=== PATIENT | female | born 1985 | race Caucasian/White ===

== ENCOUNTER → 2016-10-14 | Outpatient (CLI) | payer OTHER ==
[~2016-10-14] MED LIST: ACET500T37 PO; ANEXSIA PO; BIOT1CAP2 PO; CALC250T8 PO; CLEO300C2 PO; IBUP200T PO; IBUP80TA PO; LIPI20TA PO; MOTR200T44 PO; NAPR500T2 PO; NUCY50TA9 PO; PREG25CA PO; VITA500C24 PO; WOMETAB9 PO; birth control PO; flexeril PO
--- NOTE | 2016-11-07 01:49 | ECWPNPC ---
PATIENT NAME: MIKKI HUDSON : 1985 GENDER: FEMALE VISIT DATE: 10/14/2016 DISCHARGE DATE: 10/14/16 0951 VISIT LOCKED DATE TIME: PHYSICIAN: RACHID WEBER RESOURCE: RACHID WEBER REASON FOR APPOINTMENT 1. RIGHT SHOULDER HISTORY OF PRESENT ILLNESS HISTORY OF PRESENT ILLNESS: PAIN THE PATIENT DESCRIBES THE PAIN... FALL RISK SCREENING: SCREENING :NO FALLS IN THE PAST YEAR TODAY'S VISIT: NOTES: FOLLOWUP VISIT FOR RIGHT SHOULDER PAIN. RATES PAIN TODAY 8/10. DESCRIBES PAIN TODAY CONSTANT, ACHING, BURNING, TENDER, THROBBING AND SORE. ON 10/08/16 FOUND THAT THERE ARE SOME ISSUES WITH RECORDS AND 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 THIS INCREASED STRESS INCREASED MUSCLE TIGHTNESS AND THIS HAS INCREASED RIGHT SHOULDER PAIN. CONTINUES TO HAVE LIMITED ROM IN RIGHT SHOULDER.. CURRENT MEDICATIONS TAKING LIPITOR 20 MG TABLET 1 TABLET ORALLY ONCE A DAY TAKING IBUPROFEN 800 MG TABLET 1 TABLET ORALLY THREE TIMES A DAY TAKING NUCYNTA 50 MG TABLET 1 TABLET ORALLY EVERY 6 HRS NEEDED TAKING WOMENS DAILY FORMULA TABLET 1 TAB(S) ORALLY DAILY TAKING CYCLOBENZAPRINE HCL 10 MG TABLET 1 TABLET ORALLY THREE TIMES A DAY NEEDED TAKING JOLESSA 0.15-0.03 MG TABLET 1 TABLET ORALLY ONCE A DAY TAKING PROAIR HFA 108 (90 BASE) MCG/ACT AEROSOL SOLUTION 2 PUFFS NEEDED INHALATION EVERY 4 HRS MEDICATION LIST REVIEWED AND RECONCILED WITH THE PATIENT PAST MEDICAL HISTORY BARBIE ANXIETY, DEPRESSION, BIPOLAR, CLAUSTROPHOBIA MIGRAINE POLYCYSTIC OVARIAN SYNDROME ALLERGIES CEPHALEXIN: HIVES: ALLERGY AZITHROMYCIN: HIVES: ALLERGY AMOXICILLIN: NAUSEA/VOMITING: ALLERGY DOXYCYCLINE (ROSACEA): NAUSEA/VOMITING: ALLERGY TRAMADOL: DIARRHEA/NIGHTMARES: ALLERGY PENICILLIN (FOR ALLERGIES USE ONLY): NAUSEA/VOMITING: ALLERGY SURGICAL HISTORY TONSILECTOMY 2015 TRIAL DCS 06/2015 SOCIAL HISTORY GENERAL: TOBACCO USE ARE YOU A:NONSMOKER LEARNING BARRIERS / SPECIAL NEEDS ORIENTED TO PLAN OF CARE: PATIENT, PAIN MANAGEMENT PATIENT, ORIENTED TO PLAN OF CARE: PATIENT, PAIN MANAGEMENT PATIENT. NEW PATIENT PAIN DIARY TODAY'S VISITNOTES FROM 0-10, WHAT LEVEL IS YOUR PAIN TODAY?0 PAIN CLINIC PFS, CLERGY, PUBLIC HEALTH REFERRALS PFS REFERRAL NEEDED?NO CLERGY REFERRAL NEEDED?NO PUBLIC HEALTH REFERRAL NEEDED?NO WAS THE PROVIDER NOTIFIED OF ANY PERTINENT INFO?NO PFS REFERRAL NEEDED?NO CLERGY REFERRAL NEEDED?NO PUBLIC HEALTH REFERRAL NEEDED?NO WAS THE PROVIDER NOTIFIED OF ANY PERTINENT INFO?NO HOSPITALIZATION/MAJOR DIAGNOSTIC PROCEDURE DCS TRIAL 06/2015 REVIEW OF SYSTEMS CONSTITUTIONAL: ANY CHANGE IN YOUR MEDICAL CONDITION? NO . CHILLS NO . FEVER NO . INFECTION: DO YOU HAVE NEW INFECTIONS? NO . DO YOU HAVE HISTORY OF MRSA? NO . MUSCULOSKELETAL: ANY NEW PATTERNS OF PAIN OR NUMBNESS? NO . GASTROENTEROLOGY: ANY NEW CHANGE IN BOWEL CONTROL? NO . GENITOURINARY: ANY NEW CHANGE IN BLADDER CONTROL? NO . IS THERE A CHANCE YOU COULD BE ? NO . HEMATOLOGY/LYMPH: DO YOU TAKE ANY BLOOD THINNERS? (FOR EXAMPLE- COUMADIN, PLAVIX, AGGRENOX, PLATEL, PRADAXA, OR XARELTO) NO . WHEN WAS YOUR LAST DOSE? DATE: TIME: . NEUROLOGY: HAVE YOU FALLEN IN THE PAST 6 MONTHS? NO . ANY NEW EXTREMITY NUMBNESS OR WEAKNESS? NO . CARDIOLOGY: DO YOU HAVE A PACEMAKER OR DEFIBRILLATOR? NO . RESPIRATORY: HAVE YOU BEEN SICK IN THE PAST WEEK? YES, STATES IS RECOVERING FROM A COLD . FEVER NO . FLU LIKE SYMPTOMS? NO . COUGH NO . INTEGUMENTARY: DO YOU HAVE ANY RASHES OR OPEN SORES? NO . ALLERGIC/IMMUNO: ARE YOU ALLERGIC TO SHELLFISH OR IV DYE? NO . ANY NEW ALLERGIES? NO . PSYCHIATRIC: DO YOU HAVE THOUGHTS OF HURTING YOURSELF OR SOMEONE ELSE? NO . ARE YOU ABUSED, NEGLECTED, OR IN AN UNSAFE ENVIRONMENT? NO . ENDOCRINOLOGY: ARE YOU DIABETIC? NO . OTHER: DO YOU NEED ANY PRESCRIPTIONS? NO . IF YES, PLEASE LIST: ____ . ANY NEW PROBLEMS WITH YOUR MEDICATIONS? NO . WHEN DID YOU LAST EAT? ____ . WHEN DID YOU LAST DRINK? ____ . WHAT DID YOU LAST DRINK? ____ . NAME OF PERSON DRIVING YOU HOME? ____ . DO YOU HAVE ANY OTHER QUESTIONS OR CONCERNS NO . REVIEWED BY: PROVIDER: RACHID DELGADILLO . VITAL SIGNS WT 275 LBS, HT 69 IN, BMI 40.61 INDEX, BP 132/83 MM HG, HR 83 /MIN, RR 16 /MIN, TEMP 98.7 F, OXYGEN SAT % 94, NA INITIALS TL 0845, REVIEWED BY: LS. EXAMINATION GENERAL EXAMINATION: PSYCHALERT , ORIENTED X 3 , APPROPRIATE MOOD AND AFFECT . LUNGS:CLEAR TO AUSCULTATION BILATERALLY. HEART:HEART RATE REGULAR. MUSCULOSKELETAL:EXQUISITE TENDERNESS/ALLODYNIA AT RIGHT SHOULDER. MARKED LOSS OF ROM WITH MOVEMENT AT RIGHT AC JOINT., TRIGGER POINTS:, ELICITED WITH PALPATION OVER ACROSS THE TRAPEZIUS MUSCLES RIGHT SIDE. RESTRICTION OF ROM IS NOTED. IS ABLE TO FLEX FINGERS ACROSS PALM TODAY, ABLE TO FLEX AND EXTEND AT THE RIGHT WRIST AND ABLE TO SLOWLY FLEX AND EXTEND RIGHT ELBOW. STILL WITH MINIMAL ABILITY TO FLEX AND EXTEND AT RIGHT SHOULDER. JOINTS:CAN ABDUCT RIGHT SHOULDER TO 25 DEGREES. IS ABLE TO EXTEND FINGERS ACROSS THE PALM RIGHT SIDE.. ASSESSMENTS RIGHT SHOULDER PAIN - M25.511 TREATMENT OTHERS NOTES: CONTINUE EXERCISES AND STRETCHES. 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 YES ARE THE PATIENT'S COMPLAINTS CONSISTENT WITH HIS/HER HISTORY OF THE INJURY/ILLNESS? YES IS THE PATIENT'S HISTORY OF THE INJURY/ILLNESS CONSISTENT WITH YOUR OBJECTIVE FINDING? YES WHAT IS THE PERCENTAGE OF TEMPORARY IMPAIRMENT? TOTAL = 100% IS THE PATIENT WORKING? NO DOCTOR ON SITE: BISHNU CHARLES MD PROCEDURE CODES FA211 ESTABILISHED PATIENT [facility] CHARGE FOLLOW UP WC NEEDS CHRISTINE APPOINTMENT WITH DR CARDENAS (REASON: WC RIGHT SHOULDER) ELECTRONICALLY SIGNED BY RAUDEL PEPE ON 11/05/2016 AT 08:38 AM EST DISCLAIMER : THIS IS A VISIT SUMMARY EXTRACTED FROM THE [employer] CHART. IT IS NOT A COPY OF THE [employer] PROGRESS NOTE. KAJAL
== END ==
LOC: M PAIN 08:40
PROVIDERS: ATTEND Nurse Practitioner Family
DX: Z09 Encounter for follow-up examination after completed treatment for conditions other than malignant neoplasm (principal); G89.29 Other chronic pain; M25.511 Pain in right shoulder; G43.909 Migraine, unspecified, not intractable, without status migrainosus; F41.9 Anxiety disorder, unspecified; F31.9 Bipolar disorder, unspecified; F40.240 Claustrophobia; G47.33 Obstructive sleep apnea (adult) (pediatric); Z88.1 Allergy status to other antibiotic agents; Z88.0 Allergy status to penicillin; Z88.5 Allergy status to narcotic agent; Z88.8 Allergy status to other drugs, medicaments and biological substances; Z79.1 Long term (current) use of non-steroidal anti-inflammatories (NSAID); Z79.899 Other long term (current) drug therapy

== ENCOUNTER → 2016-10-21 | Outpatient (CLI) | payer OTHER ==
--- NOTE | 2016-10-28 23:51 | ECWPNPC ---
PATIENT NAME: MIKKI HUDSON : 1985 GENDER: FEMALE VISIT DATE: 10/21/2016 DISCHARGE DATE: 10/21/16 1030 VISIT LOCKED DATE TIME: PHYSICIAN: BISHNU CARDENAS RESOURCE: BISHNU CARDENAS REASON FOR APPOINTMENT 1. W/C FOLLOW UP HISTORY OF PRESENT ILLNESS HISTORY OF PRESENT ILLNESS: PAIN THE PATIENT DESCRIBES THE PAIN... 30 YEAR OLD FEMALE PATIENT WITH HISTORY OF CHRONIC RIGHT SHOULDER PAIN. PATIENT DESCRIBES THE PAIN ACHING, TENDER, SORE, AND HAVING IT ALL THE TIME WITH A PAIN SCORE OF 8/10. PATIENT WAS INJURED IN A WORK RELATED ACCIDENT ON 11/24/2013 WORKING FOR [employer], WHEN SHE SLIPPED ON AN ICY AREA OF THE SIDEWALK AND SLAMMED INTO A BRICK WALL INJURING HER RIGHT SHOULDER. PATIENT INDICATES THAT ANY TYPE OF MOVEMENT ON HER RIGHT SHOULDER INCREASES HER PAIN LEVELS. PATIENT INDICATES THAT A HEATING PAD DOES HELP RELIEVE THE KNOTS IN THE MUSCLES IN HER RIGHT SHOULDER AND THAT A COLD COMPRESS DOES NOTHING FOR PAIN RELIEF. PATIENT INDICATES THAT NUCYNTA MAKES HER VERY DROWSY AND WOULD LIKE TO TRY ANOTHER TYPE OF MEDICATION THAT DOES NOT MAKE HER FALL ASLEEP EVERY TIME SHE TAKES IT. PATIENT DENIES UNEXPLAINABLE WEIGHT LOSS, FEVER, CHILLS, NEW CHANGES ON HER URINARY OR BOWEL CONTROL. FALL RISK SCREENING: SCREENING :NO FALLS IN THE PAST YEAR CURRENT MEDICATIONS TAKING LIPITOR 20 MG TABLET 1 TABLET ORALLY ONCE A DAY TAKING IBUPROFEN 800 MG TABLET 1 TABLET ORALLY THREE TIMES A DAY TAKING NUCYNTA 50 MG TABLET 1 TABLET ORALLY EVERY 6 HRS NEEDED TAKING WOMENS DAILY FORMULA TABLET 1 TAB(S) ORALLY DAILY TAKING CYCLOBENZAPRINE HCL 10 MG TABLET 1 TABLET ORALLY THREE TIMES A DAY NEEDED TAKING JOLESSA 0.15-0.03 MG TABLET 1 TABLET ORALLY ONCE A DAY TAKING PROAIR HFA 108 (90 BASE) MCG/ACT AEROSOL SOLUTION 2 PUFFS NEEDED INHALATION EVERY 4 HRS MEDICATION LIST REVIEWED AND RECONCILED WITH THE PATIENT PAST MEDICAL HISTORY BARBIE ANXIETY, DEPRESSION, BIPOLAR, CLAUSTROPHOBIA MIGRAINE POLYCYSTIC OVARIAN SYNDROME ALLERGIES CEPHALEXIN: HIVES: ALLERGY AZITHROMYCIN: HIVES: ALLERGY AMOXICILLIN: NAUSEA/VOMITING: ALLERGY DOXYCYCLINE (ROSACEA): NAUSEA/VOMITING: ALLERGY TRAMADOL: DIARRHEA/NIGHTMARES: ALLERGY PENICILLIN (FOR ALLERGIES USE ONLY): NAUSEA/VOMITING: ALLERGY SURGICAL HISTORY TONSILECTOMY 2015 TRIAL DCS 06/2015 FAMILY HISTORY NO FAMILY HISTORY DOCUMENTED. SOCIAL HISTORY GENERAL: TOBACCO USE ARE YOU A:NONSMOKER LEARNING BARRIERS / SPECIAL NEEDS ORIENTED TO PLAN OF CARE: PATIENT, PAIN MANAGEMENT PATIENT, ORIENTED TO PLAN OF CARE: PATIENT, PAIN MANAGEMENT PATIENT. NEW PATIENT PAIN DIARY TODAY'S VISITNOTES FROM 0-10, WHAT LEVEL IS YOUR PAIN TODAY?0 PAIN CLINIC PFS, CLERGY, PUBLIC HEALTH REFERRALS PFS REFERRAL NEEDED?NO CLERGY REFERRAL NEEDED?NO PUBLIC HEALTH REFERRAL NEEDED?NO WAS THE PROVIDER NOTIFIED OF ANY PERTINENT INFO?NO PFS REFERRAL NEEDED?NO CLERGY REFERRAL NEEDED?NO PUBLIC HEALTH REFERRAL NEEDED?NO WAS THE PROVIDER NOTIFIED OF ANY PERTINENT INFO?NO HOSPITALIZATION/MAJOR DIAGNOSTIC PROCEDURE DCS TRIAL 06/2015 REVIEW OF SYSTEMS CONSTITUTIONAL: ANY CHANGE IN YOUR MEDICAL CONDITION? NO . CHILLS NO . FEVER NO . INFECTION: DO YOU HAVE NEW INFECTIONS? NO . DO YOU HAVE HISTORY OF MRSA? NO . MUSCULOSKELETAL: ANY NEW PATTERNS OF PAIN OR NUMBNESS? NO . GASTROENTEROLOGY: ANY NEW CHANGE IN BOWEL CONTROL? NO . GENITOURINARY: ANY NEW CHANGE IN BLADDER CONTROL? NO . IS THERE A CHANCE YOU COULD BE ? NO . HEMATOLOGY/LYMPH: DO YOU TAKE ANY BLOOD THINNERS? (FOR EXAMPLE- COUMADIN, PLAVIX, AGGRENOX, PLATEL, PRADAXA, OR XARELTO) NO . WHEN WAS YOUR LAST DOSE? DATE: TIME: . NEUROLOGY: HAVE YOU FALLEN IN THE PAST 6 MONTHS? NO . ANY NEW EXTREMITY NUMBNESS OR WEAKNESS? NO . CARDIOLOGY: DO YOU HAVE A PACEMAKER OR DEFIBRILLATOR? NO . RESPIRATORY: HAVE YOU BEEN SICK IN THE PAST WEEK? YES, JUST GETTING OVER A COLD, COUGH AND CHEST COLD. . FEVER NO . FLU LIKE SYMPTOMS? NO . COUGH NO . INTEGUMENTARY: DO YOU HAVE ANY RASHES OR OPEN SORES? NO . ALLERGIC/IMMUNO: ARE YOU ALLERGIC TO SHELLFISH OR IV DYE? NO . ANY NEW ALLERGIES? NO . PSYCHIATRIC: DO YOU HAVE THOUGHTS OF HURTING YOURSELF OR SOMEONE ELSE? NO . ARE YOU ABUSED, NEGLECTED, OR IN AN UNSAFE ENVIRONMENT? NO . ENDOCRINOLOGY: ARE YOU DIABETIC? NO . OTHER: DO YOU NEED ANY PRESCRIPTIONS? NO . IF YES, PLEASE LIST: ____ . ANY NEW PROBLEMS WITH YOUR MEDICATIONS? NO . WHEN DID YOU LAST EAT? ____ . WHEN DID YOU LAST DRINK? ____ . WHAT DID YOU LAST DRINK? ____ . NAME OF PERSON DRIVING YOU HOME? ____ . DO YOU HAVE ANY OTHER QUESTIONS OR CONCERNS NO . REVIEWED BY: PROVIDER: BISHNU CARDENAS MD . VITAL SIGNS WT 275 LBS, HT 69 IN, BMI 40.61 INDEX, BP 132/88 MM HG, HR 96 /MIN, RR 16 /MIN, TEMP 99 F, OXYGEN SAT % 100%, SAFE IN ENV? (Y/N) Y, NA INITIALS [place] 09:18, REVIEWED BY: HONG. EXAMINATION : PATIENT IS ALERT O X 3 AND COOPERATIVE. PATIENT WORE A COAT TO HER VISIT TODAY, AND HAD DIFFICULTIES REMOVING HER COAT IN ORDER FOR ME EXAM HER RIGHT SHOULDER. PATIENT IS ABLE TO ABDUCT HER LEFT ARM BUT NOT HER RIGHT. PATIENT IS ABLE TO FLEX HER LEFT ELBOW BUT NOT HER RIGHT. PATIENT HAS HYPERPATHIA/ALLODYNIA ON THE RIGHT SHOULDER. 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 HUDSON'S PAIN MANAGEMENT CASE. URINE TOX DONE ON 10/16/2014 SHOWS CONSISTENT RESULTS. PATIENT BROUGHT HER MEDICATION BOTTLES TO TODAY'S VISIT IS A BAG WITH A ZIPPER. WHEN OPENING THE BAG THE PATIENT USED HER MOUTH WITH HER LEFT ARM TO OPEN THE BAG. PATIENT WILL HAVE ANOTHER URINE TEST DONE ON THE NEXT VISIT. WITH THE NUCYNTA CONSTANTLY MAKING THE PATIENT DROWSY AND WITH OUT ANY CLEAR RESULTS OF PAIN RELIEF, PATIENT WILL START TO WEAN DOWN ON THE MEDICATION. PATIENT TO START ON OXYCODONE TODAY. OPIOID RISK TOOL COMPLETED TODAY. PATIENT TO FOLLOW UP IN TWO TO THREE WEEKS WITH ME. INSTRUCTIONS WERE GIVEN, QUESTIONS WERE ANSWERED, PATIENT REPORTS UNDERSTANDING AND AGREES WITH THE PLAN. I, JOCELYN PICKETT, DOCUMENTED THE ABOVE INFORMATION ACTING A SCRIBE FOR DR. CARDENAS. I HAVE REVIEWED THE ABOVE DOCUMENT, WRITTEN BY JOCELYN WINKLER AND I VERIFY THAT IT IS ACCURATE. 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 YES ARE THE PATIENT'S COMPLAINTS CONSISTENT WITH HIS/HER HISTORY OF THE INJURY/ILLNESS? YES IS THE PATIENT'S HISTORY OF THE INJURY/ILLNESS CONSISTENT WITH YOUR OBJECTIVE FINDING? YES WHAT IS THE PERCENTAGE OF TEMPORARY IMPAIRMENT? TOTAL = 100% IS THE PATIENT WORKING? NO DOCTOR ON SITE: BISHNU CHARLES MD PROCEDURE CODES FA211 ESTABILISHED PATIENT [facility] FACILITY CHARGE G8730 PAIN ASSESS POS TOOL F/U PLAN DOC G8427 DOC MEDS VERIFIED W/PT OR RE FOLLOW UP 3 WEEKS ELECTRONICALLY SIGNED BY BISHNU CARDENAS MD ON 10/28/2016 AT 07:28 PM EST DISCLAIMER : THIS IS A VISIT SUMMARY EXTRACTED FROM THE [employer] CHART. IT IS NOT A COPY OF THE [employer] PROGRESS NOTE. KAJAL
== END ==
LOC: M PAIN 09:20
PROVIDERS: ATTEND Anesthesiology
DX: Z09 Encounter for follow-up examination after completed treatment for conditions other than malignant neoplasm (principal); G90.511 Complex regional pain syndrome I of right upper limb; M25.511 Pain in right shoulder; G47.30 Sleep apnea, unspecified; G43.909 Migraine, unspecified, not intractable, without status migrainosus; F41.9 Anxiety disorder, unspecified; F31.9 Bipolar disorder, unspecified; F40.240 Claustrophobia; Z88.1 Allergy status to other antibiotic agents; Z88.5 Allergy status to narcotic agent; Z88.0 Allergy status to penicillin; Z88.8 Allergy status to other drugs, medicaments and biological substances; Z79.1 Long term (current) use of non-steroidal anti-inflammatories (NSAID); Z79.899 Other long term (current) drug therapy

== ENCOUNTER → 2016-11-06 | Outpatient (CLI) | payer OTHER ==
--- NOTE | 2016-11-20 01:10 | ECWPNPC ---
PATIENT NAME: MIKKI HUDSON : 1985 GENDER: FEMALE VISIT DATE: 11/06/2016 DISCHARGE DATE: 11/06/16 1350 VISIT LOCKED DATE TIME: PHYSICIAN: BISHNU CARDENAS RESOURCE: BISHNU CARDENAS REASON FOR APPOINTMENT 1. W/C RIGHT SHOULDER HISTORY OF PRESENT ILLNESS HISTORY OF PRESENT ILLNESS: PAIN THE PATIENT DESCRIBES THE PAIN... 31 YEAR OLD FEMALE PATIENT WITH HISTORY OF CHRONIC RIGHT SHOULDER PAIN. PATIENT DESCRIBES THE PAIN ACHING, TENDER, THROBBING, SORE AND HAVING IT ALL THE TIME WITH A PAIN SCORE OF 8/10 ON TODAY'S VISIT. PATIENT WAS INJURED IN A WORK RELATED ACCIDENT ON 11/24/2013 WORKING FOR [employer], WHEN SHE SLIPPED ON AN ICY AREA OF THE SIDEWALK AND SLAMMED INTO A BRICK WALL INJURING HER RIGHT SHOULDER. PATIENT INDICATES THAT ANY TYPE OF MOVEMENT ON HER RIGHT SHOULDER INCREASES HER PAIN LEVELS. PATIENT REPORTS THAT HYDROCODONE-ACETAMINOPHEN PROVIDES HER WITH PAIN RELIEF FOR TWO HOURS, BUT DOES NOT MAKE HER FALL ASLEEP LIKE NUCYNTA. PATIENT REPORTS THAT SHE HAS HAD PT IN THE PAST AND IT DID WORK FOR HER. , PATIENT DENIES UNEXPLAINABLE WEIGHT LOSS, FEVER, CHILLS, NEW CHANGES ON HER URINARY OR BOWEL CONTROL. FALL RISK SCREENING: SCREENING :NO FALLS IN THE PAST YEAR CURRENT MEDICATIONS TAKING HYDROCODONE-ACETAMINOPHEN 7.5-325 MG TABLET 1 TABLET NEEDED ORALLY EVERY 6 HRS NEEDED FOR PAIN MDD3 TAKING LIPITOR 20 MG TABLET 1 TABLET ORALLY ONCE A DAY TAKING IBUPROFEN 800 MG TABLET 1 TABLET ORALLY THREE TIMES A DAY TAKING NUCYNTA 50 MG TABLET 1 TABLET ORALLY EVERY 6 HRS NEEDED TAKING WOMENS DAILY FORMULA TABLET 1 TAB(S) ORALLY DAILY TAKING CYCLOBENZAPRINE HCL 10 MG TABLET 1 TABLET ORALLY THREE TIMES A DAY NEEDED TAKING JOLESSA 0.15-0.03 MG TABLET 1 TABLET ORALLY ONCE A DAY TAKING PROAIR HFA 108 (90 BASE) MCG/ACT AEROSOL SOLUTION 2 PUFFS NEEDED INHALATION EVERY 4 HRS MEDICATION LIST REVIEWED AND RECONCILED WITH THE PATIENT PAST MEDICAL HISTORY BARBIE ANXIETY, DEPRESSION, BIPOLAR, CLAUSTROPHOBIA MIGRAINE POLYCYSTIC OVARIAN SYNDROME ALLERGIES CEPHALEXIN: HIVES: ALLERGY AZITHROMYCIN: HIVES: ALLERGY AMOXICILLIN: NAUSEA/VOMITING: ALLERGY DOXYCYCLINE (ROSACEA): NAUSEA/VOMITING: ALLERGY TRAMADOL: DIARRHEA/NIGHTMARES: ALLERGY PENICILLIN (FOR ALLERGIES USE ONLY): NAUSEA/VOMITING: ALLERGY SURGICAL HISTORY TONSILECTOMY 2015 TRIAL DCS 06/2015 FAMILY HISTORY NO FAMILY HISTORY DOCUMENTED. SOCIAL HISTORY GENERAL: TOBACCO USE ARE YOU A:NONSMOKER LEARNING BARRIERS / SPECIAL NEEDS ORIENTED TO PLAN OF CARE: PATIENT, PAIN MANAGEMENT PATIENT, ORIENTED TO PLAN OF CARE: PATIENT, PAIN MANAGEMENT PATIENT. NEW PATIENT PAIN DIARY TODAY'S VISITNOTES FROM 0-10, WHAT LEVEL IS YOUR PAIN TODAY?0 PAIN CLINIC PFS, CLERGY, PUBLIC HEALTH REFERRALS PFS REFERRAL NEEDED?NO CLERGY REFERRAL NEEDED?NO PUBLIC HEALTH REFERRAL NEEDED?NO WAS THE PROVIDER NOTIFIED OF ANY PERTINENT INFO?NO PFS REFERRAL NEEDED?NO CLERGY REFERRAL NEEDED?NO PUBLIC HEALTH REFERRAL NEEDED?NO WAS THE PROVIDER NOTIFIED OF ANY PERTINENT INFO?NO HOSPITALIZATION/MAJOR DIAGNOSTIC PROCEDURE DCS TRIAL 06/2015 REVIEW OF SYSTEMS CONSTITUTIONAL: ANY CHANGE IN YOUR MEDICAL CONDITION? NO . CHILLS NO . FEVER YES 2 DAYS AGO 100 DEGREES . INFECTION: DO YOU HAVE NEW INFECTIONS? NO . DO YOU HAVE HISTORY OF MRSA? NO . MUSCULOSKELETAL: ANY NEW PATTERNS OF PAIN OR NUMBNESS? NO . GASTROENTEROLOGY: ANY NEW CHANGE IN BOWEL CONTROL? NO . GENITOURINARY: ANY NEW CHANGE IN BLADDER CONTROL? NO . IS THERE A CHANCE YOU COULD BE ? NO . HEMATOLOGY/LYMPH: DO YOU TAKE ANY BLOOD THINNERS? (FOR EXAMPLE- COUMADIN, PLAVIX, AGGRENOX, PLATEL, PRADAXA, OR XARELTO) NO . WHEN WAS YOUR LAST DOSE? DATE: TIME: . NEUROLOGY: HAVE YOU FALLEN IN THE PAST 6 MONTHS? NO . ANY NEW EXTREMITY NUMBNESS OR WEAKNESS? NO . CARDIOLOGY: DO YOU HAVE A PACEMAKER OR DEFIBRILLATOR? NO . RESPIRATORY: HAVE YOU BEEN SICK IN THE PAST WEEK? YES URI . FEVER YES . FLU LIKE SYMPTOMS? NO . COUGH YES, CLEAR SPUTUM, PRODUCTIVE . INTEGUMENTARY: DO YOU HAVE ANY RASHES OR OPEN SORES? NO . ALLERGIC/IMMUNO: ARE YOU ALLERGIC TO SHELLFISH OR IV DYE? NO . ANY NEW ALLERGIES? NO . PSYCHIATRIC: DO YOU HAVE THOUGHTS OF HURTING YOURSELF OR SOMEONE ELSE? NO . ARE YOU ABUSED, NEGLECTED, OR IN AN UNSAFE ENVIRONMENT? NO . ENDOCRINOLOGY: ARE YOU DIABETIC? NO . OTHER: DO YOU NEED ANY PRESCRIPTIONS? NO . IF YES, PLEASE LIST: ____ . ANY NEW PROBLEMS WITH YOUR MEDICATIONS? NO . WHEN DID YOU LAST EAT? ____ . WHEN DID YOU LAST DRINK? ____ . WHAT DID YOU LAST DRINK? ____ . NAME OF PERSON DRIVING YOU HOME? ____ . DO YOU HAVE ANY OTHER QUESTIONS OR CONCERNS NO . REVIEWED BY: PROVIDER: BISHNU CARDENAS MD . VITAL SIGNS WT 293.4 LBS, HT 69 IN, BMI 43.32 INDEX, BP 150/83 MM HG, HR 74 /MIN, RR 16 /MIN, TEMP 98.7 F, OXYGEN SAT % 96, NA INITIALS TL 1117, REVIEWED BY: MLF. EXAMINATION : PATIENT IS ALERT O X 3 AND COOPERATIVE. PATIENT HAS DIFFICULTIES REMOVING HER COAT FOR THE EXAMINATION. THERE IS ALLODYNIA ON THE RIGHT SHOULDER. PATIENT IS ONLY ABLE TO ABDUCT HER LEFT ARM ONLY. RIGHT HAND GASKET NOTCHER AND STRENGTH AND BEEN GREATLY REDUCED. WHEN SITTING AT REST THE PATIENT'S LEFT SHOULDER SITS HIGHER THAN HER RIGHT SHOULDER. ASSESSMENTS PAIN IN RIGHT SHOULDER - M25.511 RIGHT SHOULDER NEUROPATHY. TREATMENT OTHERS REFILL HYDROCODONE-ACETAMINOPHEN TABLET, 7.5-325 MG, 1 TABLET NEEDED, ORALLY, EVERY 4 HRS NEEDED FOR PAIN MDD5, 30 DAY(S), 145, REFILLS 0 NOTES: WE DISCUSSED SEVERAL ISSUES WITH MS. HUDSON'S PAIN MANAGEMENT CASE. AT THIS TIME THE PATIENT WILL RECEIVE A REFILL OF THE HYDROCODONE-ACETAMINOPHEN. I DISCUSSED WITH THE PATIENT ABOUT THE POSSIBILITY OF A BURST STIMULATION FOR HER RIGHT SHOULDER, PATIENT INDICATED THAT SHE IS WILLING TO GET IT A TRY. PATIENT BROUGHT IN HER MEDICATION BOTTLES TODAY. SINCE THE PATIENT IS NOT USING NUCYNTA AND CYCLOBENZAPRINE I WILL HAVE THE REMAINING TABLETS BE DESTROYED. PATIENT WILL FOLLOW UP WITH ME IN 4 WEEKS. INSTRUCTIONS WERE GIVEN, QUESTIONS WERE ANSWERED, PATIENT REPORTS UNDERSTANDING AND AGREES WITH THE PLAN. I, JOCELYN PICKETT, DOCUMENTED THE ABOVE INFORMATION ACTING A SCRIBE FOR DR. CARDENAS. I HAVE REVIEWED THE ABOVE DOCUMENT, WRITTEN BY JOCELYN WINKLER AND I VERIFY THAT IT IS ACCURATE. 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 YES ARE THE PATIENT'S COMPLAINTS CONSISTENT WITH HIS/HER HISTORY OF THE INJURY/ILLNESS? YES IS THE PATIENT'S HISTORY OF THE INJURY/ILLNESS CONSISTENT WITH YOUR OBJECTIVE FINDING? YES WHAT IS THE PERCENTAGE OF TEMPORARY IMPAIRMENT? TOTAL = 100% IS THE PATIENT WORKING? NO DOCTOR ON SITE: BISHNU CHARLES MD PROCEDURE CODES FA211 ESTABILISHED PATIENT [facility] FACILITY CHARGE G8730 PAIN ASSESS POS TOOL F/U PLAN DOC G8427 DOC MEDS VERIFIED W/PT OR RE DISPOSITION & COMMUNICATION FOLLOW UP 3 WEEKS ELECTRONICALLY SIGNED BY BISHNU CARDENAS MD ON 11/19/2016 AT 08:25 AM EST DISCLAIMER : THIS IS A VISIT SUMMARY EXTRACTED FROM THE [employer] CHART. IT IS NOT A COPY OF THE [employer] PROGRESS NOTE. MTDD
== END ==
LOC: M PAIN 11:00
PROVIDERS: ATTEND Anesthesiology
DX: Z09 Encounter for follow-up examination after completed treatment for conditions other than malignant neoplasm (principal); G89.29 Other chronic pain; M25.511 Pain in right shoulder; M79.1 Myalgia; G90.511 Complex regional pain syndrome I of right upper limb; G47.33 Obstructive sleep apnea (adult) (pediatric); F41.9 Anxiety disorder, unspecified; F31.9 Bipolar disorder, unspecified; F40.240 Claustrophobia; G43.909 Migraine, unspecified, not intractable, without status migrainosus; Z88.8 Allergy status to other drugs, medicaments and biological substances; Z88.3 Allergy status to other anti-infective agents; Z88.5 Allergy status to narcotic agent; Z88.0 Allergy status to penicillin; Z79.891 Long term (current) use of opiate analgesic; Z79.1 Long term (current) use of non-steroidal anti-inflammatories (NSAID); Z79.899 Other long term (current) drug therapy

== ENCOUNTER → 2016-11-14 | Outpatient (CLI) | payer MEDICAID | END | disposition home or self-care (01) | LOC: M LAB 07:44 | PROVIDERS: ATTEND Nurse Practitioner Family | DX: E55.9 Vitamin D deficiency, unspecified (principal) ==

== ENCOUNTER → 2016-12-04 | Outpatient (REF) | payer MEDICAID ==
[2016-12-04 13:17] LABS: ALBUMIN 3.9 GM/DL (3.2-5.2); ALBUMIN/GLOBULIN RATIO 1.05 (1.00-1.93); ALKALINE PHOSPHATASE 74 U/L (45-117); ALT/SGPT 20 U/L (12-78); ANION GAP 13 MEQ/L (8-16); AST/SGOT 10 U/L (15-37); BILIRUBIN,TOTAL 0.4 MG/DL (0.2-1.0); BLOOD UREA NITROGEN 16 MG/DL (7-18); CALCIUM LEVEL 9.1 MG/DL (8.5-10.1); CARBON DIOXIDE LEVEL 22 MEQ/L (21-32); CHLORIDE LEVEL 104 MEQ/L (98-107); CHOLESTEROL LEVEL 188 MG/DL (<200); CREATININE FOR GFR 0.79 MG/DL (0.55-1.02); FREE T4 1.08 NG/DL (0.76-1.46); GLOMERULAR FILTRATION RATE > 60.0 (>60); GLUCOSE, FASTING 86 MG/DL (70-105); POTASSIUM SERUM 4.2 MEQ/L (3.5-5.1); SODIUM LEVEL 139 MEQ/L (136-145); TOTAL PROTEIN 7.6 GM/DL (6.4-8.2); TRIGLYCERIDES LEVEL 190 MG/DL (<150)
== END ==
LOC: M LAB REF 12:07
PROVIDERS: ATTEND Nurse Practitioner Family
DX: F31.9 Bipolar disorder, unspecified (principal); R63.1 Polydipsia; E55.9 Vitamin D deficiency, unspecified; E78.5 Hyperlipidemia, unspecified

== ENCOUNTER → 2016-12-16 | Outpatient (CLI) | payer OTHER, MEDICAID ==
--- NOTE | 2016-12-17 09:43 | REP ---
MRI LUMBAR SPINE WITHOUT CONTRAST: HISTORY: Back pain. COMPARISON: 02/20/2015. Decreased signal intensity on T2-weighted images is present in the L4-5 and L5-S1 intervertebral discs. This represents disc degeneration. There is no disc bulge or herniation at the L1-2 through L3-4 levels. The nerves exit the neural foramina without compression. A diffuse disc bulge is present at the L4-5 level. There is minimal compression of the thecal sac. The L4 nerves exit the neural foramina without compression. A diffuse disc bulge and small central disc protrusion are present at the L5-S1 level. There is minimal compression of the thecal sac. The L5 nerves exit the neural foramina without compression. The conus medullaris is normal in appearance terminating at the level of the L1-2 intervertebral disc. Normal signal intensity is present in the lumbar vertebral bodies. IMPRESSION: 1. Diffuse disc bulge at the L4-5 level with minimal thecal sac compression. 2. Diffuse disc bulge and small central disc protrusion at the L5-S1 level with minimal thecal sac compression. The disc protrusion is a new finding. Signed by Cale Arrieta MD 12/17/2016 09:49 A
== END ==
LOC: M RAD 17:43
PROVIDERS: ATTEND Nurse Practitioner Family
DX: M51.06 Intervertebral disc disorders with myelopathy, lumbar region (principal); M51.17 Intervertebral disc disorders with radiculopathy, lumbosacral region

== ENCOUNTER → 2016-12-19 | Outpatient (CLI) | payer OTHER ==
--- NOTE | 2016-12-25 00:33 | ECWPNPC ---
PATIENT NAME: MIKKI HUDSON : 1985 GENDER: FEMALE VISIT DATE: 12/19/2016 DISCHARGE DATE: 12/19/16 1515 VISIT LOCKED DATE TIME: PHYSICIAN: BISHNU CARDENAS RESOURCE: BISHNU CARDENAS REASON FOR APPOINTMENT 1. W/C RIGHT SHOULDER HISTORY OF PRESENT ILLNESS HISTORY OF PRESENT ILLNESS: PAIN THE PATIENT DESCRIBES THE PAIN... 31 YEAR OLD FEMALE PATIENT WITH HISTORY OF CHRONIC RIGHT SHOULDER PAIN. PATIENT DESCRIBES THE PAIN ACHING, BURNING, TENDER, THROBBING, AND HAVING IT ALL THE TIME WITH A PAIN SCORE OF 9/10 ON TODAY'S VISIT. PATIENT WAS INJURED IN A WORK RELATED INJURY ON 11/06/2016 WORKING FOR [employer]. PATIENT WAS WALKING ON THE SIDEWALK WHEN SHE SLIPPED ON AN ICY AREA AND SLAMMING HER RIGHT SHOULDER INTO A BRICK WALL. PATIENT DENIES ANY SURGERY ON HER RIGHT SHOULDER. PATIENT REPORTS THAT SHE HAS TRIED PHYSICAL THERAPY AND IT DID WORK FOR HER, IT INCREASED HER FUNCTIONALITY ON THE RIGHT SHOULDER. PATIENT REPORTS THAT SHE HAS RADIATING PAIN TO HER NECK FROM HER RIGHT SHOULDER, AND IT HURTS TO MOVE HER NECK. PATIENT STATES HYDROCODONE DOES NOT REALLY HELP WITH HER PAIN. PATIENT REPORTS THAT HER RIGHT SHOULDER SWEATS MORE THAN HER LEFT. PATIENT REPORTS THAT SHE HAS DIFFICULTIES SLEEPING AT NIGHT DUE TO THE PAIN WAKING HER UP MULTIPLE TIMES. , PATIENT DENIES UNEXPLAINABLE WEIGHT LOSS, FEVER, CHILLS, NEW CHANGES ON HER URINARY OR BOWEL CONTROL. FALL RISK SCREENING: SCREENING :NO FALLS IN THE PAST YEAR CURRENT MEDICATIONS TAKING HYDROCODONE-ACETAMINOPHEN 7.5-325 MG TABLET 1 TABLET NEEDED ORALLY EVERY 4 HRS NEEDED FOR PAIN MDD5 TAKING LIPITOR 20 MG TABLET 1 TABLET ORALLY ONCE A DAY TAKING IBUPROFEN 800 MG TABLET 1 TABLET ORALLY THREE TIMES A DAY TAKING WOMENS DAILY FORMULA TABLET 1 TAB(S) ORALLY DAILY TAKING JOLESSA 0.15-0.03 MG TABLET 1 TABLET ORALLY ONCE A DAY TAKING PROAIR HFA 108 (90 BASE) MCG/ACT AEROSOL SOLUTION 2 PUFFS NEEDED INHALATION EVERY 4 HRS TAKING TRAZODONE HCL 50 MG TABLET 1 TABLET AT BEDTIME ORALLY ONCE A DAY TAKING METFORMIN HCL 500 MG TABLET 1 TABLET WITH MEALS ORALLY ONCE A DAY TAKING VITAMIN D-3 1000 UNIT CAPSULE 1 CAPSULE ORALLY 2000UNITS DAILY TAKING DRISDOL 89569 UNIT CAPSULE 1 CAPSULE ORALLY WEEKLY DISCONTINUED NUCYNTA 50 MG TABLET 1 TABLET ORALLY EVERY 6 HRS NEEDED DISCONTINUED CYCLOBENZAPRINE HCL 10 MG TABLET 1 TABLET ORALLY THREE TIMES A DAY NEEDED MEDICATION LIST REVIEWED AND RECONCILED WITH THE PATIENT PAST MEDICAL HISTORY BARBIE ANXIETY, DEPRESSION, BIPOLAR, CLAUSTROPHOBIA MIGRAINE POLYCYSTIC OVARIAN SYNDROME VITAMIN D DEFICIENCY ALLERGIES CEPHALEXIN: HIVES: ALLERGY AZITHROMYCIN: HIVES: ALLERGY AMOXICILLIN: NAUSEA/VOMITING: ALLERGY DOXYCYCLINE (ROSACEA): NAUSEA/VOMITING: ALLERGY TRAMADOL: DIARRHEA/NIGHTMARES: ALLERGY PENICILLIN (FOR ALLERGIES USE ONLY): NAUSEA/VOMITING: ALLERGY SURGICAL HISTORY TONSILECTOMY 2014 TRIAL DCS 06/2015 FAMILY HISTORY NO FAMILY HISTORY DOCUMENTED. SOCIAL HISTORY GENERAL: TOBACCO USE ARE YOU A:NONSMOKER LEARNING BARRIERS / SPECIAL NEEDS ORIENTED TO PLAN OF CARE: PATIENT, PAIN MANAGEMENT PATIENT, ORIENTED TO PLAN OF CARE: PATIENT, PAIN MANAGEMENT PATIENT. NEW PATIENT PAIN DIARY TODAY'S VISITNOTES FROM 0-10, WHAT LEVEL IS YOUR PAIN TODAY?0 PAIN CLINIC PFS, CLERGY, PUBLIC HEALTH REFERRALS PFS REFERRAL NEEDED?NO CLERGY REFERRAL NEEDED?NO PUBLIC HEALTH REFERRAL NEEDED?NO WAS THE PROVIDER NOTIFIED OF ANY PERTINENT INFO?NO PFS REFERRAL NEEDED?NO CLERGY REFERRAL NEEDED?NO PUBLIC HEALTH REFERRAL NEEDED?NO WAS THE PROVIDER NOTIFIED OF ANY PERTINENT INFO?NO HOSPITALIZATION/MAJOR DIAGNOSTIC PROCEDURE DCS TRIAL 06/2015 REVIEW OF SYSTEMS CONSTITUTIONAL: ANY CHANGE IN YOUR MEDICAL CONDITION? NO . CHILLS NO . FEVER NO . INFECTION: DO YOU HAVE NEW INFECTIONS? NO . DO YOU HAVE HISTORY OF MRSA? NO . MUSCULOSKELETAL: ANY NEW PATTERNS OF PAIN OR NUMBNESS? NO . GASTROENTEROLOGY: ANY NEW CHANGE IN BOWEL CONTROL? NO . GENITOURINARY: ANY NEW CHANGE IN BLADDER CONTROL? NO . IS THERE A CHANCE YOU COULD BE ? NO . HEMATOLOGY/LYMPH: DO YOU TAKE ANY BLOOD THINNERS? (FOR EXAMPLE- COUMADIN, PLAVIX, AGGRENOX, PLATEL, PRADAXA, OR XARELTO) NO . WHEN WAS YOUR LAST DOSE? DATE: TIME: . NEUROLOGY: HAVE YOU FALLEN IN THE PAST 6 MONTHS? NO . ANY NEW EXTREMITY NUMBNESS OR WEAKNESS? NO . CARDIOLOGY: DO YOU HAVE A PACEMAKER OR DEFIBRILLATOR? NO . RESPIRATORY: HAVE YOU BEEN SICK IN THE PAST WEEK? NO . FEVER NO . FLU LIKE SYMPTOMS? NO . COUGH NO . INTEGUMENTARY: DO YOU HAVE ANY RASHES OR OPEN SORES? NO . ALLERGIC/IMMUNO: ARE YOU ALLERGIC TO SHELLFISH OR IV DYE? NO . ANY NEW ALLERGIES? NO . PSYCHIATRIC: DO YOU HAVE THOUGHTS OF HURTING YOURSELF OR SOMEONE ELSE? NO . ARE YOU ABUSED, NEGLECTED, OR IN AN UNSAFE ENVIRONMENT? NO . ENDOCRINOLOGY: ARE YOU DIABETIC? NO . OTHER: DO YOU NEED ANY PRESCRIPTIONS? NO . IF YES, PLEASE LIST: ____ . ANY NEW PROBLEMS WITH YOUR MEDICATIONS? NO . WHEN DID YOU LAST EAT? ____ . WHEN DID YOU LAST DRINK? ____ . WHAT DID YOU LAST DRINK? ____ . NAME OF PERSON DRIVING YOU HOME? ____ . DO YOU HAVE ANY OTHER QUESTIONS OR CONCERNS NO . REVIEWED BY: PROVIDER: BISHNU CARDENAS MD . VITAL SIGNS WT 285.0 LBS, HT 69 IN, BMI 42.08 INDEX, BP 137/80 MM HG, HR 86 /MIN, RR 18 /MIN, TEMP 98.2 F, OXYGEN SAT % 96, NA INITIALS TL 1332, REVIEWED BY: MLF. EXAMINATION : PATIENT IS ALERT O X 3 AND COOPERATIVE. PATIENT HAD DIFFICULTIES REMOVING HER COAT. PATIENT IS ONLY ABLE TO ABDUCT HER LEFT ARM, SHE HAS DIFFICULTIES MOVING HER RIGHT ARM IN ANY TYPE OF MOVEMENT. PATIENT'S RIGHT SHOULDER AT REST SIT LOWER THAN THE LEFT SHOULDER AT REST. PATIENT HAS ALLODYNIA IN THE RIGHT ELBOW TO THE RIGHT SHOULDER. 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 TREATMENT PAIN IN RIGHT SHOULDER NOTES: WE DISCUSSED SEVERAL ISSUES WITH MS. HUDSON'S PAIN MANAGEMENT CASE. I WAS WITH THE PATIENT MORE THAN 30 MINUTES IN THE ENCOUNTER TODAY, MORE THAN HALF THE TIME WAS DEDICATED TO DISCUSSING ALTERNATIVES, COUNSELING, AND MEDICATION MANAGEMENT. AT THIS TIME THE PATIENT WILL RECEIVE A REFILL OF HYDROCODONE AND IBUPROFEN. PATIENT WILL START ON GABAPENTIN TODAY. PATIENT BROUGHT HER MEDICATION BOTTLES TODAY, PATIENT HAD DIFFICULTIES OPENING HER MEDICATION BAG. I DISCUSSED IN DETAIL ABOUT THE POSSIBILITY OF A DCS WITH THE PATIENT AND THE PATIENT STATES THAT SHE WOULD LIKE TO PROCEED FORWARD. UTOX DONE ON 11/11/2016 SHOWS CONSISTENT RESULTS. I ADVISED PATIENT TO WEAR A TOP WHAT WOULD ALLOW US TO COMPLETE A TEMPERATURE TEST ON HER SHOULDER ON HER NEXT APPOINTMENT. PATIENT WILL FOLLOW UP WITH ME IN 7 WEEKS. INSTRUCTIONS WERE GIVEN, QUESTIONS WERE ANSWERED, PATIENT REPORTS UNDERSTANDING AND AGREES WITH THE PLAN. I, JOCELYN PICKETT, DOCUMENTED THE ABOVE INFORMATION ACTING A SCRIBE FOR DR. CARDENAS. I HAVE REVIEWED THE ABOVE DOCUMENT, WRITTEN BY JOCELYN WINKLER AND I VERIFY THAT IT IS ACCURATE. OTHERS REFILL HYDROCODONE-ACETAMINOPHEN TABLET, 7.5-325 MG, 1 TABLET NEEDED, ORALLY, EVERY 4 HRS NEEDED FOR PAIN MDD5, 30 DAY(S), 145, REFILLS 0 REFILL IBUPROFEN TABLET, 800 MG, 1 TABLET, ORALLY WITH FOOD, THREE TIMES A DAY NEEDED FOR PAIN, 30 DAY(S), 80, REFILLS 1 START GABAPENTIN CAPSULE, 300 MG, 1 CAPSULE, ORALLY, THREE TIMES A DAY FOR PAIN MDD3, 30 DAY(S), 90, REFILLS 1 PROCEDURES PN WORKMANS' COMP OPINION IN YOUR OPINION, WAS THE INCIDENT THAT THE PATIENT DESCRIBED THE COMPETENT MEDICAL CAUSE OF THIS INJURY/ILLNESS? YES ARE THE PATIENT'S COMPLAINTS CONSISTENT WITH HIS/HER HISTORY OF THE INJURY/ILLNESS? YES IS THE PATIENT'S HISTORY OF THE INJURY/ILLNESS CONSISTENT WITH YOUR OBJECTIVE FINDING? YES WHAT IS THE PERCENTAGE OF TEMPORARY IMPAIRMENT? TOTAL = 100% IS THE PATIENT WORKING? NO DOCTOR ON SITE: BISHNU CHARLES MD PROCEDURE CODES FA211 ESTABILISHED PATIENT [facility] FACILITY CHARGE G8730 PAIN ASSESS POS TOOL F/U PLAN DOC G8427 DOC MEDS VERIFIED W/PT OR RE DISPOSITION & COMMUNICATION FOLLOW UP 7 WEEKS ELECTRONICALLY SIGNED BY BISHNU CARDENAS MD ON 12/24/2016 AT 08:55 AM EDT DISCLAIMER : THIS IS A VISIT SUMMARY EXTRACTED FROM THE [employer] CHART. IT IS NOT A COPY OF THE [employer] PROGRESS NOTE. KAJAL
== END ==
LOC: M PAIN 13:20
PROVIDERS: ATTEND Anesthesiology
DX: F09 Unspecified mental disorder due to known physiological condition (principal); G89.29 Other chronic pain; M25.511 Pain in right shoulder; G47.33 Obstructive sleep apnea (adult) (pediatric); F41.9 Anxiety disorder, unspecified; F31.9 Bipolar disorder, unspecified; F40.240 Claustrophobia; G43.909 Migraine, unspecified, not intractable, without status migrainosus; E28.2 Polycystic ovarian syndrome; E55.9 Vitamin D deficiency, unspecified; Z79.891 Long term (current) use of opiate analgesic; Z79.1 Long term (current) use of non-steroidal anti-inflammatories (NSAID); Z79.84 Long term (current) use of oral hypoglycemic drugs; Z88.0 Allergy status to penicillin; Z88.1 Allergy status to other antibiotic agents; Z88.5 Allergy status to narcotic agent

== ENCOUNTER → 2017-01-28 | Outpatient (CLI) | payer MEDICAID, OTHER ==
[2017-01-28 08:20] LABS: ANION GAP 9 MEQ/L (8-16); BLOOD UREA NITROGEN 20 MG/DL (7-18); CALCIUM LEVEL 8.8 MG/DL (8.5-10.1); CARBON DIOXIDE LEVEL 21 MEQ/L (21-32); CHLORIDE LEVEL 108 MEQ/L (98-107); GLOMERULAR FILTRATION RATE > 60.0 (>60); GLUCOSE, FASTING 88 MG/DL (70-105); POTASSIUM SERUM 3.9 MEQ/L (3.5-5.1); SODIUM LEVEL 138 MEQ/L (136-145)
== END ==
LOC: M LAB 06:46
PROVIDERS: ATTEND Family Medicine Addiction Medicine
DX: E88.81 Metabolic syndrome and other insulin resistance (principal); E55.9 Vitamin D deficiency, unspecified

== ENCOUNTER → 2017-02-18 | Outpatient (CLI) | payer OTHER ==
--- NOTE | 2017-03-05 01:57 | ECWPNPC ---
PATIENT NAME: MIKKI HUDSON : 1985 GENDER: FEMALE VISIT DATE: 02/18/2017 DISCHARGE DATE: 02/18/17 1357 VISIT LOCKED DATE TIME: PHYSICIAN: BISHNU CARDENAS RESOURCE: BISHNU CARDENAS REASON FOR APPOINTMENT 1. RIGHT SHOULDER W/C, TEMP TEST HISTORY OF PRESENT ILLNESS HISTORY OF PRESENT ILLNESS: PAIN THE PATIENT DESCRIBES THE PAIN... 31 YEAR OLD FEMALE PATIENT WITH HISTORY OF CHRONIC RIGHT SHOULDER PAIN. PATIENT DESCRIBES THE PAIN ACHING, BURNING, TENDER, AND IT COMES AND GOES WITH A PAIN SCORE OF 8/10 ON TODAY'S VISIT. PATIENT WAS INJURED IN A WORK RELATED INJURY ON 11/06/2016 WORKING FOR [email or web address]. PATIENT WAS WALKING ON THE SIDEWALK WHEN SHE SLIPPED ON AN ICY AREA AND HITTING HER RIGHT SHOULDER INTO A BRICK WALL. PATIENT DENIES ANY SURGERY ON HER RIGHT SHOULDER. PATIENT REPORTS THAT SHE HAS TRIED PHYSICAL THERAPY IN THE PAST AND IT DID NOT WORK FOR HER. PATIENT REPORTS THAT SHE HAS STOPPED TAKING GABAPENTIN DUE TO THE MEDICATION MAKING HER SICK. PATIENT STATES THAT INJECTIONS DO NOT WORK FOR HER AND MEDICATION MANAGEMENT DOES NOT TAKING ALL THE PAIN AWAY AND AT THIS TIME WOULD LIKE TO PROCEED FORWARD WITH THE SPINAL COLUMN STIMULATOR. PATIENT DENIES UNEXPLAINABLE WEIGHT LOSS, FEVER, CHILLS, NEW CHANGES ON HER URINARY OR BOWEL CONTROL. FALL RISK SCREENING: SCREENING :NO FALLS IN THE PAST YEAR CURRENT MEDICATIONS TAKING HYDROCODONE-ACETAMINOPHEN 7.5-325 MG TABLET 1 TABLET NEEDED ORALLY EVERY 4 HRS NEEDED FOR PAIN MDD5 TAKING IBUPROFEN 800 MG TABLET 1 TABLET ORALLY WITH FOOD THREE TIMES A DAY NEEDED FOR PAIN TAKING LIPITOR 20 MG TABLET 1 TABLET ORALLY ONCE A DAY TAKING WOMENS DAILY FORMULA TABLET 1 TAB(S) ORALLY DAILY TAKING JOLESSA 0.15-0.03 MG TABLET 1 TABLET ORALLY ONCE A DAY TAKING PROAIR HFA 108 (90 BASE) MCG/ACT AEROSOL SOLUTION 2 PUFFS NEEDED INHALATION EVERY 4 HRS TAKING METFORMIN HCL 500 MG TABLET 1 TABLET WITH MEALS ORALLY ONCE A DAY TAKING VITAMIN D-3 1000 UNIT CAPSULE 1 CAPSULE ORALLY 2000UNITS DAILY TAKING DRISDOL 99248 UNIT CAPSULE 1 CAPSULE ORALLY WEEKLY TAKING LEXAPRO 10 MG TABLET 1 TABLET ORALLY ONCE A DAY NOT-TAKING GABAPENTIN 300 MG CAPSULE 1 CAPSULE ORALLY THREE TIMES A DAY FOR PAIN MDD3 NOT-TAKING TRAZODONE HCL 50 MG TABLET 1 TABLET AT BEDTIME ORALLY ONCE A DAY MEDICATION LIST REVIEWED AND RECONCILED WITH THE PATIENT PAST MEDICAL HISTORY BARBIE ANXIETY, DEPRESSION, BIPOLAR, CLAUSTROPHOBIA MIGRAINE POLYCYSTIC OVARIAN SYNDROME VITAMIN D DEFICIENCY ALLERGIES CEPHALEXIN: HIVES: ALLERGY AZITHROMYCIN: HIVES: ALLERGY AMOXICILLIN: NAUSEA/VOMITING: ALLERGY DOXYCYCLINE (ROSACEA): NAUSEA/VOMITING: ALLERGY TRAMADOL: DIARRHEA/NIGHTMARES: ALLERGY PENICILLIN (FOR ALLERGIES USE ONLY): NAUSEA/VOMITING: ALLERGY SURGICAL HISTORY TONSILECTOMY 2014 TRIAL DCS 06/2015 FAMILY HISTORY NO FAMILY HISTORY DOCUMENTED. SOCIAL HISTORY GENERAL: TOBACCO USE ARE YOU A:NONSMOKER LEARNING BARRIERS / SPECIAL NEEDS ORIENTED TO PLAN OF CARE: PATIENT, PAIN MANAGEMENT PATIENT, ORIENTED TO PLAN OF CARE: PATIENT, PAIN MANAGEMENT PATIENT. NEW PATIENT PAIN DIARY TODAY'S VISITNOTES FROM 0-10, WHAT LEVEL IS YOUR PAIN TODAY?0 PAIN CLINIC PFS, CLERGY, PUBLIC HEALTH REFERRALS PFS REFERRAL NEEDED?NO CLERGY REFERRAL NEEDED?NO PUBLIC HEALTH REFERRAL NEEDED?NO WAS THE PROVIDER NOTIFIED OF ANY PERTINENT INFO?NO PFS REFERRAL NEEDED?NO CLERGY REFERRAL NEEDED?NO PUBLIC HEALTH REFERRAL NEEDED?NO WAS THE PROVIDER NOTIFIED OF ANY PERTINENT INFO?NO HOSPITALIZATION/MAJOR DIAGNOSTIC PROCEDURE DCS TRIAL 06/2015 REVIEW OF SYSTEMS CONSTITUTIONAL: ANY CHANGE IN YOUR MEDICAL CONDITION? NO . CHILLS NO . FEVER NO . INFECTION: DO YOU HAVE NEW INFECTIONS? NO . DO YOU HAVE HISTORY OF MRSA? NO . MUSCULOSKELETAL: ANY NEW PATTERNS OF PAIN OR NUMBNESS? NO . GASTROENTEROLOGY: ANY NEW CHANGE IN BOWEL CONTROL? NO . GENITOURINARY: ANY NEW CHANGE IN BLADDER CONTROL? NO . IS THERE A CHANCE YOU COULD BE ? NO . HEMATOLOGY/LYMPH: DO YOU TAKE ANY BLOOD THINNERS? (FOR EXAMPLE- COUMADIN, PLAVIX, AGGRENOX, PLATEL, PRADAXA, OR XARELTO) NO . WHEN WAS YOUR LAST DOSE? DATE: TIME: . NEUROLOGY: HAVE YOU FALLEN IN THE PAST 6 MONTHS? NO . ANY NEW EXTREMITY NUMBNESS OR WEAKNESS? NO . CARDIOLOGY: DO YOU HAVE A PACEMAKER OR DEFIBRILLATOR? NO . RESPIRATORY: HAVE YOU BEEN SICK IN THE PAST WEEK? NO . FEVER NO . FLU LIKE SYMPTOMS? NO . COUGH NO . INTEGUMENTARY: DO YOU HAVE ANY RASHES OR OPEN SORES? NO . ALLERGIC/IMMUNO: ARE YOU ALLERGIC TO SHELLFISH OR IV DYE? NO . ANY NEW ALLERGIES? NO . PSYCHIATRIC: DO YOU HAVE THOUGHTS OF HURTING YOURSELF OR SOMEONE ELSE? NO . ARE YOU ABUSED, NEGLECTED, OR IN AN UNSAFE ENVIRONMENT? NO . ENDOCRINOLOGY: ARE YOU DIABETIC? NO . OTHER: DO YOU NEED ANY PRESCRIPTIONS? NO . IF YES, PLEASE LIST: ____ . ANY NEW PROBLEMS WITH YOUR MEDICATIONS? NO . WHEN DID YOU LAST EAT? ____ . WHEN DID YOU LAST DRINK? ____ . WHAT DID YOU LAST DRINK? ____ . NAME OF PERSON DRIVING YOU HOME? ____ . DO YOU HAVE ANY OTHER QUESTIONS OR CONCERNS NO . REVIEWED BY: PROVIDER: BISHNU CARDENAS MD . VITAL SIGNS WT 297.0 LBS, HT 69 IN, BMI 43.85 INDEX, BP 143/88 MM HG, HR 100 /MIN, RR 18 /MIN, TEMP 98.7 F, OXYGEN SAT % 98%, SAFE IN ENV? (Y/N) Y, NA INITIALS TL 1307, REVIEWED BY: EM. EXAMINATION : PATIENT IS ALERT O X 3 AND COOPERATIVE. PATIENT HAS DIFFICULTIES REMOVING HER COAT IN ORDER TO EXAMINE HER RIGHT SHOULDER. PATIENT IS ONLY ABLE TO ABDUCT HER LEFT ARM, SHE HAS DIFFICULTIES MOVING HER RIGHT ARM IN ANY TYPE OF MOVEMENT. PATIENT'S RIGHT SHOULDER AT REST SIT LOWER THAN THE LEFT SHOULDER AT REST. PATIENT HAS ALLODYNIA IN THE RIGHT ELBOW TO THE RIGHT SHOULDER. STRENGTH IN THE RIGHT ARM IS REDUCED COMPARED TO THE LEFT ARM. 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 TREATMENT PAIN IN RIGHT SHOULDER NOTES: WE DISCUSSED SEVERAL ISSUES WITH MS. HUDSON'S PAIN MANAGEMENT CASE. AT THIS TIME THE PATIENT WILL RECEIVED A REFILL OF IBUPROFEN, AND I INFORMED THE PATIENT TO ALWAYS TAKE THIS MEDICATION WITH FOOD. PATIENT IS TAKING IBUPROFEN AND HYDROCODONE FOR SOMATIC PAIN. PATIENT WILL BE REFERRED TO A PSYCHOLOGIST FOR A PSYCHOLOGICAL EVALUATION FOR THE SPINAL COLUMN STIMULATOR PENDING APPROVAL. UTOX DONE ON 11/11/2016 SHOWS CONSISTENT RESULTS. PATIENT WILL FOLLOW UP WITH ME IN 6 WEEKS. INSTRUCTIONS WERE GIVEN, QUESTIONS WERE ANSWERED, PATIENT REPORTS UNDERSTANDING AND AGREES WITH THE PLAN. I, JOCELYN PICKETT, DOCUMENTED THE ABOVE INFORMATION ACTING A SCRIBE FOR DR. CARDENAS. I HAVE REVIEWED THE ABOVE DOCUMENT, WRITTEN BY JOCELYN WINKLER AND I VERIFY THAT IT IS ACCURATE. OTHERS REFILL IBUPROFEN TABLET, 800 MG, 1 TABLET, ORALLY WITH FOOD, THREE TIMES A DAY NEEDED FOR PAIN, 30 DAY(S), 80, REFILLS 1 PROCEDURES PN WORKMANS' COMP OPINION IN YOUR OPINION, WAS THE INCIDENT THAT THE PATIENT DESCRIBED THE COMPETENT MEDICAL CAUSE OF THIS INJURY/ILLNESS? YES ARE THE PATIENT'S COMPLAINTS CONSISTENT WITH HIS/HER HISTORY OF THE INJURY/ILLNESS? YES IS THE PATIENT'S HISTORY OF THE INJURY/ILLNESS CONSISTENT WITH YOUR OBJECTIVE FINDING? YES WHAT IS THE PERCENTAGE OF TEMPORARY IMPAIRMENT? TOTAL = 100% IS THE PATIENT WORKING? NO DOCTOR ON SITE: BISHNU CHARLES MD PROCEDURE CODES FA211 ESTABILISHED PATIENT [facility] CHARGE G8730 PAIN ASSESS POS TOOL F/U PLAN DOC G8427 DOC MEDS VERIFIED W/PT OR RE DISPOSITION & COMMUNICATION FOLLOW UP 6 WEEKS ELECTRONICALLY SIGNED BY BISHNU CARDENAS MD ON 03/03/2017 AT 05:55 PM EDT DISCLAIMER : THIS IS A VISIT SUMMARY EXTRACTED FROM THE [employer] CHART. IT IS NOT A COPY OF THE [employer] PROGRESS NOTE. KAJAL
== END ==
LOC: M PAIN 13:00
PROVIDERS: ATTEND Anesthesiology
DX: G89.29 Other chronic pain (principal); M25.511 Pain in right shoulder; G47.33 Obstructive sleep apnea (adult) (pediatric); F41.8 Other specified anxiety disorders; F31.9 Bipolar disorder, unspecified; F40.240 Claustrophobia; G43.909 Migraine, unspecified, not intractable, without status migrainosus; E28.2 Polycystic ovarian syndrome; E55.9 Vitamin D deficiency, unspecified; Z88.0 Allergy status to penicillin; Z88.5 Allergy status to narcotic agent; Z88.8 Allergy status to other drugs, medicaments and biological substances; Z88.1 Allergy status to other antibiotic agents; Z79.891 Long term (current) use of opiate analgesic; Z79.1 Long term (current) use of non-steroidal anti-inflammatories (NSAID); Z79.84 Long term (current) use of oral hypoglycemic drugs; Z79.899 Other long term (current) drug therapy

== ENCOUNTER → 2017-04-06 | Outpatient (CLI) | payer OTHER, MEDICAID ==
[~2017-04-06] MED LIST changes: +ACET-683 PO; -ACET500T37 PO; +BACL1TAB9 PO; +CALC1TAB11 PO; -CALC250T8 PO; +ESCI10TA2; -NAPR500T2 PO; +NAPR500T3 PO; +NUCY50TA6 PO; -NUCY50TA9 PO; +PRED20TA PO; +VITA1CAP40
--- NOTE | 2017-04-21 01:07 | ECWPNPC ---
PATIENT NAME: MIKKI HUDSON : 1985 GENDER: FEMALE VISIT DATE: 04/06/2017 DISCHARGE DATE: 04/06/17 1400 VISIT LOCKED DATE TIME: PHYSICIAN: BISHNU CARDENAS RESOURCE: BISHNU CARDENAS REASON FOR APPOINTMENT 1. THORACIC PAIN HISTORY OF PRESENT ILLNESS NEW PATIENT CONSULT: WHEN DID YOUR PAIN FIRST START? . BRIEFLY DESCRIBE HOW YOUR PAIN STARTED? . HOW DOES YOUR PAIN CHANGE WITH TIME? . DOES YOUR PAIN AWAKEN YOU FROM SLEEP? . HOW MANY HOURS OF SLEEP DO YOU NORMALLY GET? . ANY DIAGNOSTIC TESTING? . FACILITY WHERE TESTS WERE DONE? ____. PAIN TREATMENT TREATMENT YES CANCER HAVE YOU EVER HAD ANY TYPE OF CANCER?NO NO. 31 YEAR OLD FEMALE PATIENT WITH HISTORY OF CHRONIC THORACIC PAIN. PATIENT DESCRIBES THE PAIN TENDER, THROBBING, SORE, AND HAVING IT ALL THE TIME WITH A PAIN SCORE OF 8-9/10. PATIENT STATES HER PAIN STARTED ROUGHLY 2 YEARS AGO AFTER THE DCS TRIAL. PATIENT REPORTS THAT ANY TYPE OF ACTIVITY INCLUDING WALKING, STANDING, AND SITTING INCREASES THE PAIN IN THE LOWER BACK. PATIENT DENIES UNEXPLAINABLE WEIGHT LOSS, FEVER, CHILLS, NEW CHANGES ON HER URINARY OR BOWEL CONTROL. PAIN SCREENING: PATIENT HAS A COMPLAINT OF ACUTE OR CHRONIC PAIN :YES FALL RISK SCREENING: SCREENING :NO FALLS IN THE PAST YEAR BARR INVENTORY: QUESTIONNAIRE ASSESSEDTBD SCORE VALUE CALCULATED TBD CURRENT MEDICATIONS TAKING IBUPROFEN 800 MG TABLET 1 TABLET ORALLY WITH FOOD THREE TIMES A DAY NEEDED FOR PAIN TAKING HYDROCODONE-ACETAMINOPHEN 7.5-325 MG TABLET 1 TABLET NEEDED ORALLY EVERY 4 HRS NEEDED FOR PAIN MDD5 TAKING LIPITOR 20 MG TABLET 1 TABLET ORALLY ONCE A DAY TAKING WOMENS DAILY FORMULA TABLET 1 TAB(S) ORALLY DAILY TAKING JOLESSA 0.15-0.03 MG TABLET 1 TABLET ORALLY ONCE A DAY TAKING PROAIR HFA 108 (90 BASE) MCG/ACT AEROSOL SOLUTION 2 PUFFS NEEDED INHALATION EVERY 4 HRS TAKING VITAMIN D-3 1000 UNIT CAPSULE 1 CAPSULE ORALLY 2000UNITS DAILY TAKING DRISDOL 04395 UNIT CAPSULE 1 CAPSULE ORALLY WEEKLY TAKING LEXAPRO 10 MG TABLET 1 TABLET ORALLY ONCE A DAY NOT-TAKING METFORMIN HCL 500 MG TABLET 1 TABLET WITH MEALS ORALLY ONCE A DAY NOT-TAKING GABAPENTIN 300 MG CAPSULE 1 CAPSULE ORALLY THREE TIMES A DAY FOR PAIN MDD3 NOT-TAKING TRAZODONE HCL 50 MG TABLET 1 TABLET AT BEDTIME ORALLY ONCE A DAY MEDICATION LIST REVIEWED AND RECONCILED WITH THE PATIENT PAST MEDICAL HISTORY BARBIE ANXIETY, DEPRESSION, BIPOLAR, CLAUSTROPHOBIA MIGRAINE POLYCYSTIC OVARIAN SYNDROME VITAMIN D DEFICIENCY ALLERGIES CEPHALEXIN: HIVES: ALLERGY AZITHROMYCIN: HIVES: ALLERGY AMOXICILLIN: NAUSEA/VOMITING: ALLERGY DOXYCYCLINE (ROSACEA): NAUSEA/VOMITING: ALLERGY TRAMADOL: DIARRHEA/NIGHTMARES: ALLERGY PENICILLIN (FOR ALLERGIES USE ONLY): NAUSEA/VOMITING: ALLERGY SURGICAL HISTORY TONSILECTOMY 2014 TRIAL DCS 06/2015 FAMILY HISTORY FATHER: UNKNOWN MOTHER: ALIVE SIBLINGS: ALIVE SOCIAL HISTORY GENERAL: TOBACCO USE ARE YOU A:NONSMOKER ALCOHOL SCREENING POINTS0 INTERPRETATIONNEGATIVE CAFFEINE CAFFEINE USE?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 EXERCISE: WALKS. MARITAL STATUS: SINGLE. PETS: CAT. ORTHODOX ORTHODOX NO PREFERENCE LANGUAGE LANGUAGES SPOKEN:BENGALI EDUCATION LEVEL OF EDUCATION:[facility] PA[facility] PFS, CLERGY, PUBLIC HEALTH REFERRALS PFS REFERRAL NEEDED?NO CLERGY REFERRAL NEEDED?NO PUBLIC HEALTH REFERRAL NEEDED?NO WAS THE PROVIDER NOTIFIED OF ANY PERTINENT INFO?NO HAS THE PATIENT BEEN EDUCATED REGARDING HIS/HER PLAN OF CARE?YES PLEASE DOCUMENT ANY ADDTIONAL DETAILS.PLEASE FREE TEXT IN THE NOTES SECTION. HAS THE PATIENT BEEN EDUCATED REGARDING PAIN, THE RISK FOR PAIN, THE IMPORTANCE OF EFFECTIVE PAIN MANAGEMENT, AND THE PAIN ASSESSMENT PROCESS?YES PATIENT: ____. HOSPITALIZATION/MAJOR DIAGNOSTIC PROCEDURE DCS TRIAL 06/2015 REVIEW OF SYSTEMS REVIEWED BY: PROVIDER: BISHNU CARDENAS MD . CONSTITUTIONAL: ANY CHANGE IN YOUR MEDICAL CONDITION? NO . CHILLS NO . FEVER NO . INFECTION: DO YOU HAVE NEW INFECTIONS? NO . DO YOU HAVE HISTORY OF MRSA? NO . MUSCULOSKELETAL: ANY NEW PATTERNS OF PAIN OR NUMBNESS? NO . SYTEMIC LUPUS NO . GASTROENTEROLOGY: ANY NEW CHANGE IN BOWEL CONTROL? NO . BARRETTS ESOPHAGUS NO . CIRRHOSIS NO . HEPATITIS NO . LIVER FAILURE NO . ACID REFLUX NO . UNEXPLAINED WEIGHT LOSS NO . GENITOURINARY: ANY NEW CHANGE IN BLADDER CONTROL? NO . IS THERE A CHANCE YOU COULD BE ? NO . HEMATOLOGY/LYMPH: DO YOU TAKE ANY BLOOD THINNERS? (FOR EXAMPLE- COUMADIN, PLAVIX, AGGRENOX, PLATEL, PRADAXA, OR XARELTO) NO . WHEN WAS YOUR LAST DOSE? DATE: TIME: . LOW PLATELET COUNT NO . SICKLE CELL DISEASE NO . VON WILLIEBRANDS NO . FACTOR V LEIDEN NO . THALLASEMIA NO . ANEMIA NO . EASY BRUISING NO . NEUROLOGY: HAVE YOU FALLEN IN THE PAST 6 MONTHS? NO . ANY NEW EXTREMITY NUMBNESS OR WEAKNESS? NO . HEAD INJURY NO . DEMENTIA NO . CEREBRAL PALSY NO . MULTIPLE SCLEROSIS NO . DIZZINESS NO . HEADACHE NO . STROKES NO . VERTIGO NO . CARDIOLOGY: DO YOU HAVE A PACEMAKER OR DEFIBRILLATOR? NO . ANGINA NO . HEART ATTACK NO . HEART SURGERY NO . CONGESTIVE HEART FAILURE/FLUID OVERLOAD NO . CHEST PAIN NO . HIGH BLOOD PRESSURE NO . IRREGULAR HEART BEAT NO . RESPIRATORY: HAVE YOU BEEN SICK IN THE PAST WEEK? NO . FEVER NO . FLU LIKE SYMPTOMS? NO . CPAP NO . BYPAP NO . ASTHMA NO . EMPHYSEMA NO . CHRONIC LUNG DISEASES NO . SHORTNESS OF BREATH ON EXERTION NO . DO YOU USE ANY TYPE OF TOBACCO (SMOKE, SMOKELESS, CHEW)? NO . COUGH NO . SNORING NO . INTEGUMENTARY: DO YOU HAVE ANY RASHES OR OPEN SORES? NO . ALLERGIC/IMMUNO: ARE YOU ALLERGIC TO SHELLFISH OR IV DYE? NO . ANY NEW ALLERGIES? NO . PSYCHIATRIC: DO YOU HAVE THOUGHTS OF HURTING YOURSELF OR SOMEONE ELSE? NO . ARE YOU ABUSED, NEGLECTED, OR IN AN UNSAFE ENVIRONMENT? NO . ENDOCRINOLOGY: ARE YOU DIABETIC? NO . THYROID DISORDER NO . OTHER: DO YOU NEED ANY PRESCRIPTIONS? NO . IF YES, PLEASE LIST: ____ . ANY NEW PROBLEMS WITH YOUR MEDICATIONS? NO . WHEN DID YOU LAST EAT? ____ . WHEN DID YOU LAST DRINK? ____ . WHAT DID YOU LAST DRINK? ____ . NAME OF PERSON DRIVING YOU HOME? ____ . DO YOU HAVE ANY OTHER QUESTIONS OR CONCERNS NO . VITAL SIGNS WT 297.0 LBS, HT 69 IN, BMI 43.85 INDEX, BP 144/78 MM HG, HR 86 /MIN, RR 18 /MIN, TEMP 98.7 F, OXYGEN SAT % 98%, SAFE IN ENV? (Y/N) YES, NA INITIALS TL 1245, REVIEWED BY: KG. EXAMINATION : PATIENT IS ALERT O X 3 AND COOPERATIVE. TENDERNESS IN THE THORACIC AREA AND PARASPINAL MUSCLE GROUP. BANDS OF TISSUE, RESTRICTION OF MOVEMENT, AND PRESENCE OF TRIGGER POINTS IN THE THORACIC AREA. MRI DONE ON 02/20/15 OF THE THORACIC SPINE SHOWS DISC PROTRUSIONS AT T5-T6 THROUGH T9-T10. 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 HUDSON'S PAIN MANAGEMENT CASE. AT THIS TIME THE PATIENT STATES SHE DOES NOT WANT MEDICATIONS FOR THIS ISSUE AND WOULD LIKE TO PROCEED WITH INTERVENTIONS. AFTER VIEWING THE PATIENT SHE IS A GOOD CANDIDATE FOR TRIGGER POINT INJECTIONS DUE TO THE SEVERE SPASTICITY. WE DISCUSSED THE RISKS, BENENFITS, AND ALTNERATIVES OF THE INJECTION AND THE PATIENT WOULD LIKE TO PROCEED. IF THE TRIGGER POINT INJECTIONS DO NOT GIVE LONG LASTING RELIEF I WOULD LIKE TO PROCEED WITH DIAGNOSTIC FACET BLOCKS TO CONSIDER RADIOFREQUENCY. PATIENT WILL FOLLOW UP 3 WEEKS POST PROCEDURE. INSTRUCTIONS WERE GIVEN, QUESTIONS WERE ANSWERED, PATIENT REPORTS UNDERSTANDING AND AGREES WITH THE PLAN. I, GERRY BOYD, DOCUMENTED THE ABOVE INFORMATION ACTING A SCRIBE FOR DR. CARDENAS. I HAVE REVIEWED THE ABOVE DOCUMENT, WRITTEN BY GERRY WINKLER AND I VERIFY THAT IT IS ACCURATE. PREVENTIVE MEDICINE DISCUSSED TPI AND PRE PROCEDURE CARE WITH UNDERSTANDING EXPRESSED BY PT. PROCEDURE CODES FA211 ESTABILISHED PATIENT [facility] FACILITY CHARGE [id number] DOC MEDS VERIFIED W/PT OR RE G8730 PAIN ASSESS POS TOOL F/U PLAN DOC DISPOSITION & COMMUNICATION FOLLOW UP 3 WEEKS ELECTRONICALLY SIGNED BY BISHNU CARDENAS MD ON 04/20/2017 AT 08:38 PM EDT DISCLAIMER : THIS IS A VISIT SUMMARY EXTRACTED FROM THE [facility] CHART. IT IS NOT A COPY OF THE [facility] PROGRESS NOTE. MTDD
== END ==
LOC: M PAIN 12:30
PROVIDERS: ATTEND Anesthesiology
DX: G89.29 Other chronic pain (principal); M79.1 Myalgia; M47.814 Spondylosis without myelopathy or radiculopathy, thoracic region; M47.815 Spondylosis without myelopathy or radiculopathy, thoracolumbar region; G47.33 Obstructive sleep apnea (adult) (pediatric); F41.9 Anxiety disorder, unspecified; F31.9 Bipolar disorder, unspecified; F40.240 Claustrophobia; G43.909 Migraine, unspecified, not intractable, without status migrainosus; E55.9 Vitamin D deficiency, unspecified; E28.2 Polycystic ovarian syndrome; Z79.891 Long term (current) use of opiate analgesic; Z79.899 Other long term (current) drug therapy; Z88.0 Allergy status to penicillin; Z88.1 Allergy status to other antibiotic agents; Z88.8 Allergy status to other drugs, medicaments and biological substances

== ENCOUNTER → 2017-04-27 | Outpatient (CLI) | payer OTHER, MEDICAID ==
[~2017-04-27] MED LIST changes: +BUPIVACAINE HCL 0.25% 10 ML VIAL As Ordered ONE; +BUPIVACAINE HCL 0.25% 30 ML VIAL As Ordered ONE; +TRIAMCINOLONE ACETONIDE SUSP 40 MG/ML VIAL (J3301) As Ordered ONE
--- NOTE | 2017-05-12 00:54 | ECWPNPC ---
PATIENT NAME: MIKKI HUDSON : 1985 GENDER: FEMALE VISIT DATE: 04/27/2017 DISCHARGE DATE: 04/27/17 1125 VISIT LOCKED DATE TIME: PHYSICIAN: BISHNU CARDENAS RESOURCE: BISHNU CARDENAS REASON FOR APPOINTMENT 1. TPI, LUMBAR HISTORY OF PRESENT ILLNESS HISTORY OF PRESENT ILLNESS: PAIN THE PATIENT DESCRIBES THE PAIN... FALL RISK SCREENING: SCREENING :NO FALLS IN THE PAST YEAR CURRENT MEDICATIONS TAKING HYDROCODONE-ACETAMINOPHEN 7.5-325 MG TABLET 1 TABLET NEEDED ORALLY EVERY 4 HRS NEEDED FOR PAIN MDD5, NOTES: 1000 TAKING LIPITOR 20 MG TABLET 1 TABLET ORALLY ONCE A DAY, NOTES: 04/26/17 1000 TAKING WOMENS DAILY FORMULA TABLET 1 TAB(S) ORALLY DAILY, NOTES: 04/26/17 1000 TAKING JOLESSA 0.15-0.03 MG TABLET 1 TABLET ORALLY ONCE A DAY, NOTES: 04/26/17 1000 TAKING PROAIR HFA 108 (90 BASE) MCG/ACT AEROSOL SOLUTION 2 PUFFS NEEDED INHALATION EVERY 4 HRS, NOTES: > 1 WEEK TAKING VITAMIN D-3 1000 UNIT CAPSULE 1 CAPSULE ORALLY 2000UNITS DAILY, NOTES: 04/26/17 1000 TAKING DRISDOL 70282 UNIT CAPSULE 1 CAPSULE ORALLY WEEKLY, NOTES: 04/19/17 TAKING LEXAPRO 10 MG TABLET 1 TABLET ORALLY ONCE A DAY, NOTES: 04/26/17 1000 TAKING IBUPROFEN 800 MG TABLET 1 TABLET ORALLY WITH FOOD THREE TIMES A DAY NEEDED FOR PAIN, NOTES: 04/26/17 1000 NOT-TAKING METFORMIN HCL 500 MG TABLET 1 TABLET WITH MEALS ORALLY ONCE A DAY NOT-TAKING GABAPENTIN 300 MG CAPSULE 1 CAPSULE ORALLY THREE TIMES A DAY FOR PAIN MDD3 NOT-TAKING TRAZODONE HCL 50 MG TABLET 1 TABLET AT BEDTIME ORALLY ONCE A DAY MEDICATION LIST REVIEWED AND RECONCILED WITH THE PATIENT PAST MEDICAL HISTORY BARBIE ANXIETY, DEPRESSION, BIPOLAR, CLAUSTROPHOBIA MIGRAINE POLYCYSTIC OVARIAN SYNDROME VITAMIN D DEFICIENCY ALLERGIES CEPHALEXIN: HIVES: ALLERGY AZITHROMYCIN: HIVES: ALLERGY AMOXICILLIN: NAUSEA/VOMITING: ALLERGY DOXYCYCLINE (ROSACEA): NAUSEA/VOMITING: ALLERGY TRAMADOL: DIARRHEA/NIGHTMARES: ALLERGY PENICILLIN (FOR ALLERGIES USE ONLY): NAUSEA/VOMITING: ALLERGY REVIEW OF SYSTEMS REVIEWED BY: PROVIDER: . CONSTITUTIONAL: ANY CHANGE IN YOUR MEDICAL CONDITION? NO . CHILLS NO . FEVER NO . INFECTION: DO YOU HAVE NEW INFECTIONS? NO . DO YOU HAVE HISTORY OF MRSA? NO . MUSCULOSKELETAL: ANY NEW PATTERNS OF PAIN OR NUMBNESS? NO . GASTROENTEROLOGY: ANY NEW CHANGE IN BOWEL CONTROL? NO . GENITOURINARY: ANY NEW CHANGE IN BLADDER CONTROL? NO . IS THERE A CHANCE YOU COULD BE ? NO . HEMATOLOGY/LYMPH: DO YOU TAKE ANY BLOOD THINNERS? (FOR EXAMPLE- COUMADIN, PLAVIX, AGGRENOX, PLATEL, PRADAXA, OR XARELTO) NO . WHEN WAS YOUR LAST DOSE? DATE: TIME: . NEUROLOGY: HAVE YOU FALLEN IN THE PAST 6 MONTHS? NO . ANY NEW EXTREMITY NUMBNESS OR WEAKNESS? NO . CARDIOLOGY: DO YOU HAVE A PACEMAKER OR DEFIBRILLATOR? NO . RESPIRATORY: HAVE YOU BEEN SICK IN THE PAST WEEK? NO . FEVER NO . FLU LIKE SYMPTOMS? NO . COUGH NO . INTEGUMENTARY: DO YOU HAVE ANY RASHES OR OPEN SORES? NO . ALLERGIC/IMMUNO: ARE YOU ALLERGIC TO SHELLFISH OR IV DYE? NO . ANY NEW ALLERGIES? NO . PSYCHIATRIC: DO YOU HAVE THOUGHTS OF HURTING YOURSELF OR SOMEONE ELSE? NO . ARE YOU ABUSED, NEGLECTED, OR IN AN UNSAFE ENVIRONMENT? NO . ENDOCRINOLOGY: ARE YOU DIABETIC? NO . OTHER: DO YOU NEED ANY PRESCRIPTIONS? NO . IF YES, PLEASE LIST: ____ . ANY NEW PROBLEMS WITH YOUR MEDICATIONS? NO . WHEN DID YOU LAST EAT? ____04/26/17 2100 . WHEN DID YOU LAST DRINK? ____04/27/17 0730 . WHAT DID YOU LAST DRINK? ____DIET ORANGE SODA . NAME OF PERSON DRIVING YOU HOME? ____MOM . DO YOU HAVE ANY OTHER QUESTIONS OR CONCERNS NO . VITAL SIGNS WT 297.0 LBS, HT 69 IN, BMI 43.85 INDEX, BP 150/89 MM HG, HR 84 /MIN, RR 18 /MIN, TEMP 98.0 F, OXYGEN SAT % 96%, SAFE IN ENV? (Y/N) YES, NA INITIALS TL 1008, REVIEWED BY: LAS. P[place]NAM MYALGIA - M79.1 (PRIMARY) PROCEDURES PN TRIGGER POINT INJECTION WITH STEROIDS PRE PROCEDURE DIAGNOSIS 1. MYALGIA 2. PAIN AT BILATERAL LOWER BACK AREA POST PROCEDURE DIAGNOSIS 1. MYALGIA 2. PAIN AT BILATERAL LOWER BACK AREA PROCEDURE TRIGGER POINT INJECTION AT BILATERAL LOWER BACK AREA SURGEON DR. BISHNU CARDENAS FURNITURE REPAIR TECHNICIAN NONE ANESTHESIA LOCAL PRE PROCEDURE NOTE THE PATIENT HAS A HISTORY OF CHRONIC PAIN AT THE RIGHT AND LEFT LOWER BACK AREA. I EVALUATE THE PATIENT AND REVIEWED THE CHART. THERE IS EVIDENCE OF BANDS OF TISSUE WITH RESTRICTION OF MOVEMENT AND PRESENCE OF TRIGGER POINT AT THE AFFECTED AREA. I WENT OVER THE RISKS, ALTERNATIVES, AND BENEFITS ASSOCIATED WITH THIS PROCEDURE. THE PATIENT WOULD LIKE TO PROCEED AND GIVE CONSENT TO PERFORMED THE PROCEDURE. THE PATIENT DENIES UNEXPLAINABLE WEIGHT LOSS, FEVER, CHILLS, OR NEW CHANGES IN URINARY OR BOWEL CONTROL DESCRIPTION OF PROCEDURE THE PATIENT WAS BROUGHT TO THE PROCEDURE ROOM AND PLACED IN THE SITTING POSITION. THE AREA WAS CLEANED WITH ALCOHOL. THE PROCEDURE WAS DONE USING ASEPTIC STERILE TECHNIQUE. I CHECKED LATERALITY AND THE LEVEL WHERE THE PROCEDURE WAS GOING TO BE PERFORMED WITH THE PATIENT AND THE SUPPORTING STAFF AT THE MOMENT OF THE TIME OUT IN THE PROCEDURE ROOM. USING A 25-GAUGE NEEDLE, TRIGGER POINTS WERE INJECTED AT THE RIGHT AND LEFT LOWER BACK AREA WITH A TOTAL OF 40 ML OF BUPIVACAINE 0.25% AND KENALOG 40 MG. THERE WAS NO EVIDENCE OF BLOOD, PARESTHESIA OR CEREBROSPINAL FLUID DURING THE PROCEDURE. THE PATIENT WAS SENT TO THE RECOVERY ROOM. THE PATIENT WAS MOVING THE EXTREMITIES AND DOING WELL. THERE WAS NO COMPLICATION DURING THE PROCEDURE POST PROCEDURE NOTE THE PATIENT WILL BE SEEN IN A FOLLOW UP IN THE NEXT FEW WEEKS. INSTRUCTIONS WERE GIVEN, QUESTIONS WERE ANSWERED, AND THE PATIENT EXPRESSED UNDERSTANDING AND AGREES WITH THE PLAN. I, GERRY BOYD, DOCUMENTED THE ABOVE INFORMATION ACTING A SCRIBE FOR DR. CARDENAS. I HAVE REVIEWED THE ABOVE DOCUMENT, WRITTEN BY GERRY WINKLER AND I VERIFY THAT IT IS ACCURATE PROCEDURE CODES 04639 INJ TRIGGER POINT 09/29 [facility] [place] & COMMUNICATION FOLLOW UP 3 WEEKS ELECTRONICALLY SIGNED BY BISHNU CARDENAS MD ON 05/11/2017 AT 08:21 PM EDT DISCLAIMER : THIS IS A VISIT SUMMARY EXTRACTED FROM THE [employer] CHART. IT IS NOT A COPY OF THE [employer] PROGRESS NOTE. KAJAL
== END ==
LOC: M PAIN 10:20
PROVIDERS: ATTEND Anesthesiology
DX: G89.29 Other chronic pain (principal); M54.5 Low back pain; M79.1 Myalgia; G47.30 Sleep apnea, unspecified; F41.9 Anxiety disorder, unspecified; F31.9 Bipolar disorder, unspecified; F40.240 Claustrophobia; G43.909 Migraine, unspecified, not intractable, without status migrainosus; E55.9 Vitamin D deficiency, unspecified; Z88.1 Allergy status to other antibiotic agents; Z88.0 Allergy status to penicillin; Z88.5 Allergy status to narcotic agent; Z88.8 Allergy status to other drugs, medicaments and biological substances; Z79.899 Other long term (current) drug therapy; Z79.891 Long term (current) use of opiate analgesic
CPT/HCPCS: 20552; J3301

== ENCOUNTER → 2017-05-14 | Outpatient (CLI) | payer OTHER, MEDICAID ==
[~2017-05-14] MED LIST changes: -BUPIVACAINE HCL 0.25% 10 ML VIAL As Ordered ONE; -BUPIVACAINE HCL 0.25% 30 ML VIAL As Ordered ONE; -TRIAMCINOLONE ACETONIDE SUSP 40 MG/ML VIAL (J3301) As Ordered ONE
--- NOTE | 2017-06-03 02:59 | ECWPNPC ---
PATIENT NAME: MIKKI HUDSON : 1985 GENDER: FEMALE VISIT DATE: 05/14/2017 DISCHARGE DATE: 05/14/17 1420 VISIT LOCKED DATE TIME: PHYSICIAN: BISHNU CARDENAS RESOURCE: BISHNU CARDENAS REASON FOR APPOINTMENT 1. LOW BACK/THORACIC PAIN HISTORY OF PRESENT ILLNESS HISTORY OF PRESENT ILLNESS: PAIN THE PATIENT DESCRIBES THE PAIN... 31 YEAR OLD FEMALE PATIENT WITH HISTORY OF CHRONIC BACK PAIN. PATIENT DESCRIBES THE PAIN TENDER, THROBBING, SORE, AND HAVING IT ALL THE TIME WITH A PAIN SCORE OF 8-9/10. PATIENT STATES HER PAIN STARTED ROUGHLY 2 YEARS AGO. PATIENT RECEIVED TRIGGER POINT INJECTION ON 04/27/17 AND REPORTS ONLY HAVING A DAY OF RELIEF FROM THE INJECTION. PATIENT REPORTS THAT ANY TYPE OF ACTIVITY INCLUDING WALKING, STANDING, AND SITTING INCREASES THE PAIN IN THE LOWER BACK. PATIENT DENIES UNEXPLAINABLE WEIGHT LOSS, FEVER, CHILLS, NEW CHANGES ON HER URINARY OR BOWEL CONTROL. FALL RISK SCREENING: SCREENING :NO FALLS IN THE PAST YEAR CURRENT MEDICATIONS TAKING HYDROCODONE-ACETAMINOPHEN 7.5-325 MG TABLET 1 TABLET NEEDED ORALLY EVERY 4 HRS NEEDED FOR PAIN MDD5 TAKING LIPITOR 20 MG TABLET 1 TABLET ORALLY ONCE A DAY TAKING WOMENS DAILY FORMULA TABLET 1 TAB(S) ORALLY DAILY TAKING JOLESSA 0.15-0.03 MG TABLET 1 TABLET ORALLY ONCE A DAY TAKING PROAIR HFA 108 (90 BASE) MCG/ACT AEROSOL SOLUTION 2 PUFFS NEEDED INHALATION EVERY 4 HRS TAKING VITAMIN D-3 1000 UNIT CAPSULE 1 CAPSULE ORALLY 2000UNITS DAILY TAKING DRISDOL 80666 UNIT CAPSULE 1 CAPSULE ORALLY WEEKLY TAKING LEXAPRO 10 MG TABLET 1 TABLET ORALLY ONCE A DAY TAKING IBUPROFEN 800 MG TABLET 1 TABLET ORALLY WITH FOOD THREE TIMES A DAY NEEDED FOR PAIN NOT-TAKING METFORMIN HCL 500 MG TABLET 1 TABLET WITH MEALS ORALLY ONCE A DAY NOT-TAKING GABAPENTIN 300 MG CAPSULE 1 CAPSULE ORALLY THREE TIMES A DAY FOR PAIN MDD3 NOT-TAKING TRAZODONE HCL 50 MG TABLET 1 TABLET AT BEDTIME ORALLY ONCE A DAY MEDICATION LIST REVIEWED AND RECONCILED WITH THE PATIENT PAST MEDICAL HISTORY BARBIE ANXIETY, DEPRESSION, BIPOLAR, CLAUSTROPHOBIA MIGRAINE POLYCYSTIC OVARIAN SYNDROME VITAMIN D DEFICIENCY ALLERGIES CEPHALEXIN: HIVES: ALLERGY AZITHROMYCIN: HIVES: ALLERGY AMOXICILLIN: NAUSEA/VOMITING: ALLERGY DOXYCYCLINE (ROSACEA): NAUSEA/VOMITING: ALLERGY TRAMADOL: DIARRHEA/NIGHTMARES: ALLERGY PENICILLIN (FOR ALLERGIES USE ONLY): NAUSEA/VOMITING: ALLERGY REVIEW OF SYSTEMS REVIEWED BY: PROVIDER: BISHNU CARDENAS MD . CONSTITUTIONAL: ANY CHANGE IN YOUR MEDICAL CONDITION? NO . CHILLS NO . FEVER NO . INFECTION: DO YOU HAVE NEW INFECTIONS? NO . DO YOU HAVE HISTORY OF MRSA? NO . MUSCULOSKELETAL: ANY NEW PATTERNS OF PAIN OR NUMBNESS? NO . GASTROENTEROLOGY: ANY NEW CHANGE IN BOWEL CONTROL? NO . GENITOURINARY: ANY NEW CHANGE IN BLADDER CONTROL? NO . IS THERE A CHANCE YOU COULD BE ? NO . HEMATOLOGY/LYMPH: DO YOU TAKE ANY BLOOD THINNERS? (FOR EXAMPLE- COUMADIN, PLAVIX, AGGRENOX, PLATEL, PRADAXA, OR XARELTO) NO . WHEN WAS YOUR LAST DOSE? DATE: TIME: . NEUROLOGY: HAVE YOU FALLEN IN THE PAST 6 MONTHS? NO . ANY NEW EXTREMITY NUMBNESS OR WEAKNESS? NO . CARDIOLOGY: DO YOU HAVE A PACEMAKER OR DEFIBRILLATOR? NO . RESPIRATORY: HAVE YOU BEEN SICK IN THE PAST WEEK? NO . FEVER NO . FLU LIKE SYMPTOMS? NO . COUGH NO . INTEGUMENTARY: DO YOU HAVE ANY RASHES OR OPEN SORES? NO . ALLERGIC/IMMUNO: ARE YOU ALLERGIC TO SHELLFISH OR IV DYE? NO . ANY NEW ALLERGIES? NO . PSYCHIATRIC: DO YOU HAVE THOUGHTS OF HURTING YOURSELF OR SOMEONE ELSE? NO . ARE YOU ABUSED, NEGLECTED, OR IN AN UNSAFE ENVIRONMENT? NO . ENDOCRINOLOGY: ARE YOU DIABETIC? NO . OTHER: DO YOU NEED ANY PRESCRIPTIONS? NO . IF YES, PLEASE LIST: ____ . ANY NEW PROBLEMS WITH YOUR MEDICATIONS? NO . WHEN DID YOU LAST EAT? ____ . WHEN DID YOU LAST DRINK? ____ . WHAT DID YOU LAST DRINK? ____ . NAME OF PERSON DRIVING YOU HOME? ____ . DO YOU HAVE ANY OTHER QUESTIONS OR CONCERNS NO . VITAL SIGNS WT 302.0 LBS, HT 69 IN, BMI 44.59 INDEX, BP 132/88 MM HG, HR 94 /MIN, RR 18 /MIN, TEMP 98.2 F, OXYGEN SAT % 99%, NA INITIALS AW 1329, REVIEWED BY: AD. EXAMINATION : PATIENT IS ALERT O X 3 AND COOPERATIVE. TENDERNESS IN THE BACK AREA AND PARASPINAL MUSCLE GROUP. MRI DONE ON 02/20/2015 SHOWS FACET ARTHROPATHY CHANGES. 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 HUDSON'S PAIN MANAGEMENT. AT THIS TIME I WOULD LIKE THE PATIENT TO START PHYSICAL THERAPY TO SEE IF IT WILL HELP WITH HER MOBILITY AND FUNCTIONALITY. I WOULD LIKE TO PROCEED WITH A DIAGNOSTIC FACET BLOCK TO CONSIDER A RADIOFREQUENCY. PATIENT IS AWARE SHE WILL NEED TO HAVE TWO DIAGNOSTIC TESTS WITH ADEQUATE RESULTS TO HAVE A RADIOFREQUENCY. WE DISCUSSED THE RISKS, BENENFITS, AND ALTNERATIVES OF THE DIAGNOSTIC TEST AND THE PATIENT WOULD LIKE TO PROCEED AT THIS TIME. I WOULD LIKE TO REVIEW THE EMG FROM DR. KNOX'S OFFICE PRIOR TO THE INJECTION. INSTRUCTIONS WERE GIVEN, QUESTIONS WERE ANSWERED, PATIENT REPORTS UNDERSTANDING AND AGREES WITH THE PLAN. I, GERRY BOYD, DOCUMENTED THE ABOVE INFORMATION ACTING A SCRIBE FOR DR. CARDENAS. I HAVE REVIEWED THE ABOVE DOCUMENT, WRITTEN BY GERRY WINKLER AND I VERIFY THAT IT IS ACCURATE. OTHERS NOTES: FACET JOINT INJECTION MATERIAL WAS PRINTED, REVIEWED AND GIVEN TO PT. PROCEDURE CODES FA211 ESTABILISHED PATIENT [facility] FACILITY CHARGE G8427 DOC MEDS VERIFIED W/PT OR RE G3763 PAIN ASSESS POS TOOL F/U PLAN DOC DISPOSITION & COMMUNICATION FOLLOW UP 4 WEEKS ELECTRONICALLY SIGNED BY BISHNU CARDENAS MD ON 06/02/2017 AT 12:42 PM EDT DISCLAIMER : THIS IS A VISIT SUMMARY EXTRACTED FROM THE [employer] CHART. IT IS NOT A COPY OF THE [employer] PROGRESS NOTE. MTDD
== END ==
LOC: M PAIN 13:40
PROVIDERS: ATTEND Anesthesiology
DX: G89.29 Other chronic pain (principal); M79.1 Myalgia; M47.814 Spondylosis without myelopathy or radiculopathy, thoracic region; M47.815 Spondylosis without myelopathy or radiculopathy, thoracolumbar region; G47.33 Obstructive sleep apnea (adult) (pediatric); F41.9 Anxiety disorder, unspecified; F32.9 Major depressive disorder, single episode, unspecified; G43.909 Migraine, unspecified, not intractable, without status migrainosus; E55.9 Vitamin D deficiency, unspecified; E28.2 Polycystic ovarian syndrome; Z88.0 Allergy status to penicillin; Z88.1 Allergy status to other antibiotic agents; Z88.5 Allergy status to narcotic agent; Z88.8 Allergy status to other drugs, medicaments and biological substances; Z79.891 Long term (current) use of opiate analgesic; Z79.1 Long term (current) use of non-steroidal anti-inflammatories (NSAID); Z79.899 Other long term (current) drug therapy

== ENCOUNTER → 2017-05-14 | Outpatient (CLI) | payer OTHER, MEDICAID ==
--- NOTE | 2017-05-30 00:22 | ECWPNPC ---
PATIENT NAME: MIKKI HUDSON : 1985 GENDER: FEMALE VISIT DATE: 05/14/2017 DISCHARGE DATE: 05/14/17 1529 VISIT LOCKED DATE TIME: PHYSICIAN: RACHID WEBER RESOURCE: RACHID WEBER REASON FOR APPOINTMENT 1. W/C SHOULDER HISTORY OF PRESENT ILLNESS HISTORY OF PRESENT ILLNESS: PAIN THE PATIENT DESCRIBES THE PAIN... FALL RISK SCREENING: SCREENING :NO FALLS IN THE PAST YEAR TODAY'S VISIT: NOTES: WC FOLLOWUP FOR RIGHT SHOULDER. RATES PAIN TODAY 8/10. NOTES PAIN IS CONSTANT, TENDER AND THROBBING AND SORE. HAS SEEN DR BERENICE CASTRO FOR [facility] TRIAL WITH BURST STIM. PAIN IS CENTERED OVER DELTOID AND UPPER HUMERUS. WITH RADIATION DOWN ARM TO LEVELOF WRIST AND INTO THE MUSCLES OF THE UPPER BACK/SHOULDER BLADE. IS HAVING SEVERE MUSCLE SPASMS IN ARM AND SHOULDER. CURRENT MEDICATIONS TAKING HYDROCODONE-ACETAMINOPHEN 7.5-325 MG TABLET 1 TABLET NEEDED ORALLY EVERY 4 HRS NEEDED FOR PAIN MDD5 TAKING LIPITOR 20 MG TABLET 1 TABLET ORALLY ONCE A DAY TAKING WOMENS DAILY FORMULA TABLET 1 TAB(S) ORALLY DAILY TAKING JOLESSA 0.15-0.03 MG TABLET 1 TABLET ORALLY ONCE A DAY TAKING PROAIR HFA 108 (90 BASE) MCG/ACT AEROSOL SOLUTION 2 PUFFS NEEDED INHALATION EVERY 4 HRS TAKING VITAMIN D-3 1000 UNIT CAPSULE 1 CAPSULE ORALLY 2000UNITS DAILY TAKING DRISDOL 91361 UNIT CAPSULE 1 CAPSULE ORALLY WEEKLY TAKING LEXAPRO 10 MG TABLET 1 TABLET ORALLY ONCE A DAY TAKING IBUPROFEN 800 MG TABLET 1 TABLET ORALLY WITH FOOD THREE TIMES A DAY NEEDED FOR PAIN NOT-TAKING METFORMIN HCL 500 MG TABLET 1 TABLET WITH MEALS ORALLY ONCE A DAY NOT-TAKING GABAPENTIN 300 MG CAPSULE 1 CAPSULE ORALLY THREE TIMES A DAY FOR PAIN MDD3 NOT-TAKING TRAZODONE HCL 50 MG TABLET 1 TABLET AT BEDTIME ORALLY ONCE A DAY MEDICATION LIST REVIEWED AND RECONCILED WITH THE PATIENT PAST MEDICAL HISTORY BARBIE ANXIETY, DEPRESSION, BIPOLAR, CLAUSTROPHOBIA MIGRAINE POLYCYSTIC OVARIAN SYNDROME VITAMIN D DEFICIENCY ALLERGIES CEPHALEXIN: HIVES: ALLERGY AZITHROMYCIN: HIVES: ALLERGY AMOXICILLIN: NAUSEA/VOMITING: ALLERGY DOXYCYCLINE (ROSACEA): NAUSEA/VOMITING: ALLERGY TRAMADOL: DIARRHEA/NIGHTMARES: ALLERGY PENICILLIN (FOR ALLERGIES USE ONLY): NAUSEA/VOMITING: ALLERGY SOCIAL HISTORY GENERAL: TOBACCO USE ARE YOU A:NONSMOKER ALCOHOL SCREENING DID YOU HAVE A DRINK CONTAINING ALCOHOL IN THE PAST YEAR?NO POINTS0 INTERPRETATIONNEGATIVE CAFFEINE CAFFEINE USE?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 EXERCISE: WALKS. MARITAL STATUS: SINGLE. PETS: CAT. PROTESTANT PROTESTANT NO PREFERENCE LANGUAGE LANGUAGES SPOKEN:JAPANESE EDUCATION LEVEL OF EDUCATION:COLLEGE LEARNING BARRIERS / SPECIAL NEEDS BARRIERS TO LEARNING?NO HEARING IMPAIRED?NO VISION IMPAIRED?YES :CORRECTIVE LENSES COGNITIVELY IMPAIRED?NO READINESS TO LEARN?YES LEARNING PREFERENCES?NO LEARNING CAPABILITIES PRESENT?YES EMOTIONAL BARRIERS?NO SPECIAL DEVICES?YES :[place] HOME LENDING OFFICER NEEDED?NO PAIN CLINIC PFS, CLERGY, PUBLIC HEALTH REFERRALS PFS REFERRAL NEEDED?NO CLERGY REFERRAL NEEDED?NO PUBLIC HEALTH REFERRAL NEEDED?NO WAS THE PROVIDER NOTIFIED OF ANY PERTINENT INFO?NO HAS THE PATIENT BEEN EDUCATED REGARDING HIS/HER PLAN OF CARE?YES PLEASE DOCUMENT ANY ADDTIONAL DETAILS.PLEASE FREE TEXT IN THE NOTES SECTION. HAS THE PATIENT BEEN EDUCATED REGARDING PAIN, THE RISK FOR PAIN, THE IMPORTANCE OF EFFECTIVE PAIN MANAGEMENT, AND THE PAIN ASSESSMENT PROCESS?YES PATIENT: ____. ADVANCE DIRECTIVES HEALTH CARE PROXY?NO WOULD YOU LIKE MORE INFORMATION?NO DO YOU HAVE A DNR?NO WOULD YOU LIKE MORE INFORMATION?NO LIVING WILL?NO WOULD YOU LIKE MORE INFORMATION?NO POWER OF TECHNICAL SERVICE SPECIALIST?NO WOULD YOU LIKE MORE INFORMATION?NO REVIEW OF SYSTEMS REVIEWED BY: PROVIDER: RACHID DELGADILLO . CONSTITUTIONAL: ANY CHANGE IN YOUR MEDICAL CONDITION? NO . CHILLS NO . FEVER NO . INFECTION: DO YOU HAVE NEW INFECTIONS? NO . DO YOU HAVE HISTORY OF MRSA? NO . MUSCULOSKELETAL: ANY NEW PATTERNS OF PAIN OR NUMBNESS? NO . GASTROENTEROLOGY: ANY NEW CHANGE IN BOWEL CONTROL? NO . GENITOURINARY: ANY NEW CHANGE IN BLADDER CONTROL? NO . IS THERE A CHANCE YOU COULD BE ? NO . HEMATOLOGY/LYMPH: DO YOU TAKE ANY BLOOD THINNERS? (FOR EXAMPLE- COUMADIN, PLAVIX, AGGRENOX, PLATEL, PRADAXA, OR XARELTO) NO . WHEN WAS YOUR LAST DOSE? DATE: TIME: . NEUROLOGY: HAVE YOU FALLEN IN THE PAST 6 MONTHS? NO . ANY NEW EXTREMITY NUMBNESS OR WEAKNESS? NO . CARDIOLOGY: DO YOU HAVE A PACEMAKER OR DEFIBRILLATOR? NO . RESPIRATORY: HAVE YOU BEEN SICK IN THE PAST WEEK? NO . FEVER NO . FLU LIKE SYMPTOMS? NO . COUGH NO . INTEGUMENTARY: DO YOU HAVE ANY RASHES OR OPEN SORES? NO . ALLERGIC/IMMUNO: ARE YOU ALLERGIC TO SHELLFISH OR IV DYE? NO . ANY NEW ALLERGIES? NO . PSYCHIATRIC: DO YOU HAVE THOUGHTS OF HURTING YOURSELF OR SOMEONE ELSE? NO . ARE YOU ABUSED, NEGLECTED, OR IN AN UNSAFE ENVIRONMENT? NO . ENDOCRINOLOGY: ARE YOU DIABETIC? NO . OTHER: DO YOU NEED ANY PRESCRIPTIONS? NO . IF YES, PLEASE LIST: ____ . ANY NEW PROBLEMS WITH YOUR MEDICATIONS? NO . WHEN DID YOU LAST EAT? ____ . WHEN DID YOU LAST DRINK? ____ . WHAT DID YOU LAST DRINK? ____ . NAME OF PERSON DRIVING YOU HOME? ____ . DO YOU HAVE ANY OTHER QUESTIONS OR CONCERNS NO . VITAL SIGNS WT 302 LBS, HT 69 IN, BMI 44.59 INDEX, BP 132/88 MM HG, HR 94 /MIN, RR 18 /MIN, TEMP 98.2 F, OXYGEN SAT % 99%, NA INITIALS SC 14:48, REVIEWED BY: ROBERT. EXAMINATION GENERAL EXAMINATION: PSYCHALERT , ORIENTED X 3 , APPROPRIATE MOOD AND AFFECT . LUNGS:CLEAR TO AUSCULTATION BILATERALLY. HEART:HEART RATE REGULAR. MUSCULOSKELETAL:EXQUISITE TENDERNESS/ALLODYNIA AT RIGHT SHOULDER. MARKED LOSS OF ROM WITH MOVEMENT AT RIGHT AC JOINT.,RESTRICTION OF ROM IS NOTED. IS ABLE TO FLEX FINGERS ACROSS PALM TODAY, ABLE TO FLEX AND EXTEND AT THE RIGHT WRIST AND ABLE TO SLOWLY FLEX AND EXTEND RIGHT ELBOW. ABLE TO ABDUCT RIGHT SHOULDER TO 30 DEGREES. JOINTS:CAN ABDUCT RIGHT SHOULDER TO 25 DEGREES. IS ABLE TO EXTEND FINGERS ACROSS THE PALM RIGHT SIDE.. 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 TREATMENT MYALGIA NOTES: CONTINUE CURRENT EXERCISES AND STRETCHES. CONTINUE CURRENT MEDS - USE HYDROCODONE 7.5/325 1 TAB EVERY 4 HOURS PRN PAIN - TAKE ONLY WHEN NECESSARY. WE WILL CONTINUE TO PURSUE DORSAL COLUMN STIM. CLINICAL NOTES: ISTOP REGISTRY REVIEWED AND DEMNOSTRATES COMPLLIANCE. BRINGS IN MEDICATIONS WHICH IS APPROPRIATE FOR WHAT WAS DISPENSED. RECENT URINE TOXICOLOGY REVIEWED. NO UNAUTHORIZED MEDICATIONS. NO ILLICIT SUBSTANCES AND PRESCRIBED MEDICATIONS WERE PRESENT. 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 YES ARE THE PATIENT'S COMPLAINTS CONSISTENT WITH HIS/HER HISTORY OF THE INJURY/ILLNESS? YES IS THE PATIENT'S HISTORY OF THE INJURY/ILLNESS CONSISTENT WITH YOUR OBJECTIVE FINDING? YES WHAT IS THE PERCENTAGE OF TEMPORARY IMPAIRMENT? TOTAL = 100% IS THE PATIENT WORKING? NO DOCTOR ON SITE: BISHNU CHARLES MD PROCEDURE CODES FA211 ESTABILISHED PATIENT [facility] CHARGE DISPOSITION & COMMUNICATION FOLLOW UP WC 6 WEEKS (REASON: RIGHT SHOULDER) ELECTRONICALLY SIGNED BY RAUDEL PEPE ON 05/29/2017 AT 07:09 PM EDT DISCLAIMER : THIS IS A VISIT SUMMARY EXTRACTED FROM THE [employer] CHART. IT IS NOT A COPY OF THE [employer] PROGRESS NOTE. KAJAL
== END ==
LOC: M PAIN 14:30
PROVIDERS: ATTEND Nurse Practitioner Family
DX: G89.29 Other chronic pain (principal); G47.33 Obstructive sleep apnea (adult) (pediatric); F41.9 Anxiety disorder, unspecified; F32.9 Major depressive disorder, single episode, unspecified; G43.909 Migraine, unspecified, not intractable, without status migrainosus; E55.9 Vitamin D deficiency, unspecified; Z79.891 Long term (current) use of opiate analgesic; Z79.1 Long term (current) use of non-steroidal anti-inflammatories (NSAID); Z79.899 Other long term (current) drug therapy; Z88.0 Allergy status to penicillin; Z88.1 Allergy status to other antibiotic agents; Z88.8 Allergy status to other drugs, medicaments and biological substances

== ENCOUNTER → 2017-06-04 | Outpatient (CLI) | payer MEDICAID ==
[~2017-06-04] MED LIST changes: +BUPIVACAINE HCL 0.25% 30 ML VIAL As Ordered ONE; +ISOVUE-M 300 61% 15ML VIAL (Q9967) As Ordered ONE; +LIDOCAINE 1% SDV INJ 30 ML VIAL As Ordered ONE
--- NOTE | 2017-06-04 13:13 | REP ---
Partial lumbar spine series: Single view. History: Bilateral lumbar facet block for pain. 24 seconds of fluoroscopy time is reported. Findings: A single last image hold fluoroscopic spot radiograph of the lumbar spine documents various needle positions and contrast injections associated with facet injection procedure. Signed by Hemal Murphy MD 06/04/2017 02:46 P
--- NOTE | 2017-06-05 00:29 | ECWPNPC ---
PATIENT NAME: MIKKI HUDSON : 1985 GENDER: FEMALE VISIT DATE: 06/04/2017 DISCHARGE DATE: 06/04/17 1159 VISIT LOCKED DATE TIME: PHYSICIAN: BISHNU CARDENAS RESOURCE: BISHNU CARDENAS REASON FOR APPOINTMENT 1. LFBD #1 HISTORY OF PRESENT ILLNESS HISTORY OF PRESENT ILLNESS: PAIN THE PATIENT DESCRIBES THE PAIN... FALL RISK SCREENING: SCREENING :NO FALLS IN THE PAST YEAR CURRENT MEDICATIONS TAKING HYDROCODONE-ACETAMINOPHEN 7.5-325 MG TABLET 1 TABLET NEEDED ORALLY EVERY 4 HRS NEEDED FOR PAIN MDD5, NOTES: COUPLE DAYS AGO TAKING LIPITOR 20 MG TABLET 1 TABLET ORALLY ONCE A DAY, NOTES: 06/03/17 0800 TAKING WOMENS DAILY FORMULA TABLET 1 TAB(S) ORALLY DAILY, NOTES: 06/03/17 08 TAKING JOLESSA 0.15-0.03 MG TABLET 1 TABLET ORALLY ONCE A DAY, NOTES: 06/03/17 08 TAKING PROAIR HFA 108 (90 BASE) MCG/ACT AEROSOL SOLUTION 2 PUFFS NEEDED INHALATION EVERY 4 HRS, NOTES: NONE LATELY TAKING VITAMIN D-3 1000 UNIT CAPSULE 1 CAPSULE ORALLY 2000UNITS DAILY, NOTES: 06/03/17 08 TAKING DRISDOL 75111 UNIT CAPSULE 1 CAPSULE ORALLY WEEKLY, NOTES: 06/01/17 TAKING LEXAPRO 10 MG TABLET 1 TABLET ORALLY ONCE A DAY, NOTES: 06/03/17 08 TAKING IBUPROFEN 800 MG TABLET 1 TABLET ORALLY WITH FOOD THREE TIMES A DAY NEEDED FOR PAIN, NOTES: 06/03/171999 NOT-TAKING METFORMIN HCL 500 MG TABLET 1 TABLET WITH MEALS ORALLY ONCE A DAY NOT-TAKING GABAPENTIN 300 MG CAPSULE 1 CAPSULE ORALLY THREE TIMES A DAY FOR PAIN MDD3 NOT-TAKING TRAZODONE HCL 50 MG TABLET 1 TABLET AT BEDTIME ORALLY ONCE A DAY MEDICATION LIST REVIEWED AND RECONCILED WITH THE PATIENT PAST MEDICAL HISTORY BARBIE ANXIETY, DEPRESSION, BIPOLAR, CLAUSTROPHOBIA MIGRAINE POLYCYSTIC OVARIAN SYNDROME VITAMIN D DEFICIENCY ALLERGIES CEPHALEXIN: HIVES: ALLERGY AZITHROMYCIN: HIVES: ALLERGY AMOXICILLIN: NAUSEA/VOMITING: ALLERGY DOXYCYCLINE (ROSACEA): NAUSEA/VOMITING: ALLERGY TRAMADOL: DIARRHEA/NIGHTMARES: ALLERGY PENICILLIN (FOR ALLERGIES USE ONLY): NAUSEA/VOMITING: ALLERGY SURGICAL HISTORY TONSILECTOMY 2015 TRIAL DCS 06/2015 SOCIAL HISTORY GENERAL: TOBACCO USE ARE YOU A:NONSMOKER ALCOHOL SCREENING DID YOU HAVE A DRINK CONTAINING ALCOHOL IN THE PAST YEAR?NO POINTS0 INTERPRETATIONNEGATIVE CAFFEINE CAFFEINE USE?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 EXERCISE: WALKS. MARITAL STATUS: SINGLE. PETS: CAT. 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 HAS THE PATIENT BEEN EDUCATED REGARDING PAIN, THE RISK FOR PAIN, THE IMPORTANCE OF EFFECTIVE PAIN MANAGEMENT, AND THE PAIN ASSESSMENT PROCESS?YES PATIENT: ____. ADVANCE DIRECTIVES HEALTH CARE PROXY?NO WOULD YOU LIKE MORE INFORMATION?NO DO YOU HAVE A DNR?NO WOULD YOU LIKE MORE INFORMATION?NO LIVING WILL?NO WOULD YOU LIKE MORE INFORMATION?NO POWER OF SCRAP DROP OPERATOR?NO WOULD YOU LIKE MORE INFORMATION?NO HOSPITALIZATION/MAJOR DIAGNOSTIC PROCEDURE DCS TRIAL 06/2015 REVIEW OF SYSTEMS REVIEWED BY: PROVIDER: . CONSTITUTIONAL: ANY CHANGE IN YOUR MEDICAL CONDITION? NO . CHILLS NO . FEVER NO . INFECTION: DO YOU HAVE NEW INFECTIONS? NO . DO YOU HAVE HISTORY OF MRSA? NO . MUSCULOSKELETAL: ANY NEW PATTERNS OF PAIN OR NUMBNESS? NO . GASTROENTEROLOGY: ANY NEW CHANGE IN BOWEL CONTROL? NO . GENITOURINARY: ANY NEW CHANGE IN BLADDER CONTROL? NO . IS THERE A CHANCE YOU COULD BE ? NO . HEMATOLOGY/LYMPH: DO YOU TAKE ANY BLOOD THINNERS? (FOR EXAMPLE- COUMADIN, PLAVIX, AGGRENOX, PLATEL, PRADAXA, OR XARELTO) NO . WHEN WAS YOUR LAST DOSE? DATE: TIME: . NEUROLOGY: HAVE YOU FALLEN IN THE PAST 6 MONTHS? NO . ANY NEW EXTREMITY NUMBNESS OR WEAKNESS? NO . CARDIOLOGY: DO YOU HAVE A PACEMAKER OR DEFIBRILLATOR? NO . RESPIRATORY: HAVE YOU BEEN SICK IN THE PAST WEEK? NO . FEVER NO . FLU LIKE SYMPTOMS? NO . COUGH NO . INTEGUMENTARY: DO YOU HAVE ANY RASHES OR OPEN SORES? NO . ALLERGIC/IMMUNO: ARE YOU ALLERGIC TO SHELLFISH OR IV DYE? NO . ANY NEW ALLERGIES? NO . PSYCHIATRIC: DO YOU HAVE THOUGHTS OF HURTING YOURSELF OR SOMEONE ELSE? NO . ARE YOU ABUSED, NEGLECTED, OR IN AN UNSAFE ENVIRONMENT? NO . ENDOCRINOLOGY: ARE YOU DIABETIC? NO . OTHER: DO YOU NEED ANY PRESCRIPTIONS? NO . IF YES, PLEASE LIST: ____ . ANY NEW PROBLEMS WITH YOUR MEDICATIONS? NO . WHEN DID YOU LAST EAT? 06/03/172199 . WHEN DID YOU LAST DRINK? 06/03/172299 . WHAT DID YOU LAST DRINK? SODA . NAME OF PERSON DRIVING YOU HOME? [employer] . DO YOU HAVE ANY OTHER QUESTIONS OR CONCERNS NO . VITAL SIGNS WT 300 LBS, HT 69 IN, BMI 44.30 INDEX, BP 130/102 MM HG, HR 98 /MIN, RR 18 /MIN, TEMP 98.1 F, OXYGEN SAT % 97%, NA INITIALS SC 10:34. ASSESSMENTS SPONDYLOSIS OF LUMBAR REGION WITHOUT MYELOPATHY OR RADICULOPATHY - M47.816 (PRIMARY) SPONDYLOSIS OF LUMBOSACRAL REGION WITHOUT MYELOPATHY OR RADICULOPATHY - M47.817 PROCEDURES PN LUMBAR FACET BLOCK DIAGNOSTIC PRE PROCEDURE DIAGNOSIS LUMBAR SPONDYLOSIS, LUMBOSACRAL SPONDYLOSIS POST PROCEDURE DIAGNOSIS LUMBAR SPONDYLOSIS, LUMBOSACRAL SPONDYLOSIS PROCEDURE LEFT L4-L5 AND LEFT L5-S1 FACET BLOCK DIAGNOSTIC NUMBER [address] BISHNU CARDENAS SYSTEMS SUPPORT SPECIALIST NONE ANESTHESIA LOCAL PRE PROCEDURE NOTE THE PATIENT WITH HISTORY OF CHRONIC LOW BACK PAIN. I EVALUATED THE PATIENT AND REVIEWED THE CHART. I WENT OVER THE RISKS, ALTERNATIVES, AND BENEFITS ASSOCIATED WITH THIS PROCEDURE. THE PATIENT WOULD LIKE TO PROCEED AND GAVE CONSENT TO PERFORM THE PROCEDURE. AGREED WITH THE PATIENT WE ARE DOING THIS PROCEDURE TO DETERMINE IF THE PATIENT IS A CANDIDATE FOR A RADIOFREQUENCY ABLATION OF THE FACETS JOINTS. THE PATIENT DENIES UNEXPLAINABLE WEIGHT LOSS, FEVER, CHILLS, OR NEW CHANGES IN URINARY OR BOWEL CONTROL DESCRIPTION OF PROCEDURE THE PATIENT WAS BROUGHT TO THE PROCEDURE ROOM AND PLACED IN THE PRONE POSITION. THE LUMBOSACRAL AREA WAS CLEANED WITH CHLORAPREP SOLUTION AND DRAPED ASEPTICALLY. THE PROCEDURE WAS DONE UNDER STERILE CONDITIONS. I CHECKED LATERALITY AND THE LEVEL WHERE THE PROCEDURE WAS GOING TO BE PERFORMED WITH THE PATIENT AND THE SUPPORTING STAFF AT THE MOMENT OF THE TIME OUT IN THE PROCEDURE ROOM. UNDER FLUOROSCOPIC GUIDANCE, TARGETS WERE SELECTED AT THE INTERSECTION OF THE LEFT TRANSVERSE PROCESS OF L4, L5 AND ALA OF S1 WITH ITS RESPECTIVE SUPERIOR ARTICULAR PROCESS. LIDOCAINE WAS USED TO NUMB THE SKIN AND THE SUBCUTANEOUS TISSUE BELOW IT. SPINAL NEEDLE, 22-GAUGE WAS ADVANCED UNDER FLUOROSCOPIC GUIDANCE AND FOLLOWING PATIENT FEEDBACK UNTIL THE TARGETS WERE REACHED. POSITION OF THE NEEDLES WAS VERIFIED WITH AP AND LATERAL VIEWS. AFTER PROPER POSITION OF THE NEEDLES WAS ACHIEVED, ISOVUE-M DYE 30% 0.1 ML WAS INJECTED AT EACH SITE SHOWING ADEQUATE SPREAD OF THE DYE. THEN A SOLUTION OF 0.4 ML OF BUPIVACAINE 0.25% WAS INJECTED AT EACH SITE. THERE WAS NO EVIDENCE OF BLOOD, PARESTHESIA OR CEREBROSPINAL FLUID DURING THE PROCEDURE. THE PATIENT WAS SENT TO THE RECOVERY ROOM. THE PATIENT WAS MOVING THE EXTREMITIES AND DOING WELL. THERE WAS NO COMPLICATION DURING THE PROCEDURE. FLUOROSCOPY TIME WAS 24 SECONDS POST PROCEDURE NOTE THE PATIENT WILL DOCUMENT HIS PAIN LEVEL AND RESPONSE TO THIS PROCEDURE EVERY 30 MINUTES. THE PATIENT WILL BE SEEN IN A FOLLOW UP IN THE NEXT FEW WEEKS. FURTHER DETERMINATION FOR HIS CASE WILL BE DONE AT THE NEXT VISIT. INSTRUCTIONS WERE GIVEN, QUESTIONS WERE ANSWERED, AND THE PATIENT EXPRESSED UNDERSTANDING AND AGREED WITH THE PLAN. I, GERRY BOYD, DOCUMENTED THE ABOVE INFORMATION ACTING A SCRIBE FOR DR. CARDENAS. I HAVE REVIEWED THE ABOVE DOCUMENT, WRITTEN BY GERRY WINKLER AND I VERIFY THAT IT IS ACCURATE DIAGNOSTIC IMAGING [facility] FACET BLOCK (PAIN)[id number] PROCEDURE CODES 97805 INJ PARAVERT F JNT L/S 1 LEV 20177 INJ PARAVERT F JNT L/S 2 LEV 6045F RADXPS IN END [id number] PXD DISPOSITION & COMMUNICATION FOLLOW UP 3 WEEKS ELECTRONICALLY SIGNED BY BISHNU CARDENAS MD ON 06/04/2017 AT 05:16 PM EDT DISCLAIMER : THIS IS A VISIT SUMMARY EXTRACTED FROM THE [employer] CHART. IT IS NOT A COPY OF THE [employer] PROGRESS NOTE. MTDD
== END ==
LOC: M PAIN 10:45
PROVIDERS: ATTEND Anesthesiology
DX: M47.816 Spondylosis without myelopathy or radiculopathy, lumbar region (principal); M47.817 Spondylosis without myelopathy or radiculopathy, lumbosacral region; G47.33 Obstructive sleep apnea (adult) (pediatric); F41.9 Anxiety disorder, unspecified; F31.9 Bipolar disorder, unspecified; G43.909 Migraine, unspecified, not intractable, without status migrainosus; E55.9 Vitamin D deficiency, unspecified; E28.2 Polycystic ovarian syndrome; Z79.891 Long term (current) use of opiate analgesic; Z79.899 Other long term (current) drug therapy; Z88.1 Allergy status to other antibiotic agents; Z88.0 Allergy status to penicillin; Z88.5 Allergy status to narcotic agent
CPT/HCPCS: 64493; 64494; Q9967

== ENCOUNTER → 2017-06-30 | Outpatient (CLI) | payer MEDICAID ==
[~2017-06-30] MED LIST changes: -BUPIVACAINE HCL 0.25% 30 ML VIAL As Ordered ONE; -ISOVUE-M 300 61% 15ML VIAL (Q9967) As Ordered ONE; -LIDOCAINE 1% SDV INJ 30 ML VIAL As Ordered ONE
--- NOTE | 2017-07-07 01:41 | ECWPNPC ---
PATIENT NAME: MIKKI HUDSON : 1985 GENDER: FEMALE VISIT DATE: 06/30/2017 DISCHARGE DATE: 06/30/17 1716 VISIT LOCKED DATE TIME: PHYSICIAN: BISHNU CARDENAS RESOURCE: BISHNU CARDENAS REASON FOR APPOINTMENT 1. LOW BACK PAIN HISTORY OF PRESENT ILLNESS GENERAL: 31 YEAR OLD FEMALE PATIENT WITH HISTORY OF CHRONIC BACK PAIN. PATIENT DESCRIBES THE PAIN TENDER, THROBBING, SORE, AND HAVING IT ALL THE TIME WITH A PAIN SCORE OF 8-9/10. PATIENT STATES HER PAIN STARTED ROUGHLY 2 YEARS AGO. PATIENT RECEIVED A DIAGNOSTIC FACET BLOCK ON 05/14/17 AND STATES THAT THE PAIN WENT DOWN ABOUT 40% FOR A FEW HOURS.. PATIENT REPORTS THAT ANY TYPE OF ACTIVITY INCLUDING WALKING, STANDING, AND SITTING INCREASES THE PAIN IN THE LOWER BACK. AT THIS TIME THE PATIENT STATES SHE IS HAVING SEVERE LEG PAIN. PATIENT DENIES UNEXPLAINABLE WEIGHT LOSS, FEVER, CHILLS, NEW CHANGES ON HER URINARY OR BOWEL CONTROL. CURRENT MEDICATIONS TAKING HYDROCODONE-ACETAMINOPHEN 7.5-325 MG TABLET 1 TABLET NEEDED ORALLY EVERY 4 HRS NEEDED FOR PAIN MDD5 TAKING LIPITOR 20 MG TABLET 1 TABLET ORALLY ONCE A DAY TAKING WOMENS DAILY FORMULA TABLET 1 TAB(S) ORALLY DAILY TAKING JOLESSA 0.15-0.03 MG TABLET 1 TABLET ORALLY ONCE A DAY TAKING PROAIR HFA 108 (90 BASE) MCG/ACT AEROSOL SOLUTION 2 PUFFS NEEDED INHALATION EVERY 4 HRS TAKING VITAMIN D-3 1000 UNIT CAPSULE 1 CAPSULE ORALLY 2000UNITS DAILY TAKING DRISDOL 39720 UNIT CAPSULE 1 CAPSULE ORALLY WEEKLY TAKING LEXAPRO 10 MG TABLET 1 TABLET ORALLY ONCE A DAY TAKING IBUPROFEN 800 MG TABLET 1 TABLET ORALLY WITH FOOD THREE TIMES A DAY NEEDED FOR PAIN TAKING METFORMIN HCL 500 MG TABLET 1 TABLET WITH MEALS ORALLY ONCE A DAY TAKING GABAPENTIN 300 MG CAPSULE 1 CAPSULE ORALLY THREE TIMES A DAY FOR PAIN MDD3 TAKING TRAZODONE HCL 50 MG TABLET 1 TABLET AT BEDTIME ORALLY ONCE A DAY MEDICATION LIST REVIEWED AND RECONCILED WITH THE PATIENT PAST MEDICAL HISTORY BARBIE ANXIETY, DEPRESSION, BIPOLAR, CLAUSTROPHOBIA MIGRAINE POLYCYSTIC OVARIAN SYNDROME VITAMIN D DEFICIENCY ALLERGIES CEPHALEXIN: HIVES: ALLERGY AZITHROMYCIN: HIVES: ALLERGY AMOXICILLIN: NAUSEA/VOMITING: ALLERGY DOXYCYCLINE (ROSACEA): NAUSEA/VOMITING: ALLERGY TRAMADOL: DIARRHEA/NIGHTMARES: ALLERGY PENICILLIN (FOR ALLERGIES USE ONLY): NAUSEA/VOMITING: ALLERGY SURGICAL HISTORY TONSILECTOMY 2015 TRIAL DCS 06/2015 HOSPITALIZATION/MAJOR DIAGNOSTIC PROCEDURE DCS TRIAL 06/2015 VITAL SIGNS WT 318 LBS, HT 69 IN, BMI 46.96 INDEX, BP 133/85 MM HG, HR 93 /MIN, RR 16 /MIN, TEMP 98.1 F, OXYGEN SAT % 97%, NA INITIALS SC 15:54, REVIEWED BY: NL. EXAMINATION GENERAL: PATIENT IS ALERT O X 3 AND COOPERATIVE. TENDERNESS IN THE BACK AREA AND PARASPINAL MUSCLE GROUP. MRI DONE ON 02/20/2015 SHOWS FACET ARTHROPATHY CHANGES AND DISC BULGES AT L1-L2 THROUGH L5-S1. 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 HUDSON'S PAIN MANAGEMENT CASE. AT THIS TIME THE PATIENT WILL CONTINUE WITH THE SAME MEDICATION REGIME BEFORE. DUE TO THE SEVERE LEG PAIN AND AFTER VIEWING THE PATIENT'S MRI I WOULD LIKE TO PROCEED WITH A LUMBAR EPIDURAL. WE DISCUSSED THE RISKS, BENENFITS, AND ALTNERATIVES OF THE INJECTION AND THE PATIENT WOULD LIKE TO PROCEED AT THIS TIME. INSTRUCTIONS WERE GIVEN, QUESTIONS WERE ANSWERED, PATIENT REPORTS UNDERSTANDING AND AGREES WITH THE PLAN. I, GERRY BOYD, DOCUMENTED THE ABOVE INFORMATION ACTING A SCRIBE FOR DR. CARDENAS. I HAVE REVIEWED THE ABOVE DOCUMENT, WRITTEN BY GERRY WINKLER AND I VERIFY THAT IT IS ACCURATE. OTHERS NOTES: LUMBAR EPIDURAL. PREVENTIVE MEDICINE REVIEWED PRE PROCEDURE CARE WITH PT EXPRESSING UNDERSTANDING OF ALLPT WILL CALL WHEN SHE IS READY TO HAVE PROCEDURE. PROCEDURE CODES FA211 ESTABILISHED PATIENT [facility] FACILITY CHARGE G8427 DOC MEDS VERIFIED W/PT OR RE G8730 PAIN ASSESS POS TOOL F/U PLAN DOC DISPOSITION & COMMUNICATION FOLLOW UP LESI AFTER APPROVAL ELECTRONICALLY SIGNED BY BISHNU CARDENAS MD ON 07/06/2017 AT 08:33 PM EDT DISCLAIMER : THIS IS A VISIT SUMMARY EXTRACTED FROM THE [employer] CHART. IT IS NOT A COPY OF THE [employer] PROGRESS NOTE. KAJAL
== END ==
LOC: M PAIN 15:45
PROVIDERS: ATTEND Anesthesiology
DX: G89.29 Other chronic pain (principal); M51.16 Intervertebral disc disorders with radiculopathy, lumbar region; M51.17 Intervertebral disc disorders with radiculopathy, lumbosacral region; M79.1 Myalgia; G47.33 Obstructive sleep apnea (adult) (pediatric); F41.9 Anxiety disorder, unspecified; F31.9 Bipolar disorder, unspecified; F40.240 Claustrophobia; G43.909 Migraine, unspecified, not intractable, without status migrainosus; E55.9 Vitamin D deficiency, unspecified; Z88.0 Allergy status to penicillin; Z88.1 Allergy status to other antibiotic agents; Z88.5 Allergy status to narcotic agent; Z88.8 Allergy status to other drugs, medicaments and biological substances

== ENCOUNTER → 2017-07-28 | Outpatient (CLI) | payer OTHER ==
--- NOTE | 2017-08-24 00:39 | ECWPNPC ---
PATIENT NAME: MIKKI HUDSON : 1985 GENDER: FEMALE VISIT DATE: 07/28/2017 DISCHARGE DATE: 07/28/17 1137 VISIT LOCKED DATE TIME: PHYSICIAN: RACHID WEBER RESOURCE: RACHID WEBER REASON FOR APPOINTMENT 1. W/C SHOULDER HISTORY OF PRESENT ILLNESS HISTORY OF PRESENT ILLNESS: PAIN THE PATIENT DESCRIBES THE PAIN... FALL RISK SCREENING: SCREENING :NO FALLS IN THE PAST YEAR TODAY'S VISIT: NOTES: WC FOLLOWUP FOR RIGHT SHOULDER PAIN RATES PAIN TODAY 8/10. DESCRIBES PAIN CONSTANT, ACHING AND BURNING. HAS GOOD AND BAD DAYSHAVING SOME MUSCLE SPASMS IN RIGHT SHOULDER. IS EXPECTING TONY NEXT WEEK FOR THIS PAIN AREA. CURRENT MEDICATIONS TAKING LIPITOR 20 MG TABLET 1 TABLET ORALLY ONCE A DAY TAKING WOMENS DAILY FORMULA TABLET 1 TAB(S) ORALLY DAILY TAKING JOLESSA 0.15-0.03 MG TABLET 1 TABLET ORALLY ONCE A DAY TAKING PROAIR HFA 108 (90 BASE) MCG/ACT AEROSOL SOLUTION 2 PUFFS NEEDED INHALATION EVERY 4 HRS TAKING VITAMIN D-3 1000 UNIT CAPSULE 1 CAPSULE ORALLY 2000UNITS DAILY TAKING DRISDOL 90697 UNIT CAPSULE 1 CAPSULE ORALLY WEEKLY TAKING LEXAPRO 10 MG TABLET 1 TABLET ORALLY ONCE A DAY TAKING IBUPROFEN 800 MG TABLET 1 TABLET ORALLY WITH FOOD THREE TIMES A DAY NEEDED FOR PAIN NOT-TAKING HYDROCODONE-ACETAMINOPHEN 7.5-325 MG TABLET 1 TABLET NEEDED ORALLY EVERY 4 HRS NEEDED FOR PAIN MDD5 NOT-TAKING METFORMIN HCL 500 MG TABLET 1 TABLET WITH MEALS ORALLY ONCE A DAY NOT-TAKING GABAPENTIN 300 MG CAPSULE 1 CAPSULE ORALLY THREE TIMES A DAY FOR PAIN MDD3 NOT-TAKING TRAZODONE HCL 50 MG TABLET 1 TABLET AT BEDTIME ORALLY ONCE A DAY MEDICATION LIST REVIEWED AND RECONCILED WITH THE PATIENT PAST MEDICAL HISTORY BARBIE ANXIETY, DEPRESSION, BIPOLAR, CLAUSTROPHOBIA MIGRAINE POLYCYSTIC OVARIAN SYNDROME VITAMIN D DEFICIENCY ALLERGIES CEPHALEXIN: HIVES: ALLERGY AZITHROMYCIN: HIVES: ALLERGY AMOXICILLIN: NAUSEA/VOMITING: ALLERGY DOXYCYCLINE (ROSACEA): NAUSEA/VOMITING: ALLERGY TRAMADOL: DIARRHEA/NIGHTMARES: ALLERGY PENICILLIN (FOR ALLERGIES USE ONLY): NAUSEA/VOMITING: ALLERGY METFORMIN: NAUSEA/VOMITING: SIDE EFFECTS SOCIAL HISTORY GENERAL: TOBACCO USE ARE YOU A:NONSMOKER ALCOHOL SCREENING DID YOU HAVE A DRINK CONTAINING ALCOHOL IN THE PAST YEAR?NO POINTS0 INTERPRETATIONNEGATIVE RECREATIONAL DRUG USE DRUG USE?NO CAFFEINE CAFFEINE USE?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 EXERCISE: WALKS. MARITAL STATUS: SINGLE. PETS: CAT. ADVENTIST ADVENTIST NO PREFERENCE LANGUAGE LANGUAGES SPOKEN:FRENCH EDUCATION LEVEL OF EDUCATION:COLLEGE LEARNING BARRIERS / SPECIAL NEEDS CHANGE FROM LAST VISIT?NO BARRIERS TO LEARNING?NO HEARING IMPAIRED?NO VISION IMPAIRED?YES :CORRECTIVE LENSES COGNITIVELY IMPAIRED?NO READINESS TO LEARN?YES LEARNING PREFERENCES?NO LEARNING CAPABILITIES PRESENT?YES EMOTIONAL BARRIERS?NO SPECIAL DEVICES?YES :[employer] CUSTOMS DIRECTOR NEEDED?NO PAIN CLINIC PFS, CLERGY, PUBLIC HEALTH REFERRALS PFS REFERRAL NEEDED?NO CLERGY REFERRAL NEEDED?NO PUBLIC HEALTH REFERRAL NEEDED?NO WAS THE PROVIDER NOTIFIED OF ANY PERTINENT INFO?NO HAS THE PATIENT BEEN EDUCATED REGARDING HIS/HER PLAN OF CARE?YES PLEASE DOCUMENT ANY ADDTIONAL DETAILS.PLEASE FREE TEXT IN THE NOTES SECTION. HAS THE PATIENT BEEN EDUCATED REGARDING PAIN, THE RISK FOR PAIN, THE IMPORTANCE OF EFFECTIVE PAIN MANAGEMENT, AND THE PAIN ASSESSMENT PROCESS?YES PATIENT: ____. ADVANCE DIRECTIVES HEALTH CARE PROXY?NO WOULD YOU LIKE MORE INFORMATION?NO DO YOU HAVE A DNR?NO WOULD YOU LIKE MORE INFORMATION?NO LIVING WILL?NO WOULD YOU LIKE MORE INFORMATION?NO POWER OF ORTHOTIST/PROSTHETIST?NO WOULD YOU LIKE MORE INFORMATION?NO REVIEW OF SYSTEMS REVIEWED BY: PROVIDER: RACHID DELGADILLO . CONSTITUTIONAL: ANY CHANGE IN YOUR MEDICAL CONDITION? YES, WAS SEEN IN ER FOR MUSCLE PAIN LAST WEEK AND WAS GIVEN PREDNISONE AND BACLOFEN . CHILLS NO . FEVER NO . INFECTION: DO YOU HAVE NEW INFECTIONS? NO . DO YOU HAVE HISTORY OF MRSA? NO . MUSCULOSKELETAL: ANY NEW PATTERNS OF PAIN OR NUMBNESS? NO . GASTROENTEROLOGY: ANY NEW CHANGE IN BOWEL CONTROL? NO . GENITOURINARY: ANY NEW CHANGE IN BLADDER CONTROL? NO . IS THERE A CHANCE YOU COULD BE ? NO . HEMATOLOGY/LYMPH: DO YOU TAKE ANY BLOOD THINNERS? (FOR EXAMPLE- COUMADIN, PLAVIX, AGGRENOX, PLATEL, PRADAXA, OR XARELTO) NO . WHEN WAS YOUR LAST DOSE? DATE: TIME: . NEUROLOGY: HAVE YOU FALLEN IN THE PAST 6 MONTHS? NO . ANY NEW EXTREMITY NUMBNESS OR WEAKNESS? NO . CARDIOLOGY: DO YOU HAVE A PACEMAKER OR DEFIBRILLATOR? NO . RESPIRATORY: HAVE YOU BEEN SICK IN THE PAST WEEK? NO . FEVER NO . FLU LIKE SYMPTOMS? NO . COUGH NO . INTEGUMENTARY: DO YOU HAVE ANY RASHES OR OPEN SORES? NO . ALLERGIC/IMMUNO: ARE YOU ALLERGIC TO SHELLFISH OR IV DYE? NO . ANY NEW ALLERGIES? NO . PSYCHIATRIC: DO YOU HAVE THOUGHTS OF HURTING YOURSELF OR SOMEONE ELSE? NO . ARE YOU ABUSED, NEGLECTED, OR IN AN UNSAFE ENVIRONMENT? NO . ENDOCRINOLOGY: ARE YOU DIABETIC? NO . OTHER: DO YOU NEED ANY PRESCRIPTIONS? YES . IF YES, PLEASE LIST: ____ . ANY NEW PROBLEMS WITH YOUR MEDICATIONS? NO . WHEN DID YOU LAST EAT? ____ . WHEN DID YOU LAST DRINK? ____ . WHAT DID YOU LAST DRINK? ____ . NAME OF PERSON DRIVING YOU HOME? ____ . DO YOU HAVE ANY OTHER QUESTIONS OR CONCERNS NO . VITAL SIGNS WT 307 LBS, HT 69 IN, BMI 45.33 INDEX, BP 132/91 MM HG, HR 100 /MIN, RR 16 /MIN, TEMP 98.2 F, OXYGEN SAT % 96%, SAFE IN ENV? (Y/N) YES, REVIEWED BY: ROBERT (DONE AT 1104). EXAMINATION GENERAL EXAMINATION: PSYCHALERT , ORIENTED X 3 , APPROPRIATE MOOD AND AFFECT . LUNGS:CLEAR TO AUSCULTATION BILATERALLY. HEART:HEART RATE REGULAR. MUSCULOSKELETAL:EXQUISITE TENDERNESS/ALLODYNIA AT RIGHT SHOULDER. MARKED LOSS OF ROM WITH MOVEMENT AT RIGHT AC JOINT.,RESTRICTION OF ROM IS NOTED. IS ABLE TO FLEX FINGERS ACROSS PALM TODAY, ABLE TO FLEX AND EXTEND AT THE RIGHT WRIST AND ABLE TO SLOWLY FLEX AND EXTEND RIGHT ELBOW. ABLE TO ABDUCT RIGHT SHOULDER TO 30 DEGREES. JOINTS:CAN ABDUCT RIGHT SHOULDER TO 25 DEGREES. IS ABLE TO EXTEND FINGERS ACROSS THE PALM RIGHT SIDE.. ASSESSMENTS RIGHT SHOULDER PAIN - M25.511 (PRIMARY) TREATMENT RIGHT SHOULDER PAIN START BACLOFEN TABLET, 10 MG, 1 TABLET WITH FOOD OR MILK, ORALLY, DAILY, 30 DAY(S), 30 TABLET, REFILLS 1 NOTES: CONTINUE EXERCISES TO RIGHT SHOULDER. CONTINUE IBUPROFEN ORDERED FOR PAIN. START BACLOFEN 10 MG DAILY FOR RIGHT SHOULDER SPASM. 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 YES ARE THE PATIENT'S COMPLAINTS CONSISTENT WITH HIS/HER HISTORY OF THE INJURY/ILLNESS? YES IS THE PATIENT'S HISTORY OF THE INJURY/ILLNESS CONSISTENT WITH YOUR OBJECTIVE FINDING? YES WHAT IS THE PERCENTAGE OF TEMPORARY IMPAIRMENT? TOTAL = 100% IS THE PATIENT WORKING? NO DOCTOR ON SITE: IBSHNU CHARLES MD PROCEDURE CODES FA211 ESTABILISHED PATIENT [facility] CHARGE DISPOSITION & COMMUNICATION FOLLOW UP 6 WEEKS (REASON: WC RIGHT SHOULDER) ELECTRONICALLY SIGNED BY RAUDEL PEPE ON 08/23/2017 AT 10:06 PM EST DISCLAIMER : THIS IS A VISIT SUMMARY EXTRACTED FROM THE [employer] CHART. IT IS NOT A COPY OF THE [employer] PROGRESS NOTE. KAJAL
== END ==
LOC: M PAIN 11:00
PROVIDERS: ATTEND Nurse Practitioner Family
DX: M25.511 Pain in right shoulder (principal); Z79.899 Other long term (current) drug therapy; Z88.0 Allergy status to penicillin; Z88.1 Allergy status to other antibiotic agents; Z88.8 Allergy status to other drugs, medicaments and biological substances

== ENCOUNTER 2017-08-30 13:47 | Emergency (ER) | payer MEDICAID, OTHER ==
[2017-08-30] MEDS ORDERED: BACTRIM 160MG/800MG DS TAB PO ONE (14:45)
[2017-08-30] MEDS ORDERED: BACT800T5 PO (15:16)
[2017-08-30 15:24] VITALS: BP 146/89
== END 2017-08-30 15:45 | disposition home or self-care (01) ==
LOC: M ED 13:47
DX: N61.1 Abscess of the breast and nipple (principal); Z79.899 Other long term (current) drug therapy; Z88.0 Allergy status to penicillin; Z88.1 Allergy status to other antibiotic agents; Z88.5 Allergy status to narcotic agent; Z87.2 Personal history of diseases of the skin and subcutaneous tissue

== ENCOUNTER → 2017-09-04 | Outpatient (CLI) | payer MEDICAID ==
[~2017-09-04] MED LIST changes: +BACT800T5 PO
--- NOTE | 2017-09-21 23:49 | ECWPNPC ---
PATIENT NAME: MIKKI HUDSON : 1985 GENDER: FEMALE VISIT DATE: 09/04/2017 DISCHARGE DATE: 09/04/17 0944 VISIT LOCKED DATE TIME: PHYSICIAN: BISHNU CARDENAS RESOURCE: BISHNU CARDENAS REASON FOR APPOINTMENT 1. LOW BACK, NON COMP HISTORY OF PRESENT ILLNESS HISTORY OF PRESENT ILLNESS: PAIN THE PATIENT DESCRIBES THE PAIN... 31 YEAR OLD FEMALE PATIENT WITH HISTORY OF CHRONIC BACK PAIN. PATIENT DESCRIBES THE PAIN TENDER, THROBBING, SORE, AND HAVING IT ALL THE TIME WITH A PAIN SCORE OF 8-9/10. PATIENT STATES HER PAIN STARTED ROUGHLY 2 YEARS AGO. PATIENT REPORTS THAT ANY TYPE OF ACTIVITY INCLUDING WALKING, STANDING, AND SITTING INCREASES THE PAIN IN THE LOWER BACK. AT THIS TIME THE PATIENT STATES SHE IS HAVING SEVERE RIGHT LEG PAIN. MRS. HUDSON STATES THAT SHE IS UNABLE TO DO DISHES DUE TO HER PAIN BEING SEVERE, PATIENT STATES TAKING HER GARBAGE OUT TAKES OVER 10 MINUTES DUE TO THE SEVERE PAIN, AND STATES CLEANING IS NEARLY IMPOSSIBLE DUE TO THE PAIN. PATIENT DENIES UNEXPLAINABLE WEIGHT LOSS, FEVER, CHILLS, NEW CHANGES ON HER URINARY OR BOWEL CONTROL. FALL RISK SCREENING: SCREENING :NO FALLS IN THE PAST YEAR CURRENT MEDICATIONS TAKING LIPITOR 20 MG TABLET 1 TABLET ORALLY ONCE A DAY TAKING WOMENS DAILY FORMULA TABLET 1 TAB(S) ORALLY DAILY TAKING JOLESSA 0.15-0.03 MG TABLET 1 TABLET ORALLY ONCE A DAY TAKING PROAIR HFA 108 (90 BASE) MCG/ACT AEROSOL SOLUTION 2 PUFFS NEEDED INHALATION EVERY 4 HRS TAKING VITAMIN D-3 1000 UNIT CAPSULE 1 CAPSULE ORALLY 2000UNITS DAILY TAKING DRISDOL 22987 UNIT CAPSULE 1 CAPSULE ORALLY WEEKLY TAKING LEXAPRO 10 MG TABLET 1 TABLET ORALLY ONCE A DAY TAKING IBUPROFEN 800 MG TABLET 1 TABLET ORALLY WITH FOOD THREE TIMES A DAY NEEDED FOR PAIN TAKING BACLOFEN 10 MG TABLET 1 TABLET WITH FOOD OR MILK ORALLY DAILY DISCONTINUED HYDROCODONE-ACETAMINOPHEN 7.5-325 MG TABLET 1 TABLET NEEDED ORALLY EVERY 4 HRS NEEDED FOR PAIN MDD5 DISCONTINUED METFORMIN HCL 500 MG TABLET 1 TABLET WITH MEALS ORALLY ONCE A DAY DISCONTINUED GABAPENTIN 300 MG CAPSULE 1 CAPSULE ORALLY THREE TIMES A DAY FOR PAIN MDD3 DISCONTINUED TRAZODONE HCL 50 MG TABLET 1 TABLET AT BEDTIME ORALLY ONCE A DAY MEDICATION LIST REVIEWED AND RECONCILED WITH THE PATIENT PAST MEDICAL HISTORY BARBIE ANXIETY, DEPRESSION, BIPOLAR, CLAUSTROPHOBIA MIGRAINE POLYCYSTIC OVARIAN SYNDROME VITAMIN D DEFICIENCY ALLERGIES CEPHALEXIN: HIVES: ALLERGY AZITHROMYCIN: HIVES: ALLERGY AMOXICILLIN: NAUSEA/VOMITING: ALLERGY DOXYCYCLINE (ROSACEA): NAUSEA/VOMITING: ALLERGY TRAMADOL: DIARRHEA/NIGHTMARES: ALLERGY PENICILLIN (FOR ALLERGIES USE ONLY): NAUSEA/VOMITING: ALLERGY METFORMIN: NAUSEA/VOMITING: SIDE EFFECTS SOCIAL HISTORY GENERAL: TOBACCO USE ARE YOU A:NONSMOKER ALCOHOL SCREENING DID YOU HAVE A DRINK CONTAINING ALCOHOL IN THE PAST YEAR?NO POINTS0 INTERPRETATIONNEGATIVE RECREATIONAL DRUG USE DRUG USE?NO CAFFEINE CAFFEINE USE?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 EXERCISE: WALKS. MARITAL STATUS: SINGLE. PETS: CAT. AMISH AMISH NO PREFERENCE LANGUAGE LANGUAGES SPOKEN:CUBAN EDUCATION LEVEL OF EDUCATION:COLLEGE LEARNING BARRIERS / SPECIAL NEEDS CHANGE FROM LAST VISIT?NO BARRIERS TO LEARNING?NO HEARING IMPAIRED?NO VISION IMPAIRED?YES :CORRECTIVE LENSES COGNITIVELY IMPAIRED?NO READINESS TO LEARN?YES LEARNING PREFERENCES?NO LEARNING CAPABILITIES PRESENT?YES EMOTIONAL BARRIERS?NO SPECIAL DEVICES?YES :CANE BULL RIDER NEEDED?NO PAIN CLINIC PFS, CLERGY, PUBLIC HEALTH REFERRALS PFS REFERRAL NEEDED?NO CLERGY REFERRAL NEEDED?NO PUBLIC HEALTH REFERRAL NEEDED?NO WAS THE PROVIDER NOTIFIED OF ANY PERTINENT INFO?NO HAS THE PATIENT BEEN EDUCATED REGARDING HIS/HER PLAN OF CARE?YES PLEASE DOCUMENT ANY ADDTIONAL DETAILS.PLEASE FREE TEXT IN THE NOTES SECTION. PATIENT ENCOURAGED TO USE HEAT/COLD AND RELAXATION FOR HELPING WITH HER PAIN CONTROL. HAS THE PATIENT BEEN EDUCATED REGARDING PAIN, THE RISK FOR PAIN, THE IMPORTANCE OF EFFECTIVE PAIN MANAGEMENT, AND THE PAIN ASSESSMENT PROCESS?YES PATIENT: ____. ADVANCE DIRECTIVES HEALTH CARE PROXY?NO WOULD YOU LIKE MORE INFORMATION?NO DO YOU HAVE A DNR?NO WOULD YOU LIKE MORE INFORMATION?NO LIVING WILL?NO WOULD YOU LIKE MORE INFORMATION?NO POWER OF ELECTRICAL SIGN WIRER?NO WOULD YOU LIKE MORE INFORMATION?NO REVIEW OF SYSTEMS REVIEWED BY: PROVIDER: BISHNU CARDENAS MD . CONSTITUTIONAL: ANY CHANGE IN YOUR MEDICAL CONDITION? NO . CHILLS NO . FEVER NO . INFECTION: DO YOU HAVE NEW INFECTIONS? YES, SEE BELOW . DO YOU HAVE HISTORY OF MRSA? NO . MUSCULOSKELETAL: ANY NEW PATTERNS OF PAIN OR NUMBNESS? YES, IN ER IN [place] FOR LOW BACK PAIN. GIVEN PREDNISONE FOR 10 DAYS AND A SHOT OF PAIN MED. . GASTROENTEROLOGY: ANY NEW CHANGE IN BOWEL CONTROL? NO . GENITOURINARY: ANY NEW CHANGE IN BLADDER CONTROL? NO . IS THERE A CHANCE YOU COULD BE ? NO . HEMATOLOGY/LYMPH: DO YOU TAKE ANY BLOOD THINNERS? (FOR EXAMPLE- COUMADIN, PLAVIX, AGGRENOX, PLATEL, PRADAXA, OR XARELTO) NO . WHEN WAS YOUR LAST DOSE? DATE: TIME: . NEUROLOGY: HAVE YOU FALLEN IN THE PAST 6 MONTHS? NO . ANY NEW EXTREMITY NUMBNESS OR WEAKNESS? NO . CARDIOLOGY: DO YOU HAVE A PACEMAKER OR DEFIBRILLATOR? NO . RESPIRATORY: HAVE YOU BEEN SICK IN THE PAST WEEK? NO . FEVER NO . FLU LIKE SYMPTOMS? NO . COUGH NO . INTEGUMENTARY: DO YOU HAVE ANY RASHES OR OPEN SORES? YES, ABCESS ON LEFT BREAST. TREATED AT ER ON THURSDAY. ON ANTIBIOTICS. . ALLERGIC/IMMUNO: ARE YOU ALLERGIC TO SHELLFISH OR IV DYE? NO . ANY NEW ALLERGIES? NO . PSYCHIATRIC: DO YOU HAVE THOUGHTS OF HURTING YOURSELF OR SOMEONE ELSE? NO . ARE YOU ABUSED, NEGLECTED, OR IN AN UNSAFE ENVIRONMENT? NO . ENDOCRINOLOGY: ARE YOU DIABETIC? NO . OTHER: DO YOU NEED ANY PRESCRIPTIONS? NO . IF YES, PLEASE LIST: ____ . ANY NEW PROBLEMS WITH YOUR MEDICATIONS? NO . WHEN DID YOU LAST EAT? ____ . WHEN DID YOU LAST DRINK? ____ . WHAT DID YOU LAST DRINK? ____ . NAME OF PERSON DRIVING YOU HOME? ____ . DO YOU HAVE ANY OTHER QUESTIONS OR CONCERNS YES, ON ANTIBIOTICS FOR BREAST ABCESS. . VITAL SIGNS WT 323 LBS, HT 69 IN, BMI 47.69 INDEX, BP 158/91 MM HG, HR 96 /MIN, RR 18 /MIN, TEMP 98.5 F, OXYGEN SAT % 97%, NA INITIALS CM 0840. EXAMINATION : PATIENT IS ALERT O X 3 AND COOPERATIVE. TENDERNESS IN THE BACK AREA AND PARASPINAL MUSCLE GROUP. MRI DONE ON 02/20/2015 SHOWS FACET ARTHROPATHY CHANGES AND DISC BULGES AT L1-L2 THROUGH L5-S1. 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 HUDSON'S PAIN MANAGEMENT CASE. AT THIS TIME THE PATIENT WILL CONTINUE WITH THE SAME MEDICATION REGIME BEFORE. WE DISCUSSED SEVERAL INJECTIONS THAT MAY AID THE PATIENT WITH THE BACK, HIP, AND LEG PAIN. AT THIS TIME THE PATIENT IS NOT A CANDIDATE FOR A RADIOFREQUENCY DUE TO THE PATIENT NOT HAVING ADEQUATE RELIEF FROM THE DIAGNOSTIC TEST. WE DISCUSSED LUMBAR EPIDURAL'S VERSUS SACROILIAC JOINT INJECTION DUE TO THE RADICULAR PAIN THE PATIENT IS HAVING. AT THIS TIME THE PATIENT WOULD LIKE TO WAIT ON INTERVENTIONS AND HAVE TIME TO DECIDE ON THE INJECTIONS. WE WILL MOVE FORWARD WITH PHYSICAL THERAPY TO TRY TO AID IN MOBILITY AND FUNCTIONALITY DUE TO THE PATIENT HAVING DIFFICULTIES DOING EVERYDAY THINGS SUCH DISHES, LAUNDRY AND CLEANING. PATIENT WILL BE REFERRED TO A NUTRIONIST TO DISCUSS HER EATING HABITS, PATIENT REPORTS SHE HAS BEEN EATING HEALTHIER BUT HAVING DIFFICULTIES LOSING WEIGHT. INSTRUCTIONS WERE GIVEN, QUESTIONS WERE ANSWERED, PATIENT REPORTS UNDERSTANDING AND AGREES WITH THE PLAN. I, GERRY BOYD, DOCUMENTED THE ABOVE INFORMATION ACTING A SCRIBE FOR DR. CARDENAS. I HAVE REVIEWED THE ABOVE DOCUMENT, WRITTEN BY GERRY WINKLER AND I VERIFY THAT IT IS ACCURATE. PROCEDURE CODES FA211 ESTABILISHED PATIENT [facility] FACILITY CHARGE G8427 DOC MEDS VERIFIED W/PT OR RE G8730 PAIN ASSESS POS TOOL F/U PLAN DOC DISPOSITION & COMMUNICATION FOLLOW UP 6 WEEKS ELECTRONICALLY SIGNED BY BISHNU CARDENAS MD ON 09/21/2017 AT 06:54 PM EST DISCLAIMER : THIS IS A VISIT SUMMARY EXTRACTED FROM THE [employer] CHART. IT IS NOT A COPY OF THE [employer] PROGRESS NOTE. MTDHyun
== END ==
LOC: M PAIN 08:30
PROVIDERS: ATTEND Anesthesiology
DX: M79.1 Myalgia (principal); M51.16 Intervertebral disc disorders with radiculopathy, lumbar region; M51.17 Intervertebral disc disorders with radiculopathy, lumbosacral region; M54.5 Low back pain; G89.29 Other chronic pain; Z79.899 Other long term (current) drug therapy; Z88.0 Allergy status to penicillin; Z88.1 Allergy status to other antibiotic agents; Z88.8 Allergy status to other drugs, medicaments and biological substances

== ENCOUNTER 2017-09-14 08:42 | Outpatient (RCR) | payer MEDICAID | END 2017-09-27 | LOC: M PT 08:42 | DX: Z51.89 Encounter for other specified aftercare (principal); M54.5 Low back pain | CPT/HCPCS: 97161 ==

== ENCOUNTER → 2017-09-29 | Outpatient (CLI) | payer OTHER | LOC: M PAIN 08:45 | DX: M25.511 Pain in right shoulder (principal); M51.16 Intervertebral disc disorders with radiculopathy, lumbar region; M51.17 Intervertebral disc disorders with radiculopathy, lumbosacral region; M79.1 Myalgia; G47.33 Obstructive sleep apnea (adult) (pediatric); F41.9 Anxiety disorder, unspecified; F31.9 Bipolar disorder, unspecified; F40.240 Claustrophobia; G43.909 Migraine, unspecified, not intractable, without status migrainosus; Z88.1 Allergy status to other antibiotic agents; Z88.0 Allergy status to penicillin; Z88.8 Allergy status to other drugs, medicaments and biological substances; Z79.1 Long term (current) use of non-steroidal anti-inflammatories (NSAID) | CPT/HCPCS: G0463 ==

== ENCOUNTER 2017-09-30 09:02 | Outpatient (RCR) | payer MEDICAID, OTHER | END 2017-10-28 | LOC: M PT 09:02 | DX: Z51.89 Encounter for other specified aftercare (principal); M54.5 Low back pain ==

== ENCOUNTER → 2017-11-06 | Outpatient (CLI) | payer MEDICAID | LOC: M PAIN 08:30 | DX: G89.29 Other chronic pain (principal); M51.16 Intervertebral disc disorders with radiculopathy, lumbar region; M51.17 Intervertebral disc disorders with radiculopathy, lumbosacral region; M79.1 Myalgia; G47.33 Obstructive sleep apnea (adult) (pediatric); F41.9 Anxiety disorder, unspecified; F31.9 Bipolar disorder, unspecified; F40.240 Claustrophobia; G43.909 Migraine, unspecified, not intractable, without status migrainosus; E55.9 Vitamin D deficiency, unspecified; Z79.899 Other long term (current) drug therapy; Z88.0 Allergy status to penicillin; Z88.1 Allergy status to other antibiotic agents; Z88.5 Allergy status to narcotic agent; Z88.8 Allergy status to other drugs, medicaments and biological substances | CPT/HCPCS: G0463 ==

== ENCOUNTER → 2017-12-03 | Outpatient (REF) | payer MEDICAID | LOC: M LAB REF 16:44 | DX: J02.8 Acute pharyngitis due to other specified organisms (principal) | CPT/HCPCS: 87070 ==

== ENCOUNTER → 2017-12-17 | Outpatient (CLI) | payer OTHER | LOC: M PAIN 10:45 | DX: M25.511 Pain in right shoulder (principal); M79.1 Myalgia; G89.21 Chronic pain due to trauma; G47.33 Obstructive sleep apnea (adult) (pediatric); F41.9 Anxiety disorder, unspecified; F31.9 Bipolar disorder, unspecified; F40.240 Claustrophobia; G43.909 Migraine, unspecified, not intractable, without status migrainosus; E55.9 Vitamin D deficiency, unspecified; Z79.899 Other long term (current) drug therapy; Z88.0 Allergy status to penicillin; Z88.1 Allergy status to other antibiotic agents; Z88.5 Allergy status to narcotic agent; Z88.8 Allergy status to other drugs, medicaments and biological substances | CPT/HCPCS: G0463 ==

== ENCOUNTER → 2018-01-15 | Outpatient (CLI) | payer OTHER | END | disposition home or self-care (01) | LOC: M PAIN 08:30 | DX: G89.29 Other chronic pain (principal); M51.9 Unspecified thoracic, thoracolumbar and lumbosacral intervertebral disc disorder; M54.16 Radiculopathy, lumbar region; F41.9 Anxiety disorder, unspecified; F33.9 Major depressive disorder, recurrent, unspecified; Z79.899 Other long term (current) drug therapy; Z88.0 Allergy status to penicillin; Z88.1 Allergy status to other antibiotic agents; Z88.5 Allergy status to narcotic agent; Z88.8 Allergy status to other drugs, medicaments and biological substances | CPT/HCPCS: G0463 ==

== ENCOUNTER → 2018-01-28 | Outpatient (CLI) | payer OTHER | LOC: M PAIN 10:00 | DX: G89.29 Other chronic pain (principal); M79.1 Myalgia; M25.511 Pain in right shoulder; G47.33 Obstructive sleep apnea (adult) (pediatric); F41.9 Anxiety disorder, unspecified; F31.9 Bipolar disorder, unspecified; F40.240 Claustrophobia; G43.909 Migraine, unspecified, not intractable, without status migrainosus; E28.2 Polycystic ovarian syndrome; H04.123 Dry eye syndrome of bilateral lacrimal glands; Z88.0 Allergy status to penicillin; Z88.1 Allergy status to other antibiotic agents; Z88.5 Allergy status to narcotic agent; Z88.8 Allergy status to other drugs, medicaments and biological substances; Z79.899 Other long term (current) drug therapy | CPT/HCPCS: G0463 ==

== ENCOUNTER → 2018-01-28 | Outpatient (CLI) | payer OTHER, MEDICAID | LOC: M PAIN 11:45 | DX: G89.29 Other chronic pain (principal); M51.9 Unspecified thoracic, thoracolumbar and lumbosacral intervertebral disc disorder; M54.16 Radiculopathy, lumbar region; M79.7 Fibromyalgia; G47.33 Obstructive sleep apnea (adult) (pediatric); F41.9 Anxiety disorder, unspecified; F31.9 Bipolar disorder, unspecified; F40.240 Claustrophobia; G43.909 Migraine, unspecified, not intractable, without status migrainosus; E28.2 Polycystic ovarian syndrome; E55.9 Vitamin D deficiency, unspecified; H04.123 Dry eye syndrome of bilateral lacrimal glands; Z79.899 Other long term (current) drug therapy; Z88.0 Allergy status to penicillin; Z88.1 Allergy status to other antibiotic agents; Z88.5 Allergy status to narcotic agent; Z88.8 Allergy status to other drugs, medicaments and biological substances | CPT/HCPCS: G0463 ==

== ENCOUNTER → 2018-03-23 | Outpatient (CLI) | payer OTHER, MEDICAID | LOC: M PAIN 13:45 | DX: M51.9 Unspecified thoracic, thoracolumbar and lumbosacral intervertebral disc disorder (principal); M54.16 Radiculopathy, lumbar region; M79.7 Fibromyalgia; E55.9 Vitamin D deficiency, unspecified; F41.9 Anxiety disorder, unspecified; F32.9 Major depressive disorder, single episode, unspecified; Z79.3 Long term (current) use of hormonal contraceptives; Z79.899 Other long term (current) drug therapy; Z88.8 Allergy status to other drugs, medicaments and biological substances; Z91.018 Allergy to other foods | CPT/HCPCS: G0463 ==

== ENCOUNTER → 2018-03-23 | Outpatient (CLI) | payer OTHER, MEDICAID | LOC: M PAIN 13:15 | DX: M79.1 Myalgia (principal); M25.511 Pain in right shoulder; F41.9 Anxiety disorder, unspecified; F32.9 Major depressive disorder, single episode, unspecified; E55.9 Vitamin D deficiency, unspecified; Z79.899 Other long term (current) drug therapy; Z88.0 Allergy status to penicillin; Z88.8 Allergy status to other drugs, medicaments and biological substances; Z91.018 Allergy to other foods | CPT/HCPCS: G0463 ==

== ENCOUNTER → 2018-05-04 | Outpatient (CLI) | payer OTHER, MEDICAID | LOC: M PAIN 10:00 | DX: M51.9 Unspecified thoracic, thoracolumbar and lumbosacral intervertebral disc disorder (principal); M54.16 Radiculopathy, lumbar region; M79.7 Fibromyalgia; G47.33 Obstructive sleep apnea (adult) (pediatric); F41.9 Anxiety disorder, unspecified; F31.9 Bipolar disorder, unspecified; F40.240 Claustrophobia; G43.909 Migraine, unspecified, not intractable, without status migrainosus; E55.9 Vitamin D deficiency, unspecified; Z79.899 Other long term (current) drug therapy; Z88.0 Allergy status to penicillin; Z88.1 Allergy status to other antibiotic agents; Z88.5 Allergy status to narcotic agent; Z88.8 Allergy status to other drugs, medicaments and biological substances; Z91.018 Allergy to other foods | CPT/HCPCS: G0463 ==

== ENCOUNTER → 2018-05-04 | Outpatient (CLI) | payer OTHER | LOC: M PAIN 10:30 | DX: M79.1 Myalgia (principal); M25.511 Pain in right shoulder; G47.33 Obstructive sleep apnea (adult) (pediatric); F41.9 Anxiety disorder, unspecified; F31.9 Bipolar disorder, unspecified; F40.240 Claustrophobia; G43.909 Migraine, unspecified, not intractable, without status migrainosus; E55.9 Vitamin D deficiency, unspecified; Z79.899 Other long term (current) drug therapy; Z88.0 Allergy status to penicillin; Z88.1 Allergy status to other antibiotic agents; Z88.5 Allergy status to narcotic agent; Z88.8 Allergy status to other drugs, medicaments and biological substances; Z91.018 Allergy to other foods | CPT/HCPCS: G0463 ==

== ENCOUNTER → 2018-06-23 | Outpatient (CLI) | payer OTHER | LOC: M PAIN 10:15 | DX: M51.26 Other intervertebral disc displacement, lumbar region (principal); M54.16 Radiculopathy, lumbar region; M79.7 Fibromyalgia; E55.9 Vitamin D deficiency, unspecified; Z79.899 Other long term (current) drug therapy; Z79.3 Long term (current) use of hormonal contraceptives; Z88.0 Allergy status to penicillin; Z88.8 Allergy status to other drugs, medicaments and biological substances; Z91.018 Allergy to other foods | CPT/HCPCS: G0463 ==

== ENCOUNTER → 2018-07-01 | Outpatient (REF) | payer OTHER ==
[2018-07-01 13:45] LABS: RHEUMATOID FACTOR QUANT < 10.0 IU/ML (<15.0)
[2018-07-02 10:13] LABS: ANTI DOUBLE STRAND-DNA AB <1 IU/mL (0-9); ANTINUCLEAR ANTIBODIES DIRECT Negative (Negative); RNP ANTIBODIES <0.2 AI (0.0-0.9); SJOGREN'S ANTI SS-A <0.2 AI (0.0-0.9); SJOGREN'S ANTI SS-B <0.2 AI (0.0-0.9); SMITH ANTIBODIES <0.2 AI (0.0-0.9)
== END ==
LOC: M LAB REF 12:57
DX: R68.2 Dry mouth, unspecified (principal)

== ENCOUNTER → 2018-07-13 | Outpatient (CLI) | payer OTHER ==
[~2018-07-13] MED LIST changes: -ACET-683 PO; -ANEXSIA PO; -BACL1TAB9 PO; -BACT800T5 PO; -BIOT1CAP2 PO; -CALC1TAB11 PO; -CLEO300C2 PO; -ESCI10TA2; -IBUP200T PO; -IBUP80TA PO; +ISOVUE-M 300 61% 15ML VIAL (Q9967) As Ordered; +LIDOCAINE 1% SDV INJ 30 ML VIAL As Ordered; -LIPI20TA PO; -MOTR200T44 PO; -NAPR500T3 PO; -NUCY50TA6 PO; -PRED20TA PO; -PREG25CA PO; -VITA1CAP40; -VITA500C24 PO; -WOMETAB9 PO; -birth control PO; +diazePAM 5 MG TAB As Ordered; -flexeril PO; +methylPREDNISolone SUSP 40 MG/ML (DEPO-medrol) VIAL (J1030) As Ordered; +oxyCODONE 5MG TAB As Ordered
== END ==
LOC: M PAIN 10:00
DX: M51.17 Intervertebral disc disorders with radiculopathy, lumbosacral region (principal); G47.33 Obstructive sleep apnea (adult) (pediatric); F41.9 Anxiety disorder, unspecified; F31.9 Bipolar disorder, unspecified; G43.909 Migraine, unspecified, not intractable, without status migrainosus; E55.9 Vitamin D deficiency, unspecified; E28.2 Polycystic ovarian syndrome; M79.7 Fibromyalgia; Z79.899 Other long term (current) drug therapy; Z88.0 Allergy status to penicillin; Z88.1 Allergy status to other antibiotic agents; Z91.018 Allergy to other foods
CPT/HCPCS: J1030

== ENCOUNTER → 2018-07-15 | Outpatient (CLI) | payer OTHER | LOC: M RAD 12:22 | DX: N83.201 Unspecified ovarian cyst, right side (principal); N85.4 Malposition of uterus; N93.8 Other specified abnormal uterine and vaginal bleeding | CPT/HCPCS: 76856 ==

== ENCOUNTER → 2018-08-03 | Outpatient (CLI) | payer OTHER | LOC: M PAIN 14:15 | DX: M25.511 Pain in right shoulder (principal); M79.2 Neuralgia and neuritis, unspecified; G47.33 Obstructive sleep apnea (adult) (pediatric); G43.909 Migraine, unspecified, not intractable, without status migrainosus; E28.2 Polycystic ovarian syndrome; E55.9 Vitamin D deficiency, unspecified; H04.123 Dry eye syndrome of bilateral lacrimal glands; M79.7 Fibromyalgia; Z79.899 Other long term (current) drug therapy; Z88.0 Allergy status to penicillin; Z88.1 Allergy status to other antibiotic agents; Z88.8 Allergy status to other drugs, medicaments and biological substances; Z88.5 Allergy status to narcotic agent; Z91.018 Allergy to other foods | CPT/HCPCS: G0463 ==

== ENCOUNTER → 2018-08-03 | Outpatient (CLI) | payer OTHER | LOC: M PAIN 13:45 | DX: M51.26 Other intervertebral disc displacement, lumbar region (principal); M54.16 Radiculopathy, lumbar region; M79.7 Fibromyalgia; G47.33 Obstructive sleep apnea (adult) (pediatric); F41.9 Anxiety disorder, unspecified; F31.9 Bipolar disorder, unspecified; F40.240 Claustrophobia; G43.909 Migraine, unspecified, not intractable, without status migrainosus; E28.2 Polycystic ovarian syndrome; E55.9 Vitamin D deficiency, unspecified; H04.123 Dry eye syndrome of bilateral lacrimal glands; Z79.899 Other long term (current) drug therapy; Z88.0 Allergy status to penicillin; Z88.1 Allergy status to other antibiotic agents; Z88.8 Allergy status to other drugs, medicaments and biological substances; Z91.018 Allergy to other foods | CPT/HCPCS: G0463 ==

== ENCOUNTER → 2018-08-12 | Outpatient (REF) | payer OTHER ==
[2018-08-12 17:32] LABS: BASO % 0.4 % (0.0-1.0); EOS # 0.1 10^3/uL (0.0-0.50); EOS % 1.2 % (0.0-3.0); HEMATOCRIT 44.1 % (36.0-47.0); HEMOGLOBIN 14.7 g/dl (12.0-15.5); IMMATURE GRANULOCYTE % 0.2 % (0-3.0); LYMPH # 3.2 10^3/uL (1.5-4.5); LYMPH % 39.6 % (24.0-44.0); MEAN CORPUSCULAR HEMOGLOBIN 29.1 pg (27.0-33.0); MEAN CORPUSCULAR HGB CONC 33.3 g/dl (32.0-36.5); MEAN CORPUSCULAR VOLUME 87.2 fl (80.0-96.0); MONO # 0.6 10^3/uL (0.0-0.8); MONO % 7.5 % (0.0-5.0); NEUTROPHILS # 4.1 10^3/uL (1.8-7.7); NEUTROPHILS % 51.1 % (36.0-66.0); PLATELET COUNT, AUTOMATED 309 10^3/uL (150-450); RED BLOOD COUNT 5.06 10^6/uL (4.00-5.40); RED CELL DISTRIBUTION WIDTH 13.6 % (11.5-14.5); WHITE BLOOD COUNT 8.1 10^3/uL (4.0-10.0)
[2018-08-12 17:51] LABS: ALBUMIN/GLOBULIN RATIO 1.05 (1.00-1.93); ALKALINE PHOSPHATASE 90 U/L (45-117); ALT/SGPT 26 U/L (12-78); ANION GAP 13 MEQ/L (8-16); AST/SGOT 11 U/L (7-37); BILIRUBIN,TOTAL 0.4 MG/DL (0.2-1.0); BLOOD UREA NITROGEN 10 MG/DL (7-18); CARBON DIOXIDE LEVEL 21 MEQ/L (21-32); CHLORIDE LEVEL 106 MEQ/L (98-107); CHOLESTEROL LEVEL 213 MG/DL (<200); CHOLESTEROL RISK RATIO 6.656 (<5); CREATININE FOR GFR 0.83 MG/DL (0.55-1.30); FOLATE 12.7 NG/ML; GLOMERULAR FILTRATION RATE > 60.0 (>60); GLUCOSE, FASTING 79 MG/DL (70-100); HDL CHOLESTEROL 32 MG/DL (>40); LDL CHOLESTEROL 143 MG/DL (<100); NON-HDL-C 181 MG/DL; POTASSIUM SERUM 4.2 MEQ/L (3.5-5.1); SODIUM LEVEL 140 MEQ/L (136-145); TOTAL 25(OH) VITAMIN D 19.3 NG/ML (30.0-100.0); TOTAL PROTEIN 7.8 GM/DL (6.4-8.2); TRIGLYCERIDES LEVEL 190 MG/DL (<150); VITAMIN B12 LEVEL 353 PG/ML
[2018-08-12 18:36] LABS: ESTIMATED AVERAGE GLUCOSE 111 MG/DL (60-110); HEMOGLOBIN A1c 5.5 %
== END ==
LOC: M LAB REF 16:12
DX: Z13.9 Encounter for screening, unspecified (principal)
CPT/HCPCS: 82746

== ENCOUNTER 2018-08-18 09:06 | Day surgery (SDC) | payer OTHER ==
[~2018-08-18 09:06] MED LIST changes: +ESCITALOPRAM OXALATE 10 MG TAB (LEXAPRO) PO; -ISOVUE-M 300 61% 15ML VIAL (Q9967) As Ordered; -LIDOCAINE 1% SDV INJ 30 ML VIAL As Ordered; +LR 1,000 ML IV; -diazePAM 5 MG TAB As Ordered; -methylPREDNISolone SUSP 40 MG/ML (DEPO-medrol) VIAL (J1030) As Ordered; -oxyCODONE 5MG TAB As Ordered
[2018-08-18 09:35] LABS: HEMOGLOBIN 14.9 g/dl (12.0-15.5); MEAN CORPUSCULAR HEMOGLOBIN 29.3 pg (27.0-33.0); MEAN CORPUSCULAR HGB CONC 33.1 g/dl (32.0-36.5); MEAN CORPUSCULAR VOLUME 88.4 fl (80.0-96.0); PLATELET COUNT, AUTOMATED 318 10^3/uL (150-450); RED BLOOD COUNT 5.09 10^6/uL (4.00-5.40); RED CELL DISTRIBUTION WIDTH 13.6 % (11.5-14.5); WHITE BLOOD COUNT 8.5 10^3/uL (4.0-10.0)
[2018-08-18 09:58] LABS: CONTROL LINE UCG INT CTR LINE PRESENT; URINE PREG TEST NEGATIVE (NEGATIVE)
[2018-08-18] MEDS: LR 1,000 ML IV ×3 (10:27→14:45)
[2018-08-18] MEDS ORDERED: ceFAZolin 2 GM/D5W 50 ML IV BAG (J0690 PER 500MG) As Ordered (11:14)
[2018-08-18] MEDS: GENTAMICIN 100 MG in APPROPRIATE DILUENT 1 EA IV (12:10)
[2018-08-18] MEDS: CLINDAMYCIN 900 MG in APPROPRIATE DILUENT 1 EA IV (12:40)
[2018-08-18] MEDS: METHYLENE BLUE 0.5% (5MG/ML) 10 ML AMP (PROVAYBLUE)(Q9968 PER 1MG) As Ordered (13:28)
[2018-08-18] MEDS: BUPIVACAINE HCL 0.25% 10 ML VIAL As Ordered (13:28)
[2018-08-18] MEDS ORDERED: ONDANSETRON 4MG/2ML VIAL (J2405) As Ordered (13:36)
[2018-08-18] MEDS ORDERED: LIDOCAINE 2% INJ 100 MG/5 ML SDV (FOR ANES.) As Ordered (13:36)
[2018-08-18] MEDS ORDERED: ROCURONIUM BROMIDE 50 MG/5 ML VIAL As Ordered (13:36)
[2018-08-18] MEDS ORDERED: NEOSTIGMINE 10 MG/10 ML VIAL (J2710) As Ordered (13:36)
[2018-08-18] MEDS ORDERED: HYDROmorphone HCL 2 MG/ML 1ML VIAL (J1170) As Ordered (13:36)
[2018-08-18] MEDS ORDERED: KETOROLAC 60 MG/2 ML VIAL (J1885) As Ordered (13:36)
[2018-08-18] MEDS ORDERED: fentaNYL 250 MCG/5 ML INJECTION (J3010) As Ordered (13:36)
[2018-08-18] MEDS ORDERED: diphenhydrAMINE INJ 50MG/ML VIAL (J1200) As Ordered (13:36)
[2018-08-18] MEDS ORDERED: MIDAZOLAM INJ 2 MG/2 ML VIAL (J2250) As Ordered (13:36)
[2018-08-18] MEDS ORDERED: dexameTHASONE 4 MG/ML 1ML VIAL (J1100) As Ordered (13:36)
[2018-08-18] MEDS ORDERED: PROPOFOL 200 MG/20 ML VIAL As Ordered (13:36)
[2018-08-18] MEDS ORDERED: GLYCOPYRROLATE INJ 0.2 MG/ML 2 ML VIAL As Ordered ×3 (13:36)
[2018-08-18] MEDS ORDERED: PERCOCET 5MG/325MG TAB PO ×2 (14:45→15:00)
[2018-08-18] MEDS ORDERED: MORPHINE 10 MG/ML 1ML VIAL (J2270) IV (14:45)
[2018-08-18] MEDS ORDERED: ONDANSETRON 4MG/2ML VIAL (J2405) IV ×2 (14:45→15:00)
[2018-08-18] MEDS ORDERED: fentaNYL 100 MCG/2 ML INJECTION (J3010) IV (14:45)
[2018-08-18] MEDS ORDERED: MORPHINE 4 MG/ML 1ML VIAL/SYRINGE (J2270) IV (14:45)
[2018-08-18] MEDS ORDERED: METOCLOPRAMIDE INJ 10MG/2ML VIAL (J2765) IV (14:45)
[2018-08-18] MEDS ORDERED: ALBUTEROL 90 MCG/ACT 8GM HFA INHALER INH (16:45)
[2018-08-18] MEDS: KETOROLAC 30 MG/ML VIAL (J1885) IV ×2 (17:27→23:09)
[2018-08-18] MEDS ORDERED: ESCITALOPRAM OXALATE 10 MG TAB (LEXAPRO) PO (18:00)
[2018-08-18] MEDS: MECLIZINE 12.5 MG TAB PO ×2 (18:24→23:09)
[2018-08-18] MEDS: ESCITALOPRAM OXALATE 10 MG TAB (LEXAPRO) PO (18:56)
[2018-08-18] MEDS: DOCUSATE SODIUM 100 MG CAP PO (20:55)
[2018-08-18] MEDS: PERCOCET 5MG/325MG TAB PO (20:56)
[2018-08-19] MEDS: MECLIZINE 12.5 MG TAB PO (05:01)
[2018-08-19] MEDS: KETOROLAC 30 MG/ML VIAL (J1885) IV (05:01)
[2018-08-19] MEDS: DOCUSATE SODIUM 100 MG CAP PO (07:51)
[2018-08-19] MEDS: ESCITALOPRAM OXALATE 10 MG TAB (LEXAPRO) PO (07:52)
== END 2018-08-19 11:10 | disposition home or self-care (01) ==
LOC: M SDC 09:06 → M MSPAV 15:17
DX: N92.0 Excessive and frequent menstruation with regular cycle (principal); R10.2 Pelvic and perineal pain; N80.0 Endometriosis of uterus; D27.0 Benign neoplasm of right ovary; I10 Essential (primary) hypertension; F31.9 Bipolar disorder, unspecified; G90.50 Complex regional pain syndrome I, unspecified; F41.9 Anxiety disorder, unspecified; M12.9 Arthropathy, unspecified; J45.909 Unspecified asthma, uncomplicated; F32.9 Major depressive disorder, single episode, unspecified; G43.909 Migraine, unspecified, not intractable, without status migrainosus; F40.240 Claustrophobia; E28.2 Polycystic ovarian syndrome; F43.10 Post-traumatic stress disorder, unspecified; M79.7 Fibromyalgia; G62.9 Polyneuropathy, unspecified; M54.30 Sciatica, unspecified side; E55.9 Vitamin D deficiency, unspecified; K21.9 Gastro-esophageal reflux disease without esophagitis; R06.02 Shortness of breath; L66.2 Folliculitis decalvans; R06.83 Snoring; Z88.0 Allergy status to penicillin; Z88.1 Allergy status to other antibiotic agents; Z88.5 Allergy status to narcotic agent; Z91.018 Allergy to other foods; Z79.899 Other long term (current) drug therapy; Z79.3 Long term (current) use of hormonal contraceptives
CPT/HCPCS: 58571

== ENCOUNTER → 2018-09-10 | Outpatient (CLI) | payer OTHER ==
[~2018-09-10] MED LIST changes: +ACET-683 PO; +ANEXSIA PO; +BACL1TAB9 PO; +BACT800T5 PO; +BIOT1CAP2 PO; +CALC1TAB11 PO; +CLEO300C2 PO; +COLA100C5 PO; +DEPO150I12 IM; +ESCI10TA2; +ESCI20TA PO; -ESCITALOPRAM OXALATE 10 MG TAB (LEXAPRO) PO; +FIOR1CAP PO; +IBUP200T PO; +IBUP80TA PO; +LIPI20TA PO; -LR 1,000 ML IV; +MECL12.575 PO; +MOTR200T44 PO; +MULT1TAB18 PO; +NAPR-885 PO; +NUCY50TA6 PO; +OXYC1TAB23 PO; +PRED20TA PO; +PREG25CA PO; +PROAAER10 INH; +VITA100066 PO; +VITA50005 PO; +VITA500C24 PO; +WOMETAB9 PO; +birth control PO; +flexeril PO
--- NOTE | 2018-09-28 23:56 | ECWPNPC ---
PATIENT NAME: MIKKI HUDSON : 1985 GENDER: FEMALE VISIT DATE: 09/10/2018 DISCHARGE DATE: 09/10/18 1659 VISIT LOCKED DATE TIME: PHYSICIAN: BISHNU CARDENAS MD RESOURCE: BISHNU CARDENAS MD REASON FOR APPOINTMENT 1. W/C EDMAR RT SHOULDER HISTORY OF PRESENT ILLNESS DEPRESSION SCREENING: PHQ-2 IN LAST TWO WEEKS HAVE YOU BEEN BOTHERED BY LITTLE INTEREST OR PLEASURE IN DOING THINGSNO FEELING DOWN, DEPRESSED, OR HOPELESSNO HISTORY OF PRESENT ILLNESS: PAIN THE PATIENT DESCRIBES THE PAIN... 32 YEAR OLD FEMALE PATIENT WITH A HISTORY OF RIGHT SHOULDER PAIN. PATIENT DESCRIBES THE PAIN ACHING, BURNING, SHARP, STABBING, TENDER, SORE, SHOOTING, AND HAVING IT ALL THE TIME WITH A PAIN SCORE OF 6-9/10. PATIENT WAS HURT IN A WORK RELATED INJURY ON 11/24/2013 WORKING FOR [employer] WHEN SHE SLIPPED ON AN ICY AREA OF THE SIDEWALK AND SLAMMED INTO A BRICK WALL. 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 THE PATIENT REPORTS CHANGES IN HER BLADDER DUE TO A RECENT HYSTERECTOMY. PATIENT DENIES UNEXPLAINABLE WEIGHT LOSS, FEVER, CHILLS, NEW CHANGES ON HER BOWEL CONTROL. FALL RISK SCREENING: SCREENING :NO FALLS IN THE PAST YEAR CURRENT MEDICATIONS TAKING LIPITOR 20 MG TABLET 1 TABLET ORALLY ONCE A DAY TAKING WOMENS DAILY FORMULA TABLET 1 TAB(S) ORALLY DAILY TAKING PROAIR HFA 108 (90 BASE) MCG/ACT AEROSOL SOLUTION 2 PUFFS NEEDED INHALATION EVERY 4 HRS TAKING VITAMIN D-3 1000 UNIT CAPSULE 1 CAPSULE ORALLY 2000UNITS DAILY TAKING DRISDOL 87213 UNIT CAPSULE 1 CAPSULE ORALLY WEEKLY TAKING LEXAPRO 20 MG TABLET 1 TABLET ORALLY ONCE A DAY TAKING FIORICET APAP 325-50-40 CAPSULE 1 CAPSULE NEEDED ORALLY EVERY 4 HOURS PRN NECK PAIN/SPASM MDD=2 TAKING MECLIZINE HCL 25 MG TABLET CHEWABLE 1 TABLET NEEDED ORALLY 3 TIMES DAILY NEEDED NOT-TAKING MELOXICAM 15 MG TABLET 1 TABLET ORALLY WITH FOOD ONCE A DAY FOR PAIN, NOTES: 04/12 9AM NOT-TAKING NEXPLANON 68 MG IMPLANT SUBCUTANEOUS NOT-TAKING TIZANIDINE HCL 2 MG TABLET 1 TABLET NEEDED ORALLY FOR SPASMS AND PAIN BEFORE BEDTIME MAY REPEAT IN 4 HRS MDD2 NOT-TAKING JOLESSA 0.15-0.03 MG TABLET 1 TABLET ORALLY ONCE A DAY, NOTES: 04/12 9AM MEDICATION LIST REVIEWED AND RECONCILED WITH THE PATIENT PAST MEDICAL HISTORY BARBIE ANXIETY, DEPRESSION, BIPOLAR, CLAUSTROPHOBIA MIGRAINE POLYCYSTIC OVARIAN SYNDROME VITAMIN D DEFICIENCY DRY EYES FIBROMYALGIA ALLERGIES CEPHALEXIN: HIVES: ALLERGY AZITHROMYCIN: HIVES: ALLERGY AMOXICILLIN: NAUSEA/VOMITING: ALLERGY DOXYCYCLINE (ROSACEA): NAUSEA/VOMITING: ALLERGY TRAMADOL: DIARRHEA/NIGHTMARES: ALLERGY PENICILLIN (FOR ALLERGIES USE ONLY): NAUSEA/VOMITING: ALLERGY METFORMIN: NAUSEA/VOMITING: SIDE EFFECTS MUSHROOMS: RASH: ALLERGY NEXPLANON: RASH: ALLERGY SURGICAL HISTORY TONSILECTOMY 2014 TRIAL DCS 06/2015 HYSTERECTOMY 08/18/18 FAMILY HISTORY FATHER: UNKNOWN MOTHER: ALIVE, DIAGNOSED WITH HYPERTENSION SIBLINGS: ALIVE MATERNAL GRAND FATHER: DIAGNOSED WITH DIABETES MATERNAL GRAND MOTHER: DIAGNOSED WITH DIABETES, CANCER SOCIAL HISTORY GENERAL: TOBACCO USE ARE YOU A:NONSMOKER ALCOHOL SCREENING DID YOU HAVE A DRINK CONTAINING ALCOHOL IN THE PAST YEAR?NO POINTS0 INTERPRETATIONNEGATIVE RECREATIONAL DRUG USE DRUG USE?NO CAFFEINE CAFFEINE USE?NO TENRIISM TENRIISM NO PREFERENCE LANGUAGE LANGUAGES SPOKEN:WOLOF EDUCATION LEVEL OF EDUCATION:COLLEGE LEARNING BARRIERS / SPECIAL NEEDS CHANGE FROM LAST VISIT?NO BARRIERS TO LEARNING?NO HEARING IMPAIRED?NO VISION IMPAIRED?YES :CORRECTIVE LENSES COGNITIVELY IMPAIRED?NO READINESS TO LEARN?YES LEARNING PREFERENCES?NO LEARNING CAPABILITIES PRESENT?YES EMOTIONAL BARRIERS?NO SPECIAL DEVICES?YES :CANE COREMAKER HELPER 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 EXERCISE: WALKS. MARITAL STATUS: SINGLE. PAIN CLINIC PFS, CLERGY, PUBLIC HEALTH REFERRALS PFS REFERRAL NEEDED?NO CLERGY REFERRAL NEEDED?NO PUBLIC HEALTH REFERRAL NEEDED?NO WAS THE PROVIDER NOTIFIED OF ANY PERTINENT INFO?YES HAS THE PATIENT BEEN EDUCATED REGARDING HIS/HER PLAN OF CARE?YES PLEASE DOCUMENT ANY ADDTIONAL DETAILS.PLEASE FREE TEXT IN THE NOTES SECTION. PATIENT ENCOURAGED TO USE HEAT/COLD AND RELAXATION FOR HELPING WITH HER PAIN CONTROL. HAS THE PATIENT BEEN EDUCATED REGARDING PAIN, THE RISK FOR PAIN, THE IMPORTANCE OF EFFECTIVE PAIN MANAGEMENT, AND THE PAIN ASSESSMENT PROCESS?YES ADVANCE DIRECTIVE ADVANCE DIRECTIVE DISCUSSED WITH PATIENT:YES PT DOES NOT HAVE A HCP AND DECLINES INFO AT THIS TIME. ASSISTANCE OFFERED WITH FILLING OUT FORM, BUT PATIENT DECLINES. 09/10/18 REVIEWED WITH PT 09/10/18 8256 BV. HOSPITALIZATION/MAJOR DIAGNOSTIC PROCEDURE DCS TRIAL 06/2015 REVIEW OF SYSTEMS REVIEWED BY: PROVIDER: BISHNU CARDENAS MD . CONSTITUTIONAL: ANY CHANGE IN YOUR MEDICAL CONDITION? PATIENT HAD HYSTERECTOMY DONE 08/18/18 . CHILLS NO . FEVER NO . INFECTION: DO YOU HAVE NEW INFECTIONS? NO . DO YOU HAVE HISTORY OF MRSA? NO . MUSCULOSKELETAL: ANY NEW PATTERNS OF PAIN OR NUMBNESS? YES, PT STATES FOR THE PAST 2 MONTHS, SHE HAS BEEN HAVING INTERMITTENT SHOOTING PAINS THAT START IN RIGHT SHOULDER AND SHOOTS UP INTO RIGHT NECK AREA. STATES THEY SEEM TO COME AT RANDOM MOMENTS THROUGHOUT THE DAY. . GASTROENTEROLOGY: ANY NEW CHANGE IN BOWEL CONTROL? NO . GENITOURINARY: ANY NEW CHANGE IN BLADDER CONTROL? OVERACTIVE BLADDER SINCE HYSTERECTOMY DONE 08/18/18. STATES PRIMARY DOCTOR IS AWARE. . IS THERE A CHANCE YOU COULD BE ? NO . HEMATOLOGY/LYMPH: DO YOU TAKE ANY BLOOD THINNERS? (FOR EXAMPLE- COUMADIN, PLAVIX, AGGRENOX, PLATEL, PRADAXA, OR XARELTO) NO . WHEN WAS YOUR LAST DOSE? DATE: TIME: . NEUROLOGY: HAVE YOU FALLEN IN THE PAST 6 MONTHS? NO . ANY NEW EXTREMITY NUMBNESS OR WEAKNESS? NO . CARDIOLOGY: DO YOU HAVE A PACEMAKER OR DEFIBRILLATOR? NO . RESPIRATORY: HAVE YOU BEEN SICK IN THE PAST WEEK? NO . FEVER NO . FLU LIKE SYMPTOMS? NO . COUGH NO . INTEGUMENTARY: DO YOU HAVE ANY RASHES OR OPEN SORES? NO . ALLERGIC/IMMUNO: ARE YOU ALLERGIC TO SHELLFISH OR IV DYE? NO . ANY NEW ALLERGIES? NO . PSYCHIATRIC: DO YOU HAVE THOUGHTS OF HURTING YOURSELF OR SOMEONE ELSE? NO . ARE YOU ABUSED, NEGLECTED, OR IN AN UNSAFE ENVIRONMENT? NO . ENDOCRINOLOGY: ARE YOU DIABETIC? NO . OTHER: DO YOU NEED ANY PRESCRIPTIONS? NO . IF YES, PLEASE LIST: ____ . ANY NEW PROBLEMS WITH YOUR MEDICATIONS? NO . WHEN DID YOU LAST EAT? ____ . WHEN DID YOU LAST DRINK? ____ . WHAT DID YOU LAST DRINK? ____ . NAME OF PERSON DRIVING YOU HOME? ____ . DO YOU HAVE ANY OTHER QUESTIONS OR CONCERNS WOULD LIKE TO DISCUSS IF AN MRI OF NECK IS NEEDED . VITAL SIGNS WT 313.4 LBS, HT 69 IN, BMI 46.28 INDEX, BP 171/74 MM HG, HR 107 /MIN, RR 18 /MIN, TEMP 97.6 F, OXYGEN SAT % 98%, NA INITIALS AW 1546, REVIEWED BY: BV. EXAMINATION GENERAL EXAMINATION: PATIENT IS ALERT O X 3 AND COOPERATIVE. PATIENT CAN ABDUCT THE LEFT ARM ABOVE SHOULDER LEVEL WITHOUT DIFFICULTIES. THE PATIENT CANNOT ABDUCT THE RIGHT ARM. PATIENT HAS DIFFICULTIES MOVING RIGHT ARM. SEVERE TENDERNESS OVER THE RIGHT ARM. 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 HUDSON'S PAIN MANAGEMENT CASE. AT THIS TIME, I WOULD LIKE TO ORDER A RIGHT SHOULDER MRI TO GET A BETTER UNDERSTANDING OF WHERE THE PAIN IS COMING FROM. I WOULD ALSO LIKE TO REQUEST AN INTERFERENTIAL TENS UNIT FOR THE RIGHT SHOULDER. I WOULD LIKE TO START THE PATIENT ON GABAPENTIN FOR THE NEUROPATHIC PAIN. THE PATIENT WILL FOLLOW UP WITH ME IN 1-2 MONTHS. INSTRUCTIONS WERE GIVEN, QUESTIONS WERE ANSWERED, PATIENT REPORTS UNDERSTANDING AND AGREES WITH THE PLAN. I, INDRA GARCIA, DOCUMENTED THE ABOVE INFORMATION ACTING A SCRIBE FOR DR. CARDENAS. I HAVE REVIEWED THE ABOVE DOCUMENT, WRITTEN BY INDRA JACKIBDahlia AND I VERIFY THAT IT IS ACCURATE. OTHERS START GABAPENTIN CAPSULE, 100 MG, 1 CAPSULE, ORALLY FOR PAIN, THREE TIMES A DAY, 30 DAY(S), 90, REFILLS 1 PROCEDURES PN WORKMANS' COMP OPINION IN YOUR OPINION, WAS THE INCIDENT THAT THE PATIENT DESCRIBED THE COMPETENT MEDICAL CAUSE OF THIS INJURY/ILLNESS? YES ARE THE PATIENT'S COMPLAINTS CONSISTENT WITH HIS/HER HISTORY OF THE INJURY/ILLNESS? YES IS THE PATIENT'S HISTORY OF THE INJURY/ILLNESS CONSISTENT WITH YOUR OBJECTIVE FINDING? YES WHAT IS THE PERCENTAGE OF TEMPORARY IMPAIRMENT? TOTAL = 100% IS THE PATIENT WORKING? NO DOCTOR ON SITE: BISHNU CHARLES MD PREVENTIVE MEDICINE PAIN CLINIC TEACHING: MEDICATIONS PT GIVEN WRITTEN AND VERBAL EDUCATION ON GABAPENTIN. PT VERBALIZES UNDERSTANDING OF ALL EDUCATION. FELISA LONDON 09/10/2018 5:00:41 PM > . PROCEDURE CODES FA211 ESTABILISHED PATIENT [facility] FACILITY CHARGE G8427 CURRENT MEDS W/DOSAGES DOCUMENTED G8730 PAIN ASSESS POS TOOL F/U PLAN DOC DISPOSITION & COMMUNICATION FOLLOW UP 6 WEEKS ELECTRONICALLY SIGNED BY BISHNU CARDENAS MD, MD ON 09/28/2018 AT 05:49 PM EST DISCLAIMER : THIS IS A VISIT SUMMARY EXTRACTED FROM THE [employer] CHART. IT IS NOT A COPY OF THE [employer] PROGRESS NOTE. KAJAL
== END ==
LOC: M PAIN 16:00
PROVIDERS: ATTEND Anesthesiology
DX: M79.2 Neuralgia and neuritis, unspecified (principal); M25.511 Pain in right shoulder; G47.33 Obstructive sleep apnea (adult) (pediatric); F41.9 Anxiety disorder, unspecified; F32.9 Major depressive disorder, single episode, unspecified; F40.240 Claustrophobia; G43.909 Migraine, unspecified, not intractable, without status migrainosus; E55.9 Vitamin D deficiency, unspecified; H04.123 Dry eye syndrome of bilateral lacrimal glands; M79.7 Fibromyalgia; Z79.899 Other long term (current) drug therapy; Z88.0 Allergy status to penicillin; Z88.1 Allergy status to other antibiotic agents; Z88.5 Allergy status to narcotic agent; Z88.8 Allergy status to other drugs, medicaments and biological substances; Z91.018 Allergy to other foods

== ENCOUNTER → 2018-10-18 | Outpatient (CLI) | payer OTHER ==
[~2018-10-18] MED LIST changes: +NUCY50TA19 PO; -NUCY50TA6 PO
--- NOTE | 2018-10-18 13:51 | REP ---
MR CERVICAL SPINE WITHOUT CONTRAST: HISTORY: Neck pain. A disc bulge is present at the C4-5 level. There is mild effacement of the thecal sac without spinal cord compression. Uncinate process hypertrophy is present on the left. This produces mild narrowing of the left C4 neural foramen. The right C4 neural foramen is patent. A disc bulge is present at the C5-6 level. There is mild effacement of the thecal sac without spinal cord compression. The C5 neural foramen are patent. A disc bulge and small left paracentral and intraforaminal disc protrusion are present at the C6-7 level. There is mild effacement of the thecal sac without spinal cord compression. Uncinate process hypertrophy is present on the left. There is minimal narrowing of the left C6 neural foramen. The right C6 neural foramen is patent. There is no other disc bulge or herniation. The remaining neural foramen are patent. The spinal cord is normal in signal intensity. Normal signal intensity is present in the cervical vertebral bodies. IMPRESSION: There is cervical spondylosis at the C4-5 through C6-7 levels without spinal cord compression. Electronically Signed by Cale Arrieta MD 10/18/2018 01:52 P
== END ==
LOC: M RAD 12:37
PROVIDERS: ATTEND Family Medicine Addiction Medicine
DX: M47.812 Spondylosis without myelopathy or radiculopathy, cervical region (principal)

== ENCOUNTER → 2018-11-20 | Outpatient (CLI) | payer OTHER ==
--- NOTE | 2018-11-08 00:15 | ECWPNPC ---
PATIENT NAME: MIKKI HUDSON : 1985 GENDER: FEMALE VISIT DATE: 10/20/2018 DISCHARGE DATE: 10/20/18 1213 VISIT LOCKED DATE TIME: PHYSICIAN: BISHNU CARDENAS MD RESOURCE: BISHNU CARDENAS MD REASON FOR APPOINTMENT 1. F/U BACK PAIN HISTORY OF PRESENT ILLNESS HISTORY OF PRESENT ILLNESS: PAIN THE PATIENT DESCRIBES THE PAIN... 32 YEAR OLD FEMALE PATIENT WITH A HISTORY OF CHRONIC LOW BACK PAIN. THE PATIENT DESCRIBES THE PAIN ACHING, BURNING, SORE, TENDER, SHARP, STABBING, SHOOTING, AND CONTINUOUS WITH A PAIN SCORE OF 7-10/10 DEPENDING ON PHYSICAL ACTIVITY. THE PATIENT SAYS THAT THE PAIN STARTS IN HER LOW BACK AREA AND RADIATES DOWN BOTH OF HER LEGS, BUT MAINLY HER RIGHT LEG. THE PATIENT SAYS THAT SHE SOMETIMES EXPERIENCES NUMBNESS DOWN HER LEGS AND HAS DIFFICULTY WALKING. THE PATIENT STATES THAT SHE WAS USING GABAPENTIN, BUT EXPERIENCED SOME ABNORMAL SWELLING AND BLOODY NOSES. PATIENT DENIES UNEXPLAINABLE WEIGHT LOSS, FEVER, CHILLS, NEW CHANGES ON HER URINARY OR BOWEL CONTROL. FALL RISK SCREENING: SCREENING :NO FALLS IN THE PAST YEAR CURRENT MEDICATIONS TAKING LIPITOR 20 MG TABLET 1 TABLET ORALLY ONCE A DAY TAKING WOMENS DAILY FORMULA TABLET 1 TAB(S) ORALLY DAILY TAKING PROAIR HFA 108 (90 BASE) MCG/ACT AEROSOL SOLUTION 2 PUFFS NEEDED INHALATION EVERY 4 HRS TAKING VITAMIN D-3 1000 UNIT CAPSULE 1 CAPSULE ORALLY 2000UNITS DAILY TAKING DRISDOL 06427 UNIT CAPSULE 1 CAPSULE ORALLY WEEKLY TAKING FIORICET APAP 325-50-40 CAPSULE 1 CAPSULE NEEDED ORALLY EVERY 4 HOURS PRN NECK PAIN/SPASM MDD=2 TAKING MECLIZINE HCL 25 MG TABLET CHEWABLE 1 TABLET NEEDED ORALLY 3 TIMES DAILY NEEDED TAKING ZOLOFT 50 MG TABLET 1 TABLET ORALLY ONCE A DAY TAKING IBUPROFEN 600 MG TABLET 1 TABLET WITH FOOD OR MILK NEEDED ORALLY THREE TIMES A DAY NOT-TAKING GABAPENTIN 100 MG CAPSULE 1 CAPSULE ORALLY FOR PAIN THREE TIMES A DAY, NOTES: ALLERGIC REACTION NOT-TAKING LEXAPRO 20 MG TABLET 1 TABLET ORALLY ONCE A DAY UNKNOWN MELOXICAM 15 MG TABLET 1 TABLET ORALLY WITH FOOD ONCE A DAY FOR PAIN, NOTES: 04/12 9AM UNKNOWN NEXPLANON 68 MG IMPLANT SUBCUTANEOUS UNKNOWN TIZANIDINE HCL 2 MG TABLET 1 TABLET NEEDED ORALLY FOR SPASMS AND PAIN BEFORE BEDTIME MAY REPEAT IN 4 HRS MDD2 UNKNOWN KATREINALESSA 0.15-0.03 MG TABLET 1 TABLET ORALLY ONCE A DAY, NOTES: 04/12 9AM MEDICATION LIST REVIEWED AND RECONCILED WITH THE PATIENT PAST MEDICAL HISTORY BARBIE ANXIETY, DEPRESSION, BIPOLAR, CLAUSTROPHOBIA MIGRAINE POLYCYSTIC OVARIAN SYNDROME VITAMIN D DEFICIENCY DRY EYES FIBROMYALGIA ALLERGIES CEPHALEXIN: HIVES: ALLERGY AZITHROMYCIN: HIVES: ALLERGY AMOXICILLIN: NAUSEA/VOMITING: ALLERGY DOXYCYCLINE (ROSACEA): NAUSEA/VOMITING: ALLERGY TRAMADOL: DIARRHEA/NIGHTMARES: ALLERGY PENICILLIN (FOR ALLERGIES USE ONLY): NAUSEA/VOMITING: ALLERGY METFORMIN: NAUSEA/VOMITING: SIDE EFFECTS MUSHROOMS: RASH: ALLERGY NEXPLANON: RASH: ALLERGY GABAPENTIN: SWELLING: ALLERGY SURGICAL HISTORY TONSILECTOMY 2015 TRIAL DCS 06/2015 HYSTERECTOMY 08/18/18 FAMILY HISTORY FATHER: UNKNOWN MOTHER: ALIVE, DIAGNOSED WITH HYPERTENSION SIBLINGS: ALIVE MATERNAL GRAND FATHER: DIAGNOSED WITH DIABETES MATERNAL GRAND MOTHER: DIAGNOSED WITH DIABETES, CANCER SOCIAL HISTORY GENERAL: TOBACCO USE ARE YOU A:NONSMOKER ALCOHOL SCREENING DID YOU HAVE A DRINK CONTAINING ALCOHOL IN THE PAST YEAR?NO POINTS0 INTERPRETATIONNEGATIVE RECREATIONAL DRUG USE DRUG USE?NO CAFFEINE CAFFEINE USE?NO VOODOO VOODOO NO PREFERENCE LANGUAGE LANGUAGES SPOKEN:MONTENEGRIN EDUCATION LEVEL OF EDUCATION:COLLEGE LEARNING BARRIERS / SPECIAL NEEDS CHANGE FROM LAST VISIT?NO BARRIERS TO LEARNING?NO HEARING IMPAIRED?NO VISION IMPAIRED?YES :CORRECTIVE LENSES COGNITIVELY IMPAIRED?NO READINESS TO LEARN?YES LEARNING PREFERENCES?NO LEARNING CAPABILITIES PRESENT?YES EMOTIONAL BARRIERS?NO SPECIAL DEVICES?YES :CANE 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 EXERCISE: WALKS. MARITAL STATUS: SINGLE. PAIN CLINIC PFS, CLERGY, PUBLIC HEALTH REFERRALS PFS REFERRAL NEEDED?NO CLERGY REFERRAL NEEDED?NO PUBLIC HEALTH REFERRAL NEEDED?NO WAS THE PROVIDER NOTIFIED OF ANY PERTINENT INFO?YES HAS THE PATIENT BEEN EDUCATED REGARDING HIS/HER PLAN OF CARE?YES PLEASE DOCUMENT ANY ADDTIONAL DETAILS.PLEASE FREE TEXT IN THE NOTES SECTION. PATIENT ENCOURAGED TO USE HEAT/COLD AND RELAXATION FOR HELPING WITH HER PAIN CONTROL. HAS THE PATIENT BEEN EDUCATED REGARDING PAIN, THE RISK FOR PAIN, THE IMPORTANCE OF EFFECTIVE PAIN MANAGEMENT, AND THE PAIN ASSESSMENT PROCESS?YES ADVANCE DIRECTIVE ADVANCE DIRECTIVE DISCUSSED WITH PATIENT:YES PT DOES NOT HAVE A HCP AND DECLINES INFO AT THIS TIME. ASSISTANCE OFFERED WITH FILLING OUT FORM, BUT PATIENT DECLINES. 09/10/18 REVIEWED WITH PT 09/10/18 3536 BV. HOSPITALIZATION/MAJOR DIAGNOSTIC PROCEDURE DCS TRIAL 06/2015 REVIEW OF SYSTEMS REVIEWED BY: PROVIDER: BISHNU CARDENAS MD . CONSTITUTIONAL: ANY CHANGE IN YOUR MEDICAL CONDITION? NO . CHILLS NO . FEVER NO . INFECTION: DO YOU HAVE NEW INFECTIONS? NO . DO YOU HAVE HISTORY OF MRSA? NO . MUSCULOSKELETAL: ANY NEW PATTERNS OF PAIN OR NUMBNESS? INCREASED NUMBNESS BOTH LEGS FRONT AND BACK . GASTROENTEROLOGY: ANY NEW CHANGE IN BOWEL CONTROL? NO . GENITOURINARY: ANY NEW CHANGE IN BLADDER CONTROL? NO . IS THERE A CHANCE YOU COULD BE ? NO . HEMATOLOGY/LYMPH: DO YOU TAKE ANY BLOOD THINNERS? (FOR EXAMPLE- COUMADIN, PLAVIX, AGGRENOX, PLATEL, PRADAXA, OR XARELTO) NO . WHEN WAS YOUR LAST DOSE? DATE: TIME: . NEUROLOGY: HAVE YOU FALLEN IN THE PAST 12 MONTHS? NO . ANY NEW EXTREMITY NUMBNESS OR WEAKNESS? NO . CARDIOLOGY: DO YOU HAVE A PACEMAKER OR DEFIBRILLATOR? NO . RESPIRATORY: HAVE YOU BEEN SICK IN THE PAST WEEK? NO . FEVER NO . FLU LIKE SYMPTOMS? NO . COUGH NO . INTEGUMENTARY: DO YOU HAVE ANY RASHES OR OPEN SORES? NO . ALLERGIC/IMMUNO: ARE YOU ALLERGIC TO IV DYE? NO . ANY NEW ALLERGIES? NO . PSYCHIATRIC: DO YOU HAVE THOUGHTS OF HURTING YOURSELF OR SOMEONE ELSE? NO . ARE YOU ABUSED, NEGLECTED, OR IN AN UNSAFE ENVIRONMENT? NO . ENDOCRINOLOGY: ARE YOU DIABETIC? NO . OTHER: DO YOU NEED ANY PRESCRIPTIONS? NO . IF YES, PLEASE LIST: ____ . ANY NEW PROBLEMS WITH YOUR MEDICATIONS? NO . WHEN DID YOU LAST EAT? ____ . WHEN DID YOU LAST DRINK? ____ . WHAT DID YOU LAST DRINK? ____ . NAME OF PERSON DRIVING YOU HOME? ____ . DO YOU HAVE ANY OTHER QUESTIONS OR CONCERNS NO . VITAL SIGNS WT 321 LBS, HT 69 IN, BMI 47.40 INDEX, BP 130/90 MM HG, HR 99 /MIN, RR 18 /MIN, TEMP 99.0 F, OXYGEN SAT % 97%, SAFE IN ENV? (Y/N) YES, NA INITIALS AW 1113, REVIEWED BY: KG. EXAMINATION GENERAL EXAMINATION: PATIENT IS ALERT O X 3 AND COOPERATIVE. ANTALGIC GAIT. PATIENT IS USING A CANE TO AMBULATE. TENDERNESS IN THE LOW BACK AREA AND SEVERE TENDERNESS IN THE THORACIC AREA. RIGHT LEG IS WEAKER AT EXTENSION AND FLEXION. MRI OF THE LUMBAR SPINE DONE ON 02/20/2015 SHOWS BULGING DISCS AT MULTIPLE LEVELS. ASSESSMENTS INTERVERTEBRAL DISC DISORDER WITH RADICULOPATHY OF LUMBAR REGION - M51.16 (PRIMARY) INTERVERTEBRAL DISC DISORDER WITH RADICULOPATHY OF LUMBOSACRAL REGION - M51.17 TREATMENT INTERVERTEBRAL DISC DISORDER WITH RADICULOPATHY OF LUMBAR REGION CLINICAL NOTES: WE DISCUSSED SEVERAL ISSUES WITH MRS. HUDSON'S PAIN MANAGEMENT CASE. I WILL REQUEST AN INTERFERENTIAL TENS UNIT. I WOULD LIKE THE PATIENT TO START USING LYRICA FOR THE NEUROPATHIC PAIN IN PLACE OF THE GABAPENTIN SINCE SHE HAD ADVERSE SIDE EFFECTS. I WILL ORDER A NEW LUMBAR MRI SINCE HER PREVIOUS ONE IS FROM 4 YEARS AGO AND HER PAIN HAS BEEN INCREASING. I WILL ALSO ORDER A THORACIC X-RAY TO GET A BETTER UNDERSTANDING OF WHERE THE PAIN IN HER THORACIC AREA IS COMING FROM. THE PATIENT WILL FOLLOW UP IN A MONTH. INSTRUCTIONS WERE GIVEN, QUESTIONS WERE ANSWERED, PATIENT REPORTS UNDERSTANDING AND AGREES WITH THE PLAN. I, VICENTE JHAVERI, DOCUMENTED THE ABOVE INFORMATION ACTING A SCRIBE FOR DR. CARDENAS. I HAVE REVIEWED THE ABOVE DOCUMENT, WRITTEN BY VICENTE JHAVERI SCRIBDahlia AND I VERIFY THAT IT IS ACCURATE. OTHERS START LYRICA CAPSULE, 25 MG, 1 CAPSULES, ORALLY, TWICE A DAY MDD2, 30 DAY(S), 60, REFILLS 0 PREVENTIVE MEDICINE PAIN CLINIC TEACHING: MEDICATIONS PRINTED AND REVIEWED INFORMATION ON NEW MEDICATION, LYRICA, WITH PATIENT. PATIENT VERBALIZED AN UNDERSTANDING. IMAN CRUM 10/20/2018 12:14:57 PM > . PROCEDURE CODES FA211 ESTABILISHED PATIENT [facility] FACILITY CHARGE [id number] CURRENT MEDS W/DOSAGES DOCUMENTED G8730 PAIN ASSESS POS TOOL F/U PLAN DOC DISPOSITION & COMMUNICATION FOLLOW UP 4 WEEKS (REASON: BACK) ELECTRONICALLY SIGNED BY BISHNU CARDENAS MD, MD ON 11/07/2018 AT 06:21 PM EST DISCLAIMER : THIS IS A VISIT SUMMARY EXTRACTED FROM THE [employer] CHART. IT IS NOT A COPY OF THE [employer] PROGRESS NOTE. MTDD
--- NOTE | 2018-11-20 16:57 | REP ---
Thoracic spine three views: Vertebral body heights and alignment are normal. There is moderate degenerative disc disease throughout the thoracic spine. The pedicles are unremarkable. Mineralization is normal. Impression: Multilevel moderate degenerative disc disease. Otherwise, negative thoracic spine. Electronically Signed by Brandon Motley MD 11/20/2018 04:48 P
--- NOTE | 2018-11-22 08:54 | REP ---
MR lumbar spine without contrast History: Radiculopathy Comparison: 12/16/2016 Decreased signal intensity on T2-weighted images is present in the L4-5 and L5-L1 intervertebral discs. The discs are decreased in height. These findings are consistent with disc degeneration. There is no disc bulge or herniation at the L1-2 through L3-4 levels. The nerves exit the neural foramina without compression. A diffuse disc bulge is present at the L4-5 level. There is minimal compression of the thecal sac. The L4 nerves exit the neural foramina without compression. A diffuse disc bulge and small central disc protrusion are present at the L5-L1 level. There is minimal compression of the thecal sac. The L5 nerves exit the neural foramina without compression. The conus medullaris is normal in appearance terminating at the level of the top intervertebral disc. Normal signal intensity is present in the lumbar vertebral bodies. Impression: 1. Diffuse disc bulge at the L4-5 level with minimal thecal sac compression. 2. Diffuse disc bulge and small central disc protrusion at the L5 as well with minimal thecal sac compression. There is no significant change compared to the previous study. Electronically Signed by Cale Arrieta MD 11/22/2018 08:45 A
== END ==
LOC: M PAIN 10-20 11:45 → M RAD 14:48
PROVIDERS: ATTEND Anesthesiology
DX: M51.26 Other intervertebral disc displacement, lumbar region (principal); M51.16 Intervertebral disc disorders with radiculopathy, lumbar region; M51.17 Intervertebral disc disorders with radiculopathy, lumbosacral region; G89.29 Other chronic pain; M79.7 Fibromyalgia; G43.909 Migraine, unspecified, not intractable, without status migrainosus; E55.9 Vitamin D deficiency, unspecified; F40.240 Claustrophobia; F31.9 Bipolar disorder, unspecified; F41.9 Anxiety disorder, unspecified; G47.33 Obstructive sleep apnea (adult) (pediatric); E66.01 Morbid (severe) obesity due to excess calories; Z68.42 Body mass index [BMI] 45.0-49.9, adult; Z79.899 Other long term (current) drug therapy; Z88.0 Allergy status to penicillin; Z88.1 Allergy status to other antibiotic agents; Z88.5 Allergy status to narcotic agent; Z88.8 Allergy status to other drugs, medicaments and biological substances; Z91.018 Allergy to other foods
CPT/HCPCS: 72070; 72148; G0463

== ENCOUNTER → 2018-12-03 | Outpatient (CLI) | payer OTHER ==
--- NOTE | 2018-12-20 | ECWPNPC ---
PATIENT NAME: MIKKI HUDSON : 1985 GENDER: FEMALE VISIT DATE: 12/03/2018 DISCHARGE DATE: 12/03/18 1428 VISIT LOCKED DATE TIME: PHYSICIAN: BISHNU CARDENAS MD RESOURCE: BISHNU CARDENAS MD REASON FOR APPOINTMENT 1. W/C RIGHT SHOULDER REVIEW TENS DENIAL HISTORY OF PRESENT ILLNESS HISTORY OF PRESENT ILLNESS: PAIN THE PATIENT DESCRIBES THE PAIN... 33 YEAR OLD FEMALE WITH A HISTORY OF CHRONIC RIGHT SHOULDER PAIN. THE PATIENT DESCRIBES THE PAIN ACHING, BURNING, SHARP, STABBING, SHOOTING, SORE, TENDER AND CONTINUOUS WITH A PAIN SCORE OF 7-9/10 DEPENDING ON PHYSICAL ACTIVITY AND MEDICATION USE. THE PATIENT WAS HURT IN A WORK RELATED INJURY ON 11/24/2013 WHILE WORKING FOR [employer] WHEN SHE SLIPPED ON AN ICY AREA OF THE SIDEWALK AND FELL INTO A BRICK WALL. THE PATIENT STATES THAT THE PAIN RADIATES DOWN HER RIGHT ARM AND MAKES IT DIFFICULT TO DO DAILY ACTIVITIES SUCH COOKING AND CLEANING DUE TO THE PAIN. THE PATIENT SAYS THE PAIN WAKES HER UP AT NIGHT. PATIENT STATES SHE HAS TRIED GABAPENTIN AND LYRICA, BUT HAS EXPERIENCED ADVERSE SIDE EFFECTS SUCH SWELLING AND HEART PALPITATIONS. THE PATIENT ALSO STATES SHE TAKES IBUPROFEN BUT IT DOES NOT HELP WITH THE PAIN. THE PATIENT SAYS SHE HAS ALSO TRIED MOBIC IN THE PAST, BUT IT DID NOT HELP. THE PATIENT HAS TRIED PHYSICAL THERAPY IN THE PAST AND SAYS THAT IT HAS HELPED INCREASE HER MOBILITY AND FUNCTIONALITY. PATIENT DENIES UNEXPLAINABLE WEIGHT LOSS, FEVER, CHILLS, NEW CHANGES ON HER URINARY OR BOWEL CONTROL. FALL RISK SCREENING: SCREENING : NO FALLS IN THE PAST YEAR. CURRENT MEDICATIONS TAKING LIPITOR 20 MG TABLET 1 TABLET ORALLY ONCE A DAY TAKING WOMENS DAILY FORMULA TABLET 1 TAB(S) ORALLY DAILY TAKING PROAIR HFA 108 (90 BASE) MCG/ACT AEROSOL SOLUTION 2 PUFFS NEEDED INHALATION EVERY 4 HRS TAKING VITAMIN D-3 1000 UNIT CAPSULE 1 CAPSULE ORALLY 2000UNITS DAILY TAKING DRISDOL 60329 UNIT CAPSULE 1 CAPSULE ORALLY WEEKLY TAKING FIORICET APAP 325-50-40 CAPSULE 1 CAPSULE NEEDED ORALLY EVERY 4 HOURS PRN NECK PAIN/SPASM MDD=2 TAKING MECLIZINE HCL 25 MG TABLET CHEWABLE 1 TABLET NEEDED ORALLY 3 TIMES DAILY NEEDED TAKING ZOLOFT 50 MG TABLET 1 TABLET ORALLY ONCE A DAY TAKING IBUPROFEN 600 MG TABLET 1 TABLET WITH FOOD OR MILK NEEDED ORALLY THREE TIMES A DAY NOT-TAKING GABAPENTIN 100 MG CAPSULE 1 CAPSULE ORALLY FOR PAIN THREE TIMES A DAY, NOTES: ALLERGIC REACTION NOT-TAKING LEXAPRO 20 MG TABLET 1 TABLET ORALLY ONCE A DAY NOT-TAKING MELOXICAM 15 MG TABLET 1 TABLET ORALLY WITH FOOD ONCE A DAY FOR PAIN, NOTES: 04/12 9AM NOT-TAKING NEXPLANON 68 MG IMPLANT SUBCUTANEOUS NOT-TAKING TIZANIDINE HCL 2 MG TABLET 1 TABLET NEEDED ORALLY FOR SPASMS AND PAIN BEFORE BEDTIME MAY REPEAT IN 4 HRS MDD2 NOT-TAKING JOLESSA 0.15-0.03 MG TABLET 1 TABLET ORALLY ONCE A DAY, NOTES: 04/12 9AM DISCONTINUED LYRICA 25 MG CAPSULE 1 CAPSULES ORALLY TWICE A DAY MDD2 MEDICATION LIST REVIEWED AND RECONCILED WITH THE PATIENT PAST MEDICAL HISTORY BARBIE ANXIETY, DEPRESSION, BIPOLAR, CLAUSTROPHOBIA MIGRAINE POLYCYSTIC OVARIAN SYNDROME VITAMIN D DEFICIENCY DRY EYES 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 ALLERGIES CEPHALEXIN: HIVES - ALLERGY AZITHROMYCIN: HIVES - ALLERGY AMOXICILLIN: NAUSEA/VOMITING - ALLERGY DOXYCYCLINE (ROSACEA): NAUSEA/VOMITING - ALLERGY TRAMADOL: DIARRHEA/NIGHTMARES - ALLERGY PENICILLIN (FOR ALLERGIES USE ONLY): NAUSEA/VOMITING - ALLERGY METFORMIN: NAUSEA/VOMITING - SIDE EFFECTS MUSHROOMS: RASH - ALLERGY NEXPLANON: RASH - ALLERGY GABAPENTIN: SWELLING - ALLERGY SURGICAL HISTORY TONSILECTOMY 2015 TRIAL DCS 06/2015 HYSTERECTOMY 08/18/18 FAMILY HISTORY FATHER: UNKNOWN MOTHER: ALIVE, DIAGNOSED WITH HYPERTENSION SIBLINGS: ALIVE MATERNAL GRAND FATHER: DIABETES MATERNAL GRAND MOTHER: CANCER, DIABETES SOCIAL HISTORY GENERAL: TOBACCO USE ARE YOU A:NONSMOKER ALCOHOL SCREENING DID YOU HAVE A DRINK CONTAINING ALCOHOL IN THE PAST YEAR?NO POINTS0 INTERPRETATIONNEGATIVE RECREATIONAL DRUG USE DRUG USE?NO CAFFEINE CAFFEINE USE?NO ADVENT ADVENT NO PREFERENCE LANGUAGE LANGUAGES SPOKEN:MALTESE EDUCATION LEVEL OF EDUCATION:COLLEGE LEARNING BARRIERS / SPECIAL NEEDS CHANGE FROM LAST VISIT?NO BARRIERS TO LEARNING?NO HEARING IMPAIRED?NO VISION IMPAIRED?YES :CORRECTIVE LENSES COGNITIVELY IMPAIRED?NO READINESS TO LEARN?YES LEARNING PREFERENCES?NO LEARNING CAPABILITIES PRESENT?YES EMOTIONAL BARRIERS?NO SPECIAL DEVICES?YES :CANE 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 EXERCISE: WALKS. MARITAL STATUS: SINGLE. PAIN CLINIC PFS, CLERGY, PUBLIC HEALTH REFERRALS PFS REFERRAL NEEDED?NO CLERGY REFERRAL NEEDED?NO PUBLIC HEALTH REFERRAL NEEDED?NO WAS THE PROVIDER NOTIFIED OF ANY PERTINENT INFO?YES HAS THE PATIENT BEEN EDUCATED REGARDING HIS/HER PLAN OF CARE?YES PLEASE DOCUMENT ANY ADDTIONAL DETAILS.PLEASE FREE TEXT IN THE NOTES SECTION. PATIENT ENCOURAGED TO USE HEAT/COLD AND RELAXATION FOR HELPING WITH HER PAIN CONTROL. HAS THE PATIENT BEEN EDUCATED REGARDING PAIN, THE RISK FOR PAIN, THE IMPORTANCE OF EFFECTIVE PAIN MANAGEMENT, AND THE PAIN ASSESSMENT PROCESS?YES ADVANCE DIRECTIVE ADVANCE DIRECTIVE DISCUSSED WITH PATIENT:YES PT DOES NOT HAVE A HCP AND DECLINES INFO AT THIS TIME. ASSISTANCE OFFERED WITH FILLING OUT FORM, BUT PATIENT DECLINES. REVIEWED WITH PT 09/10/18 1557 BV. HOSPITALIZATION/MAJOR DIAGNOSTIC PROCEDURE DCS TRIAL 06/2015 REVIEW OF SYSTEMS REVIEWED BY: PROVIDER: BISHNU CARDENAS MD . CONSTITUTIONAL: ANY CHANGE IN YOUR MEDICAL CONDITION? YES, 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 . CHILLS NO . FEVER NO . INFECTION: DO YOU HAVE NEW INFECTIONS? NO . DO YOU HAVE HISTORY OF MRSA? NO . MUSCULOSKELETAL: ANY NEW PATTERNS OF PAIN OR NUMBNESS? YES, PAIN IS SPREADING TO MIDDLE OF BACK DOWN TO BRA LINE . GASTROENTEROLOGY: ANY NEW CHANGE IN BOWEL CONTROL? NO . GENITOURINARY: ANY NEW CHANGE IN BLADDER CONTROL? NO . IS THERE A CHANCE YOU COULD BE ? NO . HEMATOLOGY/LYMPH: DO YOU TAKE ANY BLOOD THINNERS? (FOR EXAMPLE- COUMADIN, PLAVIX, AGGRENOX, PLATEL, PRADAXA, OR XARELTO) NO . WHEN WAS YOUR LAST DOSE? DATE: TIME: . NEUROLOGY: HAVE YOU FALLEN IN THE PAST 12 MONTHS? YES, PRIOR TO LAST VISIT . ANY NEW EXTREMITY NUMBNESS OR WEAKNESS? YES, RIGHT ARM WEAKNESS X 1 MONTH . CARDIOLOGY: DO YOU HAVE A PACEMAKER OR DEFIBRILLATOR? NO . RESPIRATORY: HAVE YOU BEEN SICK IN THE PAST WEEK? YES, URI RESOLVING . FEVER NO . FLU LIKE SYMPTOMS? NO . COUGH NO . INTEGUMENTARY: DO YOU HAVE ANY RASHES OR OPEN SORES? NO . ALLERGIC/IMMUNO: ARE YOU ALLERGIC TO IV DYE? NO . ANY NEW ALLERGIES? NO, NOT SURE IF LYRICA IS NEW ALLERGY; GOT HEART PALPITATIONS WHILE ON IT, D/C LYRICA, PALPITATIONS STOPPED . PSYCHIATRIC: DO YOU HAVE THOUGHTS OF HURTING YOURSELF OR SOMEONE ELSE? NO . ARE YOU ABUSED, NEGLECTED, OR IN AN UNSAFE ENVIRONMENT? NO . ENDOCRINOLOGY: ARE YOU DIABETIC? NO . OTHER: DO YOU NEED ANY PRESCRIPTIONS? YES, CHANGE MED FROM LYRICA TO SOMETHING ELSE . IF YES, PLEASE LIST: ____ . ANY NEW PROBLEMS WITH YOUR MEDICATIONS? YES, HEART PALPITATIONS WHILE ON LYRICA . WHEN DID YOU LAST EAT? ____ . WHEN DID YOU LAST DRINK? ____ . WHAT DID YOU LAST DRINK? ____ . NAME OF PERSON DRIVING YOU HOME? ____ . DO YOU HAVE ANY OTHER QUESTIONS OR CONCERNS YES, HEART PALPITATIONS WHILE ON LYRICA . VITAL SIGNS WT 326.6 LBS, HT 69 IN, BMI 48.23 INDEX, BP 148/86 MM HG, HR 98 /MIN, RR 18 /MIN, TEMP 97.6 F, OXYGEN SAT % 97%, NA INITIALS SC 12:01, REVIEWED BY: STEFAN. EXAMINATION GENERAL EXAMINATION: PATIENT IS ALERT O X 3 AND COOPERATIVE. SEVERE TENDERNESS IN THE RIGHT SHOULDER AREA AND PAIN INCREASES WITH TOUCH. RIGHT ARM IS WEAKER AT EXTENSION AND FLEXION. MRI OF THE RIGHT SHOULDER DONE ON 11/01/2018 SHOWS SUPRASPINATUS TENDINITIS. 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 HUDSON'S PAIN MANAGEMENT CASE. I WOULD LIKE THE PATIENT TO START PHYSICAL THERAPY FOR HER RIGHT SHOULDER TWICE A WEEK FOR 6 WEEKS TO INCREASE HER MOBILITY AND FUNCTIONALITY. THE PATIENT HAS TRIED IBUPROFEN AND MOBIC IN THE PAST AND THEY HAVE NOT HELPED, SO I WOULD LIKE THE PATIENT TO TRY CELEBREX TO AID IN PAIN RELIEF. THE PATIENT IS GOING TO DISCUSS SWITCHING TO CYMBAL[place] FROM [place] WITH HER PRIMARY CARE. THE PATIENT WILL FOLLOW UP WITH ME IN 2 MONTHS. INSTRUCTIONS WERE GIVEN, QUESTIONS WERE ANSWERED, PATIENT REPORTS UNDERSTANDING AND AGREES WITH THE PLAN. I, VICENTE JHAVERI, DOCUMENTED THE ABOVE INFORMATION ACTING A SCRIBE FOR DR. CARDENAS. I HAVE REVIEWED THE ABOVE DOCUMENT, WRITTEN BY VICENTE JACKIBDahlia AND I VERIFY THAT IT IS ACCURATE. . OTHERS START CELEBREX CAPSULE, 200 MG, 1 CAPSULE WITH FOOD, ORALLY WITH FOOD, ONCE A DAY, 30 DAY(S), 30, REFILLS 1 PROCEDURES PN WORKMANS' COMP OPINION IN YOUR OPINION, WAS THE INCIDENT THAT THE PATIENT DESCRIBED THE COMPETENT MEDICAL CAUSE OF THIS INJURY/ILLNESS? YES ARE THE PATIENT'S COMPLAINTS CONSISTENT WITH HIS/HER HISTORY OF THE INJURY/ILLNESS? YES IS THE PATIENT'S HISTORY OF THE INJURY/ILLNESS CONSISTENT WITH YOUR OBJECTIVE FINDING? YES WHAT IS THE PERCENTAGE OF TEMPORARY IMPAIRMENT? TOTAL = 100% IS THE PATIENT WORKING? NO DOCTOR ON SITE: BISHNU CHARLES MD PROCEDURE CODES FA211 ESTABILISHED PATIENT [facility] FACILITY CHARGE G8427 CURRENT MEDS W/DOSAGES DOCUMENTED G8730 PAIN ASSESS POS TOOL F/U PLAN DOC DISPOSITION & COMMUNICATION FOLLOW UP 2 MONTHS (REASON: W/C RIGHT SHOULDER) ELECTRONICALLY SIGNED BY BISHNU CARDENAS MD, MD ON 12/19/2018 AT 07:44 PM EDT DISCLAIMER : THIS IS A VISIT SUMMARY EXTRACTED FROM THE [employer] CHART. IT IS NOT A COPY OF THE [employer] PROGRESS NOTE. KAJAL
== END ==
LOC: M PAIN 12:00
PROVIDERS: ATTEND Anesthesiology
DX: M79.2 Neuralgia and neuritis, unspecified (principal); M25.511 Pain in right shoulder; M75.91 Shoulder lesion, unspecified, right shoulder; M79.18 Myalgia, other site; G47.33 Obstructive sleep apnea (adult) (pediatric); G43.909 Migraine, unspecified, not intractable, without status migrainosus; E55.9 Vitamin D deficiency, unspecified; M79.7 Fibromyalgia; E66.01 Morbid (severe) obesity due to excess calories; Z68.42 Body mass index [BMI] 45.0-49.9, adult; Z79.899 Other long term (current) drug therapy; Z88.0 Allergy status to penicillin; Z88.1 Allergy status to other antibiotic agents; Z88.5 Allergy status to narcotic agent; Z88.8 Allergy status to other drugs, medicaments and biological substances; Z91.018 Allergy to other foods; Z86.59 Personal history of other mental and behavioral disorders

== ENCOUNTER → 2019-01-31 | Outpatient (CLI) | payer OTHER ==
--- NOTE | 2019-02-14 01:01 | ECWPNPC ---
PATIENT NAME: MIKKI HUDSON : 1985 GENDER: FEMALE VISIT DATE: 01/31/2019 DISCHARGE DATE: 01/31/19 1153 VISIT LOCKED DATE TIME: PHYSICIAN: BISHNU CARDENAS MD RESOURCE: BISHNU CARDENAS MD REASON FOR APPOINTMENT 1. W/C RIGHT SHOULDER HISTORY OF PRESENT ILLNESS HISTORY OF PRESENT ILLNESS: PAIN THE PATIENT DESCRIBES THE PAIN... 33 YEAR OLD FEMALE PATIENT WITH A HISTORY OF CHRONIC RIGHT SHOULDER PAIN. THE PATIENT DESCRIBES THE PAIN ACHING, BURNING, STABBING, SHOOTING, SORE, TENDER, SHARP, AND CONTINUOUS WITH A PAIN SCORE OF 7-10/10 DEPENDING ON PHYSICAL ACTIVITY AND MEDICATION. THE PATIENT WAS HURT IN A WORK RELATED INJURY ON 11/24/2013 WHILE WORKING FOR [employer] WHEN SHE SLIPPED ON AN ICY SIDEWALK AND FELL INTO A BRICK WALL. THE PATIENT DESCRIBES THE PAIN STARTING IN HER RIGHT SHOULDER AND RADIATING DOWN HER RIGHT ARM. THE PATIENT SAYS THE PAIN IS CAUSING DIFFICULTIES IN PERFORMING HER DAILY ACTIVITIES SUCH COOKING AND CLEANING AND THE PAIN IS INTERFERING WITH HER SLEEP. THE PATIENT SAYS SHE HAS TRIED PHYSICAL THERAPY IN THE PAST AND IT HAS HELPED HER WITH INCREASED MOBILITY AND FUNCTIONALITY. THE PATIENT STATES SHE IS CURRENTLY USING CELEBREX 200 MG FOR PAIN RELIEF. PATIENT DENIES UNEXPLAINABLE WEIGHT LOSS, FEVER, CHILLS, NEW CHANGES ON HER URINARY OR BOWEL CONTROL. FALL RISK SCREENING: SCREENING :NO FALLS REPORTED IN THE LAST YEAR CURRENT MEDICATIONS TAKING CELEBREX 200 MG CAPSULE 1 CAPSULE WITH FOOD ORALLY WITH FOOD ONCE A DAY TAKING LIPITOR 20 MG TABLET 1 TABLET ORALLY ONCE A DAY TAKING WOMENS DAILY FORMULA TABLET 1 TAB(S) ORALLY DAILY TAKING PROAIR HFA 108 (90 BASE) MCG/ACT AEROSOL SOLUTION 2 PUFFS NEEDED INHALATION EVERY 4 HRS TAKING VITAMIN D-3 1000 UNIT CAPSULE 1 CAPSULE ORALLY 2000UNITS DAILY TAKING DRISDOL 55652 UNIT CAPSULE 1 CAPSULE ORALLY WEEKLY TAKING FIORICET APAP 325-50-40 CAPSULE 1 CAPSULE NEEDED ORALLY EVERY 4 HOURS PRN NECK PAIN/SPASM MDD=2 TAKING ZOLOFT 50 MG TABLET 1 TABLET ORALLY ONCE A DAY TAKING IBUPROFEN 600 MG TABLET 1 TABLET WITH FOOD OR MILK NEEDED ORALLY THREE TIMES A DAY NOT-TAKING GABAPENTIN 100 MG CAPSULE 1 CAPSULE ORALLY FOR PAIN THREE TIMES A DAY, NOTES: ALLERGIC REACTION NOT-TAKING LEXAPRO 20 MG TABLET 1 TABLET ORALLY ONCE A DAY NOT-TAKING MELOXICAM 15 MG TABLET 1 TABLET ORALLY WITH FOOD ONCE A DAY FOR PAIN, NOTES: 04/12 9AM NOT-TAKING NEXPLANON 68 MG IMPLANT SUBCUTANEOUS NOT-TAKING TIZANIDINE HCL 2 MG TABLET 1 TABLET NEEDED ORALLY FOR SPASMS AND PAIN BEFORE BEDTIME MAY REPEAT IN 4 HRS MDD2 NOT-TAKING JOLESSA 0.15-0.03 MG TABLET 1 TABLET ORALLY ONCE A DAY, NOTES: 04/12 9AM DISCONTINUED MECLIZINE HCL 25 MG TABLET CHEWABLE 1 TABLET NEEDED ORALLY 3 TIMES DAILY NEEDED MEDICATION LIST REVIEWED AND RECONCILED WITH THE PATIENT PAST MEDICAL HISTORY BARBIE ANXIETY, DEPRESSION, BIPOLAR, CLAUSTROPHOBIA MIGRAINE POLYCYSTIC OVARIAN SYNDROME VITAMIN D DEFICIENCY DRY EYES 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 ALLERGIES CEPHALEXIN: HIVES - ALLERGY AZITHROMYCIN: HIVES - ALLERGY AMOXICILLIN: NAUSEA/VOMITING - ALLERGY DOXYCYCLINE (ROSACEA): NAUSEA/VOMITING - ALLERGY TRAMADOL: DIARRHEA/NIGHTMARES - ALLERGY PENICILLIN (FOR ALLERGIES USE ONLY): NAUSEA/VOMITING - ALLERGY METFORMIN: NAUSEA/VOMITING - SIDE EFFECTS MUSHROOMS: RASH - ALLERGY NEXPLANON: RASH - ALLERGY GABAPENTIN: SWELLING - ALLERGY SURGICAL HISTORY TONSILECTOMY 2015 TRIAL DCS 06/2015 HYSTERECTOMY 08/18/18 FAMILY HISTORY FATHER: UNKNOWN MOTHER: ALIVE, DIAGNOSED WITH HYPERTENSION SIBLINGS: ALIVE MATERNAL GRAND FATHER: DIABETES MATERNAL GRAND MOTHER: DIABETES, CANCER SOCIAL HISTORY GENERAL: TOBACCO USE ARE YOU A:NONSMOKER EDUCATION LEVEL OF EDUCATION:COLLEGE DIET: REGULAR. LANGUAGE LANGUAGES SPOKEN:ROMANSH RECREATIONAL DRUG USE DRUG USE?NO EXERCISE: WALKS. 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 PATIENT ENCOURAGED TO USE HEAT/COLD AND RELAXATION FOR HELPING WITH HER PAIN CONTROL. HAS THE PATIENT BEEN EDUCATED REGARDING PAIN, THE RISK FOR PAIN, THE IMPORTANCE OF EFFECTIVE PAIN MANAGEMENT, AND THE PAIN ASSESSMENT PROCESS?YES CAFFEINE CAFFEINE USE?NO ADVANCE DIRECTIVE ADVANCE DIRECTIVE DISCUSSED WITH PATIENT:YES PT DOES NOT HAVE A HCP AND DECLINES INFO AT THIS TIME. ASSISTANCE OFFERED WITH FILLING OUT FORM, BUT PATIENT DECLINES. TENRIISM TENRIISM NO PREFERENCE MARITAL STATUS: SINGLE. 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 REVIEWED WITH PT 09/10/18 1557 BV. HOSPITALIZATION/MAJOR DIAGNOSTIC PROCEDURE DCS TRIAL 06/2015 REVIEW OF SYSTEMS REVIEWED BY: PROVIDER: BISHNU CARDENAS MD . CONSTITUTIONAL: ANY CHANGE IN YOUR MEDICAL CONDITION? NO . CHILLS NO . FEVER NO . INFECTION: DO YOU HAVE NEW INFECTIONS? NO . DO YOU HAVE HISTORY OF MRSA? NO . MUSCULOSKELETAL: ANY NEW PATTERNS OF PAIN OR NUMBNESS? NO . GASTROENTEROLOGY: ANY NEW CHANGE IN BOWEL CONTROL? NO . GENITOURINARY: ANY NEW CHANGE IN BLADDER CONTROL? YES, PT C/O FREQUENCY SINCE HYSTERECTOMY . IS THERE A CHANCE YOU COULD BE ? NO . HEMATOLOGY/LYMPH: DO YOU TAKE ANY BLOOD THINNERS? (FOR EXAMPLE- COUMADIN, PLAVIX, AGGRENOX, PLATEL, PRADAXA, OR XARELTO) NO . WHEN WAS YOUR LAST DOSE? DATE: TIME: . NEUROLOGY: HAVE YOU FALLEN IN THE PAST 12 MONTHS? NO . ANY NEW EXTREMITY NUMBNESS OR WEAKNESS? NO . CARDIOLOGY: DO YOU HAVE A PACEMAKER OR DEFIBRILLATOR? NO . RESPIRATORY: HAVE YOU BEEN SICK IN THE PAST WEEK? YES, COLD RESOLVED . FEVER NO . FLU LIKE SYMPTOMS? NO . COUGH YES . INTEGUMENTARY: DO YOU HAVE ANY RASHES OR OPEN SORES? NO . ALLERGIC/IMMUNO: ARE YOU ALLERGIC TO IV DYE? NO . ANY NEW ALLERGIES? NO . PSYCHIATRIC: DO YOU HAVE THOUGHTS OF HURTING YOURSELF OR SOMEONE ELSE? NO . ARE YOU ABUSED, NEGLECTED, OR IN AN UNSAFE ENVIRONMENT? NO . ENDOCRINOLOGY: ARE YOU DIABETIC? NO . OTHER: DO YOU NEED ANY PRESCRIPTIONS? YES, CELEBREX IS NOT WORKING . IF YES, PLEASE LIST: ____ . ANY NEW PROBLEMS WITH YOUR MEDICATIONS? NO . WHEN DID YOU LAST EAT? ____ . WHEN DID YOU LAST DRINK? ____ . WHAT DID YOU LAST DRINK? ____ . NAME OF PERSON DRIVING YOU HOME? ____ . DO YOU HAVE ANY OTHER QUESTIONS OR CONCERNS NO . VITAL SIGNS WT 323 LBS, HT 69 IN, BMI 47.69 INDEX, BP 120/70 MM HG, HR 92 /MIN, RR 18 /MIN, TEMP 97.5 F, OXYGEN SAT % 100%, NA INITIALS SC 10:25, REVIEWED BY: EM. EXAMINATION GENERAL EXAMINATION: PATIENT IS ALERT O X 3 AND COOPERATIVE. TENDERNESS IN THE RIGHT SHOULDER. RIGHT ARM IS WEAKER AT EXTENSION AND FLEXION. MRI OF THE RIGHT SHOULDER DONE ON 11/01/2018 SHOWS SUPRASPINATUS TENDINOPATHY AND TENDINITIS. 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 HUDSON'S PAIN MANAGEMENT CASE. PATIENT WILL DISCUSS WITH HER PRIMARY CARE PHYSICIAN ABOUT SWITCHING PAXIL TO CYMBALTA. I WILL REQUEST PHYSICAL THERAPY AGAIN SINCE THE PATIENT SAYS IT HAS HELPED HER IN THE PAST. CELEBREX DID NOT HELP SO I WILL DISCONTINUE THE MEDICATION AND HAVE THE PATIENT START IBUPROFEN 800 MG TO BE TAKEN WITH FOOD. I HAD A DISCUSSION WITH THE PATIENT ABOUT THE SAFE USE OF NSAID'S. I WILL ALSO START THE PATIENT ON VOLTAREN GEL TO BE APPLIED ON HER RIGHT SHOULDER NEEDED UP TO THREE TIMES DAILY. I ADVISED THE PATIENT TO NOT USE IBUPROFEN IF THE VOLTAREN GEL HELPS WITH THE PAIN. THE PATIENT WILL FOLLOW UP IN SEVERAL WEEKS. INSTRUCTIONS WERE GIVEN, QUESTIONS WERE ANSWERED, PATIENT REPORTS UNDERSTANDING AND AGREES WITH THE PLAN. I, JALIL CONCEPCION, DOCUMENTED THE ABOVE INFORMATION ACTING A SCRIBE FOR DR. CARDENAS. I HAVE REVIEWED THE ABOVE DOCUMENT, WRITTEN BY JALIL CONCEPCION SCRIBDahlia AND I VERIFY THAT IT IS ACCURATE. . 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 YES ARE THE PATIENT'S COMPLAINTS CONSISTENT WITH HIS/HER HISTORY OF THE INJURY/ILLNESS? YES IS THE PATIENT'S HISTORY OF THE INJURY/ILLNESS CONSISTENT WITH YOUR OBJECTIVE FINDING? YES WHAT IS THE PERCENTAGE OF TEMPORARY IMPAIRMENT? TOTAL = 100% IS THE PATIENT WORKING? NO DOCTOR ON SITE: BISHNU CHARLES MD PROCEDURE CODES FA211 ESTABILISHED PATIENT [facility] FACILITY CHARGE G8427 CURRENT MEDS W/DOSAGES DOCUMENTED G8730 PAIN ASSESS POS TOOL F/U PLAN DOC DISPOSITION & COMMUNICATION FOLLOW UP 3 WEEKS ELECTRONICALLY SIGNED BY BISHNU CARDENAS MD, MD ON 02/13/2019 AT 06:35 PM EDT DISCLAIMER : THIS IS A VISIT SUMMARY EXTRACTED FROM THE [employer] CHART. IT IS NOT A COPY OF THE [employer] PROGRESS NOTE. TALOND
== END ==
LOC: M PAIN 10:30
PROVIDERS: ATTEND Anesthesiology
DX: M25.511 Pain in right shoulder (principal); G89.29 Other chronic pain; M79.2 Neuralgia and neuritis, unspecified; G47.33 Obstructive sleep apnea (adult) (pediatric); Z86.59 Personal history of other mental and behavioral disorders; G43.909 Migraine, unspecified, not intractable, without status migrainosus; E55.9 Vitamin D deficiency, unspecified; M79.7 Fibromyalgia; Z88.0 Allergy status to penicillin; Z88.1 Allergy status to other antibiotic agents; Z88.5 Allergy status to narcotic agent; Z88.8 Allergy status to other drugs, medicaments and biological substances; Z91.018 Allergy to other foods; E66.01 Morbid (severe) obesity due to excess calories; Z68.42 Body mass index [BMI] 45.0-49.9, adult; Z79.1 Long term (current) use of non-steroidal anti-inflammatories (NSAID); Z79.899 Other long term (current) drug therapy

== ENCOUNTER → 2019-02-04 | Outpatient (CLI) | payer OTHER ==
--- NOTE | 2019-02-19 23:55 | ECWPNPC ---
PATIENT NAME: MIKKI HUDSON : 1985 GENDER: FEMALE VISIT DATE: 02/04/2019 DISCHARGE DATE: 02/04/19 1602 VISIT LOCKED DATE TIME: PHYSICIAN: BISHNU CARDENAS MD RESOURCE: BISHNU CARDENAS MD REASON FOR APPOINTMENT 1. NON COMP F/U BACK PAIN HISTORY OF PRESENT ILLNESS HISTORY OF PRESENT ILLNESS: PAIN THE PATIENT DESCRIBES THE PAIN... 33 YEAR OLD FEMALE PATIENT WITH A HISTORY OF CHRONIC LOW BACK PAIN. THE PATIENT DESCRIBES THE PAIN ACHING, BURNING, STABBING, SHOOTING, SORE, TENDER, SHARP, AND CONTINUOUS WITH A PAIN SCORE OF 7-10/10 DEPENDING ON PHYSICAL ACTIVITY. THE PATIENT SAYS SHE IS EXPERIENCING PAIN IN HER LOW BACK, MUSCLE SPASMS, AND NUMBNESS DOWN HER LEFT LEG. THE PATIENT SAYS SHE HAS HAD AN INCREASE IN PAIN IN HER THORACIC AREA RECENTLY. THE PATIENT SAYS SHE EXPERIENCED LITTLE PAIN RELIEF FROM HER PAST DCS TRIAL. THE PATIENT STATES SHE HAS TRIED VARIOUS MEDICATIONS SUCH GABAPENTIN, CELEBREX, AND LYRICA, HOWEVER SHE EXPERIENCED SIDE EFFECTS AND OTHER ISSUES, SUCH SWELLING. PATIENT DENIES UNEXPLAINABLE WEIGHT LOSS, FEVER, CHILLS, NEW CHANGES ON HER URINARY OR BOWEL CONTROL. FALL RISK SCREENING: SCREENING :NO FALLS REPORTED IN THE LAST YEAR CURRENT MEDICATIONS TAKING LIPITOR 20 MG TABLET 1 TABLET ORALLY ONCE A DAY TAKING WOMENS DAILY FORMULA TABLET 1 TAB(S) ORALLY DAILY TAKING PROAIR HFA 108 (90 BASE) MCG/ACT AEROSOL SOLUTION 2 PUFFS NEEDED INHALATION EVERY 4 HRS TAKING VITAMIN D-3 1000 UNIT CAPSULE 1 CAPSULE ORALLY 2000UNITS DAILY TAKING DRISDOL 49984 UNIT CAPSULE 1 CAPSULE ORALLY WEEKLY TAKING FIORICET APAP 325-50-40 CAPSULE 1 CAPSULE NEEDED ORALLY EVERY 4 HOURS PRN NECK PAIN/SPASM MDD=2 TAKING ZOLOFT 50 MG TABLET 1 TABLET ORALLY ONCE A DAY TAKING IBUPROFEN 800 MG TABLET 1 TABLET WITH FOOD OR MILK NEEDED ORALLY EVERY 8 HOURS NEEDED MDD3 TAKING VOLTAREN 1 % GEL DIRECTED TRANSDERMAL AT RIGHT SHOULDER THREE TIMES DAILY NEEDED, NOTES: WAITING ON APPROVAL NOT-TAKING CELEBREX 200 MG CAPSULE 1 CAPSULE WITH FOOD ORALLY WITH FOOD ONCE A DAY NOT-TAKING GABAPENTIN 100 MG CAPSULE 1 CAPSULE ORALLY FOR PAIN THREE TIMES A DAY, NOTES: ALLERGIC REACTION NOT-TAKING LEXAPRO 20 MG TABLET 1 TABLET ORALLY ONCE A DAY NOT-TAKING MELOXICAM 15 MG TABLET 1 TABLET ORALLY WITH FOOD ONCE A DAY FOR PAIN, NOTES: 04/12 9AM NOT-TAKING NEXPLANON 68 MG IMPLANT SUBCUTANEOUS NOT-TAKING TIZANIDINE HCL 2 MG TABLET 1 TABLET NEEDED ORALLY FOR SPASMS AND PAIN BEFORE BEDTIME MAY REPEAT IN 4 HRS MDD2 NOT-TAKING JOLESSA 0.15-0.03 MG TABLET 1 TABLET ORALLY ONCE A DAY, NOTES: 04/12 9AM MEDICATION LIST REVIEWED AND RECONCILED WITH THE PATIENT PAST MEDICAL HISTORY BARBIE ANXIETY, DEPRESSION, BIPOLAR, CLAUSTROPHOBIA MIGRAINE POLYCYSTIC OVARIAN SYNDROME VITAMIN D DEFICIENCY DRY EYES 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 ALLERGIES CEPHALEXIN: HIVES - ALLERGY AZITHROMYCIN: HIVES - ALLERGY AMOXICILLIN: NAUSEA/VOMITING - ALLERGY DOXYCYCLINE (ROSACEA): NAUSEA/VOMITING - ALLERGY TRAMADOL: DIARRHEA/NIGHTMARES - ALLERGY PENICILLIN (FOR ALLERGIES USE ONLY): NAUSEA/VOMITING - ALLERGY METFORMIN: NAUSEA/VOMITING - SIDE EFFECTS MUSHROOMS: RASH - ALLERGY NEXPLANON: RASH - ALLERGY GABAPENTIN: SWELLING - ALLERGY SURGICAL HISTORY TONSILECTOMY 2015 TRIAL DCS 06/2015 HYSTERECTOMY 08/18/18 FAMILY HISTORY FATHER: UNKNOWN MOTHER: ALIVE, DIAGNOSED WITH HYPERTENSION SIBLINGS: ALIVE MATERNAL GRAND FATHER: DIABETES MATERNAL GRAND MOTHER: DIABETES, CANCER SOCIAL HISTORY GENERAL: TOBACCO USE ARE YOU A:NONSMOKER EDUCATION LEVEL OF EDUCATION:COLLEGE DIET: REGULAR. LANGUAGE LANGUAGES SPOKEN:ECUADOREAN RECREATIONAL DRUG USE DRUG USE?NO EXERCISE: WALKS. LEARNING BARRIERS / SPECIAL NEEDS CHANGE FROM LAST VISIT?NO BARRIERS TO LEARNING?NO HEARING IMPAIRED?NO VISION IMPAIRED?YES :CORRECTIVE LENSES COGNITIVELY IMPAIRED?NO READINESS TO LEARN?YES LEARNING PREFERENCES?NO LEARNING CAPABILITIES PRESENT?YES EMOTIONAL BARRIERS?NO SPECIAL DEVICES?YES :CANE TANBARK PEELER NEEDED?NO PAIN CLINIC PFS, CLERGY, PUBLIC HEALTH REFERRALS PFS REFERRAL NEEDED?NO CLERGY REFERRAL NEEDED?NO PUBLIC HEALTH REFERRAL NEEDED?NO WAS THE PROVIDER NOTIFIED OF ANY PERTINENT INFO?YES HAS THE PATIENT BEEN EDUCATED REGARDING HIS/HER PLAN OF CARE?YES PLEASE DOCUMENT ANY ADDTIONAL DETAILS.PLEASE FREE TEXT IN THE NOTES SECTION. PATIENT ENCOURAGED TO USE HEAT/COLD AND RELAXATION FOR HELPING WITH HER PAIN CONTROL. HAS THE PATIENT BEEN EDUCATED REGARDING PAIN, THE RISK FOR PAIN, THE IMPORTANCE OF EFFECTIVE PAIN MANAGEMENT, AND THE PAIN ASSESSMENT PROCESS?YES LATEX QUESTIONNAIRE LATEX ALLERGY : HAVE YOU EVER DEVELOPED ANY TYPE OF REACTION AFTER HANDLING LATEX PRODUCTS SUCH RUBBER GLOVES, CONDOMS, DIAPHRAGMS, BALLOONS, SOCKS, OR UNDERWEAR?NO LATEX ALLERGY : HAVE YOU EVER DEVELOPED ANY TYPE OF REACTION DURING OR AFTER DENTAL APPOINTMENT, VAGINAL/RECTAL EXAMINATION, SURGICAL PROCEDURE, OR ANY OTHER EXPOSURE?NO LATEX RISK : HAVE YOU EVER HAD ANY DIFFICULTY BREATHING OR HIVES AFTER EATING OR HANDLING ANY FRUITS, OR VEGETABLES; SUCH KIWI, BANANAS, STONE FRUITS, OR CHESTNUTSNO LATEX RISK : DO YOU HAVE A PREVIOUS PERSONAL HISTORY OF MORE THAN NINE SURGERIES, SPINA BIFIDA, OR REPEATED CATHERTIZATIONS? NO LATEX RISK : ARE YOU FREQUENTLY EXPOSED TO LATEX PRODUCTS IN YOUR OCCUPATION?NO DATE ASKED : 02/04/2019 CAFFEINE CAFFEINE USE?NO ADVANCE DIRECTIVE ADVANCE DIRECTIVE DISCUSSED WITH PATIENT:YES PT DOES NOT HAVE A HCP AND DECLINES INFO AT THIS TIME. ASSISTANCE OFFERED WITH FILLING OUT FORM, BUT PATIENT DECLINES. HINDUISM HINDUISM NO PREFERENCE MARITAL STATUS: SINGLE. 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 REVIEWED WITH PT 09/10/18 1647 BV. HOSPITALIZATION/MAJOR DIAGNOSTIC PROCEDURE DCS TRIAL 06/2015 REVIEW OF SYSTEMS REVIEWED BY: PROVIDER: BISHNU CARDENAS MD . CONSTITUTIONAL: ANY CHANGE IN YOUR MEDICAL CONDITION? NO . CHILLS NO . FEVER NO . INFECTION: DO YOU HAVE NEW INFECTIONS? NO . DO YOU HAVE HISTORY OF MRSA? NO . MUSCULOSKELETAL: ANY NEW PATTERNS OF PAIN OR NUMBNESS? YES, PT STATES THAT SHE IS HAVING INCREASING PAIN AND NUMBNESS IN BOTH LEGS, RIGHT LEG IS WORSE THAN LEFT . GASTROENTEROLOGY: ANY NEW CHANGE IN BOWEL CONTROL? NO . GENITOURINARY: ANY NEW CHANGE IN BLADDER CONTROL? YES . IS THERE A CHANCE YOU COULD BE ? NO . HEMATOLOGY/LYMPH: DO YOU TAKE ANY BLOOD THINNERS? (FOR EXAMPLE- COUMADIN, PLAVIX, AGGRENOX, PLATEL, PRADAXA, OR XARELTO) NO . WHEN WAS YOUR LAST DOSE? DATE: TIME: . NEUROLOGY: HAVE YOU FALLEN IN THE PAST 12 MONTHS? NO . ANY NEW EXTREMITY NUMBNESS OR WEAKNESS? YES, INCREASING WEAKNESS IN BILATERAL LEGS . CARDIOLOGY: DO YOU HAVE A PACEMAKER OR DEFIBRILLATOR? NO . RESPIRATORY: HAVE YOU BEEN SICK IN THE PAST WEEK? YES . FEVER NO . FLU LIKE SYMPTOMS? NO . COUGH YES . INTEGUMENTARY: DO YOU HAVE ANY RASHES OR OPEN SORES? NO . ALLERGIC/IMMUNO: ARE YOU ALLERGIC TO IV DYE? NO . ANY NEW ALLERGIES? NO . PSYCHIATRIC: DO YOU HAVE THOUGHTS OF HURTING YOURSELF OR SOMEONE ELSE? NO . ARE YOU ABUSED, NEGLECTED, OR IN AN UNSAFE ENVIRONMENT? NO . ENDOCRINOLOGY: ARE YOU DIABETIC? NO . OTHER: DO YOU NEED ANY PRESCRIPTIONS? NO . IF YES, PLEASE LIST: ____ . ANY NEW PROBLEMS WITH YOUR MEDICATIONS? NO . WHEN DID YOU LAST EAT? ____ . WHEN DID YOU LAST DRINK? ____ . WHAT DID YOU LAST DRINK? ____ . NAME OF PERSON DRIVING YOU HOME? ____ . DO YOU HAVE ANY OTHER QUESTIONS OR CONCERNS YES, RIGHT LEG TENDERNESS . VITAL SIGNS WT 323 LBS, HT 69 IN, BMI 47.69 INDEX, BP 136/86 MM HG, HR 85 /MIN, RR 18 /MIN, TEMP 98.0 F, OXYGEN SAT % 98%, NA INITIALS SC 14:54. EXAMINATION GENERAL EXAMINATION: PATIENT IS ALERT O X 3 AND COOPERATIVE. PATIENT WALKS WITH A CANE IN HER LEFT HAND. BOTH LEGS ARE WEAK, BUT LEFT LEG IS WEAKER AT EXTENSION AND FLEXION. TENDERNESS IN THORACIC AND LOW BACK. PAIN INCREASES OVER THE LUMBAR FACET JOINTS WITH EXTENSION AND LATERAL ROTATION OF THE BACK. MRI OF THE LUMBAR SPINE DONE ON 11/20/2018 SHOWS DISC PROTRUSION AT L5-S1 AND FACET ARTHROPATHY CHANGES AT MULTIPLE LEVELS. ASSESSMENTS SPONDYLOSIS OF LUMBAR REGION WITHOUT MYELOPATHY OR RADICULOPATHY - M47.816 (PRIMARY) THORACIC SPINE PAIN - M54.6 NECK PAIN - M54.2 TREATMENT SPONDYLOSIS OF LUMBAR REGION WITHOUT MYELOPATHY OR RADICULOPATHY CLINICAL NOTES: WE DISCUSSED SEVERAL ISSUES WITH MS. HUDSON'S PAIN MANAGEMENT CASE. I WILL REFER THE PATIENT TO A NEUROLOGIST AND RN IMAGING FOR MULTIPLE BODY PAIN AND NUMBNESS. DUE TO THE LUMBAR SPONDYLOSIS, I WOULD LIKE TO MOVE FORWARD WITH A BILATERAL L4-L5, L5-S1 DIAGNOSTIC FACET BLOCK _#1 TO SEE IF THE PATIENT WOULD BE A GOOD CANDIDATE FOR RADIOFREQUENCY. I AM REQUESTING A INTERFERENTIAL TENS UNIT TO HELP WITH THE PAIN AND MUSCLE SPASMS. I ALSO SUGGESTED TO THE PATIENT TO CONSIDER A LUMBAR EPIDURAL IN THE FUTURE. THE PATIENT WILL REQUEST FROM HER PRIMARY CARE PHYSICIAN TO CHANGE ZOLOFT TO CYMBALTA FOR PAIN RELIEF, SINCE CELEBREX AND LYRICA DID NOT HELP. I WILL START THE PATIENT ON TIZANIDINE 2 MG TO BE TAKEN NEEDED FOR MUSCLE SPASTICITY. I WILL ORDER A THORACIC MRI TO VIEW THE SOFT TISSUE AND GET A BETTER UNDERSTANDING OF WHERE HER PAIN IS COMING FROM SINCE THE THORACIC X-RAY DID NOT GIVE ME ENOUGH INFORMATION. I WILL ALSO ORDER A CERVICAL X-RAY TO GET A BETTER UNDERSTANDING OF WHERE THE PATIENT'S INCREASED NECK PAIN IS COMING FROM. THE PATIENT WILL FOLLOW UP IN SEVERAL WEEKS AFTER THE PROCEDURE. I WAS WITH THE PATIENT FOR MORE THAN 30 MINUTES AND MORE THAN HALF OF THAT TIME WAS SPENT DISCUSSING ABOUT THE PATIENT'S CARE, UPCOMING PROCEDURE, AND MEDICATIONS. INSTRUCTIONS WERE GIVEN, QUESTIONS WERE ANSWERED, PATIENT REPORTS UNDERSTANDING AND AGREES WITH THE PLAN. I, JALIL CONCEPCION, DOCUMENTED THE ABOVE INFORMATION ACTING A SCRIBE FOR DR. CARDENAS. I HAVE REVIEWED THE ABOVE DOCUMENT, WRITTEN BY JALIL WINKLER AND I VERIFY THAT IT IS ACCURATE.. OTHERS START TIZANIDINE HCL TABLET, 2 MG, 1 TABLET NEEDED, ORALLY FOR SPASMS AND PAIN, EVERY 8 HOURS NEEDED MDD3, 30 DAYS, 75, REFILLS 1 NOTES: FACET JOINT INJECTION MATERIAL WAS PRINTED. PROCEDURE CODES FA211 ESTABILISHED PATIENT [facility] FAC[facility] CHARGE [id number] CURRENT MEDS W/DOSAGES DOCUMENTED G8730 PAIN ASSESS POS TOOL F/U PLAN DOC DISPOSITION & COMMUNICATION FOLLOW UP 3 WEEKS (REASON: MEDICATION AND [facility] DIAGNOST[facility] FB) ELECTRONICALLY SIGNED BY BISHNU CARDENAS MD, ON 02/19/2019 AT 03:24 PM EDT DISCLAIMER : THIS IS A VISIT SUMMARY EXTRACTED FROM THE [employer] CHART. IT IS NOT A COPY OF THE [employer] PROGRESS NOTE. TALOND
== END ==
LOC: M PAIN 14:45
PROVIDERS: ATTEND Anesthesiology
DX: M47.816 Spondylosis without myelopathy or radiculopathy, lumbar region (principal); M54.6 Pain in thoracic spine; M54.2 Cervicalgia; G89.29 Other chronic pain; G43.909 Migraine, unspecified, not intractable, without status migrainosus; E55.9 Vitamin D deficiency, unspecified; M79.7 Fibromyalgia; G47.33 Obstructive sleep apnea (adult) (pediatric); E66.01 Morbid (severe) obesity due to excess calories; Z68.42 Body mass index [BMI] 45.0-49.9, adult; Z79.899 Other long term (current) drug therapy; Z88.0 Allergy status to penicillin; Z88.1 Allergy status to other antibiotic agents; Z88.5 Allergy status to narcotic agent; Z88.8 Allergy status to other drugs, medicaments and biological substances; Z91.018 Allergy to other foods; Z86.59 Personal history of other mental and behavioral disorders

== ENCOUNTER 2019-02-24 09:00 | Outpatient (RCR) | payer OTHER | END 2019-02-25 | LOC: M PT 09:00 | PROVIDERS: ATTEND Anesthesiology | DX: M25.511 Pain in right shoulder (principal) ==

== ENCOUNTER → 2019-03-02 | Outpatient (CLI) | payer OTHER ==
--- NOTE | 2019-03-02 09:51 | REP ---
MR THORACIC SPINE WITHOUT CONTRAST: HISTORY: Thoracic pain. A small central disc protrusion is present at the T5-6 level. There is minimal effacement of the thecal sac without spinal cord compression. The T5 neural foramina are patent. A small central disc protrusion is present at the T6-7 level. There is minimal effacement of the thecal sac without spinal cord compression. The T6 neural foramina are patent. A small central disc protrusion is present at the T7-8 level. There is minimal effacement of the thecal sac without spinal cord compression. The T7 neural foramina are patent. A small central disc protrusion is present at the T8-9 level. There is minimal effacement of the thecal sac without spinal cord compression. The T8 neural foramina are patent. A small central disc protrusion is present at the T9-10 level. There is minimal effacement of the thecal sac without spinal cord compression. The T9 neural foramina are patent. A disc bulge is present at the T10-11 level. There is minimal effacement of the thecal sac without spinal cord compression. The T10 neural foramina are patent. A disc bulge is present at the T11-12 level. There is minimal effacement of the thecal sac without spinal cord compression. The T11 neural foramina are patent. There is no other disc bulge or herniation. The remaining neural foramina are patent. The spinal cord is normal in signal intensity. There is loss of height of several mid and lower thoracic intervertebral discs consistent with disc degeneration. Normal signal intensity is present in the cervical vertebral bodies. IMPRESSION: 1. Small disc protrusions at the T5-6 through T9-10 levels with spinal cord compression. 2. Disc bulges at the T10-11 and T11-12 levels without spinal cord compression. Electronically Signed by Cale Arrieta MD 03/02/2019 09:58 A
--- NOTE | 2019-03-02 19:35 | REP ---
Clinical: Cervical pain. Technique: AP, lateral, swimmers, and open-mouth views of the cervical spine. Findings: Alignment is maintained. Vertebral bodies and disc spaces are normal. No acute fracture / compression injury or subluxation. No significant degenerative changes are appreciated. Open mouth view demonstrates normal C1-C2 articulation and odontoid process. Impression: Normal cervical spine radiographs. Electronically Signed by Dorian Saleem MD 03/02/2019 07:27 P
== END ==
LOC: M RAD 07:27
PROVIDERS: ATTEND Anesthesiology
DX: M51.24 Other intervertebral disc displacement, thoracic region (principal); M54.2 Cervicalgia

== ENCOUNTER → 2019-03-10 | Outpatient (CLI) | payer OTHER ==
[2019-03-10 09:43] LABS: BASO % 0.4 % (0.0-1.0); EOS # 0.1 10^3/uL (0.0-0.50); EOS % 1.6 % (0.0-3.0); HEMATOCRIT 42.8 % (36.0-47.0); HEMOGLOBIN 14.1 g/dl (12.0-15.5); LYMPH % 35.8 % (24.0-44.0); MEAN CORPUSCULAR HEMOGLOBIN 29.1 pg (27.0-33.0); MEAN CORPUSCULAR HGB CONC 32.9 g/dl (32.0-36.5); MEAN CORPUSCULAR VOLUME 88.2 fl (80.0-96.0); MONO # 0.7 10^3/uL (0.0-0.8); MONO % 8.7 % (0.0-5.0); NEUTROPHILS # 4.4 10^3/uL (1.8-7.7); NEUTROPHILS % 53.1 % (36.0-66.0); PLATELET COUNT, AUTOMATED 317 10^3/uL (150-450); RED BLOOD COUNT 4.85 10^6/uL (4.00-5.40); WHITE BLOOD COUNT 8.2 10^3/uL (4.0-10.0)
[2019-03-10 09:58] LABS: ALBUMIN 4.1 GM/DL (3.2-5.2); ALT/SGPT 54 U/L (12-78); BILIRUBIN,TOTAL 0.2 MG/DL (0.2-1.0); BLOOD UREA NITROGEN 18 MG/DL (7-18); CALCIUM LEVEL 9.7 MG/DL (8.5-10.1); CARBON DIOXIDE LEVEL 25 MEQ/L (21-32); CHLORIDE LEVEL 104 MEQ/L (98-107); CREATININE FOR GFR 0.91 MG/DL (0.55-1.30); GLOMERULAR FILTRATION RATE > 60.0 (>60); GLUCOSE, FASTING 86 MG/DL (70-100); POTASSIUM SERUM 4.4 MEQ/L (3.5-5.1); RHEUMATOID FACTOR QUANT < 10.0 IU/ML (<15.0); SODIUM LEVEL 138 MEQ/L (136-145); TOTAL PROTEIN 8.4 GM/DL (6.4-8.2)
[2019-03-10 10:01] LABS: HEMOGLOBIN A1c 5.6 %
[2019-03-10 10:04] LABS: FOLATE 8.5 NG/ML (>5.4); VITAMIN B12 LEVEL 340 PG/ML (247-911)
[2019-03-10 10:21] LABS: ERYTHROCYTE SEDIMENTATION RATE 18 mm/hr (0-20)
[2019-03-15 12:21] LABS: ALBUMIN 4.76 GM/DL (3.29-5.55); ALBUMIN % 56.7 % (55.8-66.1); ALPHA-1-GLOBULIN % 4.2 % (2.9-4.9); ALPHA-1-GLOBULINS 0.35 GM/DL (0.17-0.41); ALPHA-2-GLOBULINS 0.91 GM/DL (0.42-0.99); ALPHA-2-GLOBULINS % 10.8 % (7.1-11.8); BETA-1-GLOBULINS 0.61 GM/DL (0.28-0.60); BETA-1-GLOBULINS % 7.3 % (4.7-7.2); BETA-2-GLOBULINS 0.55 GM/DL (0.19-0.55); BETA-2-GLOBULINS % 6.5 % (3.2-6.5); GAMMA GLOBULIN % 14.5 % (11.1-18.8); GAMMA GLOBULINS 1.22 GM/DL (0.65-1.58)
== END ==
LOC: M LAB 08:20
PROVIDERS: ATTEND Psychiatry & Neurology Neurology
DX: G62.9 Polyneuropathy, unspecified (principal)

== ENCOUNTER 2019-03-22 08:15 | Outpatient (RCR) | payer OTHER | END 2019-03-27 | LOC: M PT 08:15 | PROVIDERS: ATTEND Anesthesiology | DX: M25.511 Pain in right shoulder (principal) ==

== ENCOUNTER → 2019-03-24 | Outpatient (CLI) | payer OTHER ==
[~2019-03-24] MED LIST changes: +BUPIVACAINE HCL 0.25% 30 ML VIAL As Ordered ONE; +ISOVUE-M 300 61% 15ML VIAL (Q9967) As Ordered ONE; +LIDOCAINE 1% SDV INJ 30 ML VIAL As Ordered ONE
--- NOTE | 2019-03-24 14:16 | REP ---
Partial lumbar spine series: Two views . History: Injection procedure for pain. 43 seconds of fluoroscopy time is reported. Findings: A sequence of two fluoroscopically obtained last image hold procedural spot radiographs of the lumbar spine document needle position and contrast injection associated with injection procedure. Electronically Signed by Hemal Murphy MD 03/24/2019 02:07 P
--- NOTE | 2019-03-31 00:48 | ECWPNPC ---
PATIENT NAME: MIKKI HUDSON : 1985 GENDER: FEMALE VISIT DATE: 03/24/2019 DISCHARGE DATE: 03/24/19 1044 VISIT LOCKED DATE TIME: PHYSICIAN: BISHNU CARDENAS MD RESOURCE: BISHNU CARDENAS MD REASON FOR APPOINTMENT 1. DIAG FACET BLOCK HISTORY OF PRESENT ILLNESS HISTORY OF PRESENT ILLNESS: PAIN THE PATIENT DESCRIBES THE PAIN... FALL RISK SCREENING: SCREENING :NO FALLS REPORTED IN THE LAST YEAR CURRENT MEDICATIONS TAKING TIZANIDINE HCL 2 MG TABLET 1 TABLET NEEDED ORALLY FOR SPASMS AND PAIN EVERY 8 HOURS NEEDED MDD3, NOTES: FEW DAYS AGO TAKING LIPITOR 20 MG TABLET 1 TABLET ORALLY ONCE A DAY, NOTES: 03/23/19 0900 TAKING WOMENS DAILY FORMULA TABLET 1 TAB(S) ORALLY DAILY, NOTES: 03/23/19 0900 TAKING PROAIR HFA 108 (90 BASE) MCG/ACT AEROSOL SOLUTION 2 PUFFS NEEDED INHALATION EVERY 4 HRS, NOTES: WEEKS AGO TAKING VITAMIN D-3 1000 UNIT CAPSULE 1 CAPSULE ORALLY 2000UNITS DAILY, NOTES: 03/23/19 0900 TAKING DRISDOL 40375 UNIT CAPSULE 1 CAPSULE ORALLY WEEKLY, NOTES: 03/21/19 TAKING FIORICET APAP 325-50-40 CAPSULE 1 CAPSULE NEEDED ORALLY EVERY 4 HOURS PRN NECK PAIN/SPASM MDD=2, NOTES: 03/19/19 TAKING ZOLOFT 50 MG TABLET 1 TABLET ORALLY ONCE A DAY, NOTES: 03/23/19 0900 TAKING IBUPROFEN 800 MG TABLET 1 TABLET WITH FOOD OR MILK NEEDED ORALLY EVERY 8 HOURS NEEDED MDD3, NOTES: 03/23/19 1800 TAKING VOLTAREN 1 % GEL DIRECTED TRANSDERMAL AT RIGHT SHOULDER THREE TIMES DAILY NEEDED, NOTES: WEEK AGO NOT-TAKING CELEBREX 200 MG CAPSULE 1 CAPSULE WITH FOOD ORALLY WITH FOOD ONCE A DAY NOT-TAKING GABAPENTIN 100 MG CAPSULE 1 CAPSULE ORALLY FOR PAIN THREE TIMES A DAY, NOTES: ALLERGIC REACTION NOT-TAKING LEXAPRO 20 MG TABLET 1 TABLET ORALLY ONCE A DAY NOT-TAKING MELOXICAM 15 MG TABLET 1 TABLET ORALLY WITH FOOD ONCE A DAY FOR PAIN NOT-TAKING NEXPLANON 68 MG IMPLANT SUBCUTANEOUS NOT-TAKING TIZANIDINE HCL 2 MG TABLET 1 TABLET NEEDED ORALLY FOR SPASMS AND PAIN BEFORE BEDTIME MAY REPEAT IN 4 HRS MDD2 NOT-TAKING JOLESSA 0.15-0.03 MG TABLET 1 TABLET ORALLY ONCE A DAY MEDICATION LIST REVIEWED AND RECONCILED WITH THE PATIENT PAST MEDICAL HISTORY BARBIE ANXIETY, DEPRESSION, BIPOLAR, CLAUSTROPHOBIA MIGRAINE POLYCYSTIC OVARIAN SYNDROME VITAMIN D DEFICIENCY DRY EYES 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 CHRONIC BACK PAIN ALLERGIES CEPHALEXIN: HIVES - ALLERGY AZITHROMYCIN: HIVES - ALLERGY AMOXICILLIN: NAUSEA/VOMITING - ALLERGY DOXYCYCLINE (ROSACEA): NAUSEA/VOMITING - ALLERGY TRAMADOL: DIARRHEA/NIGHTMARES - ALLERGY PENICILLIN (FOR ALLERGIES USE ONLY): NAUSEA/VOMITING - ALLERGY METFORMIN: NAUSEA/VOMITING - SIDE EFFECTS MUSHROOMS: RASH - ALLERGY NEXPLANON: RASH - ALLERGY GABAPENTIN: SWELLING - ALLERGY SURGICAL HISTORY TONSILECTOMY 2015 TRIAL DCS 06/2015 HYSTERECTOMY 08/18/18 FAMILY HISTORY FATHER: UNKNOWN MOTHER: ALIVE, DIAGNOSED WITH HYPERTENSION, OTHER SIBLINGS: ALIVE MATERNAL GRAND FATHER: DIABETES MATERNAL GRAND MOTHER: DIABETES, CANCER 3 BROTHER(S) - HEALTHY. MOTHER - FATTY LIVER DISEASE. SOCIAL HISTORY GENERAL: TOBACCO USE ARE YOU A:NONSMOKER EDUCATION LEVEL OF EDUCATION:COLLEGE DIET: REGULAR. LANGUAGE LANGUAGES SPOKEN:[place]ONG [place]ER RECREATIONAL DRUG USE DRUG USE?NO EXERCISE: WALKS. LEARNING BARRIERS / SPECIAL NEEDS CHANGE FROM LAST VISIT?NO BARRIERS TO LEARNING?NO HEARING IMPAIRED?NO VISION IMPAIRED?YES :CORRECTIVE LENSES COGNITIVELY IMPAIRED?NO READINESS TO LEARN?YES LEARNING PREFERENCES?NO LEARNING CAPABILITIES PRESENT?YES EMOTIONAL BARRIERS?NO SPECIAL DEVICES?YES :CANE STERNMAN NEEDED?NO PAIN CLINIC PFS, CLERGY, PUBLIC HEALTH REFERRALS PFS REFERRAL NEEDED?NO CLERGY REFERRAL NEEDED?NO PUBLIC HEALTH REFERRAL NEEDED?NO WAS THE PROVIDER NOTIFIED OF ANY PERTINENT INFO?YES HAS THE PATIENT BEEN EDUCATED REGARDING HIS/HER PLAN OF CARE?YES PLEASE DOCUMENT ANY ADDTIONAL DETAILS.PLEASE FREE TEXT IN THE NOTES SECTION. PATIENT ENCOURAGED TO USE HEAT/COLD AND RELAXATION FOR HELPING WITH HER PAIN CONTROL. HAS THE PATIENT BEEN EDUCATED REGARDING PAIN, THE RISK FOR PAIN, THE IMPORTANCE OF EFFECTIVE PAIN MANAGEMENT, AND THE PAIN ASSESSMENT PROCESS?YES LATEX QUESTIONNAIRE LATEX ALLERGY : HAVE YOU EVER DEVELOPED ANY TYPE OF REACTION AFTER HANDLING LATEX PRODUCTS SUCH RUBBER GLOVES, CONDOMS, DIAPHRAGMS, BALLOONS, SOCKS, OR UNDERWEAR?NO LATEX ALLERGY : HAVE YOU EVER DEVELOPED ANY TYPE OF REACTION DURING OR AFTER DENTAL APPOINTMENT, VAGINAL/RECTAL EXAMINATION, SURGICAL PROCEDURE, OR ANY OTHER EXPOSURE?NO LATEX RISK : HAVE YOU EVER HAD ANY DIFFICULTY BREATHING OR HIVES AFTER EATING OR HANDLING ANY FRUITS, OR VEGETABLES; SUCH KIWI, BANANAS, STONE FRUITS, OR CHESTNUTSNO LATEX RISK : DO YOU HAVE A PREVIOUS PERSONAL HISTORY OF MORE THAN NINE SURGERIES, SPINA BIFIDA, OR REPEATED CATHERTIZATIONS? NO LATEX RISK : ARE YOU FREQUENTLY EXPOSED TO LATEX PRODUCTS IN YOUR OCCUPATION?NO DATE ASKED : 02/04/2019 CAFFEINE CAFFEINE USE?NO ADVANCE DIRECTIVE ADVANCE DIRECTIVE DISCUSSED WITH PATIENT:YES PT DOES NOT HAVE A HCP AND DECLINES INFO AT THIS TIME. ASSISTANCE OFFERED WITH FILLING OUT FORM, BUT PATIENT DECLINES. CHURCH CHURCH NO PREFERENCE MARITAL STATUS: SINGLE. 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 REVIEWED WITH PT 09/10/18 2731 BVREVIEWED WITH PATIENT 03/24/19 8168 JS. HOSPITALIZATION/MAJOR DIAGNOSTIC PROCEDURE DCS TRIAL 06/2015 REVIEW OF SYSTEMS REVIEWED BY: PROVIDER: . CONSTITUTIONAL: ANY CHANGE IN YOUR MEDICAL CONDITION? NO . CHILLS NO . FEVER NO . INFECTION: DO YOU HAVE NEW INFECTIONS? NO . DO YOU HAVE HISTORY OF MRSA? NO . MUSCULOSKELETAL: ANY NEW PATTERNS OF PAIN OR NUMBNESS? NO . GASTROENTEROLOGY: ANY NEW CHANGE IN BOWEL CONTROL? NO . GENITOURINARY: ANY NEW CHANGE IN BLADDER CONTROL? NO . IS THERE A CHANCE YOU COULD BE ? NO . HEMATOLOGY/LYMPH: DO YOU TAKE ANY BLOOD THINNERS? (FOR EXAMPLE- COUMADIN, PLAVIX, AGGRENOX, PLATEL, PRADAXA, OR XARELTO) NO . WHEN WAS YOUR LAST DOSE? DATE: TIME: . NEUROLOGY: HAVE YOU FALLEN IN THE PAST 12 MONTHS? NO . ANY NEW EXTREMITY NUMBNESS OR WEAKNESS? YES, STATES NUMBNESS TO BILATERAL HANDS THAT STARTED A COUPLE MONTHS AGO . CARDIOLOGY: DO YOU HAVE A PACEMAKER OR DEFIBRILLATOR? NO . RESPIRATORY: HAVE YOU BEEN SICK IN THE PAST WEEK? NO . FEVER NO . FLU LIKE SYMPTOMS? NO . COUGH NO . INTEGUMENTARY: DO YOU HAVE ANY RASHES OR OPEN SORES? NO . ALLERGIC/IMMUNO: ARE YOU ALLERGIC TO IV DYE? NO . ANY NEW ALLERGIES? NO . PSYCHIATRIC: DO YOU HAVE THOUGHTS OF HURTING YOURSELF OR SOMEONE ELSE? NO . ARE YOU ABUSED, NEGLECTED, OR IN AN UNSAFE ENVIRONMENT? NO . ENDOCRINOLOGY: ARE YOU DIABETIC? NO . OTHER: DO YOU NEED ANY PRESCRIPTIONS? NO . IF YES, PLEASE LIST: ____ . ANY NEW PROBLEMS WITH YOUR MEDICATIONS? NO . WHEN DID YOU LAST EAT? ____03/23/19 1730 . WHEN DID YOU LAST DRINK? ____03/24/19 0630 . WHAT DID YOU LAST DRINK? ____WATER . NAME OF PERSON DRIVING YOU HOME? ____GUILFOYLE . DO YOU HAVE ANY OTHER QUESTIONS OR CONCERNS NO . VITAL SIGNS WT 324 LBS, HT 69 IN, BMI 47.84 INDEX, BP 140/93 MM HG, HR 87 /MIN, RR 18 /MIN, TEMP 98.5 F, OXYGEN SAT % 98%, SAFE IN ENV? (Y/N) YES, NA INITIALS AW 0913, REVIEWED BY: ANDRE. ASSESSMENTS SPONDYLOSIS OF LUMBAR REGION WITHOUT MYELOPATHY OR RADICULOPATHY - M47.816 (PRIMARY) SPONDYLOSIS OF LUMBOSACRAL REGION WITHOUT MYELOPATHY OR RADICULOPATHY - M47.817 TREATMENT SPONDYLOSIS OF LUMBAR REGION WITHOUT MYELOPATHY OR RADICULOPATHY SMC FACET BLOCK (PAIN)[id number] PROCEDURES PN LUMBAR FACET BLOCK DIAGNOSTIC PRE PROCEDURE DIAGNOSIS LUMBAR SPONDYLOSIS, LUMBOSACRAL SPONDYLOSIS POST PROCEDURE DIAGNOSIS LUMBAR SPONDYLOSIS, LUMBOSACRAL SPONDYLOSIS PROCEDURE BILATERAL L4-L5 AND BILATERAL L5-S1 FACET BLOCK DIAGNOSTIC NUMBER [address] BISHNU CARDENAS CAREER RESOURCE SPECIALIST NONE ANESTHESIA LOCAL PRE PROCEDURE NOTE THE PATIENT WITH HISTORY OF CHRONIC LOW BACK PAIN. I EVALUATED THE PATIENT AND REVIEWED THE CHART. I WENT OVER THE RISKS, ALTERNATIVES, AND BENEFITS ASSOCIATED WITH THIS PROCEDURE. THE PATIENT WOULD LIKE TO PROCEED AND GAVE CONSENT TO PERFORM THE PROCEDURE. AGREED WITH THE PATIENT WE ARE DOING THIS PROCEDURE TO DETERMINE IF THE PATIENT IS A CANDIDATE FOR A RADIOFREQUENCY ABLATION OF THE FACETS JOINTS. THE PATIENT DENIES UNEXPLAINABLE WEIGHT LOSS, FEVER, CHILLS, OR NEW CHANGES IN URINARY OR BOWEL CONTROL DESCRIPTION OF PROCEDURE THE PATIENT WAS BROUGHT TO THE PROCEDURE ROOM AND PLACED IN THE PRONE POSITION. THE LUMBOSACRAL AREA WAS CLEANED WITH CHLORAPREP SOLUTION AND DRAPED ASEPTICALLY. THE PROCEDURE WAS DONE UNDER STERILE CONDITIONS. I CHECKED LATERALITY AND THE LEVEL WHERE THE PROCEDURE WAS GOING TO BE PERFORMED WITH THE PATIENT AND THE SUPPORTING STAFF AT THE MOMENT OF THE TIME OUT IN THE PROCEDURE ROOM. UNDER FLUOROSCOPIC GUIDANCE, TARGETS WERE SELECTED AT THE INTERSECTION OF THE RIGHT AND LEFT TRANSVERSE PROCESS OF L4, L5 AND ALA OF S1 WITH ITS RESPECTIVE SUPERIOR ARTICULAR PROCESS. LIDOCAINE WAS USED TO NUMB THE SKIN AND THE SUBCUTANEOUS TISSUE BELOW IT. SPINAL NEEDLE, 22-GAUGE WAS ADVANCED UNDER FLUOROSCOPIC GUIDANCE AND FOLLOWING PATIENT FEEDBACK UNTIL THE TARGETS WERE REACHED. POSITION OF THE NEEDLES WAS VERIFIED WITH AP AND LATERAL VIEWS. AFTER PROPER POSITION OF THE NEEDLES WAS ACHIEVED, ISOVUE-M DYE 30% 0.1 ML WAS INJECTED AT EACH SITE SHOWING ADEQUATE SPREAD OF THE DYE. THEN A SOLUTION OF 0.4 ML OF BUPIVACAINE 0.25% WAS INJECTED AT EACH SITE. THERE WAS NO EVIDENCE OF BLOOD, PARESTHESIA OR CEREBROSPINAL FLUID DURING THE PROCEDURE. THE PATIENT WAS SENT TO THE RECOVERY ROOM. THE PATIENT WAS MOVING THE EXTREMITIES AND DOING WELL. THERE WAS NO COMPLICATION DURING THE PROCEDURE. FLUOROSCOPY TIME WAS 43 SECONDS POST PROCEDURE NOTE THE PATIENT WILL DOCUMENT HIS PAIN LEVEL AND RESPONSE TO THIS PROCEDURE EVERY 30 MINUTES. THE PATIENT WILL BE SEEN IN A FOLLOW UP IN THE NEXT FEW WEEKS. FURTHER DETERMINATION FOR HIS CASE WILL BE DONE AT THE NEXT VISIT. INSTRUCTIONS WERE GIVEN, QUESTIONS WERE ANSWERED, AND THE PATIENT EXPRESSED UNDERSTANDING AND AGREED WITH THE PLAN. I, VICENTE JHAVERI, DOCUMENTED THE ABOVE INFORMATION ACTING A SCRIBE FOR DR. CARDENAS. I HAVE REVIEWED THE ABOVE DOCUMENT, WRITTEN BY VICENTE JACKIBDahlia AND I VERIFY THAT IT IS ACCURATE. PROCEDURE CODES 6045F RADXPS IN END [id number] PXD [id number] INJ PARAVERT F JNT L/S 1 LEV, MODIFIERS: 50 [id number] INJ PARAVERT F JNT L/S 2 LEV, MODIFIERS: 50 DISPOSITION & COMMUNICATION FOLLOW UP 3 WEEKS ELECTRONICALLY SIGNED BY BISHNU CARDENAS MD, MD ON 03/30/2019 AT 01:19 PM EDT DISCLAIMER : THIS IS A VISIT SUMMARY EXTRACTED FROM THE [employer] CHART. IT IS NOT A COPY OF THE [employer] PROGRESS NOTE. MTDD
== END ==
LOC: M PAIN 09:15
PROVIDERS: ATTEND Anesthesiology
DX: M47.816 Spondylosis without myelopathy or radiculopathy, lumbar region (principal); M47.817 Spondylosis without myelopathy or radiculopathy, lumbosacral region; G47.33 Obstructive sleep apnea (adult) (pediatric); F41.9 Anxiety disorder, unspecified; F31.9 Bipolar disorder, unspecified; G43.909 Migraine, unspecified, not intractable, without status migrainosus; E55.9 Vitamin D deficiency, unspecified; M79.7 Fibromyalgia; H04.123 Dry eye syndrome of bilateral lacrimal glands; F40.240 Claustrophobia; M46.02 Spinal enthesopathy, cervical region; Z90.710 Acquired absence of both cervix and uterus; Z79.899 Other long term (current) drug therapy; Z88.0 Allergy status to penicillin; Z88.1 Allergy status to other antibiotic agents; Z88.8 Allergy status to other drugs, medicaments and biological substances; Z91.018 Allergy to other foods
CPT/HCPCS: 64493; 64494; Q9967

== ENCOUNTER → 2019-04-25 | Outpatient (CLI) | payer OTHER ==
[~2019-04-25] MED LIST changes: -BUPIVACAINE HCL 0.25% 30 ML VIAL As Ordered ONE; -ISOVUE-M 300 61% 15ML VIAL (Q9967) As Ordered ONE; -LIDOCAINE 1% SDV INJ 30 ML VIAL As Ordered ONE
--- NOTE | 2019-04-27 01:33 | ECWPNPC ---
PATIENT NAME: MIKKI HUDSON : 1985 GENDER: FEMALE VISIT DATE: 04/25/2019 DISCHARGE DATE: 04/25/19 1348 VISIT LOCKED DATE TIME: PHYSICIAN: SUBHASH PAINTER RESOURCE: SUBHASH PAINTER REASON FOR APPOINTMENT 1. [facility] POST PROC BACK HISTORY OF PRESENT ILLNESS HISTORY OF PRESENT ILLNESS: PAIN THE PATIENT DESCRIBES THE PAIN... 33 YEAR OLD FEMALE IN FOR POST DIAGNOSTIC FACETS. WHEN ASKED SHE DENIES ANY RELIEF FROM PROCEDURE. SHE CURRENTLY RATES HER PAIN AT A 7/10 AND DESCRIBES IT ACHING, BURNING, SORE, TENDER, SHARP, STABBING, NUMB, AND SHOOTING. FALL RISK SCREENING: SCREENING :NO FALLS REPORTED IN THE LAST YEAR CURRENT MEDICATIONS TAKING LIPITOR 20 MG TABLET 1 TABLET ORALLY ONCE A DAY TAKING WOMENS DAILY FORMULA TABLET 1 TAB(S) ORALLY DAILY TAKING PROAIR HFA 108 (90 BASE) MCG/ACT AEROSOL SOLUTION 2 PUFFS NEEDED INHALATION EVERY 4 HRS TAKING VITAMIN D-3 1000 UNIT CAPSULE 1 CAPSULE ORALLY 2000UNITS DAILY TAKING DRISDOL 63749 UNIT CAPSULE 1 CAPSULE ORALLY WEEKLY TAKING FIORICET APAP 325-50-40 CAPSULE 1 CAPSULE NEEDED ORALLY EVERY 4 HOURS PRN NECK PAIN/SPASM MDD=2 TAKING ZOLOFT 50 MG TABLET 1 TABLET ORALLY ONCE A DAY TAKING IBUPROFEN 800 MG TABLET 1 TABLET WITH FOOD OR MILK NEEDED ORALLY EVERY 8 HOURS NEEDED MDD3 TAKING MAY USE CBD OIL DAILY NOT-TAKING TIZANIDINE HCL 2 MG TABLET 1 TABLET NEEDED ORALLY FOR SPASMS AND PAIN EVERY 8 HOURS NEEDED MDD3 NOT-TAKING VOLTAREN 1 % GEL DIRECTED TRANSDERMAL AT RIGHT SHOULDER THREE TIMES DAILY NEEDED, NOTES: NONE RECENT NOT-TAKING CELEBREX 200 MG CAPSULE 1 CAPSULE WITH FOOD ORALLY WITH FOOD ONCE A DAY NOT-TAKING GABAPENTIN 100 MG CAPSULE 1 CAPSULE ORALLY FOR PAIN THREE TIMES A DAY, NOTES: ALLERGIC REACTION NOT-TAKING LEXAPRO 20 MG TABLET 1 TABLET ORALLY ONCE A DAY NOT-TAKING MELOXICAM 15 MG TABLET 1 TABLET ORALLY WITH FOOD ONCE A DAY FOR PAIN NOT-TAKING NEXPLANON 68 MG IMPLANT SUBCUTANEOUS NOT-TAKING TIZANIDINE HCL 2 MG TABLET 1 TABLET NEEDED ORALLY FOR SPASMS AND PAIN BEFORE BEDTIME MAY REPEAT IN 4 HRS MDD2 NOT-TAKING JOLESSA 0.15-0.03 MG TABLET 1 TABLET ORALLY ONCE A DAY MEDICATION LIST REVIEWED AND RECONCILED WITH THE PATIENT PAST MEDICAL HISTORY BARBIE ANXIETY, DEPRESSION, BIPOLAR, CLAUSTROPHOBIA MIGRAINE POLYCYSTIC OVARIAN SYNDROME VITAMIN D DEFICIENCY DRY EYES 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 CHRONIC BACK PAIN ALLERGIES CEPHALEXIN: HIVES - ALLERGY AZITHROMYCIN: HIVES - ALLERGY AMOXICILLIN: NAUSEA/VOMITING - ALLERGY DOXYCYCLINE (ROSACEA): NAUSEA/VOMITING - ALLERGY TRAMADOL: DIARRHEA/NIGHTMARES - ALLERGY PENICILLIN (FOR ALLERGIES USE ONLY): NAUSEA/VOMITING - ALLERGY METFORMIN: NAUSEA/VOMITING - SIDE EFFECTS MUSHROOMS: RASH - ALLERGY NEXPLANON: RASH - ALLERGY GABAPENTIN: SWELLING - ALLERGY SURGICAL HISTORY TONSILECTOMY 2015 TRIAL DCS 06/2015 HYSTERECTOMY 08/18/18 FAMILY HISTORY FATHER: UNKNOWN MOTHER: ALIVE, DIAGNOSED WITH OTHER, HYPERTENSION SIBLINGS: ALIVE MATERNAL GRAND FATHER: DIABETES MATERNAL GRAND MOTHER: DIABETES, CANCER 3 BROTHER(S) - HEALTHY. MOTHER - FATTY LIVER DISEASE. SOCIAL HISTORY GENERAL: TOBACCO USE ARE YOU A:NONSMOKER EDUCATION LEVEL OF EDUCATION:COLLEGE DIET: REGULAR. LANGUAGE LANGUAGES SPOKEN:ARABIC RECREATIONAL DRUG USE DRUG USE?NO EXERCISE: WALKS. LEARNING BARRIERS / SPECIAL NEEDS CHANGE FROM LAST VISIT?NO BARRIERS TO LEARNING?NO HEARING IMPAIRED?NO VISION IMPAIRED?YES :CORRECTIVE LENSES COGNITIVELY IMPAIRED?NO READINESS TO LEARN?YES LEARNING PREFERENCES?NO LEARNING CAPABILITIES PRESENT?YES EMOTIONAL BARRIERS?NO SPECIAL DEVICES?YES :CANE ROOFER METAL NEEDED?NO PAIN CLINIC PFS, CLERGY, PUBLIC HEALTH REFERRALS PFS REFERRAL NEEDED?NO CLERGY REFERRAL NEEDED?NO PUBLIC HEALTH REFERRAL NEEDED?NO WAS THE PROVIDER NOTIFIED OF ANY PERTINENT INFO?YES HAS THE PATIENT BEEN EDUCATED REGARDING HIS/HER PLAN OF CARE?YES PLEASE DOCUMENT ANY ADDTIONAL DETAILS.PLEASE FREE TEXT IN THE NOTES SECTION. PATIENT ENCOURAGED TO USE HEAT/COLD AND RELAXATION FOR HELPING WITH HER PAIN CONTROL. HAS THE PATIENT BEEN EDUCATED REGARDING PAIN, THE RISK FOR PAIN, THE IMPORTANCE OF EFFECTIVE PAIN MANAGEMENT, AND THE PAIN ASSESSMENT PROCESS?YES LATEX QUESTIONNAIRE LATEX ALLERGY : HAVE YOU EVER DEVELOPED ANY TYPE OF REACTION AFTER HANDLING LATEX PRODUCTS SUCH RUBBER GLOVES, CONDOMS, DIAPHRAGMS, BALLOONS, SOCKS, OR UNDERWEAR?NO LATEX ALLERGY : HAVE YOU EVER DEVELOPED ANY TYPE OF REACTION DURING OR AFTER DENTAL APPOINTMENT, VAGINAL/RECTAL EXAMINATION, SURGICAL PROCEDURE, OR ANY OTHER EXPOSURE?NO LATEX RISK : HAVE YOU EVER HAD ANY DIFFICULTY BREATHING OR HIVES AFTER EATING OR HANDLING ANY FRUITS, OR VEGETABLES; SUCH KIWI, BANANAS, STONE FRUITS, OR CHESTNUTSNO LATEX RISK : DO YOU HAVE A PREVIOUS PERSONAL HISTORY OF MORE THAN NINE SURGERIES, SPINA BIFIDA, OR REPEATED CATHERIZATIONS? NO LATEX RISK : ARE YOU FREQUENTLY EXPOSED TO LATEX PRODUCTS IN YOUR OCCUPATION?NO DATE ASKED : 02/04/2019 CAFFEINE CAFFEINE USE?NO ADVANCE DIRECTIVE ADVANCE DIRECTIVE DISCUSSED WITH PATIENT:YES PT DOES NOT HAVE A HCP AND DECLINES INFO AT THIS TIME. ASSISTANCE OFFERED WITH FILLING OUT FORM, BUT PATIENT DECLINES. 04/25/19 EPISCOPAL EPISCOPAL NO PREFERENCE MARITAL STATUS: SINGLE. 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 REVIEWED WITH PT 09/10/18 1557 BVREVIEWED WITH PATIENT 03/24/19 0919 JSREVIEWED WITH PT 04/25/19 1304 BV. HOSPITALIZATION/MAJOR DIAGNOSTIC PROCEDURE DCS TRIAL 06/2015 REVIEW OF SYSTEMS REVIEWED BY: PROVIDER: ELOISE STARKS . CONSTITUTIONAL: ANY CHANGE IN YOUR MEDICAL CONDITION? NO . CHILLS NO . FEVER NO . INFECTION: DO YOU HAVE NEW INFECTIONS? NO . DO YOU HAVE HISTORY OF MRSA? NO . MUSCULOSKELETAL: ANY NEW PATTERNS OF PAIN OR NUMBNESS? NO . GASTROENTEROLOGY: ANY NEW CHANGE IN BOWEL CONTROL? NO . GENITOURINARY: ANY NEW CHANGE IN BLADDER CONTROL? NO . IS THERE A CHANCE YOU COULD BE ? NO . HEMATOLOGY/LYMPH: DO YOU TAKE ANY BLOOD THINNERS? (FOR EXAMPLE- COUMADIN, PLAVIX, AGGRENOX, PLATEL, PRADAXA, OR XARELTO) NO . WHEN WAS YOUR LAST DOSE? DATE: TIME: . NEUROLOGY: HAVE YOU FALLEN IN THE PAST 12 MONTHS? NO . ANY NEW EXTREMITY NUMBNESS OR WEAKNESS? YES, PT STATES SHE HAS HAD INCREASING NUMBNESS AND TINGLING IN BILATERAL WRISTS . CARDIOLOGY: DO YOU HAVE A PACEMAKER OR DEFIBRILLATOR? NO . RESPIRATORY: HAVE YOU BEEN SICK IN THE PAST WEEK? NO . FEVER NO . FLU LIKE SYMPTOMS? NO . COUGH NO . INTEGUMENTARY: DO YOU HAVE ANY RASHES OR OPEN SORES? NO . ALLERGIC/IMMUNO: ARE YOU ALLERGIC TO IV DYE? NO . ANY NEW ALLERGIES? NO . PSYCHIATRIC: DO YOU HAVE THOUGHTS OF HURTING YOURSELF OR SOMEONE ELSE? NO . ARE YOU ABUSED, NEGLECTED, OR IN AN UNSAFE ENVIRONMENT? NO . ENDOCRINOLOGY: ARE YOU DIABETIC? NO . OTHER: DO YOU NEED ANY PRESCRIPTIONS? YES, IBUPROFEN 800MG . IF YES, PLEASE LIST: ____ . ANY NEW PROBLEMS WITH YOUR MEDICATIONS? NO . WHEN DID YOU LAST EAT? ____ . WHEN DID YOU LAST DRINK? ____ . WHAT DID YOU LAST DRINK? ____ . NAME OF PERSON DRIVING YOU HOME? ____ . DO YOU HAVE ANY OTHER QUESTIONS OR CONCERNS YES, PT HAS STOPPED TAKING THE TIZANIDINE, STATES IT MADE HER FEEL LIKE A "ZOMBIE" AND DROWSY ALL DAY . VITAL SIGNS WT 323 LBS, HT 69 IN, BMI 47.69 INDEX, BP 141/81 MM HG, HR 91 /MIN, RR 18 /MIN, TEMP 97.7 F, OXYGEN SAT % 95%, NA INITIALS AW 1259, REVIEWED BY: BV. EXAMINATION GENERAL EXAMINATION: GENERALNO ACUTE DISTRESS, WELL NOURISHED AND HYDRATED. PSYCHAPPROPRIATE MOOD AND AFFECT . LUNGS:CLEAR TO AUSCULTATION BILATERALLY, NO WHEEZES, RHONCHI, RALES. HEART:NO MURMURS, REGULAR RATE AND RHYTHM. ASSESSMENTS SPONDYLOSIS OF LUMBOSACRAL REGION WITHOUT MYELOPATHY OR RADICULOPATHY - M47.817 (PRIMARY) INTERVERTEBRAL DISC DISORDER WITH RADICULOPATHY OF LUMBAR REGION - M51.16 TREATMENT SPONDYLOSIS OF LUMBOSACRAL REGION WITHOUT MYELOPATHY OR RADICULOPATHY CLINICAL NOTES: 33 YEAR OLD FEMALE IN FOR POST DIAGNOSTIC FACETS FOLLOW UP. GIVEN PRESENTING SYMPTOMS AND RESULTS OF PHYSICAL EXAMINATION RECOMMENDED FINDING OUT MORE INFORMATION ON THE PADDLE FOR THE DORSAL COLUMN STIMULATOR VS POSSIBLE EPIDURAL IN THE FUTURE. PATIENT HAS EXPRESSED UNDERSTANDING OF AND WAS IN AGREEMENT WITH TREATMENT PLAN. GIVEN TIME TO ASK QUESTIONS AND EXPRESS CONCERNS. OTHERS REFILL IBUPROFEN TABLET, 800 MG, 1 TABLET WITH FOOD OR MILK NEEDED, ORALLY, EVERY 8 HOURS NEEDED MDD3, 30 DAYS, 70, REFILLS 1 PROCEDURE CODES FA211 ESTABILISHED PATIENT MERGED WITH [facility] CHARGE DISPOSITION & COMMUNICATION FOLLOW UP 4 WEEKS (REASON: CHRONIC PAIN ) ELECTRONICALLY SIGNED BY LEONA FREEMAN ON 04/26/2019 AT 10:27 AM EDT DISCLAIMER : THIS IS A VISIT SUMMARY EXTRACTED FROM THE [employer] CHART. IT IS NOT A COPY OF THE [employer] PROGRESS NOTE. KAJAL
== END ==
LOC: M PAIN 13:00
PROVIDERS: ATTEND Family Medicine
DX: M47.817 Spondylosis without myelopathy or radiculopathy, lumbosacral region (principal); M51.16 Intervertebral disc disorders with radiculopathy, lumbar region; G47.33 Obstructive sleep apnea (adult) (pediatric); G43.909 Migraine, unspecified, not intractable, without status migrainosus; E55.9 Vitamin D deficiency, unspecified; H04.123 Dry eye syndrome of bilateral lacrimal glands; M79.7 Fibromyalgia; M47.812 Spondylosis without myelopathy or radiculopathy, cervical region; M46.02 Spinal enthesopathy, cervical region; Z90.710 Acquired absence of both cervix and uterus; Z79.899 Other long term (current) drug therapy; F31.9 Bipolar disorder, unspecified; F41.9 Anxiety disorder, unspecified; Z88.0 Allergy status to penicillin; Z88.1 Allergy status to other antibiotic agents; Z88.8 Allergy status to other drugs, medicaments and biological substances; Z88.5 Allergy status to narcotic agent

== ENCOUNTER → 2019-05-02 | Outpatient (CLI) | payer OTHER ==
--- NOTE | 2019-05-04 01:24 | ECWPNPC ---
PATIENT NAME: MIKKI HUDSON : 1985 GENDER: FEMALE VISIT DATE: 05/02/2019 DISCHARGE DATE: 05/02/19922 VISIT LOCKED DATE TIME: PHYSICIAN: SUBHASH PAINTER RESOURCE: SUBHASH PAINTER REASON FOR APPOINTMENT 1. W/C HISTORY OF PRESENT ILLNESS HISTORY OF PRESENT ILLNESS: PAIN THE PATIENT DESCRIBES THE PAIN... 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 SHE FEELS THE PT HELPED A LITTLE AND SHE HAS LEARNED THE EXERCISES TO UTILIZE AT HOME. SHE DOES NOT FEEL THE VOLTAREN GEL WAS HELPFUL. SHE RATES HER PAIN AT A 7/10 CURRENTLY AND DESCRIBES IT ACHING, BURNING, SORE, TENDER, SHARP, AND STABBING. FALL RISK SCREENING: SCREENING :NO FALLS REPORTED IN THE LAST YEAR CURRENT MEDICATIONS TAKING LIPITOR 20 MG TABLET 1 TABLET ORALLY ONCE A DAY TAKING WOMENS DAILY FORMULA TABLET 1 TAB(S) ORALLY DAILY TAKING PROAIR HFA 108 (90 BASE) MCG/ACT AEROSOL SOLUTION 2 PUFFS NEEDED INHALATION EVERY 4 HRS TAKING VITAMIN D-3 1000 UNIT CAPSULE 1 CAPSULE ORALLY 2000UNITS DAILY TAKING DRISDOL 40366 UNIT CAPSULE 1 CAPSULE ORALLY WEEKLY TAKING FIORICET APAP 325-50-40 CAPSULE 1 CAPSULE NEEDED ORALLY EVERY 4 HOURS PRN NECK PAIN/SPASM MDD=2 TAKING ZOLOFT 50 MG TABLET 1 TABLET ORALLY ONCE A DAY TAKING MAY USE CBD OIL DAILY TAKING IBUPROFEN 800 MG TABLET 1 TABLET WITH FOOD OR MILK NEEDED ORALLY EVERY 8 HOURS NEEDED MDD3 TAKING VOLTAREN 1 % GEL DIRECTED TRANSDERMAL AT RIGHT SHOULDER THREE TIMES DAILY NEEDED, NOTES: NONE RECENT NOT-TAKING TIZANIDINE HCL 2 MG TABLET 1 TABLET NEEDED ORALLY FOR SPASMS AND PAIN EVERY 8 HOURS NEEDED MDD3 NOT-TAKING CELEBREX 200 MG CAPSULE 1 CAPSULE WITH FOOD ORALLY WITH FOOD ONCE A DAY NOT-TAKING GABAPENTIN 100 MG CAPSULE 1 CAPSULE ORALLY FOR PAIN THREE TIMES A DAY, NOTES: ALLERGIC REACTION NOT-TAKING LEXAPRO 20 MG TABLET 1 TABLET ORALLY ONCE A DAY NOT-TAKING MELOXICAM 15 MG TABLET 1 TABLET ORALLY WITH FOOD ONCE A DAY FOR PAIN NOT-TAKING NEXPLANON 68 MG IMPLANT SUBCUTANEOUS NOT-TAKING TIZANIDINE HCL 2 MG TABLET 1 TABLET NEEDED ORALLY FOR SPASMS AND PAIN BEFORE BEDTIME MAY REPEAT IN 4 HRS MDD2 NOT-TAKING JOLESSA 0.15-0.03 MG TABLET 1 TABLET ORALLY ONCE A DAY MEDICATION LIST REVIEWED AND RECONCILED WITH THE PATIENT PAST MEDICAL HISTORY BARBIE ANXIETY, DEPRESSION, BIPOLAR, CLAUSTROPHOBIA MIGRAINE POLYCYSTIC OVARIAN SYNDROME VITAMIN D DEFICIENCY DRY EYES 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 CHRONIC BACK PAIN ALLERGIES CEPHALEXIN: HIVES - ALLERGY AZITHROMYCIN: HIVES - ALLERGY AMOXICILLIN: NAUSEA/VOMITING - ALLERGY DOXYCYCLINE (ROSACEA): NAUSEA/VOMITING - ALLERGY TRAMADOL: DIARRHEA/NIGHTMARES - ALLERGY PENICILLIN (FOR ALLERGIES USE ONLY): NAUSEA/VOMITING - ALLERGY METFORMIN: NAUSEA/VOMITING - SIDE EFFECTS MUSHROOMS: RASH - ALLERGY NEXPLANON: RASH - ALLERGY GABAPENTIN: SWELLING - ALLERGY SURGICAL HISTORY TONSILECTOMY 2015 TRIAL DCS 06/2015 HYSTERECTOMY 08/18/18 FAMILY HISTORY FATHER: UNKNOWN MOTHER: ALIVE, DIAGNOSED WITH OTHER, HYPERTENSION SIBLINGS: ALIVE MATERNAL GRAND FATHER: DIABETES MATERNAL GRAND MOTHER: DIABETES, CANCER 3 BROTHER(S) - HEALTHY. MOTHER - FATTY LIVER DISEASE. SOCIAL HISTORY GENERAL: TOBACCO USE ARE YOU A:NONSMOKER EDUCATION LEVEL OF EDUCATION:COLLEGE DIET: REGULAR. LANGUAGE LANGUAGES SPOKEN:EQUATORIAL GUINEAN RECREATIONAL DRUG USE DRUG USE?NO EXERCISE: WALKS. LEARNING BARRIERS / SPECIAL NEEDS CHANGE FROM LAST VISIT?NO BARRIERS TO LEARNING?NO HEARING IMPAIRED?NO VISION IMPAIRED?YES :CORRECTIVE LENSES COGNITIVELY IMPAIRED?NO READINESS TO LEARN?YES LEARNING PREFERENCES?NO LEARNING CAPABILITIES PRESENT?YES EMOTIONAL BARRIERS?NO SPECIAL DEVICES?YES :CANE CLAY BURNER NEEDED?NO PAIN CLINIC PFS, CLERGY, PUBLIC HEALTH REFERRALS PFS REFERRAL NEEDED?NO CLERGY REFERRAL NEEDED?NO PUBLIC HEALTH REFERRAL NEEDED?NO WAS THE PROVIDER NOTIFIED OF ANY PERTINENT INFO?YES HAS THE PATIENT BEEN EDUCATED REGARDING HIS/HER PLAN OF CARE?YES PLEASE DOCUMENT ANY ADDTIONAL DETAILS.PLEASE FREE TEXT IN THE NOTES SECTION. PATIENT ENCOURAGED TO USE HEAT/COLD AND RELAXATION FOR HELPING WITH HER PAIN CONTROL. HAS THE PATIENT BEEN EDUCATED REGARDING PAIN, THE RISK FOR PAIN, THE IMPORTANCE OF EFFECTIVE PAIN MANAGEMENT, AND THE PAIN ASSESSMENT PROCESS?YES LATEX QUESTIONNAIRE LATEX ALLERGY : HAVE YOU EVER DEVELOPED ANY TYPE OF REACTION AFTER HANDLING LATEX PRODUCTS SUCH RUBBER GLOVES, CONDOMS, DIAPHRAGMS, BALLOONS, SOCKS, OR UNDERWEAR?NO LATEX ALLERGY : HAVE YOU EVER DEVELOPED ANY TYPE OF REACTION DURING OR AFTER DENTAL APPOINTMENT, VAGINAL/RECTAL EXAMINATION, SURGICAL PROCEDURE, OR ANY OTHER EXPOSURE?NO LATEX RISK : HAVE YOU EVER HAD ANY DIFFICULTY BREATHING OR HIVES AFTER EATING OR HANDLING ANY FRUITS, OR VEGETABLES; SUCH KIWI, BANANAS, STONE FRUITS, OR CHESTNUTSNO LATEX RISK : DO YOU HAVE A PREVIOUS PERSONAL HISTORY OF MORE THAN NINE SURGERIES, SPINA BIFIDA, OR REPEATED CATHERIZATIONS? NO LATEX RISK : ARE YOU FREQUENTLY EXPOSED TO LATEX PRODUCTS IN YOUR OCCUPATION?NO DATE ASKED : 02/04/2019 CAFFEINE CAFFEINE USE?NO ADVANCE DIRECTIVE ADVANCE DIRECTIVE DISCUSSED WITH PATIENT:YES PT DOES NOT HAVE A HCP AND DECLINES INFO AT THIS TIME. ASSISTANCE OFFERED WITH FILLING OUT FORM, BUT PATIENT DECLINED JEHOVAH'S WITNESS JEHOVAH'S WITNESS NO PREFERENCE MARITAL STATUS: SINGLE. 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 REVIEWED WITH PT 09/10/18 0897 BVREVIEWED WITH PATIENT 03/24/19 0919 JSREVIEWED WITH PT 04/25/19 1304 BV. HOSPITALIZATION/MAJOR DIAGNOSTIC PROCEDURE DCS TRIAL 06/2015 REVIEW OF SYSTEMS REVIEWED BY: PROVIDER: ELOISE DELGADILLO-Tiffany . CONSTITUTIONAL: ANY CHANGE IN YOUR MEDICAL CONDITION? NO . CHILLS NO . FEVER NO . INFECTION: DO YOU HAVE NEW INFECTIONS? NO . DO YOU HAVE HISTORY OF MRSA? NO . MUSCULOSKELETAL: ANY NEW PATTERNS OF PAIN OR NUMBNESS? YES, RIGHT HAND WEAKNESS . GASTROENTEROLOGY: ANY NEW CHANGE IN BOWEL CONTROL? NO . GENITOURINARY: ANY NEW CHANGE IN BLADDER CONTROL? NO . IS THERE A CHANCE YOU COULD BE ? NO . HEMATOLOGY/LYMPH: DO YOU TAKE ANY BLOOD THINNERS? (FOR EXAMPLE- COUMADIN, PLAVIX, AGGRENOX, PLATEL, PRADAXA, OR XARELTO) NO . WHEN WAS YOUR LAST DOSE? DATE: TIME: . NEUROLOGY: HAVE YOU FALLEN IN THE PAST 12 MONTHS? NO . ANY NEW EXTREMITY NUMBNESS OR WEAKNESS? YES, RIGHT HAND WEAKNESS . CARDIOLOGY: DO YOU HAVE A PACEMAKER OR DEFIBRILLATOR? NO . RESPIRATORY: HAVE YOU BEEN SICK IN THE PAST WEEK? NO . FEVER NO . FLU LIKE SYMPTOMS? NO . COUGH NO . INTEGUMENTARY: DO YOU HAVE ANY RASHES OR OPEN SORES? NO . ALLERGIC/IMMUNO: ARE YOU ALLERGIC TO IV DYE? NO . ANY NEW ALLERGIES? NO . PSYCHIATRIC: DO YOU HAVE THOUGHTS OF HURTING YOURSELF OR SOMEONE ELSE? NO . ARE YOU ABUSED, NEGLECTED, OR IN AN UNSAFE ENVIRONMENT? NO . ENDOCRINOLOGY: ARE YOU DIABETIC? NO . OTHER: DO YOU NEED ANY PRESCRIPTIONS? NO . IF YES, PLEASE LIST: ____ . ANY NEW PROBLEMS WITH YOUR MEDICATIONS? NO . WHEN DID YOU LAST EAT? ____ . WHEN DID YOU LAST DRINK? ____ . WHAT DID YOU LAST DRINK? ____ . NAME OF PERSON DRIVING YOU HOME? ____ . DO YOU HAVE ANY OTHER QUESTIONS OR CONCERNS NO . VITAL SIGNS WT 323 LBS, HT 69 IN, BMI 47.69 INDEX, BP 133/89 MM HG, HR 84 /MIN, RR 18 /MIN, TEMP 97.6 F, OXYGEN SAT % 97%, NA INITIALS AW 0838, REVIEWED BY: EM. EXAMINATION GENERAL EXAMINATION: GENERALNO ACUTE DISTRESS, WELL NOURISHED AND HYDRATED. PSYCHAPPROPRIATE MOOD AND AFFECT . LUNGS:CLEAR TO AUSCULTATION BILATERALLY, NO WHEEZES, RHONCHI, RALES. HEART:NO MURMURS, REGULAR RATE AND RHYTHM. 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 GIVEN PRESENTING SYMPTOMS AND RESULTS OF PHYSICAL EXAMINATION RECOMMENDED DISCONTINUING VOLTAREN GEL AND STARTING LIDOCAINE CREAM WITH FOLLOW UP IN 1 MONTH TO DETERMINE EFFICACY OF TREATMENT. PATIENT HAS EXPRESSED UNDERSTANDING OF AND WAS IN AGREEMENT WITH TREATMENT PLAN. GIVEN TIME TO ASK QUESTIONS AND EXPRESS CONCERNS. OTHERS STOP VOLTAREN GEL, 1 %, DIRECTED, TRANSDERMAL AT RIGHT SHOULDER, THREE TIMES DAILY NEEDED, NOTES: NONE RECENT PROCEDURES PN WORKMANS' COMP OPINION IN YOUR OPINION, WAS THE INCIDENT THAT THE PATIENT DESCRIBED THE COMPETENT MEDICAL CAUSE OF THIS INJURY/ILLNESS? YES ARE THE PATIENT'S COMPLAINTS CONSISTENT WITH HIS/HER HISTORY OF THE INJURY/ILLNESS? YES IS THE PATIENT'S HISTORY OF THE INJURY/ILLNESS CONSISTENT WITH YOUR OBJECTIVE FINDING? YES WHAT IS THE PERCENTAGE OF TEMPORARY IMPAIRMENT? MODERATE TO MARKED = 66.7% IS THE PATIENT WORKING? NO DOCTOR ON SITE: BISHNU CHARLES MD PREVENTIVE MEDICINE PAIN CLINIC TEACHING: MEDICATIONS INFORMATIONAL HANDOUT FOR LIDOCAINE CREAM PRINTED AND REVIEWED WITH PT. PATIENT VERBALIZES UNDERSTANDING. LAS. PROCEDURE CODES FA211 ESTABILISHED PATIENT [facility] FACILITY CHARGE DISPOSITION & COMMUNICATION FOLLOW UP 4 WEEKS (REASON: MEDICATION ADDITION ) ELECTRONICALLY SIGNED BY LEONA FREEMAN ON 05/03/2019 AT 08:33 AM EDT DISCLAIMER : THIS IS A VISIT SUMMARY EXTRACTED FROM THE [employer] CHART. IT IS NOT A COPY OF THE [employer] PROGRESS NOTE. KAJAL
== END ==
LOC: M PAIN 08:45
PROVIDERS: ATTEND Family Medicine
DX: M25.511 Pain in right shoulder (principal); G47.33 Obstructive sleep apnea (adult) (pediatric); Z86.59 Personal history of other mental and behavioral disorders; G43.909 Migraine, unspecified, not intractable, without status migrainosus; E55.9 Vitamin D deficiency, unspecified; M79.7 Fibromyalgia; Z88.0 Allergy status to penicillin; Z88.1 Allergy status to other antibiotic agents; Z88.5 Allergy status to narcotic agent; Z88.8 Allergy status to other drugs, medicaments and biological substances; Z91.018 Allergy to other foods; E66.01 Morbid (severe) obesity due to excess calories; Z68.42 Body mass index [BMI] 45.0-49.9, adult; Z79.899 Other long term (current) drug therapy

== ENCOUNTER → 2019-05-16 | Outpatient (CLI) | payer OTHER ==
--- NOTE | 2019-05-18 00:02 | ECWPNPC ---
PATIENT NAME: MIKKI HUDSON : 1985 GENDER: FEMALE VISIT DATE: 05/16/2019 DISCHARGE DATE: 05/16/19 1050 VISIT LOCKED DATE TIME: PHYSICIAN: SUBHASH PAINTER RESOURCE: SUBHASH PAINTER REASON FOR APPOINTMENT 1. [facility] CHRONIC PAIN HISTORY OF PRESENT ILLNESS HISTORY OF PRESENT ILLNESS: PAIN THE PATIENT DESCRIBES THE PAIN... 33 YEAR OLD FEMALE IN FOR CHRONIC PAIN FOLLOW UP. SHE RATES HER PAIN AT A 7.5/10 CURRENTLY AND DESCRIBES IT ACHING, SHARP, BURNING, STABBING, SORE, SHOOTING, AND TENDER. SHE DOES ADMIT TO A RECENT EXACERBATION OF HER SYMPTOMS FROM A SNEEZE AND WOULD LIKE TO DISCUSS POTENTIAL REFERRAL FOR MEDICAL MARIJUANA. FALL RISK SCREENING: SCREENING :NO FALLS REPORTED IN THE LAST YEAR CURRENT MEDICATIONS TAKING LIPITOR 20 MG TABLET 1 TABLET ORALLY ONCE A DAY TAKING WOMENS DAILY FORMULA TABLET 1 TAB(S) ORALLY DAILY TAKING PROAIR HFA 108 (90 BASE) MCG/ACT AEROSOL SOLUTION 2 PUFFS NEEDED INHALATION EVERY 4 HRS TAKING VITAMIN D-3 1000 UNIT CAPSULE 1 CAPSULE ORALLY 2000UNITS DAILY TAKING DRISDOL 07964 UNIT CAPSULE 1 CAPSULE ORALLY WEEKLY TAKING FIORICET APAP 325-50-40 CAPSULE 1 CAPSULE NEEDED ORALLY EVERY 4 HOURS PRN NECK PAIN/SPASM MDD=2 TAKING ZOLOFT 25 MG TABLET 1 TABLET ORALLY ONCE A DAY, NOTES: BEING WEANED OFF TAKING MAY USE CBD OIL DAILY TAKING IBUPROFEN 800 MG TABLET 1 TABLET WITH FOOD OR MILK NEEDED ORALLY EVERY 8 HOURS NEEDED MDD3 TAKING LIDOCAINE 4 % CREAM 1 APPLICATION TO AFFECTED AREA NEEDED EXTERNALLY THREE TIMES A DAY NEEDED TAKING CLINDAMYCIN HCL 150 MG CAPSULE 1 CAP ORALLY EVERY 8 HRS NOT-TAKING TIZANIDINE HCL 2 MG TABLET 1 TABLET NEEDED ORALLY FOR SPASMS AND PAIN EVERY 8 HOURS NEEDED MDD3 NOT-TAKING CELEBREX 200 MG CAPSULE 1 CAPSULE WITH FOOD ORALLY WITH FOOD ONCE A DAY NOT-TAKING GABAPENTIN 100 MG CAPSULE 1 CAPSULE ORALLY FOR PAIN THREE TIMES A DAY, NOTES: ALLERGIC REACTION NOT-TAKING LEXAPRO 20 MG TABLET 1 TABLET ORALLY ONCE A DAY NOT-TAKING MELOXICAM 15 MG TABLET 1 TABLET ORALLY WITH FOOD ONCE A DAY FOR PAIN NOT-TAKING NEXPLANON 68 MG IMPLANT SUBCUTANEOUS NOT-TAKING TIZANIDINE HCL 2 MG TABLET 1 TABLET NEEDED ORALLY FOR SPASMS AND PAIN BEFORE BEDTIME MAY REPEAT IN 4 HRS MDD2 NOT-TAKING JOLESSA 0.15-0.03 MG TABLET 1 TABLET ORALLY ONCE A DAY MEDICATION LIST REVIEWED AND RECONCILED WITH THE PATIENT PAST MEDICAL HISTORY BARBIE ANXIETY, DEPRESSION, BIPOLAR, CLAUSTROPHOBIA MIGRAINE POLYCYSTIC OVARIAN SYNDROME VITAMIN D DEFICIENCY DRY EYES 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 CHRONIC BACK PAIN ABSCESS LEFT SHOULDER 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 ALLERGIES CEPHALEXIN: HIVES - ALLERGY AZITHROMYCIN: HIVES - ALLERGY AMOXICILLIN: NAUSEA/VOMITING - ALLERGY DOXYCYCLINE (ROSACEA): NAUSEA/VOMITING - ALLERGY TRAMADOL: DIARRHEA/NIGHTMARES - ALLERGY PENICILLIN (FOR ALLERGIES USE ONLY): NAUSEA/VOMITING - ALLERGY METFORMIN: NAUSEA/VOMITING - SIDE EFFECTS MUSHROOMS: RASH - ALLERGY NEXPLANON: RASH - ALLERGY GABAPENTIN: SWELLING - ALLERGY SURGICAL HISTORY TONSILECTOMY 2015 TRIAL DCS 06/2015 HYSTERECTOMY 08/18/18 FAMILY HISTORY FATHER: UNKNOWN MOTHER: ALIVE, DIAGNOSED WITH OTHER, HYPERTENSION SIBLINGS: ALIVE MATERNAL GRAND FATHER: DIABETES MATERNAL GRAND MOTHER: DIABETES, CANCER 3 BROTHER(S) - HEALTHY. MOTHER - FATTY LIVER DISEASE. SOCIAL HISTORY GENERAL: TOBACCO USE ARE YOU A:NONSMOKER EDUCATION LEVEL OF EDUCATION:COLLEGE DIET: REGULAR. LANGUAGE LANGUAGES SPOKEN:TRINIDADIAN RECREATIONAL DRUG USE DRUG USE?NO EXERCISE: WALKS. LEARNING BARRIERS / SPECIAL NEEDS CHANGE FROM LAST VISIT?NO BARRIERS TO LEARNING?NO HEARING IMPAIRED?NO VISION IMPAIRED?YES :CORRECTIVE LENSES COGNITIVELY IMPAIRED?NO READINESS TO LEARN?YES LEARNING PREFERENCES?NO LEARNING CAPABILITIES PRESENT?YES EMOTIONAL BARRIERS?NO SPECIAL DEVICES?YES :CANE RAG SHREDDER NEEDED?NO PAIN CLINIC PFS, CLERGY, PUBLIC HEALTH REFERRALS PFS REFERRAL NEEDED?NO CLERGY REFERRAL NEEDED?NO PUBLIC HEALTH REFERRAL NEEDED?NO WAS THE PROVIDER NOTIFIED OF ANY PERTINENT INFO?YES HAS THE PATIENT BEEN EDUCATED REGARDING HIS/HER PLAN OF CARE?YES HAS THE PATIENT BEEN EDUCATED REGARDING PAIN, THE RISK FOR PAIN, THE IMPORTANCE OF EFFECTIVE PAIN MANAGEMENT, AND THE PAIN ASSESSMENT PROCESS?YES LATEX QUESTIONNAIRE LATEX ALLERGY : HAVE YOU EVER DEVELOPED ANY TYPE OF REACTION AFTER HANDLING LATEX PRODUCTS SUCH RUBBER GLOVES, CONDOMS, DIAPHRAGMS, BALLOONS, SOCKS, OR UNDERWEAR?NO LATEX ALLERGY : HAVE YOU EVER DEVELOPED ANY TYPE OF REACTION DURING OR AFTER DENTAL APPOINTMENT, VAGINAL/RECTAL EXAMINATION, SURGICAL PROCEDURE, OR ANY OTHER EXPOSURE?NO LATEX RISK : HAVE YOU EVER HAD ANY DIFFICULTY BREATHING OR HIVES AFTER EATING OR HANDLING ANY FRUITS, OR VEGETABLES; SUCH KIWI, BANANAS, STONE FRUITS, OR CHESTNUTSNO LATEX RISK : DO YOU HAVE A PREVIOUS PERSONAL HISTORY OF MORE THAN NINE SURGERIES, SPINA BIFIDA, OR REPEATED CATHERIZATIONS? NO LATEX RISK : ARE YOU FREQUENTLY EXPOSED TO LATEX PRODUCTS IN YOUR OCCUPATION?NO DATE ASKED : 05/16/2019 CAFFEINE CAFFEINE USE?NO ADVANCE DIRECTIVE ADVANCE DIRECTIVE DISCUSSED WITH PATIENT:YES 05/16/19 PT DOES NOT HAVE ANY ADVANCED DIRECTIVES AND SHE DECLINES INFORMATION ON HCP AT THIS TIME. AD PRESYBETERIAN PRESYBETERIAN NO PREFERENCE MARITAL STATUS: SINGLE. 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 REVIEWED WITH PT 09/10/18 1557 BVREVIEWED WITH PATIENT 03/24/19 0919 JSREVIEWED WITH PT 04/25/19 1304 BV. HOSPITALIZATION/MAJOR DIAGNOSTIC PROCEDURE DCS TRIAL 06/2015 HYSTERECTOMY 07/2018 REVIEW OF SYSTEMS REVIEWED BY: PROVIDER: ELOISE PAINTER EARLY CHILDHOOD EDUCATION COORDINATOR-Tiffany . CONSTITUTIONAL: ANY CHANGE IN YOUR MEDICAL CONDITION? YES, PERIPHERAL NEUROPATHY, CERVICAL ARTHRITIS . CHILLS NO . FEVER NO . INFECTION: DO YOU HAVE NEW INFECTIONS? YES, ABSCESS LEFT SCAPULA AREA-ON CLINDAMYCIN . DO YOU HAVE HISTORY OF MRSA? NO . MUSCULOSKELETAL: ANY NEW PATTERNS OF PAIN OR NUMBNESS? NO . GASTROENTEROLOGY: ANY NEW CHANGE IN BOWEL CONTROL? NO . GENITOURINARY: ANY NEW CHANGE IN BLADDER CONTROL? NO . IS THERE A CHANCE YOU COULD BE ? NO . HEMATOLOGY/LYMPH: DO YOU TAKE ANY BLOOD THINNERS? (FOR EXAMPLE- COUMADIN, PLAVIX, AGGRENOX, PLATEL, PRADAXA, OR XARELTO) NO . WHEN WAS YOUR LAST DOSE? DATE: TIME: . NEUROLOGY: HAVE YOU FALLEN IN THE PAST 12 MONTHS? NO . ANY NEW EXTREMITY NUMBNESS OR WEAKNESS? NO . CARDIOLOGY: DO YOU HAVE A PACEMAKER OR DEFIBRILLATOR? NO . RESPIRATORY: HAVE YOU BEEN SICK IN THE PAST WEEK? NO . FEVER NO . FLU LIKE SYMPTOMS? NO . COUGH NO . INTEGUMENTARY: DO YOU HAVE ANY RASHES OR OPEN SORES? YES, SORE LEFT SCAPULA AREA PREVIOUSLY NOTED . ALLERGIC/IMMUNO: ARE YOU ALLERGIC TO IV DYE? NO . ANY NEW ALLERGIES? NO . PSYCHIATRIC: DO YOU HAVE THOUGHTS OF HURTING YOURSELF OR SOMEONE ELSE? NO . ARE YOU ABUSED, NEGLECTED, OR IN AN UNSAFE ENVIRONMENT? NO . ENDOCRINOLOGY: ARE YOU DIABETIC? NO . OTHER: DO YOU NEED ANY PRESCRIPTIONS? NO . IF YES, PLEASE LIST: ____ . ANY NEW PROBLEMS WITH YOUR MEDICATIONS? NO . WHEN DID YOU LAST EAT? ____ . WHEN DID YOU LAST DRINK? ____ . WHAT DID YOU LAST DRINK? ____ . NAME OF PERSON DRIVING YOU HOME? ____ . DO YOU HAVE ANY OTHER QUESTIONS OR CONCERNS NO . VITAL SIGNS WT 321.8 LBS, HT 69 IN, BMI 47.52 INDEX, BP 140/84 MM HG, HR 83 /MIN, RR 18 /MIN, TEMP 98.3 F, OXYGEN SAT % 97%, SAFE IN ENV? (Y/N) Y, NA INITIALS SC 09:51, REVIEWED BY: AD. EXAMINATION GENERAL EXAMINATION: GENERALNO ACUTE DISTRESS, WELL NOURISHED AND HYDRATED. PSYCHAPPROPRIATE MOOD AND AFFECT . LUNGS:CLEAR TO AUSCULTATION BILATERALLY, NO WHEEZES, RHONCHI, RALES. HEART:NO MURMURS, REGULAR RATE AND RHYTHM. ASSESSMENTS SPONDYLOSIS OF LUMBAR REGION WITHOUT MYELOPATHY OR RADICULOPATHY - M47.816 (PRIMARY) TREATMENT SPONDYLOSIS OF LUMBAR REGION WITHOUT MYELOPATHY OR RADICULOPATHY STOP IBUPROFEN TABLET, 800 MG, 1 TABLET WITH FOOD OR MILK NEEDED, ORALLY, EVERY 8 HOURS NEEDED MDD3 START NAPROXEN TABLET, 500 MG, 1 TABLET WITH FOOD OR MILK, ORALLY, EVERY 12 HRS, 30 DAYS, 60 TABLET CLINICAL NOTES: 33 YEAR OLD FEMALE IN FOR CHRONIC PAIN FOLLOW UP. GIVEN PRESENTING SYMPTOMS AND RESULTS OF PHYSICAL EXAMINATION RECOMMENDED SWITCHING TO NAPROXEN WITH FOLLOW UP IN 1 MONTH TO DETERMINE EFFICACY OF TREATMENT. PATIENT HAS EXPRESSED UNDERSTANDING OF AND WAS IN AGREEMENT WITH TREATMENT PLAN. GIVEN TIME TO ASK QUESTIONS AND EXPRESS CONCERNS. REFERRAL TO: [facility] REASON:MEDICAL MARIJUANA PREVENTIVE MEDICINE PAIN CLINIC TEACHING: MEDICATIONS PRINTED INFORMATION ON NAPROXEN GIVEN TO AND REVIEWED WITH PT AND SHE VERBALIZED UNDERSTANDING. AD. PROCEDURE CODES FA211 ESTABILISHED PATIENT [facility] CHARGE DISPOSITION & COMMUNICATION FOLLOW UP 4 WEEKS (REASON: NEW MED) ELECTRONICALLY SIGNED BY LEONA FREEMAN ON 05/17/2019 AT 08:53 AM EDT DISCLAIMER : THIS IS A VISIT SUMMARY EXTRACTED FROM THE [employer] CHART. IT IS NOT A COPY OF THE [employer] PROGRESS NOTE. KAJAL
== END ==
LOC: M PAIN 09:45
PROVIDERS: ATTEND Family Medicine
DX: M47.816 Spondylosis without myelopathy or radiculopathy, lumbar region (principal); G89.29 Other chronic pain; G47.33 Obstructive sleep apnea (adult) (pediatric); Z86.59 Personal history of other mental and behavioral disorders; G43.909 Migraine, unspecified, not intractable, without status migrainosus; E55.9 Vitamin D deficiency, unspecified; M79.7 Fibromyalgia; G62.9 Polyneuropathy, unspecified; Z88.0 Allergy status to penicillin; Z88.1 Allergy status to other antibiotic agents; Z88.5 Allergy status to narcotic agent; Z88.8 Allergy status to other drugs, medicaments and biological substances; Z91.018 Allergy to other foods; E66.01 Morbid (severe) obesity due to excess calories; Z68.42 Body mass index [BMI] 45.0-49.9, adult; Z79.899 Other long term (current) drug therapy

== ENCOUNTER → 2019-06-09 | Outpatient (CLI) | payer OTHER ==
--- NOTE | 2019-06-15 00:27 | ECWPNPC ---
PATIENT NAME: MIKKI HUDSON : 1985 GENDER: FEMALE VISIT DATE: 06/09/2019 DISCHARGE DATE: 06/09/19 1145 VISIT LOCKED DATE TIME: PHYSICIAN: SUBHASH PAINTER RESOURCE: SUBHASH PAINTER REASON FOR APPOINTMENT 1. W/C MED MGMT HISTORY OF PRESENT ILLNESS HISTORY OF PRESENT ILLNESS: PAIN THE PATIENT DESCRIBES THE PAIN... 33 YEAR OLD FEMALE PATIENT WITH A HISTORY OF CHRONIC RIGHT SHOULDER PAIN. THE PATIENT DESCRIBES THE PAIN ACHING, BURNING, STABBING, SORE, TENDER, SHARP, AND CONTINUOUS WITH A PAIN SCORE OF 7/10 DEPENDING ON PHYSICAL ACTIVITY AND MEDICATION. THE PATIENT WAS HURT IN A WORK RELATED INJURY ON 11/24/2013 WHILE WORKING FOR [employer] WHEN SHE SLIPPED ON AN ICY SIDEWALK AND FELL INTO A BRICK WALL. THE PATIENT DESCRIBES THE PAIN STARTING IN HER RIGHT SHOULDER AND RADIATING DOWN HER RIGHT ARM. THE PATIENT SAYS THE PAIN IS CAUSING DIFFICULTIES IN PERFORMING HER DAILY ACTIVITIES SUCH COOKING AND CLEANING AND THE PAIN IS INTERFERING WITH HER SLEEP. THE PATIENT SAYS SHE HAS TRIED PHYSICAL THERAPY IN THE PAST AND IT HAS HELPED HER WITH INCREASED MOBILITY AND FUNCTIONALITY. FALL RISK SCREENING: SCREENING :NO FALLS REPORTED IN THE LAST YEAR CURRENT MEDICATIONS TAKING WOMENS DAILY FORMULA TABLET 1 TAB(S) ORALLY DAILY TAKING PROAIR HFA 108 (90 BASE) MCG/ACT AEROSOL SOLUTION 2 PUFFS NEEDED INHALATION EVERY 4 HRS TAKING VITAMIN D-3 1000 UNIT CAPSULE 1 CAPSULE ORALLY 2000UNITS DAILY TAKING DRISDOL 55616 UNIT CAPSULE 1 CAPSULE ORALLY WEEKLY TAKING FIORICET APAP 325-50-40 CAPSULE 1 CAPSULE NEEDED ORALLY EVERY 4 HOURS PRN NECK PAIN/SPASM MDD=2 TAKING MAY USE CBD OIL DAILY TAKING LIDOCAINE 4 % CREAM 1 APPLICATION TO AFFECTED AREA NEEDED EXTERNALLY THREE TIMES A DAY NEEDED TAKING NAPROXEN 500 MG TABLET 1 TABLET WITH FOOD OR MILK ORALLY EVERY 12 HRS TAKING CYMBALTA 30 MG CAPSULE DELAYED RELEASE PARTICLES 1 CAPSULE ORALLY ONCE A DAY NOT-TAKING LIPITOR 20 MG TABLET 1 TABLET ORALLY ONCE A DAY NOT-TAKING TIZANIDINE HCL 2 MG TABLET 1 TABLET NEEDED ORALLY FOR SPASMS AND PAIN EVERY 8 HOURS NEEDED MDD3 NOT-TAKING CELEBREX 200 MG CAPSULE 1 CAPSULE WITH FOOD ORALLY WITH FOOD ONCE A DAY NOT-TAKING GABAPENTIN 100 MG CAPSULE 1 CAPSULE ORALLY FOR PAIN THREE TIMES A DAY, NOTES: ALLERGIC REACTION NOT-TAKING LEXAPRO 20 MG TABLET 1 TABLET ORALLY ONCE A DAY NOT-TAKING MELOXICAM 15 MG TABLET 1 TABLET ORALLY WITH FOOD ONCE A DAY FOR PAIN NOT-TAKING NEXPLANON 68 MG IMPLANT SUBCUTANEOUS NOT-TAKING TIZANIDINE HCL 2 MG TABLET 1 TABLET NEEDED ORALLY FOR SPASMS AND PAIN BEFORE BEDTIME MAY REPEAT IN 4 HRS MDD2 NOT-TAKING JOLESSA 0.15-0.03 MG TABLET 1 TABLET ORALLY ONCE A DAY DISCONTINUED ZOLOFT 25 MG TABLET 1 TABLET ORALLY ONCE A DAY, NOTES: BEING WEANED OFF DISCONTINUED CLINDAMYCIN HCL 150 MG CAPSULE 1 CAP ORALLY EVERY 8 HRS MEDICATION LIST REVIEWED AND RECONCILED WITH THE PATIENT PAST MEDICAL HISTORY BARBIE ANXIETY, DEPRESSION, BIPOLAR, CLAUSTROPHOBIA MIGRAINE POLYCYSTIC OVARIAN SYNDROME VITAMIN D DEFICIENCY DRY EYES 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 CHRONIC BACK PAIN ABSCESS LEFT SHOULDER 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 PERIPHERAL NEUROPATHY TO HANDS AND FEET ALLERGIES CEPHALEXIN: HIVES - ALLERGY AZITHROMYCIN: HIVES - ALLERGY AMOXICILLIN: NAUSEA/VOMITING - ALLERGY DOXYCYCLINE (ROSACEA): NAUSEA/VOMITING - ALLERGY TRAMADOL: DIARRHEA/NIGHTMARES - ALLERGY PENICILLIN (FOR ALLERGIES USE ONLY): NAUSEA/VOMITING - ALLERGY METFORMIN: NAUSEA/VOMITING - SIDE EFFECTS MUSHROOMS: RASH - ALLERGY NEXPLANON: RASH - ALLERGY GABAPENTIN: SWELLING - ALLERGY SURGICAL HISTORY TONSILECTOMY 2015 TRIAL DCS 06/2015 HYSTERECTOMY 08/18/18 FAMILY HISTORY FATHER: UNKNOWN MOTHER: ALIVE, DIAGNOSED WITH HYPERTENSION, OTHER SPECIFIED CONDITIONS INFLUENCING HEALTH STATUS SIBLINGS: ALIVE MATERNAL GRAND FATHER: DIABETES MATERNAL GRAND MOTHER: DIABETES, OTHER MALIGNANT NEOPLASM OF UNSPECIFIED SITE 3 BROTHER(S) - HEALTHY. MOTHER - FATTY LIVER DISEASE. SOCIAL HISTORY GENERAL: TOBACCO USE ARE YOU A:NONSMOKER EDUCATION LEVEL OF EDUCATION:COLLEGE DIET: REGULAR. LANGUAGE LANGUAGES SPOKEN:PALESTINIAN RECREATIONAL DRUG USE DRUG USE?NO EXERCISE: WALKS. LEARNING BARRIERS / SPECIAL NEEDS CHANGE FROM LAST VISIT?NO BARRIERS TO LEARNING?NO HEARING IMPAIRED?NO VISION IMPAIRED?YES COGNITIVELY IMPAIRED?NO :CORRECTIVE LENSES READINESS TO LEARN?YES LEARNING PREFERENCES?NO LEARNING CAPABILITIES PRESENT?YES EMOTIONAL BARRIERS?NO SPECIAL DEVICES?YES :CANE FUNERAL DIRECTOR AND EMBALMER NEEDED?NO PAIN CLINIC PFS, CLERGY, PUBLIC HEALTH REFERRALS PFS REFERRAL NEEDED?NO CLERGY REFERRAL NEEDED?NO PUBLIC HEALTH REFERRAL NEEDED?NO WAS THE PROVIDER NOTIFIED OF ANY PERTINENT INFO?YES HAS THE PATIENT BEEN EDUCATED REGARDING HIS/HER PLAN OF CARE?YES HAS THE PATIENT BEEN EDUCATED REGARDING PAIN, THE RISK FOR PAIN, THE IMPORTANCE OF EFFECTIVE PAIN MANAGEMENT, AND THE PAIN ASSESSMENT PROCESS?YES LATEX QUESTIONNAIRE LATEX ALLERGY : HAVE YOU EVER DEVELOPED ANY TYPE OF REACTION AFTER HANDLING LATEX PRODUCTS SUCH RUBBER GLOVES, CONDOMS, DIAPHRAGMS, BALLOONS, SOCKS, OR UNDERWEAR?NO LATEX ALLERGY : HAVE YOU EVER DEVELOPED ANY TYPE OF REACTION DURING OR AFTER DENTAL APPOINTMENT, VAGINAL/RECTAL EXAMINATION, SURGICAL PROCEDURE, OR ANY OTHER EXPOSURE?NO DATE ASKED : 05/16/2019 LATEX RISK : HAVE YOU EVER HAD ANY DIFFICULTY BREATHING OR HIVES AFTER EATING OR HANDLING ANY FRUITS, OR VEGETABLES; SUCH KIWI, BANANAS, STONE FRUITS, OR CHESTNUTSNO LATEX RISK : DO YOU HAVE A PREVIOUS PERSONAL HISTORY OF MORE THAN NINE SURGERIES, SPINA BIFIDA, OR REPEATED CATHERIZATIONS? NO LATEX RISK : ARE YOU FREQUENTLY EXPOSED TO LATEX PRODUCTS IN YOUR OCCUPATION?NO CAFFEINE CAFFEINE USE?NO ADVANCE DIRECTIVE ADVANCE DIRECTIVE DISCUSSED WITH PATIENT:YES PT DOES NOT HAVE ANY ADVANCED DIRECTIVES AND SHE DECLINES INFORMATION ON HCP AT THIS TIME. MANDAEN MANDAEN NO PREFERENCE MARITAL STATUS: SINGLE. 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 REVIEWED WITH PT 09/10/18 4737 BVREVIEWED WITH PATIENT 03/24/19 0919 JSREVIEWED WITH PT 04/25/19 1304 BV. HOSPITALIZATION/MAJOR DIAGNOSTIC PROCEDURE DCS TRIAL 06/2015 HYSTERECTOMY 07/2018 REVIEW OF SYSTEMS REVIEWED BY: PROVIDER: ELOISE STARKS . CONSTITUTIONAL: ANY CHANGE IN YOUR MEDICAL CONDITION? YES, PERIPHERAL NEUROPATHY TO HANDS AND FEET . CHILLS NO . FEVER NO . INFECTION: DO YOU HAVE NEW INFECTIONS? NO . DO YOU HAVE HISTORY OF MRSA? NO . MUSCULOSKELETAL: ANY NEW PATTERNS OF PAIN OR NUMBNESS? NO . GASTROENTEROLOGY: ANY NEW CHANGE IN BOWEL CONTROL? NO . GENITOURINARY: ANY NEW CHANGE IN BLADDER CONTROL? NO . IS THERE A CHANCE YOU COULD BE ? NO . HEMATOLOGY/LYMPH: DO YOU TAKE ANY BLOOD THINNERS? (FOR EXAMPLE- COUMADIN, PLAVIX, AGGRENOX, PLATEL, PRADAXA, OR XARELTO) NO . WHEN WAS YOUR LAST DOSE? DATE: TIME: . NEUROLOGY: HAVE YOU FALLEN IN THE PAST 12 MONTHS? NO . ANY NEW EXTREMITY NUMBNESS OR WEAKNESS? NO . CARDIOLOGY: DO YOU HAVE A PACEMAKER OR DEFIBRILLATOR? NO . RESPIRATORY: HAVE YOU BEEN SICK IN THE PAST WEEK? NO . FEVER NO . FLU LIKE SYMPTOMS? NO . COUGH NO . INTEGUMENTARY: DO YOU HAVE ANY RASHES OR OPEN SORES? NO . ALLERGIC/IMMUNO: ARE YOU ALLERGIC TO IV DYE? NO . ANY NEW ALLERGIES? NO . PSYCHIATRIC: DO YOU HAVE THOUGHTS OF HURTING YOURSELF OR SOMEONE ELSE? NO . ARE YOU ABUSED, NEGLECTED, OR IN AN UNSAFE ENVIRONMENT? NO . ENDOCRINOLOGY: ARE YOU DIABETIC? NO . OTHER: DO YOU NEED ANY PRESCRIPTIONS? NO . IF YES, PLEASE LIST: ____ . ANY NEW PROBLEMS WITH YOUR MEDICATIONS? NO . WHEN DID YOU LAST EAT? ____ . WHEN DID YOU LAST DRINK? ____ . WHAT DID YOU LAST DRINK? ____ . NAME OF PERSON DRIVING YOU HOME? ____ . DO YOU HAVE ANY OTHER QUESTIONS OR CONCERNS NO . VITAL SIGNS WT 320.0 LBS, HT 69 IN, BMI 47.25 INDEX, BP 138/83 MM HG, HR 84 /MIN, RR 18 /MIN, TEMP 97.2 F, OXYGEN SAT % 97%, NA INITIALS AW 1122, REVIEWED BY: EM. EXAMINATION GENERAL EXAMINATION: GENERALNO ACUTE DISTRESS, WELL NOURISHED AND HYDRATED. PSYCHAPPROPRIATE MOOD AND AFFECT . LUNGS:CLEAR TO AUSCULTATION BILATERALLY, NO WHEEZES, RHONCHI, RALES. HEART:NO MURMURS, REGULAR RATE AND RHYTHM. 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 CHRONIC PAIN FOLLOW-UP. GIVEN PRESENTING SYMPTOMS AND RESULTS PHYSICAL EXAMINATION RECOMMENDED STARTING DICLOFENAC 50 MG 3 TIMES A DAY WITH FOLLOW-UP IN 2 MONTHS TO DETERMINE EFFICACY TREATMENT. SHE WAS INSTRUCTED NOT TO TAKE OTHER NSAIDS WHILE ON THE DICLOFENAC. PATIENT HAS EXPRESSED UNDERSTANDING OF AND WAS IN AGREEMENT WITH TREATMENT PLAN. GIVEN TIME TO ASK QUESTIONS AND EXPRESS CONCERNS. OTHERS NOTES: DICLOFENAC MATERIAL WAS PRINTED. 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 YES ARE THE PATIENT'S COMPLAINTS CONSISTENT WITH HIS/HER HISTORY OF THE INJURY/ILLNESS? YES IS THE PATIENT'S HISTORY OF THE INJURY/ILLNESS CONSISTENT WITH YOUR OBJECTIVE FINDING? YES WHAT IS THE PERCENTAGE OF TEMPORARY IMPAIRMENT? MODERATE TO MARKED = 66.7% IS THE PATIENT WORKING? NO DOCTOR ON SITE: BISHNU CHARLES MD PROCEDURE CODES FA211 ESTABILISHED PATIENT [facility] CHARGE DISPOSITION & COMMUNICATION FOLLOW UP 2 MONTHS (REASON: W/C CHRONIC PAIN ) ELECTRONICALLY SIGNED BY LEONA FREEMAN ON 06/14/2019 AT 09:56 AM EDT DISCLAIMER : THIS IS A VISIT SUMMARY EXTRACTED FROM THE [employer] CHART. IT IS NOT A COPY OF THE [employer] [facility] PROGRESS NOTE. KAJAL
== END ==
LOC: M PAIN 10:45
PROVIDERS: ATTEND Family Medicine
DX: M25.511 Pain in right shoulder (principal); G89.29 Other chronic pain; G47.33 Obstructive sleep apnea (adult) (pediatric); Z86.59 Personal history of other mental and behavioral disorders; G43.909 Migraine, unspecified, not intractable, without status migrainosus; E55.9 Vitamin D deficiency, unspecified; M79.7 Fibromyalgia; Z88.0 Allergy status to penicillin; Z88.1 Allergy status to other antibiotic agents; Z88.5 Allergy status to narcotic agent; Z88.8 Allergy status to other drugs, medicaments and biological substances; Z91.018 Allergy to other foods; E66.01 Morbid (severe) obesity due to excess calories; Z68.42 Body mass index [BMI] 45.0-49.9, adult; Z79.899 Other long term (current) drug therapy

== ENCOUNTER → 2019-06-16 | Outpatient (CLI) | payer OTHER | LOC: M PAIN 09:30 | PROVIDERS: ATTEND Family Medicine | DX: M25.511 Pain in right shoulder (principal); Z53.8 Procedure and treatment not carried out for other reasons ==

== ENCOUNTER → 2019-07-08 | Outpatient (REF) | payer OTHER ==
[2019-07-08 12:41] LABS: BASO % 0.4 % (0.0-1.0); EOS # 0.1 10^3/uL (0.0-0.5); EOS % 1.7 % (0.0-3.0); HEMATOCRIT 44.4 % (36.0-47.0); HEMOGLOBIN 14.5 g/dl (12.0-15.5); LYMPH # 2.6 10^3/uL (1.5-5.0); LYMPH % 32.8 % (24.0-44.0); MEAN CORPUSCULAR HGB CONC 32.7 g/dl (32.0-36.5); MEAN CORPUSCULAR VOLUME 91.9 fl (80.0-96.0); MONO # 0.6 10^3/uL (0.0-0.8); MONO % 7.6 % (0.0-5.0); NEUTROPHILS # 4.6 10^3/uL (1.5-8.5); NEUTROPHILS % 57.1 % (36.0-66.0); PLATELET COUNT, AUTOMATED 280 10^3/uL (150-450); RED BLOOD COUNT 4.83 10^6/uL (4.00-5.40)
[2019-07-08 13:09] LABS: ALT/SGPT 42 U/L (12-78); BILIRUBIN,TOTAL 0.3 MG/DL (0.2-1.0); BLOOD UREA NITROGEN 15 MG/DL (7-18); CARBON DIOXIDE LEVEL 25 MEQ/L (21-32); CHLORIDE LEVEL 106 MEQ/L (98-107); CHOLESTEROL LEVEL 160 MG/DL (<200); CHOLESTEROL RISK RATIO 4.324 (<5); CREATININE FOR GFR 0.85 MG/DL (0.55-1.30); GLOMERULAR FILTRATION RATE > 60.0 (>60); GLUCOSE, FASTING 86 MG/DL (70-100); HDL CHOLESTEROL 37 MG/DL (>40); LDL CHOLESTEROL 86 MG/DL (<100); NON-HDL-C 123 MG/DL; POTASSIUM SERUM 4.4 MEQ/L (3.5-5.1); SODIUM LEVEL 140 MEQ/L (136-145); TOTAL PROTEIN 7.6 GM/DL (6.4-8.2); TRIGLYCERIDES LEVEL 183 MG/DL (<150)
[2019-07-08 13:20] LABS: HEMOGLOBIN A1c 5.6 %
[2019-07-08 13:38] LABS: TOTAL 25(OH) VITAMIN D 17.1 NG/ML (30.0-100.0)
== END ==
LOC: M LAB REF 11:57
PROVIDERS: ATTEND Nurse Practitioner Family
DX: Z00.01 Encounter for general adult medical examination with abnormal findings (principal)

== ENCOUNTER → 2019-07-19 | Outpatient (CLI) | payer OTHER ==
--- NOTE | 2019-07-21 01:08 | ECWPNPC ---
PATIENT NAME: MIKKI HUDSON : 1985 GENDER: FEMALE VISIT DATE: 07/19/2019 DISCHARGE DATE: 07/19/19 1119 VISIT LOCKED DATE TIME: PHYSICIAN: SUBHASH PAINTER RESOURCE: SUBHASH PAINTER REASON FOR APPOINTMENT 1. MEDS HISTORY OF PRESENT ILLNESS GENERAL: 33-YEAR-OLD FEMALE IN FOR CHRONIC PAIN FOLLOW-UP. SHE RATES HER PAIN CURRENTLY AT A 7.5 OUT OF 10 AND DESCRIBES IT CONTINUOUS, WAKES HER FROM SLEEP, AND SHOOTING AND LASTS ALL DAY. SHE WAS STARTED ON DICLOFENAC RECENTLY AND ADMITS TODAY THAT SHE WAS UNABLE TO TOLERATE MEDICATION IT MADE HER NAUSEOUS. HISTORY OF PRESENT ILLNESS: PAIN THE PATIENT DESCRIBES THE PAIN... FALL RISK SCREENING: SCREENING :NO FALLS REPORTED IN THE LAST YEAR CURRENT MEDICATIONS TAKING WOMENS DAILY FORMULA TABLET 1 TAB(S) ORALLY DAILY TAKING PROAIR HFA 108 (90 BASE) MCG/ACT AEROSOL SOLUTION 2 PUFFS NEEDED INHALATION EVERY 4 HRS TAKING VITAMIN D-3 1000 UNIT CAPSULE 1 CAPSULE ORALLY 2000UNITS DAILY TAKING DRISDOL 92718 UNIT CAPSULE 1 CAPSULE ORALLY WEEKLY TAKING FIORICET APAP 325-50-40 CAPSULE 1 CAPSULE NEEDED ORALLY EVERY 4 HOURS PRN NECK PAIN/SPASM MDD=2 TAKING MAY USE CBD OIL DAILY TAKING CYMBALTA 30 MG CAPSULE DELAYED RELEASE PARTICLES 1 CAPSULE ORALLY ONCE A DAY TAKING DICLOFENAC SODIUM 50 MG TABLET DELAYED RELEASE 1 TABLET WITH FOOD OR MILK ORALLY THREE TIMES A DAY, NOTES: STOPPING AND STARTING MELOXICAM PER SUBHASH PAINTER NOT-TAKING LIPITOR 20 MG TABLET 1 TABLET ORALLY ONCE A DAY NOT-TAKING CELEBREX 200 MG CAPSULE 1 CAPSULE WITH FOOD ORALLY WITH FOOD ONCE A DAY NOT-TAKING TIZANIDINE HCL 2 MG TABLET 1 TABLET NEEDED ORALLY FOR SPASMS AND PAIN EVERY 8 HOURS NEEDED MDD3 NOT-TAKING GABAPENTIN 100 MG CAPSULE 1 CAPSULE ORALLY FOR PAIN THREE TIMES A DAY, NOTES: ALLERGIC REACTION NOT-TAKING LEXAPRO 20 MG TABLET 1 TABLET ORALLY ONCE A DAY NOT-TAKING MELOXICAM 15 MG TABLET 1 TABLET ORALLY WITH FOOD ONCE A DAY FOR PAIN NOT-TAKING NEXPLANON 68 MG IMPLANT SUBCUTANEOUS NOT-TAKING TIZANIDINE HCL 2 MG TABLET 1 TABLET NEEDED ORALLY FOR SPASMS AND PAIN BEFORE BEDTIME MAY REPEAT IN 4 HRS MDD2 NOT-TAKING JOLESSA 0.15-0.03 MG TABLET 1 TABLET ORALLY ONCE A DAY NOT-TAKING LIDOCAINE 4 % CREAM 1 APPLICATION TO AFFECTED AREA NEEDED EXTERNALLY THREE TIMES A DAY NEEDED NOT-TAKING NAPROXEN 500 MG TABLET 1 TABLET WITH FOOD OR MILK ORALLY EVERY 12 HRS MEDICATION LIST REVIEWED AND RECONCILED WITH THE PATIENT PAST MEDICAL HISTORY BARBIE ANXIETY, DEPRESSION, BIPOLAR, CLAUSTROPHOBIA MIGRAINE POLYCYSTIC OVARIAN SYNDROME VITAMIN D DEFICIENCY DRY EYES 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 CHRONIC BACK PAIN ABSCESS LEFT SHOULDER 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 PERIPHERAL NEUROPATHY TO HANDS AND FEET ALLERGIES CEPHALEXIN: HIVES - ALLERGY AZITHROMYCIN: HIVES - ALLERGY AMOXICILLIN: NAUSEA/VOMITING - ALLERGY DOXYCYCLINE (ROSACEA): NAUSEA/VOMITING - ALLERGY TRAMADOL: DIARRHEA/NIGHTMARES - ALLERGY PENICILLIN (FOR ALLERGIES USE ONLY): NAUSEA/VOMITING - ALLERGY METFORMIN: NAUSEA/VOMITING - SIDE EFFECTS MUSHROOMS: RASH - ALLERGY NEXPLANON: RASH - ALLERGY GABAPENTIN: SWELLING - ALLERGY SURGICAL HISTORY TONSILECTOMY 2015 TRIAL DCS 06/2015 HYSTERECTOMY 08/18/18 FAMILY HISTORY FATHER: UNKNOWN MOTHER: ALIVE, DIAGNOSED WITH HYPERTENSION, OTHER SPECIFIED CONDITIONS INFLUENCING HEALTH STATUS SIBLINGS: ALIVE MATERNAL GRAND FATHER: DIABETES MATERNAL GRAND MOTHER: DIABETES, OTHER MALIGNANT NEOPLASM OF UNSPECIFIED SITE 3 BROTHER(S) - HEALTHY. MOTHER - FATTY LIVER DISEASEMATERNAL GRANDMOTHER- BREAST CANCER AND UTERAN CANCER. SOCIAL HISTORY GENERAL: TOBACCO USE ARE YOU A:NONSMOKER EDUCATION LEVEL OF EDUCATION:COLLEGE DIET: REGULAR. LANGUAGE LANGUAGES SPOKEN:MALIAN RECREATIONAL DRUG USE DRUG USE?NO EXERCISE: WALKS. LEARNING BARRIERS / SPECIAL NEEDS CHANGE FROM LAST VISIT?NO BARRIERS TO LEARNING?NO HEARING IMPAIRED?NO VISION IMPAIRED?YES COGNITIVELY IMPAIRED?NO :CORRECTIVE LENSES READINESS TO LEARN?YES LEARNING PREFERENCES?NO LEARNING CAPABILITIES PRESENT?YES EMOTIONAL BARRIERS?NO SPECIAL DEVICES?YES :CANE CLAIM SPECIALIST NEEDED?NO PAIN CLINIC PFS, CLERGY, PUBLIC HEALTH REFERRALS PFS REFERRAL NEEDED?NO CLERGY REFERRAL NEEDED?NO PUBLIC HEALTH REFERRAL NEEDED?NO WAS THE PROVIDER NOTIFIED OF ANY PERTINENT INFO?YES HAS THE PATIENT BEEN EDUCATED REGARDING HIS/HER PLAN OF CARE?YES HAS THE PATIENT BEEN EDUCATED REGARDING PAIN, THE RISK FOR PAIN, THE IMPORTANCE OF EFFECTIVE PAIN MANAGEMENT, AND THE PAIN ASSESSMENT PROCESS?YES LATEX QUESTIONNAIRE LATEX ALLERGY : HAVE YOU EVER DEVELOPED ANY TYPE OF REACTION AFTER HANDLING LATEX PRODUCTS SUCH RUBBER GLOVES, CONDOMS, DIAPHRAGMS, BALLOONS, SOCKS, OR UNDERWEAR?NO LATEX ALLERGY : HAVE YOU EVER DEVELOPED ANY TYPE OF REACTION DURING OR AFTER DENTAL APPOINTMENT, VAGINAL/RECTAL EXAMINATION, SURGICAL PROCEDURE, OR ANY OTHER EXPOSURE?NO DATE ASKED : 06/23/2019 LATEX RISK : HAVE YOU EVER HAD ANY DIFFICULTY BREATHING OR HIVES AFTER EATING OR HANDLING ANY FRUITS, OR VEGETABLES; SUCH KIWI, BANANAS, STONE FRUITS, OR CHESTNUTSNO LATEX RISK : DO YOU HAVE A PREVIOUS PERSONAL HISTORY OF MORE THAN NINE SURGERIES, SPINA BIFIDA, OR REPEATED CATHERIZATIONS? NO CAFFEINE CAFFEINE USE?NO ADVANCE DIRECTIVE ADVANCE DIRECTIVE DISCUSSED WITH PATIENT:YES PT DOES NOT HAVE ANY ADVANCED DIRECTIVES AND SHE DECLINES INFORMATION ON HCP AT THIS TIME. YARSANISM YARSANISM NO PREFERENCE MARITAL STATUS: SINGLE. 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 REVIEWED WITH PT 09/10/18 1557 BVREVIEWED WITH PATIENT 03/24/19 0919 JSREVIEWED WITH PT 04/25/19 1304 BVREVIEWED WITH PATIENT 07/19/19 1113 NLJ. HOSPITALIZATION/MAJOR DIAGNOSTIC PROCEDURE DCS TRIAL 06/2015 HYSTERECTOMY 07/2018 REVIEW OF SYSTEMS REVIEWED BY: PROVIDER: ELOISE DELGADILLO-Tiffany . CONSTITUTIONAL: ANY CHANGE IN YOUR MEDICAL CONDITION? NO . CHILLS NO . FEVER NO . INFECTION: DO YOU HAVE NEW INFECTIONS? NO . DO YOU HAVE HISTORY OF MRSA? NO . MUSCULOSKELETAL: ANY NEW PATTERNS OF PAIN OR NUMBNESS? NO- STATES PAIN HAS REMAINED THE SAME STATES MEDS HAVE NOT BEEN WORKING WELL . GASTROENTEROLOGY: ANY NEW CHANGE IN BOWEL CONTROL? NO . GENITOURINARY: ANY NEW CHANGE IN BLADDER CONTROL? NO . IS THERE A CHANCE YOU COULD BE ? NO . HEMATOLOGY/LYMPH: DO YOU TAKE ANY BLOOD THINNERS? (FOR EXAMPLE- COUMADIN, PLAVIX, AGGRENOX, PLATEL, PRADAXA, OR XARELTO) NO . WHEN WAS YOUR LAST DOSE? DATE: TIME: . NEUROLOGY: HAVE YOU FALLEN IN THE PAST 12 MONTHS? NO- NO FALLS SINCE LAST VISIT . ANY NEW EXTREMITY NUMBNESS OR WEAKNESS? NO . CARDIOLOGY: DO YOU HAVE A PACEMAKER OR DEFIBRILLATOR? NO . RESPIRATORY: HAVE YOU BEEN SICK IN THE PAST WEEK? NO . FEVER NO . FLU LIKE SYMPTOMS? NO . COUGH NO . INTEGUMENTARY: DO YOU HAVE ANY RASHES OR OPEN SORES? NO . ALLERGIC/IMMUNO: ARE YOU ALLERGIC TO IV DYE? NO . ANY NEW ALLERGIES? NO . PSYCHIATRIC: DO YOU HAVE THOUGHTS OF HURTING YOURSELF OR SOMEONE ELSE? NO . ARE YOU ABUSED, NEGLECTED, OR IN AN UNSAFE ENVIRONMENT? NO . ENDOCRINOLOGY: ARE YOU DIABETIC? NO . OTHER: DO YOU NEED ANY PRESCRIPTIONS? NO . IF YES, PLEASE LIST: ____ . ANY NEW PROBLEMS WITH YOUR MEDICATIONS? NO . WHEN DID YOU LAST EAT? ____ . WHEN DID YOU LAST DRINK? ____ . WHAT DID YOU LAST DRINK? ____ . NAME OF PERSON DRIVING YOU HOME? ____ . DO YOU HAVE ANY OTHER QUESTIONS OR CONCERNS YES- DICLOFENAC CAUSES NAUSEA . VITAL SIGNS WT 314.8 LBS, HT 69 IN, BMI 46.48 INDEX, BP 139/95 MM HG, HR 84 /MIN, RR 18 /MIN, TEMP 97.3 F, OXYGEN SAT % 98%, SAFE IN ENV? (Y/N) YES, NA INITIALS NE 11:03, REVIEWED BY: JOCELIN. EXAMINATION GENERAL EXAMINATION: GENERALNO ACUTE DISTRESS, WELL NOURISHED AND HYDRATED. PSYCHAPPROPRIATE MOOD AND AFFECT . LUNGS:CLEAR TO AUSCULTATION BILATERALLY, NO WHEEZES, RHONCHI, RALES. HEART:NO MURMURS, REGULAR RATE AND RHYTHM. ASSESSMENTS INTERVERTEBRAL DISC DISORDER WITH RADICULOPATHY OF LUMBAR REGION - M51.16 (PRIMARY) TREATMENT INTERVERTEBRAL DISC DISORDER WITH RADICULOPATHY OF LUMBAR REGION START MELOXICAM TABLET, 15 MG, 1 TABLET, ORALLY, ONCE A DAY, 30 DAY(S), 30 STOP DICLOFENAC SODIUM TABLET DELAYED RELEASE, 50 MG, 1 TABLET WITH FOOD OR MILK, ORALLY, THREE TIMES A DAY, NOTES: STOPPING AND STARTING MELOXICAM PER SUBHASH PAINTER CLINICAL NOTES: 33-YEAR-OLD FEMALE IN FOR CHRONIC PAIN FOLLOW-UP. GIVEN PRESENTING SYMPTOMS AND RESULTS OF PHYSICAL EXAMINATION RECOMMENDED STOPPING DICLOFENAC AND STARTING MELOXICAM 15 MG DAILY WITH FOLLOW-UP IN 2 MONTHS TO DETERMINE EFFICACY OF TREATMENT. SHE WAS ENCOURAGED NOT TO TAKE OTHER NSAIDS WHILE SHE IS ON THIS MEDICATION AND TO TAKE WITH FOOD. PATIENT HAS EXPRESSED UNDERSTANDING OF AND WAS IN AGREEMENT WITH TREATMENT PLAN. GIVEN TIME TO ASK QUESTIONS AND EXPRESS CONCERNS. PREVENTIVE MEDICINE PAIN CLINIC TEACHING: MEDICATIONS MELOXIAM DRUG INFORMATION REVIEWED WITH PATIENT, PT DECLINED PRINTED INFORMATION 07/19/19 8168 JOCELIN. PROCEDURE CODES FA211 ESTABILISHED PATIENT [facility] CHARGE DISPOSITION & COMMUNICATION FOLLOW UP 2 MONTHS (REASON: CHRONIC PAIN ) ELECTRONICALLY SIGNED BY LEONA FREEMAN ON 07/20/2019 AT 04:11 PM EDT DISCLAIMER : THIS IS A VISIT SUMMARY EXTRACTED FROM THE [employer] CHART. IT IS NOT A COPY OF THE [employer] PROGRESS NOTE. KAJAL
== END ==
LOC: M PAIN 10:45
PROVIDERS: ATTEND Family Medicine
DX: M51.16 Intervertebral disc disorders with radiculopathy, lumbar region (principal); G89.29 Other chronic pain; G47.33 Obstructive sleep apnea (adult) (pediatric); Z86.59 Personal history of other mental and behavioral disorders; G43.909 Migraine, unspecified, not intractable, without status migrainosus; E55.9 Vitamin D deficiency, unspecified; M79.7 Fibromyalgia; G62.9 Polyneuropathy, unspecified; Z88.0 Allergy status to penicillin; Z88.1 Allergy status to other antibiotic agents; Z88.5 Allergy status to narcotic agent; Z88.8 Allergy status to other drugs, medicaments and biological substances; Z91.018 Allergy to other foods; E66.01 Morbid (severe) obesity due to excess calories; Z68.42 Body mass index [BMI] 45.0-49.9, adult; Z79.899 Other long term (current) drug therapy

== ENCOUNTER → 2019-07-22 | Outpatient (CLI) | payer OTHER ==
[2019-07-22 09:41] LABS: HEPATITIS B SURFACE ANTIBODY NEGATIVE (POSITIVE); HEPATITIS B SURFACE ANTIGEN NEGATIVE (NEGATIVE)
== END ==
LOC: M LAB 07:35
PROVIDERS: ATTEND Nurse Practitioner Family
DX: Z11.3 Encounter for screening for infections with a predominantly sexual mode of transmission (principal)

== ENCOUNTER → 2019-09-15 | Outpatient (CLI) | payer OTHER ==
--- NOTE | 2019-09-20 04:21 | ECWPNPC ---
PATIENT NAME: MIKKI HUDSON : 1985 GENDER: FEMALE VISIT DATE: 09/15/2019 DISCHARGE DATE: 09/15/19 1024 VISIT LOCKED DATE TIME: PHYSICIAN: SUBHASH PAINTER RESOURCE: SUBHASH PAINTER REASON FOR APPOINTMENT 1. [facility] LOW BACK HISTORY OF PRESENT ILLNESS HISTORY OF PRESENT ILLNESS: PAIN THE PATIENT DESCRIBES THE PAIN... 33-YEAR-OLD FEMALE IN FOR CHRONIC PAIN FOLLOW-UP. SHE RATES HER PAIN CURRENTLY AT AN 8 OUT OF 10 AND DESCRIBES IT ACHING, SHARP, BURNING, STABBING, SORE, SHOOTING, AND TENDER. SHE HAS BEEN TAKING TYLENOL TO HELP WITH THE PAIN HOWEVER SHE STATES TODAY THAT IT HAS BEEN INEFFECTIVE. SHE CANNOT TAKE NSAIDS TO HELP WITH HER PAIN SHE IS ON TRUVADA AND IT IS CONTRAINDICATED. FALL RISK SCREENING: SCREENING :NO FALLS REPORTED IN THE LAST YEAR CURRENT MEDICATIONS TAKING LIPITOR 20 MG TABLET 1 TABLET ORALLY ONCE A DAY TAKING CELEBREX 200 MG CAPSULE 1 CAPSULE WITH FOOD ORALLY WITH FOOD ONCE A DAY TAKING MINOCYCLINE HCL 100 MG CAPSULE 1 CAPSULE ORALLY EVERY 12 HRS TAKING TRUVADA 200-300 MG TABLET 1 TABLET ORALLY ONCE A DAY TAKING PROAIR HFA 108 (90 BASE) MCG/ACT AEROSOL SOLUTION 2 PUFFS NEEDED INHALATION EVERY 4 HRS TAKING DRISDOL 11888 UNIT CAPSULE 1 CAPSULE ORALLY WEEKLY TAKING MAY USE CBD OIL DAILY TAKING CYMBALTA 60 MG CAPSULE DELAYED RELEASE PARTICLES 1 CAPSULE ORALLY ONCE A DAY NOT-TAKING VITAMIN D-3 1000 UNIT CAPSULE 1 CAPSULE ORALLY 2000UNITS DAILY DISCONTINUED TIZANIDINE HCL 2 MG TABLET 1 TABLET NEEDED ORALLY FOR SPASMS AND PAIN EVERY 8 HOURS NEEDED MDD3 DISCONTINUED MELOXICAM 15 MG TABLET 1 TABLET ORALLY WITH FOOD ONCE A DAY FOR PAIN DISCONTINUED NEXPLANON 68 MG IMPLANT SUBCUTANEOUS DISCONTINUED TIZANIDINE HCL 2 MG TABLET 1 TABLET NEEDED ORALLY FOR SPASMS AND PAIN BEFORE BEDTIME MAY REPEAT IN 4 HRS MDD2 DISCONTINUED NAPROXEN 500 MG TABLET 1 TABLET WITH FOOD OR MILK ORALLY EVERY 12 HRS DISCONTINUED CLOBETASOL PROPIONATE 0.05 % SOLUTION 1 APPLICATION EXTERNALLY TO SCALP TWICE A DAY DISCONTINUED GABAPENTIN 100 MG CAPSULE 1 CAPSULE ORALLY FOR PAIN THREE TIMES A DAY, NOTES: ALLERGIC REACTION DISCONTINUED LEXAPRO 20 MG TABLET 1 TABLET ORALLY ONCE A DAY DISCONTINUED JOLESSA 0.15-0.03 MG TABLET 1 TABLET ORALLY ONCE A DAY DISCONTINUED LIDOCAINE 4 % CREAM 1 APPLICATION TO AFFECTED AREA NEEDED EXTERNALLY THREE TIMES A DAY NEEDED DISCONTINUED WOMENS DAILY FORMULA TABLET 1 TAB(S) ORALLY DAILY DISCONTINUED FIORICET APAP 325-50-40 CAPSULE 1 CAPSULE NEEDED ORALLY EVERY 4 HOURS PRN NECK PAIN/SPASM MDD=2 DISCONTINUED MELOXICAM 15 MG TABLET 1 TABLET ORALLY ONCE A DAY MEDICATION LIST REVIEWED AND RECONCILED WITH THE PATIENT PAST MEDICAL HISTORY BARBIE ANXIETY, DEPRESSION, BIPOLAR, CLAUSTROPHOBIA MIGRAINE POLYCYSTIC OVARIAN SYNDROME VITAMIN D DEFICIENCY DRY EYES 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 CHRONIC BACK PAIN ABSCESS LEFT SHOULDER 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 PERIPHERAL NEUROPATHY TO HANDS AND FEET CHRONIC FALICULITIS ALLERGIES CEPHALEXIN: HIVES - ALLERGY AZITHROMYCIN: HIVES - ALLERGY AMOXICILLIN: NAUSEA/VOMITING - ALLERGY DOXYCYCLINE (ROSACEA): NAUSEA/VOMITING - ALLERGY TRAMADOL: DIARRHEA/NIGHTMARES - ALLERGY PENICILLIN (FOR ALLERGIES USE ONLY): NAUSEA/VOMITING - ALLERGY METFORMIN: NAUSEA/VOMITING - SIDE EFFECTS MUSHROOMS: RASH - ALLERGY NEXPLANON: RASH - ALLERGY GABAPENTIN: SWELLING - ALLERGY LYRICA: RASH, EYES SWELL UP - ALLERGY SURGICAL HISTORY TONSILECTOMY 2015 TRIAL DCS 06/2015 HYSTERECTOMY 08/18/18 FAMILY HISTORY FATHER: UNKNOWN MOTHER: ALIVE, DIAGNOSED WITH HYPERTENSION, OTHER SPECIFIED CONDITIONS INFLUENCING HEALTH STATUS SIBLINGS: ALIVE MATERNAL GRAND FATHER: DIABETES MATERNAL GRAND MOTHER: DIABETES, OTHER MALIGNANT NEOPLASM OF UNSPECIFIED SITE 3 BROTHER(S) - HEALTHY. MOTHER - FATTY LIVER DISEASEMATERNAL GRANDMOTHER- BREAST CANCER AND UTERAN CANCERPT DENIES FAMILY HISTORY OF SKIN CANCERS. SOCIAL HISTORY GENERAL: TOBACCO USE ARE YOU A:NONSMOKER EDUCATION LEVEL OF EDUCATION:COLLEGE DIET: REGULAR. LANGUAGE LANGUAGES SPOKEN:HEBREW RECREATIONAL DRUG USE DRUG USE?NO EXERCISE: WALKS. 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 PAIN CLINIC PFS, CLERGY, PUBLIC HEALTH REFERRALS PFS REFERRAL NEEDED?NO CLERGY REFERRAL NEEDED?NO PUBLIC HEALTH REFERRAL NEEDED?NO WAS THE PROVIDER NOTIFIED OF ANY PERTINENT INFO?YES HAS THE PATIENT BEEN EDUCATED REGARDING HIS/HER PLAN OF CARE?YES HAS THE PATIENT BEEN EDUCATED REGARDING PAIN, THE RISK FOR PAIN, THE IMPORTANCE OF EFFECTIVE PAIN MANAGEMENT, AND THE PAIN ASSESSMENT PROCESS?YES LATEX QUESTIONNAIRE LATEX ALLERGY : HAVE YOU EVER DEVELOPED ANY TYPE OF REACTION AFTER HANDLING LATEX PRODUCTS SUCH RUBBER GLOVES, CONDOMS, DIAPHRAGMS, BALLOONS, SOCKS, OR UNDERWEAR?NO LATEX ALLERGY : HAVE YOU EVER DEVELOPED ANY TYPE OF REACTION DURING OR AFTER DENTAL APPOINTMENT, VAGINAL/RECTAL EXAMINATION, SURGICAL PROCEDURE, OR ANY OTHER EXPOSURE?NO LATEX RISK : HAVE YOU EVER HAD ANY DIFFICULTY BREATHING OR HIVES AFTER EATING OR HANDLING ANY FRUITS, OR VEGETABLES; SUCH KIWI, BANANAS, STONE FRUITS, OR CHESTNUTSNO LATEX RISK : DO YOU HAVE A PREVIOUS PERSONAL HISTORY OF MORE THAN NINE SURGERIES, SPINA BIFIDA, OR REPEATED CATHERIZATIONS? NO LATEX RISK : ARE YOU FREQUENTLY EXPOSED TO LATEX PRODUCTS IN YOUR OCCUPATION?NO DATE ASKED : 09/15/2019 CAFFEINE CAFFEINE USE?NO ADVANCE DIRECTIVE ADVANCE DIRECTIVE DISCUSSED WITH PATIENT:YES PT DOES NOT HAVE ANY ADVANCED DIRECTIVES AND SHE DECLINES INFORMATION ON HCP AT THIS TIME. SCIENTOLOGIST SCIENTOLOGIST NO PREFERENCE MARITAL STATUS: SINGLE. 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 REVIEWED WITH PT 09/10/18 1557 BVREVIEWED WITH PATIENT 03/24/19 0919 JSREVIEWED WITH PT 04/25/19 1304 BVREVIEWED WITH PATIENT 07/19/19 1113 NLJREVIEWED WITH PATIENT 09-08-19 DS. HOSPITALIZATION/MAJOR DIAGNOSTIC PROCEDURE DCS TRIAL 06/2015 HYSTERECTOMY 07/2018 REVIEW OF SYSTEMS REVIEWED BY: PROVIDER: ELOISE STARKS . CONSTITUTIONAL: ANY CHANGE IN YOUR MEDICAL CONDITION? NO . CHILLS NO . FEVER NO . INFECTION: DO YOU HAVE NEW INFECTIONS? NO . DO YOU HAVE HISTORY OF MRSA? NO . MUSCULOSKELETAL: ANY NEW PATTERNS OF PAIN OR NUMBNESS? YES . GASTROENTEROLOGY: ANY NEW CHANGE IN BOWEL CONTROL? NO . GENITOURINARY: ANY NEW CHANGE IN BLADDER CONTROL? YES . IS THERE A CHANCE YOU COULD BE ? NO . HEMATOLOGY/LYMPH: DO YOU TAKE ANY BLOOD THINNERS? (FOR EXAMPLE- COUMADIN, PLAVIX, AGGRENOX, PLATEL, PRADAXA, OR XARELTO) NO . WHEN WAS YOUR LAST DOSE? DATE: TIME: . NEUROLOGY: HAVE YOU FALLEN IN THE PAST 12 MONTHS? NO . ANY NEW EXTREMITY NUMBNESS OR WEAKNESS? YES . CARDIOLOGY: DO YOU HAVE A PACEMAKER OR DEFIBRILLATOR? NO . RESPIRATORY: HAVE YOU BEEN SICK IN THE PAST WEEK? NO . FEVER NO . FLU LIKE SYMPTOMS? NO . COUGH NO . INTEGUMENTARY: DO YOU HAVE ANY RASHES OR OPEN SORES? YES . ALLERGIC/IMMUNO: ARE YOU ALLERGIC TO IV DYE? NO . ANY NEW ALLERGIES? NO . PSYCHIATRIC: DO YOU HAVE THOUGHTS OF HURTING YOURSELF OR SOMEONE ELSE? NO . ARE YOU ABUSED, NEGLECTED, OR IN AN UNSAFE ENVIRONMENT? NO . ENDOCRINOLOGY: ARE YOU DIABETIC? NO . OTHER: DO YOU NEED ANY PRESCRIPTIONS? NO . IF YES, PLEASE LIST: ____ . ANY NEW PROBLEMS WITH YOUR MEDICATIONS? NO . WHEN DID YOU LAST EAT? ____ . WHEN DID YOU LAST DRINK? ____ . WHAT DID YOU LAST DRINK? ____ . NAME OF PERSON DRIVING YOU HOME? ____ . DO YOU HAVE ANY OTHER QUESTIONS OR CONCERNS NO . VITAL SIGNS WT 314 LBS, HT 69 IN, BMI 46.36 INDEX, BP 126/61 MM HG, HR 93 /MIN, RR 20 /MIN, TEMP 96.8 F, OXYGEN SAT % 98%, SAFE IN ENV? (Y/N) YES, NA INITIALS IL 09:47, REVIEWED BY: PEDRO. EXAMINATION GENERAL EXAMINATION: GENERALNO ACUTE DISTRESS, WELL NOURISHED AND HYDRATED. PSYCHAPPROPRIATE MOOD AND AFFECT . LUNGS:CLEAR TO AUSCULTATION BILATERALLY, NO WHEEZES, RHONCHI, RALES. HEART:NO MURMURS, REGULAR RATE AND RHYTHM. ASSESSMENTS SPONDYLOSIS OF LUMBOSACRAL REGION WITHOUT MYELOPATHY OR RADICULOPATHY - M47.817 (PRIMARY) TREATMENT SPONDYLOSIS OF LUMBOSACRAL REGION WITHOUT MYELOPATHY OR RADICULOPATHY START SKELAXIN TABLET, 800 MG, 1 TABLET, ORALLY, THREE TIMES A DAY, 30 DAY(S), 90 STOP CELEBREX CAPSULE, 200 MG, 1 CAPSULE WITH FOOD, ORALLY WITH FOOD, ONCE A DAY CLINICAL NOTES: 33-YEAR-OLD FEMALE IN FOR CHRONIC PAIN FOLLOW-UP. GIVEN PRESENTING SYMPTOMS AND RESULTS OF PHYSICAL EXAMINATION RECOMMENDED STARTING SKELAXIN WITH FOLLOW-UP IN 2 MONTHS TO DETERMINE EFFICACY OF TREATMENT. PATIENT HAS EXPRESSED UNDERSTANDING OF AND WAS IN AGREEMENT WITH TREATMENT PLAN. GIVEN TIME TO ASK QUESTIONS AND EXPRESS CONCERNS. PROCEDURE CODES FA211 ESTABILISHED PATIENT [facility] FACILITY CHARGE DISPOSITION & COMMUNICATION FOLLOW UP 2 MONTHS (REASON: LOW BACK PAIN, NEW MEDICATION) ELECTRONICALLY SIGNED BY LEONA FREEMAN ON 09/19/2019 AT 08:40 AM EST DISCLAIMER : THIS IS A VISIT SUMMARY EXTRACTED FROM THE [employer] CHART. IT IS NOT A COPY OF THE [employer] PROGRESS NOTE. KAJAL
== END ==
LOC: M PAIN 09:30
PROVIDERS: ATTEND Family Medicine
DX: M47.817 Spondylosis without myelopathy or radiculopathy, lumbosacral region (principal); G89.29 Other chronic pain; G47.33 Obstructive sleep apnea (adult) (pediatric); Z86.59 Personal history of other mental and behavioral disorders; G43.909 Migraine, unspecified, not intractable, without status migrainosus; E55.9 Vitamin D deficiency, unspecified; M79.7 Fibromyalgia; Z88.0 Allergy status to penicillin; Z88.1 Allergy status to other antibiotic agents; Z88.5 Allergy status to narcotic agent; Z88.8 Allergy status to other drugs, medicaments and biological substances; Z91.018 Allergy to other foods; E66.01 Morbid (severe) obesity due to excess calories; Z68.42 Body mass index [BMI] 45.0-49.9, adult; Z79.899 Other long term (current) drug therapy

== ENCOUNTER → 2019-11-09 | Outpatient (CLI) | payer OTHER ==
[~2019-11-09] MED LIST changes: -MECL12.575 PO; +MECL12.589 PO
--- NOTE | 2019-11-11 05:43 | ECWPNPC ---
PATIENT NAME: MIKKI HUDSON : 1985 GENDER: FEMALE VISIT DATE: 11/09/2019 DISCHARGE DATE: 11/09/19922 VISIT LOCKED DATE TIME: PHYSICIAN: SUBHASH PAINTER RESOURCE: SUBHASH PAINTER REASON FOR APPOINTMENT 1. [facility]-LOW BACK PAIN, NEW MEDICATION HISTORY OF PRESENT ILLNESS HISTORY OF PRESENT ILLNESS: PAIN THE PATIENT DESCRIBES THE PAIN... 34-YEAR-OLD FEMALE IN FOR CHRONIC PAIN FOLLOW-UP. PATIENT WAS RECENTLY STARTED ON TYLENOL WITH CODEINE AND ADMITS TODAY THAT THIS HAS BEEN HELPFUL IN REDUCING HER PAIN SYMPTOMS. SHE RATES HER PAIN CURRENTLY AT A 7 OUT OF 10 AND DESCRIBES IT ACHING, SHARP, STABBING, SORE, SHOOTING, AND TENDER. FALL RISK SCREENING: SCREENING :NO FALLS REPORTED IN THE LAST YEAR CURRENT MEDICATIONS TAKING LIPITOR 20 MG TABLET 1 TABLET ORALLY ONCE A DAY TAKING MINOCYCLINE HCL 100 MG CAPSULE 1 CAPSULE ORALLY EVERY 12 HRS TAKING TRUVADA 200-300 MG TABLET 1 TABLET ORALLY ONCE A DAY TAKING PROAIR HFA 108 (90 BASE) MCG/ACT AEROSOL SOLUTION 2 PUFFS NEEDED INHALATION EVERY 4 HRS TAKING DRISDOL 81262 UNIT CAPSULE 1 CAPSULE ORALLY WEEKLY TAKING CYMBALTA 60 MG CAPSULE DELAYED RELEASE PARTICLES 1 CAPSULE ORALLY ONCE A DAY TAKING TYLENOL WITH CODEINE #3 300-30 MG TABLET 1 TABLET NEEDED ORALLY EVERY 8 HRS NEEDED MDD 3 NOT-TAKING VITAMIN D-3 1000 UNIT CAPSULE 1 CAPSULE ORALLY 2000UNITS DAILY DISCONTINUED MAY USE CBD OIL DAILY MEDICATION LIST REVIEWED AND RECONCILED WITH THE PATIENT PAST MEDICAL HISTORY BARBIE ANXIETY, DEPRESSION, BIPOLAR, CLAUSTROPHOBIA MIGRAINE POLYCYSTIC OVARIAN SYNDROME VITAMIN D DEFICIENCY DRY EYES 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 CHRONIC BACK PAIN ABSCESS LEFT SHOULDER 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 PERIPHERAL NEUROPATHY TO HANDS AND FEET CHRONIC FALICULITIS ALLERGIES CEPHALEXIN: HIVES - ALLERGY AZITHROMYCIN: HIVES - ALLERGY AMOXICILLIN: NAUSEA/VOMITING - ALLERGY DOXYCYCLINE (ROSACEA): NAUSEA/VOMITING - ALLERGY TRAMADOL: DIARRHEA/NIGHTMARES - ALLERGY PENICILLIN (FOR ALLERGIES USE ONLY): NAUSEA/VOMITING - ALLERGY METFORMIN: NAUSEA/VOMITING - SIDE EFFECTS MUSHROOMS: RASH - ALLERGY NEXPLANON: RASH - ALLERGY GABAPENTIN: SWELLING - ALLERGY LYRICA: RASH, EYES SWELL UP - ALLERGY SURGICAL HISTORY TONSILECTOMY 2015 TRIAL DCS 06/2015 HYSTERECTOMY 08/18/18 FAMILY HISTORY FATHER: UNKNOWN MOTHER: ALIVE, DIAGNOSED WITH HYPERTENSION, OTHER SPECIFIED CONDITIONS INFLUENCING HEALTH STATUS SIBLINGS: ALIVE MATERNAL GRAND FATHER: DIABETES MATERNAL GRAND MOTHER: DIABETES, OTHER MALIGNANT NEOPLASM OF UNSPECIFIED SITE 3 BROTHER(S) - HEALTHY. MOTHER - FATTY LIVER DISEASEMATERNAL GRANDMOTHER- BREAST CANCER AND UTERAN CANCERPT DENIES FAMILY HISTORY OF SKIN CANCERS. SOCIAL HISTORY GENERAL: TOBACCO USE ARE YOU A:NONSMOKER EDUCATION LEVEL OF EDUCATION:COLLEGE DIET: REGULAR. LANGUAGE LANGUAGES SPOKEN:TURKMEN RECREATIONAL DRUG USE DRUG USE?NO EXERCISE: WALKS. 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?NO PAIN CLINIC PFS, CLERGY, PUBLIC HEALTH REFERRALS PFS REFERRAL NEEDED?NO CLERGY REFERRAL NEEDED?NO PUBLIC HEALTH REFERRAL NEEDED?NO WAS THE PROVIDER NOTIFIED OF ANY PERTINENT INFO?YES HAS THE PATIENT BEEN EDUCATED REGARDING HIS/HER PLAN OF CARE?YES HAS THE PATIENT BEEN EDUCATED REGARDING PAIN, THE RISK FOR PAIN, THE IMPORTANCE OF EFFECTIVE PAIN MANAGEMENT, AND THE PAIN ASSESSMENT PROCESS?YES LATEX QUESTIONNAIRE LATEX ALLERGY : HAVE YOU EVER DEVELOPED ANY TYPE OF REACTION AFTER HANDLING LATEX PRODUCTS SUCH RUBBER GLOVES, CONDOMS, DIAPHRAGMS, BALLOONS, SOCKS, OR UNDERWEAR?NO LATEX ALLERGY : HAVE YOU EVER DEVELOPED ANY TYPE OF REACTION DURING OR AFTER DENTAL APPOINTMENT, VAGINAL/RECTAL EXAMINATION, SURGICAL PROCEDURE, OR ANY OTHER EXPOSURE?NO DATE ASKED : 09/15/2019 LATEX RISK : HAVE YOU EVER HAD ANY DIFFICULTY BREATHING OR HIVES AFTER EATING OR HANDLING ANY FRUITS, OR VEGETABLES; SUCH KIWI, BANANAS, STONE FRUITS, OR CHESTNUTSNO LATEX RISK : DO YOU HAVE A PREVIOUS PERSONAL HISTORY OF MORE THAN NINE SURGERIES, SPINA BIFIDA, OR REPEATED CATHERIZATIONS? NO LATEX RISK : ARE YOU FREQUENTLY EXPOSED TO LATEX PRODUCTS IN YOUR OCCUPATION?NO CAFFEINE CAFFEINE USE?NO ADVANCE DIRECTIVE ADVANCE DIRECTIVE DISCUSSED WITH PATIENT:YES PT DOES NOT HAVE ANY ADVANCED DIRECTIVES AND SHE DECLINES INFORMATION ON HCP AT THIS TIME. AMISH AMISH NO PREFERENCE MARITAL STATUS: SINGLE. 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 REVIEWED WITH PT 09/10/18 5903 BVREVIEWED WITH PATIENT 03/24/19 0919 JSREVIEWED WITH PT 04/25/19 1304 BVREVIEWED WITH PATIENT 07/19/19 1113 NLJREVIEWED WITH PATIENT 09-08-19 DS. HOSPITALIZATION/MAJOR DIAGNOSTIC PROCEDURE DCS TRIAL 06/2015 HYSTERECTOMY 07/2018 REVIEW OF SYSTEMS REVIEWED BY: PROVIDER: ELOISE STARKS . CONSTITUTIONAL: ANY CHANGE IN YOUR MEDICAL CONDITION? NO . CHILLS NO . FEVER NO . INFECTION: DO YOU HAVE NEW INFECTIONS? NO . DO YOU HAVE HISTORY OF MRSA? NO . MUSCULOSKELETAL: ANY NEW PATTERNS OF PAIN OR NUMBNESS? NO . GASTROENTEROLOGY: ANY NEW CHANGE IN BOWEL CONTROL? NO . GENITOURINARY: ANY NEW CHANGE IN BLADDER CONTROL? NO . IS THERE A CHANCE YOU COULD BE ? NO . HEMATOLOGY/LYMPH: DO YOU TAKE ANY BLOOD THINNERS? (FOR EXAMPLE- COUMADIN, PLAVIX, AGGRENOX, PLATEL, PRADAXA, OR XARELTO) NO . WHEN WAS YOUR LAST DOSE? DATE: TIME: . NEUROLOGY: HAVE YOU FALLEN IN THE PAST 12 MONTHS? NO . ANY NEW EXTREMITY NUMBNESS OR WEAKNESS? NO . CARDIOLOGY: DO YOU HAVE A PACEMAKER OR DEFIBRILLATOR? NO . RESPIRATORY: HAVE YOU BEEN SICK IN THE PAST WEEK? NO . FEVER NO . FLU LIKE SYMPTOMS? NO . COUGH NO . INTEGUMENTARY: DO YOU HAVE ANY RASHES OR OPEN SORES? NO . ALLERGIC/IMMUNO: ARE YOU ALLERGIC TO IV DYE? NO . ANY NEW ALLERGIES? NO . PSYCHIATRIC: DO YOU HAVE THOUGHTS OF HURTING YOURSELF OR SOMEONE ELSE? NO . ARE YOU ABUSED, NEGLECTED, OR IN AN UNSAFE ENVIRONMENT? NO . ENDOCRINOLOGY: ARE YOU DIABETIC? NO . OTHER: DO YOU NEED ANY PRESCRIPTIONS? YES, TYLENOL #3 . IF YES, PLEASE LIST: ____ . ANY NEW PROBLEMS WITH YOUR MEDICATIONS? NO . WHEN DID YOU LAST EAT? ____ . WHEN DID YOU LAST DRINK? ____ . WHAT DID YOU LAST DRINK? ____ . NAME OF PERSON DRIVING YOU HOME? ____ . DO YOU HAVE ANY OTHER QUESTIONS OR CONCERNS NO . VITAL SIGNS WT 310 LBS, HT 69 IN, BMI 45.77 INDEX, BP 138/104 MM HG, HR 89 /MIN, RR 18 /MIN, TEMP 97.3 F, OXYGEN SAT % 99, SAFE IN ENV? (Y/N) Y, REVIEWED BY: STEFAN. EXAMINATION GENERAL EXAMINATION: GENERALNO ACUTE DISTRESS, WELL NOURISHED AND HYDRATED. PSYCHAPPROPRIATE MOOD AND AFFECT . LUNGS:CLEAR TO AUSCULTATION BILATERALLY, NO WHEEZES, RHONCHI, RALES. HEART:NO MURMURS, REGULAR RATE AND RHYTHM. ASSESSMENTS SPONDYLOSIS OF LUMBOSACRAL REGION WITHOUT MYELOPATHY OR RADICULOPATHY - M47.817 (PRIMARY) TREATMENT SPONDYLOSIS OF LUMBOSACRAL REGION WITHOUT MYELOPATHY OR RADICULOPATHY REFILL TYLENOL WITH CODEINE #3 TABLET, 300-30 MG, 1 TABLET NEEDED, ORALLY, EVERY 8 HRS NEEDED MDD 3, 30 DAYS, 90 CLINICAL NOTES: 34-YEAR-OLD FEMALE IN FOR CHRONIC PAIN FOLLOW-UP. GIVEN PRESENTING SYMPTOMS AND RESULTS OF PHYSICAL EXAMINATION RECOMMENDED CONTINUATION OF CURRENT MEDICATION REGIMEN WITH FOLLOW-UP IN 3 MONTHS. U TOX TO BE COLLECTED TODAY AND NARCOTIC AGREEMENT TO BE SIGNED. PATIENT HAS EXPRESSED UNDERSTANDING OF AND WAS IN AGREEMENT WITH TREATMENT PLAN. GIVEN TIME TO ASK QUESTIONS AND EXPRESS CONCERNS., ISTOP REGISTRY REVIEWED AND DEMONSTRATES COMPLLIANCE. (REF # [id number] ) BRINGS IN MEDICATIONS WHICH IS APPROPRIATE FOR WHAT WAS DISPENSED. RECENT URINE TOXICOLOGY REVIEWED. NO UNAUTHORIZED MEDICATIONS. NO ILLICIT SUBSTANCES AND PRESCRIBED MEDICATIONS WERE PRESENT. PROCEDURE CODES FA211 ESTABILISHED PATIENT [facility] FACILITY CHARGE DISPOSITION & COMMUNICATION FOLLOW UP 3 MONTHS (REASON: LOW BACK PAIN ) ELECTRONICALLY SIGNED BY LEONA FREEMAN ON 11/10/2019 AT 08:04 AM EST DISCLAIMER : THIS IS A VISIT SUMMARY EXTRACTED FROM THE [employer] CHART. IT IS NOT A COPY OF THE [employer] PROGRESS NOTE. KAJAL
== END ==
LOC: M PAIN 08:45
PROVIDERS: ATTEND Family Medicine
DX: M47.817 Spondylosis without myelopathy or radiculopathy, lumbosacral region (principal); G89.29 Other chronic pain; G47.33 Obstructive sleep apnea (adult) (pediatric); Z86.59 Personal history of other mental and behavioral disorders; G43.909 Migraine, unspecified, not intractable, without status migrainosus; E55.9 Vitamin D deficiency, unspecified; M79.7 Fibromyalgia; Z88.0 Allergy status to penicillin; Z88.1 Allergy status to other antibiotic agents; Z88.5 Allergy status to narcotic agent; Z88.8 Allergy status to other drugs, medicaments and biological substances; Z91.018 Allergy to other foods; E66.01 Morbid (severe) obesity due to excess calories; Z68.42 Body mass index [BMI] 45.0-49.9, adult; Z79.899 Other long term (current) drug therapy

== ENCOUNTER → 2019-12-15 | Outpatient (CLI) | payer OTHER ==
--- NOTE | 2019-12-17 00:57 | ECWPNPC ---
PATIENT NAME: MIKKI HUDSON : 1985 GENDER: FEMALE VISIT DATE: 12/15/2019 DISCHARGE DATE: 12/15/19 0957 VISIT LOCKED DATE TIME: PHYSICIAN: SUBHASH PAINTER RESOURCE: SUBHASH PAINTER REASON FOR APPOINTMENT 1. 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 HISTORY OF PRESENT ILLNESS HISTORY OF PRESENT ILLNESS: PAIN THE PATIENT DESCRIBES THE PAIN... 34-YEAR-OLD FEMALE IN FOR WORKER'S COMP. CHRONIC PAIN FOLLOW-UP. AT LAST CLINIC VISIT SHE WAS STARTED ON TYLENOL WITH CODEINE AND ADMITS TODAY THAT IT HELPED TAKE THE EDGE OFF. SHE RATES HER PAIN CURRENTLY AT A 7 OUT OF 10 AND DESCRIBES IT STABBING, NUMBING, SHOOTING, AND CONSTANT. THE PATIENT WAS HURT IN A WORK RELATED INJURY ON 11/24/2013 WHILE WORKING FOR [employer] WHEN SHE SLIPPED ON AN ICY SIDEWALK AND FELL INTO A BRICK WALL. THE PATIENT DESCRIBES THE PAIN STARTING IN HER RIGHT SHOULDER AND RADIATING DOWN HER RIGHT ARM. THE PATIENT SAYS THE PAIN IS CAUSING DIFFICULTIES IN PERFORMING HER DAILY ACTIVITIES SUCH COOKING AND CLEANING AND THE PAIN IS INTERFERING WITH HER SLEEP. FALL RISK SCREENING: SCREENING :NO FALLS REPORTED IN THE LAST YEAR CURRENT MEDICATIONS TAKING LIPITOR 20 MG TABLET 1 TABLET ORALLY ONCE A DAY TAKING MINOCYCLINE HCL 100 MG CAPSULE 1 CAPSULE ORALLY EVERY 12 HRS TAKING TRUVADA 200-300 MG TABLET 1 TABLET ORALLY ONCE A DAY TAKING PROAIR HFA 108 (90 BASE) MCG/ACT AEROSOL SOLUTION 2 PUFFS NEEDED INHALATION EVERY 4 HRS TAKING DRISDOL 33994 UNIT CAPSULE 1 CAPSULE ORALLY WEEKLY TAKING CYMBALTA 60 MG CAPSULE DELAYED RELEASE PARTICLES 1 CAPSULE ORALLY ONCE A DAY TAKING TYLENOL WITH CODEINE #3 300-30 MG TABLET 1 TABLET NEEDED ORALLY EVERY 8 HRS NEEDED MDD 3 NOT-TAKING VITAMIN D-3 1000 UNIT CAPSULE 1 CAPSULE ORALLY 2000UNITS DAILY MEDICATION LIST REVIEWED AND RECONCILED WITH THE PATIENT PAST MEDICAL HISTORY BARBIE ANXIETY, DEPRESSION, BIPOLAR, CLAUSTROPHOBIA MIGRAINE POLYCYSTIC OVARIAN SYNDROME VITAMIN D DEFICIENCY DRY EYES 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 CHRONIC BACK PAIN ABSCESS LEFT SHOULDER 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 PERIPHERAL NEUROPATHY TO HANDS AND FEET CHRONIC FALICULITIS OCCIPITAL NEURALGIA ALLERGIES CEPHALEXIN: HIVES - ALLERGY AZITHROMYCIN: HIVES - ALLERGY AMOXICILLIN: NAUSEA/VOMITING - ALLERGY DOXYCYCLINE (ROSACEA): NAUSEA/VOMITING - ALLERGY TRAMADOL: DIARRHEA/NIGHTMARES - ALLERGY PENICILLIN (FOR ALLERGIES USE ONLY): NAUSEA/VOMITING - ALLERGY METFORMIN: NAUSEA/VOMITING - SIDE EFFECTS MUSHROOMS: RASH - ALLERGY NEXPLANON: RASH - ALLERGY GABAPENTIN: SWELLING - ALLERGY LYRICA: RASH, EYES SWELL UP - ALLERGY SURGICAL HISTORY TONSILECTOMY 2015 TRIAL DCS 06/2015 HYSTERECTOMY 08/18/18 FAMILY HISTORY FATHER: UNKNOWN MOTHER: ALIVE, DIAGNOSED WITH HYPERTENSION, OTHER SPECIFIED CONDITIONS INFLUENCING HEALTH STATUS SIBLINGS: ALIVE MATERNAL GRAND FATHER: DIABETES MATERNAL GRAND MOTHER: DIABETES, OTHER MALIGNANT NEOPLASM OF UNSPECIFIED SITE 3 BROTHER(S) - HEALTHY. MOTHER - FATTY LIVER DISEASEMATERNAL GRANDMOTHER- BREAST CANCER AND UTERAN CANCERPT DENIES FAMILY HISTORY OF SKIN CANCERS. SOCIAL HISTORY GENERAL: TOBACCO USE ARE YOU A:NONSMOKER EDUCATION LEVEL OF EDUCATION:COLLEGE DIET: REGULAR. LANGUAGE LANGUAGES SPOKEN:[place] CITIZ[place] RECREATIONAL DRUG USE DRUG USE?NO EXERCISE: WALKS. 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 NEEDED?NO PAIN CLINIC PFS, CLERGY, PUBLIC HEALTH REFERRALS PFS REFERRAL NEEDED?NO CLERGY REFERRAL NEEDED?NO PUBLIC HEALTH REFERRAL NEEDED?NO WAS THE PROVIDER NOTIFIED OF ANY PERTINENT INFO?YES HAS THE PATIENT BEEN EDUCATED REGARDING HIS/HER PLAN OF CARE?YES HAS THE PATIENT BEEN EDUCATED REGARDING PAIN, THE RISK FOR PAIN, THE IMPORTANCE OF EFFECTIVE PAIN MANAGEMENT, AND THE PAIN ASSESSMENT PROCESS?YES LATEX QUESTIONNAIRE LATEX ALLERGY : HAVE YOU EVER DEVELOPED ANY TYPE OF REACTION AFTER HANDLING LATEX PRODUCTS SUCH RUBBER GLOVES, CONDOMS, DIAPHRAGMS, BALLOONS, SOCKS, OR UNDERWEAR?NO LATEX ALLERGY : HAVE YOU EVER DEVELOPED ANY TYPE OF REACTION DURING OR AFTER DENTAL APPOINTMENT, VAGINAL/RECTAL EXAMINATION, SURGICAL PROCEDURE, OR ANY OTHER EXPOSURE?NO DATE ASKED : 09/15/2019 LATEX RISK : HAVE YOU EVER HAD ANY DIFFICULTY BREATHING OR HIVES AFTER EATING OR HANDLING ANY FRUITS, OR VEGETABLES; SUCH KIWI, BANANAS, STONE FRUITS, OR CHESTNUTSNO LATEX RISK : DO YOU HAVE A PREVIOUS PERSONAL HISTORY OF MORE THAN NINE SURGERIES, SPINA BIFIDA, OR REPEATED CATHERIZATIONS? NO LATEX RISK : ARE YOU FREQUENTLY EXPOSED TO LATEX PRODUCTS IN YOUR OCCUPATION?NO CAFFEINE CAFFEINE USE?NO ADVANCE DIRECTIVE ADVANCE DIRECTIVE DISCUSSED WITH PATIENT:YES PT DOES NOT HAVE ANY ADVANCED DIRECTIVES AND SHE DECLINES INFORMATION ON HCP AT THIS TIME. CATHOLIC CATHOLIC NO PREFERENCE MARITAL STATUS: SINGLE. 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 REVIEWED WITH PT 09/10/18 1557 BVREVIEWED WITH PATIENT 03/24/19 0919 JSREVIEWED WITH PT 04/25/19 1304 BVREVIEWED WITH PATIENT 07/19/19 1113 NLJREVIEWED WITH PATIENT 09-08-19 DS. HOSPITALIZATION/MAJOR DIAGNOSTIC PROCEDURE DCS TRIAL 06/2015 HYSTERECTOMY 07/2018 REVIEW OF SYSTEMS REVIEWED BY: PROVIDER: ELOISE DELGADILLO-Tiffany . CONSTITUTIONAL: ANY CHANGE IN YOUR MEDICAL CONDITION? YES, OCCIPITAL NEURALGIA, PT RATES PAIN 7/10 STABBING, SHOOTING, NUMBING AND CONSTANT . CHILLS NO . FEVER NO . INFECTION: DO YOU HAVE NEW INFECTIONS? NO . DO YOU HAVE HISTORY OF MRSA? NO . MUSCULOSKELETAL: ANY NEW PATTERNS OF PAIN OR NUMBNESS? NO . GASTROENTEROLOGY: ANY NEW CHANGE IN BOWEL CONTROL? NO . GENITOURINARY: ANY NEW CHANGE IN BLADDER CONTROL? NO . IS THERE A CHANCE YOU COULD BE ? NO . HEMATOLOGY/LYMPH: DO YOU TAKE ANY BLOOD THINNERS? (FOR EXAMPLE- COUMADIN, PLAVIX, AGGRENOX, PLATEL, PRADAXA, OR XARELTO) NO . WHEN WAS YOUR LAST DOSE? DATE: TIME: . NEUROLOGY: HAVE YOU FALLEN IN THE PAST 12 MONTHS? NO . ANY NEW EXTREMITY NUMBNESS OR WEAKNESS? NO . CARDIOLOGY: DO YOU HAVE A PACEMAKER OR DEFIBRILLATOR? NO . RESPIRATORY: HAVE YOU BEEN SICK IN THE PAST WEEK? NO . FEVER NO . FLU LIKE SYMPTOMS? NO . COUGH NO . INTEGUMENTARY: DO YOU HAVE ANY RASHES OR OPEN SORES? NO . ALLERGIC/IMMUNO: ARE YOU ALLERGIC TO IV DYE? NO . ANY NEW ALLERGIES? NO . PSYCHIATRIC: DO YOU HAVE THOUGHTS OF HURTING YOURSELF OR SOMEONE ELSE? NO . ARE YOU ABUSED, NEGLECTED, OR IN AN UNSAFE ENVIRONMENT? NO . ENDOCRINOLOGY: ARE YOU DIABETIC? NO . OTHER: DO YOU NEED ANY PRESCRIPTIONS? NO . IF YES, PLEASE LIST: ____ . ANY NEW PROBLEMS WITH YOUR MEDICATIONS? NO . WHEN DID YOU LAST EAT? ____ . WHEN DID YOU LAST DRINK? ____ . WHAT DID YOU LAST DRINK? ____ . NAME OF PERSON DRIVING YOU HOME? ____ . DO YOU HAVE ANY OTHER QUESTIONS OR CONCERNS NO . VITAL SIGNS WT 316 LBS, HT 69 IN, BMI 46.66 INDEX, BP 136/84 MM HG, HR 91 /MIN, RR 18 /MIN, TEMP 96.0 F, OXYGEN SAT % 96%, SAFE IN ENV? (Y/N) Y, NA INITIALS AW 0934, REVIEWED BY: EM. EXAMINATION GENERAL EXAMINATION: GENERALNO ACUTE DISTRESS, WELL NOURISHED AND HYDRATED. PSYCHAPPROPRIATE MOOD AND AFFECT . LUNGS:CLEAR TO AUSCULTATION BILATERALLY, NO WHEEZES, RHONCHI, RALES. HEART:NO MURMURS, REGULAR RATE AND RHYTHM. ASSESSMENTS PAIN IN RIGHT SHOULDER - M25.511 (PRIMARY) TREATMENT PAIN IN RIGHT SHOULDER CLINICAL NOTES: 34-YEAR-OLD FEMALE IN FOR WORKER'S COMP. CHRONIC PAIN FOLLOW-UP. GIVEN PRESENTING SYMPTOMS AND RESULTS OF PHYSICAL EXAMINATION RECOMMENDED CONTINUATION OF CURRENT MEDICATION REGIMEN WITH FOLLOW-UP IN 3 MONTHS. PATIENT HAS EXPRESSED UNDERSTANDING OF AND WAS IN AGREEMENT WITH TREATMENT PLAN. GIVEN TIME TO ASK QUESTIONS AND EXPRESS CONCERNS., ISTOP REGISTRY REVIEWED AND DEMONSTRATES COMPLLIANCE. (REF # [id number] ) BRINGS IN MEDICATIONS WHICH IS APPROPRIATE FOR WHAT WAS DISPENSED. RECENT URINE TOXICOLOGY REVIEWED. NO UNAUTHORIZED MEDICATIONS. NO ILLICIT SUBSTANCES AND PRESCRIBED MEDICATIONS WERE PRESENT. 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 YES ARE THE PATIENT'S COMPLAINTS CONSISTENT WITH HIS/HER HISTORY OF THE INJURY/ILLNESS? YES IS THE PATIENT'S HISTORY OF THE INJURY/ILLNESS CONSISTENT WITH YOUR OBJECTIVE FINDING? YES WHAT IS THE PERCENTAGE OF TEMPORARY IMPAIRMENT? MODERATE TO MARKED = 66.7% IS THE PATIENT WORKING? NO DOCTOR ON SITE: BISHNU CHARLES MD PROCEDURE CODES FA211 ESTABILISHED PATIENT [facility] FACILITY CHARGE DISPOSITION & COMMUNICATION FOLLOW UP 3 MONTHS (REASON: RIGHT SHOULDER PAIN, WORKER'S COMP.) ELECTRONICALLY SIGNED BY LEONA FREEMAN ON 12/16/2019 AT 03:04 PM EDT DISCLAIMER : THIS IS A VISIT SUMMARY EXTRACTED FROM THE [employer] CHART. IT IS NOT A COPY OF THE [employer] PROGRESS NOTE. MTDD
== END ==
LOC: M PAIN 09:30
PROVIDERS: ATTEND Family Medicine
DX: M25.511 Pain in right shoulder (principal)

== ENCOUNTER → 2020-01-13 | Outpatient (CLI) | payer OTHER ==
[2020-01-14 15:09] LABS: ANTINUCLEAR ANTIBODIES DIRECT Negative (Negative)
== END ==
LOC: M LAB 07:06
PROVIDERS: ATTEND Physician Assistant Medical
DX: R51 Headache (principal)

== ENCOUNTER → 2020-02-07 | Outpatient (CLI) | payer OTHER ==
--- NOTE | 2020-02-09 04:26 | ECWPNPC ---
PATIENT NAME: MIKKI HUDSON : 1985 GENDER: FEMALE VISIT DATE: 02/07/2020 DISCHARGE DATE: 02/07/20 09 VISIT LOCKED DATE TIME: PHYSICIAN: SUBHASH PAINTER RESOURCE: SUBHASH PAINTER REASON FOR APPOINTMENT 1. [facility] LOW BACK, PAT COMPLETED HISTORY OF PRESENT ILLNESS HISTORY OF PRESENT ILLNESS: PAIN THE PATIENT DESCRIBES THE PAINDURING THE LAST MONTH SEVERITY - PAIN SCORE OF7/10, 8/10 LOCATIONSLOWER BACK QUALITYACHING , THROBBING, SHOOTING DURATIONCONTINUOUS, CONSTANT, ALL DAY, MAINLY DURING THE NIGHT, AWAKENS FROM SLEEEP PAIN IS INCREASED BY:ACTIVITIES, PROLONGED STANDING PAIN IS DECREASED BY: HEATING PAD, PAIN KILLERS PERMISSION REQUESTED AND RECEIVED FROM PATIENT TO PERFORM TELEHEALTH VISIT. 34-YEAR-OLD FEMALE IN FOR CHRONIC PAIN FOLLOW-UP. SHE RATES HER PAIN CURRENTLY AT A 7 OUT OF 10 AND DESCRIBES IT ACHING. SHE FEELS THE INCREASED PAIN IS DUE TO DECREASED ACTIVITY. SHE FEELS MEDICATIONS ARE HELPFUL AND DENIES MED SIDE EFFECTS AT THIS TIME. FALL RISK SCREENING: SCREENING :NO FALLS REPORTED IN THE LAST YEAR CURRENT MEDICATIONS TAKING LIPITOR 20 MG TABLET 1 TABLET ORALLY ONCE A DAY TAKING MINOCYCLINE HCL 100 MG CAPSULE 1 CAPSULE ORALLY EVERY 12 HRS TAKING PROAIR HFA 108 (90 BASE) MCG/ACT AEROSOL SOLUTION 2 PUFFS NEEDED INHALATION EVERY 4 HRS TAKING DRISDOL 29382 UNIT CAPSULE 1 CAPSULE ORALLY WEEKLY TAKING CYMBALTA 60 MG CAPSULE DELAYED RELEASE PARTICLES 1 CAPSULE ORALLY ONCE A DAY TAKING TYLENOL WITH CODEINE #3 300-30 MG TABLET 1 TABLET NEEDED ORALLY EVERY 8 HRS NEEDED MDD 3 TAKING ZONISAMIDE 100 MG CAPSULE 1 CAPSULE ORALLY BID NOT-TAKING TRUVADA 200-300 MG TABLET 1 TABLET ORALLY ONCE A DAY NOT-TAKING VITAMIN D-3 1000 UNIT CAPSULE 1 CAPSULE ORALLY 2000UNITS DAILY MEDICATION LIST REVIEWED AND RECONCILED WITH THE PATIENT PAST MEDICAL HISTORY BARBIE ANXIETY, DEPRESSION, BIPOLAR, CLAUSTROPHOBIA MIGRAINE POLYCYSTIC OVARIAN SYNDROME VITAMIN D DEFICIENCY DRY EYES 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 CHRONIC BACK PAIN ABSCESS LEFT SHOULDER 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 PERIPHERAL NEUROPATHY TO HANDS AND FEET CHRONIC FALICULITIS OCCIPITAL NEURALGIA ALLERGIES CEPHALEXIN: HIVES - ALLERGY AZITHROMYCIN: HIVES - ALLERGY AMOXICILLIN: NAUSEA/VOMITING - ALLERGY DOXYCYCLINE (ROSACEA): NAUSEA/VOMITING - ALLERGY TRAMADOL: DIARRHEA/NIGHTMARES - ALLERGY PENICILLIN (FOR ALLERGIES USE ONLY): NAUSEA/VOMITING - ALLERGY METFORMIN: NAUSEA/VOMITING - SIDE EFFECTS MUSHROOMS: RASH - ALLERGY NEXPLANON: RASH - ALLERGY GABAPENTIN: SWELLING - ALLERGY LYRICA: RASH, EYES SWELL UP - ALLERGY SURGICAL HISTORY TONSILECTOMY 2015 TRIAL DCS 06/2015 HYSTERECTOMY 08/18/18 FAMILY HISTORY FATHER: UNKNOWN MOTHER: ALIVE, DIAGNOSED WITH HYPERTENSION, OTHER SPECIFIED CONDITIONS INFLUENCING HEALTH STATUS SIBLINGS: ALIVE MATERNAL GRAND FATHER: DIABETES MATERNAL GRAND MOTHER: DIABETES, OTHER MALIGNANT NEOPLASM OF UNSPECIFIED SITE 3 BROTHER(S) - HEALTHY. MOTHER - FATTY LIVER DISEASEMATERNAL GRANDMOTHER- BREAST CANCER AND UTERAN CANCERPT DENIES FAMILY HISTORY OF SKIN CANCERS. SOCIAL HISTORY GENERAL: TOBACCO USE ARE YOU A:NONSMOKER LATEX QUESTIONNAIRE LATEX ALLERGY : HAVE YOU EVER DEVELOPED ANY TYPE OF REACTION AFTER HANDLING LATEX PRODUCTS SUCH RUBBER GLOVES, CONDOMS, DIAPHRAGMS, BALLOONS, SOCKS, OR UNDERWEAR?NO LATEX ALLERGY : HAVE YOU EVER DEVELOPED ANY TYPE OF REACTION DURING OR AFTER DENTAL APPOINTMENT, VAGINAL/RECTAL EXAMINATION, SURGICAL PROCEDURE, OR ANY OTHER EXPOSURE?NO DATE ASKED : 09/15/2019 LATEX RISK : HAVE YOU EVER HAD ANY DIFFICULTY BREATHING OR HIVES AFTER EATING OR HANDLING ANY FRUITS, OR VEGETABLES; SUCH KIWI, BANANAS, STONE FRUITS, OR CHESTNUTSNO LATEX RISK : DO YOU HAVE A PREVIOUS PERSONAL HISTORY OF MORE THAN NINE SURGERIES, SPINA BIFIDA, OR REPEATED CATHERIZATIONS? NO LATEX RISK : ARE YOU FREQUENTLY EXPOSED TO LATEX PRODUCTS IN YOUR OCCUPATION?NO ALCOHOL SCREENING DID YOU HAVE A DRINK CONTAINING ALCOHOL IN THE PAST YEAR?NO POINTS0 INTERPRETATIONNEGATIVE RECREATIONAL DRUG USE DRUG USE?NO CAFFEINE CAFFEINE USE?NO PRESYBETERIAN PRESYBETERIAN NO PREFERENCE LANGUAGE LANGUAGES SPOKEN:GUYANESE EDUCATION LEVEL OF EDUCATION:COLLEGE LEARNING BARRIERS / SPECIAL NEEDS CHANGE FROM LAST VISIT?NO BARRIERS TO LEARNING?NO HEARING IMPAIRED?NO VISION IMPAIRED?YES COGNITIVELY IMPAIRED?NO :CORRECTIVE LENSES READINESS TO LEARN?YES LEARNING PREFERENCES?NO LEARNING CAPABILITIES PRESENT?YES EMOTIONAL BARRIERS?NO SPECIAL DEVICES?YES :CANE FIELD COURT RESEARCHER 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 EXERCISE: WALKS. MARITAL STATUS: SINGLE. PAIN CLINIC PFS, CLERGY, PUBLIC HEALTH REFERRALS PFS REFERRAL NEEDED?NO CLERGY REFERRAL NEEDED?NO PUBLIC HEALTH REFERRAL NEEDED?NO WAS THE PROVIDER NOTIFIED OF ANY PERTINENT INFO?YES HAS THE PATIENT BEEN EDUCATED REGARDING HIS/HER PLAN OF CARE?YES HAS THE PATIENT BEEN EDUCATED REGARDING PAIN, THE RISK FOR PAIN, THE IMPORTANCE OF EFFECTIVE PAIN MANAGEMENT, AND THE PAIN ASSESSMENT PROCESS?YES ADVANCE DIRECTIVE ADVANCE DIRECTIVE DISCUSSED WITH PATIENT:YES PT DOES NOT HAVE ANY ADVANCED DIRECTIVES AND SHE DECLINES INFORMATION ON HCP AT THIS TIME. HOSPITALIZATION/MAJOR DIAGNOSTIC PROCEDURE DCS TRIAL 06/2015 HYSTERECTOMY 07/2018 REVIEW OF SYSTEMS REVIEWED BY: PROVIDER: ELOISE STARKS . CONSTITUTIONAL: ANY CHANGE IN YOUR MEDICAL CONDITION? NO . CHILLS NO . FEVER NO . INFECTION: DO YOU HAVE NEW INFECTIONS? NO . DO YOU HAVE HISTORY OF MRSA? NO . MUSCULOSKELETAL: ANY NEW PATTERNS OF PAIN OR NUMBNESS? NO . GASTROENTEROLOGY: ANY NEW CHANGE IN BOWEL CONTROL? NO . GENITOURINARY: ANY NEW CHANGE IN BLADDER CONTROL? NO . IS THERE A CHANCE YOU COULD BE ? NO . HEMATOLOGY/LYMPH: DO YOU TAKE ANY BLOOD THINNERS? (FOR EXAMPLE- COUMADIN, PLAVIX, AGGRENOX, PLATEL, PRADAXA, OR XARELTO) NO . WHEN WAS YOUR LAST DOSE? DATE: TIME: . NEUROLOGY: HAVE YOU FALLEN IN THE PAST 12 MONTHS? NO . ANY NEW EXTREMITY NUMBNESS OR WEAKNESS? NO . CARDIOLOGY: DO YOU HAVE A PACEMAKER OR DEFIBRILLATOR? NO . RESPIRATORY: HAVE YOU BEEN SICK IN THE PAST WEEK? NO . FEVER NO . FLU LIKE SYMPTOMS? NO . COUGH NO . INTEGUMENTARY: DO YOU HAVE ANY RASHES OR OPEN SORES? NO . ALLERGIC/IMMUNO: ARE YOU ALLERGIC TO IV DYE? NO . ANY NEW ALLERGIES? NO . PSYCHIATRIC: DO YOU HAVE THOUGHTS OF HURTING YOURSELF OR SOMEONE ELSE? NO . ARE YOU ABUSED, NEGLECTED, OR IN AN UNSAFE ENVIRONMENT? NO . ENDOCRINOLOGY: ARE YOU DIABETIC? NO . OTHER: DO YOU NEED ANY PRESCRIPTIONS? NO . IF YES, PLEASE LIST: ____ . ANY NEW PROBLEMS WITH YOUR MEDICATIONS? NO . WHEN DID YOU LAST EAT? ____ . WHEN DID YOU LAST DRINK? ____ . WHAT DID YOU LAST DRINK? ____ . NAME OF PERSON DRIVING YOU HOME? ____ . DO YOU HAVE ANY OTHER QUESTIONS OR CONCERNS NO . EXAMINATION GENERAL EXAMINATION: GENERALNO ACUTE DISTRESS, WELL NOURISHED AND HYDRATED. PSYCHAPPROPRIATE MOOD AND AFFECT , ORIENTED X 3. ASSESSMENTS INTERVERTEBRAL DISC DISORDER WITH RADICULOPATHY OF LUMBOSACRAL REGION - M51.17 (PRIMARY) TREATMENT INTERVERTEBRAL DISC DISORDER WITH RADICULOPATHY OF LUMBOSACRAL REGION CLINICAL NOTES: 34-YEAR-OLD FEMALE IN FOR CHRONIC PAIN FOLLOW-UP. GIVEN PRESENTING SYMPTOMS RECOMMENDED CONTINUATION OF CURRENT MEDICATION REGIMEN WITH FOLLOW-UP IN 3 MONTHS. PATIENT HAS EXPRESSED UNDERSTANDING OF AND WAS IN AGREEMENT WITH TREATMENT PLAN. GIVEN TIME TO ASK QUESTIONS AND EXPRESS CONCERNS. , ISTOP REGISTRY REVIEWED AND DEMONSTRATES COMPLLIANCE. (REF # [id number] ) BRINGS IN MEDICATIONS WHICH IS APPROPRIATE FOR WHAT WAS DISPENSED. RECENT URINE TOXICOLOGY REVIEWED. NO UNAUTHORIZED MEDICATIONS. NO ILLICIT SUBSTANCES AND PRESCRIBED MEDICATIONS WERE PRESENT. TELEHEALTH VISIT PERFORMED VIA ZOOM. TIME SPENT WITH PATIENT 5 MINUTES. OTHERS NOTES: VITALS NOT OBTAINED DUE TO VIRTUAL VISIT, PRE-SCREENING COMPLETED 02/06/20, NA. DISPOSITION & COMMUNICATION FOLLOW UP 3 MONTHS (REASON: LOW BACK PAIN) ELECTRONICALLY SIGNED BY LEONA FREEMAN ON 02/08/2020 AT 01:37 PM EDT DISCLAIMER : THIS IS A VISIT SUMMARY EXTRACTED FROM THE [employer] CHART. IT IS NOT A COPY OF THE [employer] PROGRESS NOTE. KAJAL
== END ==
LOC: M PAIN 09:00 → M TMPAIN 09:00
PROVIDERS: ATTEND Family Medicine
DX: M51.17 Intervertebral disc disorders with radiculopathy, lumbosacral region (principal); Z79.899 Other long term (current) drug therapy; Z88.0 Allergy status to penicillin; Z88.1 Allergy status to other antibiotic agents; Z88.5 Allergy status to narcotic agent; Z88.8 Allergy status to other drugs, medicaments and biological substances; Z91.018 Allergy to other foods

== ENCOUNTER → 2020-03-07 | Outpatient (CLI) | payer OTHER ==
--- NOTE | 2020-03-09 04:45 | ECWPNPC ---
PATIENT NAME: MIKKI HUDSON : 1985 GENDER: FEMALE VISIT DATE: 03/07/2020 DISCHARGE DATE: 03/07/20 1107 VISIT LOCKED DATE TIME: PHYSICIAN: SUBHASH PAINTER RESOURCE: SUBHASH PAINTER REASON FOR APPOINTMENT 1. 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 CHRONIC PAIN FOLLOW-UP. SHE RATES HER PAIN CURRENTLY AT A 7 OUT OF 10 AND DESCRIBES IT CONTINUOUS, STABBING, AND TINGLING. SHE FEELS HER MEDICATIONS ARE HELPFUL AND DENIES MED SIDE EFFECTS AT THIS TIME. PATIENT WAS HURT IN A WORK RELATED INJURY ON 11/24/2013 WHILE WORKING FOR [employer] WHEN SHE SLIPPED ON AN ICY SIDEWALK AND FELL INTO A BRICK WALL. PAIN CENTER INTAKE QUESTIONS: DO YOU HAVE A HISTORY OF MRSA? :NO DO YOU TAKE A BLOOD THINNERS? :NO DO YOU HAVE ANY BLEEDING DISORDERS? :NO ANY NEW NUMBNESS OR WEAKNESS IN YOUR LEGS OR ARMS? :NO ANY PACEMAKER,DEFIBRILLATOR, OR DORSAL COLUMN STIMULATOR? :NO DO YOU HAVE ANY RASHES OR OPEN SORES? :NO ARE YOU ALLERGIC TO IV DYE? :NO ARE YOU DIABETIC? :NO ANY NEW PROBLEMS WITH YOUR MEDICATIONS? :NO HAVE YOU RECEIVED A VACCINE IN THE PAST 30 DAYS? :NO DO YOU PLAN TO RECEIVE A VACCINE IN THE NEXT 21 DAYS? :NO DO YOU NEED ANY PRESCRIPTION? :NO DO YOU TAKE ANY IMMUNOSUPPRESSIVE MEDICATIONS? :NO IS THERE A CHANCE YOU COULD BE ? :NO ARE YOU BREAST FEEDING? :NO GENERAL: -. FALL RISK SCREENING: SCREENING :NO FALLS REPORTED IN THE LAST YEAR PAIN SCREENING: PATIENT HAS A COMPLAINT OF ACUTE OR CHRONIC PAIN :YES LOCATION OF PAIN:RIGHT SHOULDER INTENSITY OF PAIN (SCALE OF 1 TO 10):7 WHAT DOES YOUR PAIN FEEL LIKE:ACHING, STABBING, SORE NUMBNESS DURATION:CONTINOUS, CONSTANT, ALL DAY PAIN IS INCREASED BY:ACTIVITIES DISHES. LAUNDRY PAIN IS DECREASED BY:USE OF PAIN MEDICATIONS ICE/HEAT PLAN/GOALS/TREATMENT/INTERVENTION/FOLLOW UP:SEE PLAN NURSING NOTE: -. CURRENT MEDICATIONS TAKING LIPITOR 20 MG TABLET 1 TABLET ORALLY ONCE A DAY TAKING MINOCYCLINE HCL 100 MG CAPSULE 1 CAPSULE ORALLY EVERY 12 HRS TAKING PROAIR HFA 108 (90 BASE) MCG/ACT AEROSOL SOLUTION 2 PUFFS NEEDED INHALATION EVERY 4 HRS TAKING DRISDOL 91810 UNIT CAPSULE 1 CAPSULE ORALLY WEEKLY TAKING CYMBALTA 60 MG CAPSULE DELAYED RELEASE PARTICLES 1 CAPSULE ORALLY ONCE A DAY TAKING TYLENOL WITH CODEINE #3 300-30 MG TABLET 1 TABLET NEEDED ORALLY EVERY 8 HRS NEEDED MDD 3 TAKING ZONISAMIDE 100 MG CAPSULE 1 CAPSULE ORALLY BID NOT-TAKING TRUVADA 200-300 MG TABLET 1 TABLET ORALLY ONCE A DAY NOT-TAKING VITAMIN D-3 1000 UNIT CAPSULE 1 CAPSULE ORALLY 2000UNITS DAILY MEDICATION LIST REVIEWED AND RECONCILED WITH THE PATIENT PAST MEDICAL HISTORY BARBIE ANXIETY, DEPRESSION, BIPOLAR, CLAUSTROPHOBIA MIGRAINE POLYCYSTIC OVARIAN SYNDROME VITAMIN D DEFICIENCY DRY EYES 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 CHRONIC BACK PAIN ABSCESS LEFT SHOULDER 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 PERIPHERAL NEUROPATHY TO HANDS AND FEET CHRONIC FALICULITIS OCCIPITAL NEURALGIA ALLERGIES CEPHALEXIN: HIVES - ALLERGY AZITHROMYCIN: HIVES - ALLERGY AMOXICILLIN: NAUSEA/VOMITING - ALLERGY DOXYCYCLINE (ROSACEA): NAUSEA/VOMITING - ALLERGY TRAMADOL: DIARRHEA/NIGHTMARES - ALLERGY PENICILLIN (FOR ALLERGIES USE ONLY): NAUSEA/VOMITING - ALLERGY METFORMIN: NAUSEA/VOMITING - SIDE EFFECTS MUSHROOMS: RASH - ALLERGY NEXPLANON: RASH - ALLERGY GABAPENTIN: SWELLING - ALLERGY LYRICA: RASH, EYES SWELL UP - ALLERGY SURGICAL HISTORY TONSILECTOMY 2015 TRIAL DCS 06/2015 HYSTERECTOMY 08/18/18 FAMILY HISTORY FATHER: UNKNOWN MOTHER: ALIVE, DIAGNOSED WITH HYPERTENSION, OTHER SPECIFIED CONDITIONS INFLUENCING HEALTH STATUS SIBLINGS: ALIVE MATERNAL GRAND FATHER: DIABETES MATERNAL GRAND MOTHER: DIABETES, OTHER MALIGNANT NEOPLASM OF UNSPECIFIED SITE 3 BROTHER(S) - HEALTHY. MOTHER - FATTY LIVER DISEASEMATERNAL GRANDMOTHER- BREAST CANCER AND UTERAN CANCERPT DENIES FAMILY HISTORY OF SKIN CANCERS. SOCIAL HISTORY GENERAL: TOBACCO USE ARE YOU A:NONSMOKER LATEX QUESTIONNAIRE LATEX ALLERGY : HAVE YOU EVER DEVELOPED ANY TYPE OF REACTION AFTER HANDLING LATEX PRODUCTS SUCH RUBBER GLOVES, CONDOMS, DIAPHRAGMS, BALLOONS, SOCKS, OR UNDERWEAR?NO LATEX ALLERGY : HAVE YOU EVER DEVELOPED ANY TYPE OF REACTION DURING OR AFTER DENTAL APPOINTMENT, VAGINAL/RECTAL EXAMINATION, SURGICAL PROCEDURE, OR ANY OTHER EXPOSURE?NO LATEX RISK : HAVE YOU EVER HAD ANY DIFFICULTY BREATHING OR HIVES AFTER EATING OR HANDLING ANY FRUITS, OR VEGETABLES; SUCH KIWI, BANANAS, STONE FRUITS, OR CHESTNUTSNO LATEX RISK : DO YOU HAVE A PREVIOUS PERSONAL HISTORY OF MORE THAN NINE SURGERIES, SPINA BIFIDA, OR REPEATED CATHERIZATIONS? NO LATEX RISK : ARE YOU FREQUENTLY EXPOSED TO LATEX PRODUCTS IN YOUR OCCUPATION?NO DATE ASKED : 03/06/2020 ALCOHOL SCREENING DID YOU HAVE A DRINK CONTAINING ALCOHOL IN THE PAST YEAR?NO POINTS0 INTERPRETATIONNEGATIVE RECREATIONAL DRUG USE DRUG USE?NO CAFFEINE CAFFEINE USE?NO SCIENTOLOGY SCIENTOLOGY NO PREFERENCE LANGUAGE LANGUAGES SPOKEN:GREEK EDUCATION LEVEL OF EDUCATION:COLLEGE LEARNING BARRIERS / SPECIAL NEEDS CHANGE FROM LAST VISIT?NO BARRIERS TO LEARNING?NO HEARING IMPAIRED?NO VISION IMPAIRED?YES COGNITIVELY IMPAIRED?NO :CORRECTIVE LENSES READINESS TO LEARN?YES LEARNING PREFERENCES?NO LEARNING CAPABILITIES PRESENT?YES EMOTIONAL BARRIERS?NO SPECIAL DEVICES?YES :CANE BAIT MAKER 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 EXERCISE: WALKS. MARITAL STATUS: SINGLE. PAIN CLINIC PFS, CLERGY, PUBLIC HEALTH REFERRALS PFS REFERRAL NEEDED?NO CLERGY REFERRAL NEEDED?NO PUBLIC HEALTH REFERRAL NEEDED?NO WAS THE PROVIDER NOTIFIED OF ANY PERTINENT INFO?YES HAS THE PATIENT BEEN EDUCATED REGARDING HIS/HER PLAN OF CARE?YES HAS THE PATIENT BEEN EDUCATED REGARDING PAIN, THE RISK FOR PAIN, THE IMPORTANCE OF EFFECTIVE PAIN MANAGEMENT, AND THE PAIN ASSESSMENT PROCESS?YES ADVANCE DIRECTIVE ADVANCE DIRECTIVE DISCUSSED WITH PATIENT:YES PT DOES NOT HAVE ANY ADVANCED DIRECTIVES AND SHE DECLINES INFORMATION ON HCP AT THIS TIME. HOSPITALIZATION/MAJOR DIAGNOSTIC PROCEDURE DCS TRIAL 06/2015 HYSTERECTOMY 07/2018 REVIEW OF SYSTEMS CONSTITUTIONAL: ANY RECENT FEVER OR ILLNESS NO . CHILLS NO . GASTROENTEROLOGY: BOWEL INCONTINENCE NO . ANY NEW CHANGE IN BOWEL CONTROL? NO . ABDOMINAL PAIN NO . CONSTIPATION NO . GENITOURINARY: ANY NEW CHANGE IN BLADDER CONTROL? NO . URINARY INCONTINENCE YES WILL BE SEEING PRIMARY FOR . CARDIOLOGY: CHEST PRESSURE NO . CHEST PAIN NO . RESPIRATORY: COUGH NO . SHORTNESS OF BREATH NO . EXAMINATION GENERAL EXAMINATION: GENERALNO ACUTE DISTRESS, WELL NOURISHED AND HYDRATED. PSYCHAPPROPRIATE MOOD AND AFFECT , ORIENTED X 3. 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 CHRONIC PAIN FOLLOW-UP. GIVEN PRESENTING SYMPTOMS RECOMMENDED CONTINUATION OF CURRENT MEDICATION REGIMEN WITH FOLLOW-UP IN 3 MONTHS. PATIENT HAS EXPRESSED UNDERSTANDING OF AND WAS IN AGREEMENT WITH TREATMENT PLAN. GIVEN TIME TO ASK QUESTIONS AND EXPRESS CONCERNS. , ISTOP REGISTRY REVIEWED AND DEMONSTRATES COMPLLIANCE. (REF # [id number] ) BRINGS IN MEDICATIONS WHICH IS APPROPRIATE FOR WHAT WAS DISPENSED. RECENT URINE TOXICOLOGY REVIEWED. NO UNAUTHORIZED MEDICATIONS. NO ILLICIT SUBSTANCES AND PRESCRIBED MEDICATIONS WERE PRESENT. TELEHEALTH VISIT CONDUCTED VIA ZOOM. TIME SPENT WITH PATIENT 6 MINUTES. OTHERS NOTES: VITALS NOT OBTAINED DUE TO VIRTUAL VISIT, PRE-SCREENING COMPLETED, 03/06/20,NA. 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 YES ARE THE PATIENT'S COMPLAINTS CONSISTENT WITH HIS/HER HISTORY OF THE INJURY/ILLNESS? YES IS THE PATIENT'S HISTORY OF THE INJURY/ILLNESS CONSISTENT WITH YOUR OBJECTIVE FINDING? YES WHAT IS THE PERCENTAGE OF TEMPORARY IMPAIRMENT? MODERATE TO MARKED = 66.7% IS THE PATIENT WORKING? NO DOCTOR ON SITE: BISHNU CHALRES MD DISPOSITION & COMMUNICATION FOLLOW UP 3 MONTHS (REASON: WORKER'S COMP. RIGHT SHOULDER PAIN) ELECTRONICALLY SIGNED BY LEONA FREEMAN ON 03/08/2020 AT 08:39 AM EDT DISCLAIMER : THIS IS A VISIT SUMMARY EXTRACTED FROM THE [employer] CHART. IT IS NOT A COPY OF THE [employer] PROGRESS NOTE. KAJAL
== END ==
LOC: M PAIN 10:30
PROVIDERS: ATTEND Family Medicine
DX: M25.511 Pain in right shoulder (principal)

== ENCOUNTER → 2020-05-15 | Outpatient (CLI) | payer OTHER, MEDICAID | LOC: M PAIN 10:30 | PROVIDERS: ATTEND Family Medicine | DX: M54.5 Low back pain (principal) ==

== ENCOUNTER → 2020-06-26 | Outpatient (REF) | payer OTHER, MEDICAID ==
[2020-06-26 13:31] LABS: APPEARANCE, URINE CLEAR (CLEAR); BACTERIA, URINE AUTO NEGATIVE (NEGATIVE); BILIRUBIN, URINE AUTO NEGATIVE (NEGATIVE); BLOOD, URINE BLOOD NEGATIVE (NEGATIVE); COLOR, URINE YELLOW (YELLOW); GLUCOSE, URINE (UA) AUTO NEGATIVE (NEGATIVE); KETONE, URINE AUTO NEGATIVE (NEGATIVE); LEUKOCYTE ESTERASE, URINE AUTO NEGATIVE (NEGATIVE); NITRITE, URINE AUTO NEGATIVE (NEGATIVE); PROTEIN, URINE AUTO NEGATIVE (NEGATIVE); RBC, URINE AUTO 0 /HPF (0-3); SPECIFIC GRAVITY URINE AUTO 1.009 (1.002-1.035); SQUAMOUS EPITHELIAL CELL UR AU 1 /HPF (0-6); UROBILINOGEN, URINE AUTO 0.2 mg/dL (0.0-2.0); WBC, URINE AUTO 1 /HPF (0-3)
== END ==
LOC: M SMT 13:08
PROVIDERS: ATTEND Nurse Practitioner Family
DX: R35.0 Frequency of micturition (principal)

== ENCOUNTER → 2020-06-28 | Outpatient (REF) | payer OTHER, MEDICAID | LOC: M SMT 16:55 | PROVIDERS: ATTEND Nurse Practitioner Family | DX: R35.0 Frequency of micturition (principal) ==

== ENCOUNTER → 2020-07-23 | Outpatient (REF) | payer OTHER, MEDICAID ==
[2020-07-23 18:15] LABS: AMORPHOUS SEDIMENT MODERATE (NEGATIVE); APPEARANCE, URINE TURBID (CLEAR); BACTERIA, URINE AUTO 1+ (NEGATIVE); BILIRUBIN, URINE AUTO NEGATIVE (NEGATIVE); BLOOD, URINE BLOOD NEGATIVE (NEGATIVE); COLOR, URINE YELLOW (YELLOW); GLUCOSE, URINE (UA) AUTO NEGATIVE (NEGATIVE); KETONE, URINE AUTO NEGATIVE (NEGATIVE); LEUKOCYTE ESTERASE, URINE AUTO NEGATIVE (NEGATIVE); MUCUS, URINE LARGE (NEGATIVE); NITRITE, URINE AUTO NEGATIVE (NEGATIVE); PROTEIN, URINE AUTO NEGATIVE (NEGATIVE); RBC, URINE AUTO 0 /HPF (0-3); SPECIFIC GRAVITY URINE AUTO 1.026 (1.002-1.035); SQUAMOUS EPITHELIAL CELL UR AU 9 /HPF (0-6); UROBILINOGEN, URINE AUTO 0.2 mg/dL (0.0-2.0); WBC, URINE AUTO 2 /HPF (0-3)
== END ==
LOC: M SMT 16:50
PROVIDERS: ATTEND Nurse Practitioner Family
DX: N39.0 Urinary tract infection, site not specified (principal)

== ENCOUNTER → 2020-08-15 | Outpatient (CLI) | payer OTHER ==
--- NOTE | 2020-08-17 04:26 | ECWPNPC ---
PATIENT NAME: MIKKI HUDSON : 1985 GENDER: FEMALE VISIT DATE: 08/15/2020 DISCHARGE DATE: 08/15/20 1017 VISIT LOCKED DATE TIME: PHYSICIAN: SUBHASH PAINTER RESOURCE: SUBHASH PAINTER REASON FOR APPOINTMENT 1. [facility] LOW BACK HISTORY OF PRESENT ILLNESS GENERAL: - 34-YEAR-OLD FEMALE IN FOR CHRONIC PAIN FOLLOW-UP. SHE RATES HER PAIN CURRENTLY AT A 7 OUT OF 10 AND DESCRIBES IT RADIATING. PATIENT FEELS THE MEDICATIONS ARE HELPFUL AND DENIES MED SIDE EFFECTS AT THIS TIME. FALL RISK SCREENING: SCREENING :NO FALLS REPORTED IN THE LAST YEAR PAIN SCREENING: PATIENT HAS A COMPLAINT OF ACUTE OR CHRONIC PAIN :YES LOCATION OF PAIN:MID BACK, LOW BACK, LEG(S) INTENSITY OF PAIN (SCALE OF 1 TO 10):7 WHAT DOES YOUR PAIN FEEL LIKE:OTHER RADIATING DURATION:CONTINOUS, CONSTANT PAIN IS INCREASED BY:ACTIVITIES PAIN IS DECREASED BY:USE OF PAIN MEDICATIONS, OTHERS TREATMENT/MEDICATIONS USED TO MANAGE PAIN:NSAIDS, OPIOIDS LEVEL OF RELIEF FROM PAIN TREATMENTS IN THE PAST:25% PAIN HAS INTERFERED WITH THE FOLLOWING:BATHING/DRESSING, WALKING ABILITY, HOUSEWORK, SLEEP, TRANSPORTATION, TOILETING NURSING NOTE: -. PAIN CENTER INTAKE QUESTIONS: DO YOU HAVE A HISTORY OF MRSA? :NO DO YOU TAKE A BLOOD THINNERS? :NO DO YOU HAVE ANY BLEEDING DISORDERS? :NO ANY NEW NUMBNESS OR WEAKNESS IN YOUR LEGS OR ARMS? :YES BILAT FEET ANY PACEMAKER,DEFIBRILLATOR, OR DORSAL COLUMN STIMULATOR? :NO DO YOU HAVE ANY RASHES OR OPEN SORES? :NO ARE YOU ALLERGIC TO IV DYE? :NO ARE YOU DIABETIC? :NO ANY NEW PROBLEMS WITH YOUR MEDICATIONS? :NO HAVE YOU RECEIVED A VACCINE IN THE PAST 30 DAYS? :NO DO YOU PLAN TO RECEIVE A VACCINE IN THE NEXT 21 DAYS? :YES IF SO WHAT VACCINE AND WHEN? FLU VACCINE DO YOU NEED ANY PRESCRIPTION? :NO DO YOU TAKE ANY IMMUNOSUPPRESSIVE MEDICATIONS? :NO IS THERE A CHANCE YOU COULD BE ? :NO ARE YOU BREAST FEEDING? :NO CURRENT MEDICATIONS TAKING LIPITOR 20 MG TABLET 1 TABLET ORALLY ONCE A DAY TAKING PROAIR HFA 108 (90 BASE) MCG/ACT AEROSOL SOLUTION 2 PUFFS NEEDED INHALATION EVERY 4 HRS TAKING DRISDOL 37945 UNIT CAPSULE 1 CAPSULE ORALLY WEEKLY TAKING ZONISAMIDE 100 MG CAPSULE 1 CAPSULE ORALLY BID TAKING DULOXETINE HCL 60 MG CAPSULE DELAYED RELEASE PARTICLES 1 CAPSULE ORALLY ONCE A DAY TAKING OXYBUTYNIN CHLORIDE ER 10 MG TABLET EXTENDED RELEASE 24 HOUR 1 TABLET ORALLY ONCE A DAY TAKING ACETAMINOPHEN-CODEINE 300-30 MG TABLET 1 TABLET NEEDED ORALLY EVERY 8 HRS MDD3 NOT-TAKING MINOCYCLINE HCL 100 MG CAPSULE 1 CAPSULE ORALLY EVERY 12 HRS NOT-TAKING CIPROFLOXACIN HCL 500 MG TABLET 1 TABLET ORALLY EVERY 12 HRS NOT-TAKING CYMBALTA 60 MG CAPSULE DELAYED RELEASE PARTICLES 1 CAPSULE ORALLY ONCE A DAY NOT-TAKING TRUVADA 200-300 MG TABLET 1 TABLET ORALLY ONCE A DAY NOT-TAKING VITAMIN D-3 1000 UNIT CAPSULE 1 CAPSULE ORALLY 2000UNITS DAILY MEDICATION LIST REVIEWED AND RECONCILED WITH THE PATIENT PAST MEDICAL HISTORY BARBIE ANXIETY, DEPRESSION, BIPOLAR, CLAUSTROPHOBIA MIGRAINE POLYCYSTIC OVARIAN SYNDROME VITAMIN D DEFICIENCY DRY EYES 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 CHRONIC BACK PAIN ABSCESS LEFT SHOULDER 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 PERIPHERAL NEUROPATHY TO HANDS AND FEET CHRONIC FALICULITIS OCCIPITAL NEURALGIA ALLERGIES CEPHALEXIN: HIVES - ALLERGY AZITHROMYCIN: HIVES - ALLERGY AMOXICILLIN: NAUSEA/VOMITING - ALLERGY DOXYCYCLINE (ROSACEA): NAUSEA/VOMITING - ALLERGY TRAMADOL: DIARRHEA/NIGHTMARES - ALLERGY PENICILLIN (FOR ALLERGIES USE ONLY): NAUSEA/VOMITING - ALLERGY METFORMIN: NAUSEA/VOMITING - SIDE EFFECTS MUSHROOMS: RASH - ALLERGY NEXPLANON: RASH - ALLERGY GABAPENTIN: SWELLING - ALLERGY LYRICA: RASH, EYES SWELL UP - ALLERGY SURGICAL HISTORY TONSILECTOMY 2015 TRIAL DCS 06/2015 HYSTERECTOMY 08/18/18 FAMILY HISTORY FATHER: UNKNOWN MOTHER: ALIVE, DIAGNOSED WITH HYPERTENSION, OTHER SPECIFIED CONDITIONS INFLUENCING HEALTH STATUS SIBLINGS: ALIVE MATERNAL GRAND FATHER: DIABETES MATERNAL GRAND MOTHER: DIABETES, OTHER MALIGNANT NEOPLASM OF UNSPECIFIED SITE 3 BROTHER(S) - HEALTHY. MOTHER - FATTY LIVER DISEASEMATERNAL GRANDMOTHER- BREAST CANCER AND UTERAN CANCERPT DENIES FAMILY HISTORY OF SKIN CANCERS. SOCIAL HISTORY GENERAL: TOBACCO USE ARE YOU A:NONSMOKER LATEX QUESTIONNAIRE LATEX ALLERGY : HAVE YOU EVER DEVELOPED ANY TYPE OF REACTION AFTER HANDLING LATEX PRODUCTS SUCH RUBBER GLOVES, CONDOMS, DIAPHRAGMS, BALLOONS, SOCKS, OR UNDERWEAR?NO LATEX ALLERGY : HAVE YOU EVER DEVELOPED ANY TYPE OF REACTION DURING OR AFTER DENTAL APPOINTMENT, VAGINAL/RECTAL EXAMINATION, SURGICAL PROCEDURE, OR ANY OTHER EXPOSURE?NO DATE ASKED : 06/26/2020 LATEX RISK : HAVE YOU EVER HAD ANY DIFFICULTY BREATHING OR HIVES AFTER EATING OR HANDLING ANY FRUITS, OR VEGETABLES; SUCH KIWI, BANANAS, STONE FRUITS, OR CHESTNUTSNO LATEX RISK : DO YOU HAVE A PREVIOUS PERSONAL HISTORY OF MORE THAN NINE SURGERIES, SPINA BIFIDA, OR REPEATED CATHERIZATIONS? NO LATEX RISK : ARE YOU FREQUENTLY EXPOSED TO LATEX PRODUCTS IN YOUR OCCUPATION?NO ALCOHOL SCREENING DID YOU HAVE A DRINK CONTAINING ALCOHOL IN THE PAST YEAR?NO POINTS0 INTERPRETATIONNEGATIVE RECREATIONAL DRUG USE DRUG USE?NO CAFFEINE CAFFEINE USE?NO ANGLICAN ANGLICAN NO PREFERENCE LANGUAGE LANGUAGES SPOKEN:CENTRAL AFRICAN EDUCATION LEVEL OF EDUCATION:COLLEGE LEARNING BARRIERS / SPECIAL NEEDS CHANGE FROM LAST VISIT?NO BARRIERS TO LEARNING?NO HEARING IMPAIRED?NO VISION IMPAIRED?YES COGNITIVELY IMPAIRED?NO :CORRECTIVE LENSES READINESS TO LEARN?YES LEARNING PREFERENCES?NO LEARNING CAPABILITIES PRESENT?YES EMOTIONAL BARRIERS?NO SPECIAL DEVICES?YES :CANE MARKETING SERVICES SPECIALIST 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 EXERCISE: WALKS. MARITAL STATUS: SINGLE. PAIN CLINIC PFS, CLERGY, PUBLIC HEALTH REFERRALS PFS REFERRAL NEEDED?NO CLERGY REFERRAL NEEDED?NO PUBLIC HEALTH REFERRAL NEEDED?NO WAS THE PROVIDER NOTIFIED OF ANY PERTINENT INFO?YES HAS THE PATIENT BEEN EDUCATED REGARDING HIS/HER PLAN OF CARE?YES HAS THE PATIENT BEEN EDUCATED REGARDING PAIN, THE RISK FOR PAIN, THE IMPORTANCE OF EFFECTIVE PAIN MANAGEMENT, AND THE PAIN ASSESSMENT PROCESS?YES ADVANCE DIRECTIVE ADVANCE DIRECTIVE DISCUSSED WITH PATIENT:YES PT DOES NOT HAVE ANY ADVANCED DIRECTIVES AND SHE DECLINES INFORMATION ON HCP AT THIS TIME. HOSPITALIZATION/MAJOR DIAGNOSTIC PROCEDURE DCS TRIAL 06/2015 HYSTERECTOMY 07/2018 REVIEW OF SYSTEMS CONSTITUTIONAL: ANY RECENT FEVER NO . CHILLS NO . WEIGHT CHANGE OF UNKNOWN REASONS NO . GASTROENTEROLOGY: NEW UNEXPLAINABLE CHANGES IN BOWEL CONTROL NO . CONSTIPATION NO . GENITOURINARY: ANY NEW CHANGE IN BLADDER CONTROL? NO . NEUROLOGY: NEW ONSET DIZZINESS OR NEUROLOGICAL CHANGES NOT MENTIONED NO . NEW NUMBNESS OR PAIN PATTERNS NOT MENTIONED AND PERTINENT TO TODAY'S VISIT NO . CARDIOLOGY: NEW CHEST PRESSURE NO . NEW CHEST PAIN NO . RESPIRATORY: UNEXPLAINABLE COUGH NO . NEW SHORTNESS OF BREATH NO . VITAL SIGNS WT 329.8 LBS, HT 69 IN, BMI 48.70 INDEX, BP 148/78 MM HG, HR 97 /MIN, RR 20 /MIN, TEMP 97.5 F, OXYGEN SAT % 95%, SAFE IN ENV? (Y/N) Y, NA INITIALS PR 09:30, REVIEWED BY: EM. EXAMINATION GENERAL EXAMINATION: GENERALNO ACUTE DISTRESS, WELL NOURISHED AND HYDRATED. PSYCHAPPROPRIATE MOOD AND AFFECT . LUNGS:CLEAR TO AUSCULTATION BILATERALLY, NO WHEEZES, RHONCHI, RALES. HEART:NO MURMURS, REGULAR RATE AND RHYTHM. ASSESSMENTS INTERVERTEBRAL DISC DISORDER WITH RADICULOPATHY OF LUMBOSACRAL REGION - M51.17 (PRIMARY) TREATMENT INTERVERTEBRAL DISC DISORDER WITH RADICULOPATHY OF LUMBOSACRAL REGION NOTES: 34-YEAR-OLD FEMALE IN FOR CHRONIC PAIN FOLLOW-UP. DISCUSSED SYMPTOMS WITH PATIENT AND RECOMMENDED A PROCEDURE AND AT THIS TIME PATIENT DECLINES PROCEDURE WISHING TO PURSUE ALUMINUM POOL INSTALLER AND/OR ACUPUNCTURE. GIVEN PRESENTING SYMPTOMS RECOMMENDED CONTINUATION OF CURRENT MEDICATION REGIMEN WITH FOLLOW-UP IN 3 MONTHS. PATIENT HAS EXPRESSED UNDERSTANDING OF AND WAS IN AGREEMENT WITH TREATMENT PLAN. GIVEN TIME TO ASK QUESTIONS AND EXPRESS CONCERNS. , ISTOP REGISTRY REVIEWED AND DEMONSTRATES COMPLLIANCE. (REF # [id number] ) BRINGS IN MEDICATIONS WHICH IS APPROPRIATE FOR WHAT WAS DISPENSED. RECENT URINE TOXICOLOGY REVIEWED. NO UNAUTHORIZED MEDICATIONS. NO ILLICIT SUBSTANCES AND PRESCRIBED MEDICATIONS WERE PRESENT. PROCEDURE CODES [id number] ESTABILISHED PATIENT [facility] FACILITY CHARGE DISPOSITION & COMMUNICATION FOLLOW UP 3 MONTHS (REASON: BACK PAIN) ELECTRONICALLY SIGNED BY LEONA FREEMAN ON 08/16/2020 AT 11:42 AM EST DISCLAIMER : THIS IS A VISIT SUMMARY EXTRACTED FROM THE [employer] CHART. IT IS NOT A COPY OF THE [employer] PROGRESS NOTE. TALOND
== END ==
LOC: M PAIN 09:45
PROVIDERS: ATTEND Family Medicine
DX: M51.17 Intervertebral disc disorders with radiculopathy, lumbosacral region (principal); G47.33 Obstructive sleep apnea (adult) (pediatric); F41.9 Anxiety disorder, unspecified; F32.9 Major depressive disorder, single episode, unspecified; G43.909 Migraine, unspecified, not intractable, without status migrainosus; G62.9 Polyneuropathy, unspecified; E55.9 Vitamin D deficiency, unspecified; M79.7 Fibromyalgia; M54.81 Occipital neuralgia; Z79.891 Long term (current) use of opiate analgesic; Z79.899 Other long term (current) drug therapy; Z88.0 Allergy status to penicillin; Z88.1 Allergy status to other antibiotic agents; Z88.8 Allergy status to other drugs, medicaments and biological substances; Z91.018 Allergy to other foods

== ENCOUNTER → 2020-10-16 | Outpatient (REF) | payer OTHER ==
[~2020-10-16] MED LIST changes: +ESCI10TA16; -ESCI10TA2; -ESCI20TA PO; +ESCI20TA16 PO; -MECL12.589 PO; +MECL12.590 PO
[2020-10-16 14:01] LABS: APPEARANCE, URINE HAZY (CLEAR); BACTERIA, URINE AUTO 1+ (NEGATIVE); BILIRUBIN, URINE AUTO NEGATIVE (NEGATIVE); BLOOD, URINE BLOOD NEGATIVE (NEGATIVE); COLOR, URINE YELLOW (YELLOW); GLUCOSE, URINE (UA) AUTO NEGATIVE (NEGATIVE); KETONE, URINE AUTO NEGATIVE (NEGATIVE); LEUKOCYTE ESTERASE, URINE AUTO NEGATIVE (NEGATIVE); NITRITE, URINE AUTO NEGATIVE (NEGATIVE); PROTEIN, URINE AUTO NEGATIVE (NEGATIVE); RBC, URINE AUTO 0 /HPF (0-3); SPECIFIC GRAVITY URINE AUTO 1.014 (1.002-1.035); SQUAMOUS EPITHELIAL CELL UR AU 3 /HPF (0-6); UROBILINOGEN, URINE AUTO 0.2 mg/dL (0.0-2.0); WBC, URINE AUTO 0 /HPF (0-3)
== END ==
LOC: M SMT 13:16
PROVIDERS: ATTEND Nurse Practitioner Family
DX: R35.0 Frequency of micturition (principal)

== ENCOUNTER → 2020-11-27 | Outpatient (CLI) | payer OTHER ==
[~2020-11-27] MED LIST changes: +MECL-136 PO; -MECL12.590 PO
--- NOTE | 2020-11-29 03:59 | ECWPNPC ---
PATIENT NAME: MIKKI HUDSON : 1985 GENDER: FEMALE VISIT DATE: 11/27/2020 DISCHARGE DATE: 11/27/20 1003 VISIT LOCKED DATE TIME: PHYSICIAN: SUBHASH PAINTER RESOURCE: SUBHASH PAINTER REASON FOR APPOINTMENT 1. [facility] LOW BACK HISTORY OF PRESENT ILLNESS DEPRESSION SCREENING: PHQ-9 LITTLE INTEREST OR PLEASURE IN DOING THINGSMORE THAN HALF THE DAYS FEELING DOWN, DEPRESSED, OR HOPELESSMORE THAN HALF THE DAYS TROUBLE FALLING OR STAYING ASLEEP, OR SLEEPING TOO MUCHNEARLY EVERY DAY FEELING TIRED OR HAVING LITTLE ENERGYMORE THAN HALF THE DAYS POOR APPETITE OR OVEREATING MORE THAN HALF THE DAYS FEELING BAD ABOUT YOURSELF-OR THAT YOU ARE A FAILURE OR HAVE LET YOURSELF OR YOUR FAMILY DOWN MORE THAN HALF THE DAYS TROUBLE CONCENTRATING ON THINGS, SUCH READING THE NEWSPAPER OR WATCHING TELEVISION MORE THAN HALF THE DAYS MOVING OR SPEAKING SO SLOWLY THAT OTHER PEOPLE COULD HAVE NOTICED. OR THE OPPOSITE- BEING SO FIDGETY OR RESTLESS THAT YOU HAVE BEEN MOVING AROUND A LOT MORE THAN USUALMORE THAN HALF THE DAYS THOUGHTS THAT YOU WOULD BE BETTER OFF , OR OF HURTING YOURSELF IN SOME WAY?MORE THAN HALF THE DAYS(CONSIDER SUICIDE ASSESSMENT RISK) TOTAL SCORE:19 INTERPRETATIONMODERATELY SEVERE DEPRESSION PHQ-2 (2015 EDITION) LITTLE INTEREST OR PLEASURE IN DOING THINGS?SEVERAL DAYS FEELING DOWN, DEPRESSED, OR HOPELESS?NEARLY EVERY DAY TOTAL SCORE4 35-YEAR-OLD FEMALE IN FOR CHRONIC PAIN FOLLOW-UP. SHE FEELS MEDICATIONS ARE HELPFUL AND DENIES MED SIDE EFFECTS AT THIS TIME. GENERAL: -. FALL RISK SCREENING: SCREENING :NO FALLS REPORTED IN THE LAST YEAR PAIN SCREENING: PATIENT HAS A COMPLAINT OF ACUTE OR CHRONIC PAIN :YES LOCATION OF PAIN:LOW BACK, LEG(S) INTENSITY OF PAIN (SCALE OF 1 TO 10):8 WHAT DOES YOUR PAIN FEEL LIKE:SHARP, STABBING, THROBBING DURATION:CONTINOUS, CONSTANT PAIN IS INCREASED BY:ACTIVITIES PAIN IS DECREASED BY:USE OF PAIN MEDICATIONS NURSING NOTE: -. PAIN CENTER INTAKE QUESTIONS: DO YOU HAVE A HISTORY OF MRSA? :NO DO YOU TAKE A BLOOD THINNERS? :NO DO YOU HAVE ANY BLEEDING DISORDERS? :NO ANY NEW NUMBNESS OR WEAKNESS IN YOUR LEGS OR ARMS? :NO ANY PACEMAKER,DEFIBRILLATOR, OR DORSAL COLUMN STIMULATOR? :NO DO YOU HAVE ANY RASHES OR OPEN SORES? :NO ARE YOU ALLERGIC TO IV DYE? :NO ARE YOU DIABETIC? :NO ANY NEW PROBLEMS WITH YOUR MEDICATIONS? :NO HAVE YOU RECEIVED A VACCINE IN THE PAST 30 DAYS? :NO DO YOU PLAN TO RECEIVE A VACCINE IN THE NEXT 21 DAYS? :NO DO YOU NEED ANY PRESCRIPTION? :YES TYLENOL W CODEINE DO YOU TAKE ANY IMMUNOSUPPRESSIVE MEDICATIONS? :NO DO YOU HAVE ANY KIDNEY OR LIVER DISEASE? :NO IS THERE A CHANCE YOU COULD BE ? :NO ARE YOU BREAST FEEDING? :NO CURRENT MEDICATIONS TAKING LIPITOR 20 MG TABLET 1 TABLET ORALLY ONCE A DAY TAKING PROAIR HFA 108 (90 BASE) MCG/ACT AEROSOL SOLUTION 2 PUFFS NEEDED INHALATION EVERY 4 HRS TAKING DRISDOL 67654 UNIT CAPSULE 1 CAPSULE ORALLY WEEKLY TAKING ZONISAMIDE 100 MG CAPSULE 1 CAPSULE ORALLY BID TAKING DULOXETINE HCL 60 MG CAPSULE DELAYED RELEASE PARTICLES 1 CAPSULE ORALLY ONCE A DAY TAKING OXYBUTYNIN CHLORIDE ER 10 MG TABLET EXTENDED RELEASE 24 HOUR 1 TABLET ORALLY ONCE A DAY TAKING ACETAMINOPHEN-CODEINE 300-30 MG TABLET 1 TABLET NEEDED ORALLY EVERY 8 HRS MDD3 NOT-TAKING MINOCYCLINE HCL 100 MG CAPSULE 1 CAPSULE ORALLY EVERY 12 HRS NOT-TAKING CIPROFLOXACIN HCL 500 MG TABLET 1 TABLET ORALLY EVERY 12 HRS NOT-TAKING CYMBALTA 60 MG CAPSULE DELAYED RELEASE PARTICLES 1 CAPSULE ORALLY ONCE A DAY NOT-TAKING TRUVADA 200-300 MG TABLET 1 TABLET ORALLY ONCE A DAY NOT-TAKING VITAMIN D-3 1000 UNIT CAPSULE 1 CAPSULE ORALLY 2000UNITS DAILY MEDICATION LIST REVIEWED AND RECONCILED WITH THE PATIENT PAST MEDICAL HISTORY BARBIE ANXIETY, DEPRESSION, BIPOLAR, CLAUSTROPHOBIA MIGRAINE POLYCYSTIC OVARIAN SYNDROME VITAMIN D DEFICIENCY DRY EYES 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 CHRONIC BACK PAIN ABSCESS LEFT SHOULDER 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 PERIPHERAL NEUROPATHY TO HANDS AND FEET CHRONIC FALICULITIS OCCIPITAL NEURALGIA ALLERGIES CEPHALEXIN: HIVES - ALLERGY AZITHROMYCIN: HIVES - ALLERGY AMOXICILLIN: NAUSEA/VOMITING - ALLERGY DOXYCYCLINE (ROSACEA): NAUSEA/VOMITING - ALLERGY TRAMADOL: DIARRHEA/NIGHTMARES - ALLERGY PENICILLIN (FOR ALLERGIES USE ONLY): NAUSEA/VOMITING - ALLERGY METFORMIN: NAUSEA/VOMITING - SIDE EFFECTS MUSHROOMS: RASH - ALLERGY NEXPLANON: RASH - ALLERGY GABAPENTIN: SWELLING - ALLERGY LYRICA: RASH, EYES SWELL UP - ALLERGY SOCIAL HISTORY GENERAL: TOBACCO USE ARE YOU A:NONSMOKER LATEX QUESTIONNAIRE LATEX ALLERGY : HAVE YOU EVER DEVELOPED ANY TYPE OF REACTION AFTER HANDLING LATEX PRODUCTS SUCH RUBBER GLOVES, CONDOMS, DIAPHRAGMS, BALLOONS, SOCKS, OR UNDERWEAR?NO LATEX ALLERGY : HAVE YOU EVER DEVELOPED ANY TYPE OF REACTION DURING OR AFTER DENTAL APPOINTMENT, VAGINAL/RECTAL EXAMINATION, SURGICAL PROCEDURE, OR ANY OTHER EXPOSURE?NO DATE ASKED : 10/16/2020 LATEX RISK : HAVE YOU EVER HAD ANY DIFFICULTY BREATHING OR HIVES AFTER EATING OR HANDLING ANY FRUITS, OR VEGETABLES; SUCH KIWI, BANANAS, STONE FRUITS, OR CHESTNUTSNO LATEX RISK : DO YOU HAVE A PREVIOUS PERSONAL HISTORY OF MORE THAN NINE SURGERIES, SPINA BIFIDA, OR REPEATED CATHERIZATIONS? NO LATEX RISK : ARE YOU FREQUENTLY EXPOSED TO LATEX PRODUCTS IN YOUR OCCUPATION?NO ALCOHOL SCREENING DID YOU HAVE A DRINK CONTAINING ALCOHOL IN THE PAST YEAR?NO POINTS0 INTERPRETATIONNEGATIVE RECREATIONAL DRUG USE DRUG USE?NO CAFFEINE CAFFEINE USE?NO LATTER-DAY LATTER-DAY NO PREFERENCE LANGUAGE LANGUAGES SPOKEN:AZERI EDUCATION LEVEL OF EDUCATION:COLLEGE LEARNING BARRIERS / SPECIAL NEEDS CHANGE FROM LAST VISIT?NO BARRIERS TO LEARNING?NO HEARING IMPAIRED?NO VISION IMPAIRED?YES COGNITIVELY IMPAIRED?NO :CORRECTIVE LENSES READINESS TO LEARN?YES LEARNING PREFERENCES?NO LEARNING CAPABILITIES PRESENT?YES EMOTIONAL BARRIERS?NO SPECIAL DEVICES?YES :CANE PARTS CLEANER NEEDED?NO DOMESTIC VIOLENCE DO YOU FEEL SAFE IN YOUR ENVIRONMENT?YES 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 EXERCISE: WALKS. MARITAL STATUS: SINGLE. - PFS REFERRAL NEEDED?NO CLERGY REFERRAL NEEDED?NO PUBLIC HEALTH REFERRAL NEEDED?NO WAS THE PROVIDER NOTIFIED OF ANY PERTINENT INFO?YES HAS THE PATIENT BEEN EDUCATED REGARDING HIS/HER PLAN OF CARE?YES HAS THE PATIENT BEEN EDUCATED REGARDING PAIN, THE RISK FOR PAIN, THE IMPORTANCE OF EFFECTIVE PAIN MANAGEMENT, AND THE PAIN ASSESSMENT PROCESS?YES ADVANCE DIRECTIVE ADVANCE DIRECTIVE DISCUSSED WITH PATIENT:YES PT DOES NOT HAVE ANY ADVANCED DIRECTIVES AND SHE DECLINES INFORMATION ON HCP AT THIS TIME. REVIEW OF SYSTEMS CONSTITUTIONAL: ANY RECENT FEVER NO . CHILLS NO . WEIGHT CHANGE OF UNKNOWN REASONS NO . GASTROENTEROLOGY: NEW UNEXPLAINABLE CHANGES IN BOWEL CONTROL NO . CONSTIPATION NO . GENITOURINARY: ANY NEW CHANGE IN BLADDER CONTROL? NO . NEUROLOGY: NEW ONSET DIZZINESS OR NEUROLOGICAL CHANGES NOT MENTIONED NO . NEW NUMBNESS OR PAIN PATTERNS NOT MENTIONED AND PERTINENT TO TODAY'S VISIT NO . CARDIOLOGY: NEW CHEST PRESSURE NO . PATIENT DENIES NO . RESPIRATORY: UNEXPLAINABLE COUGH NO . NEW SHORTNESS OF BREATH NO . VITAL SIGNS WT 335 LBS, HT 69 IN, BMI 49.47 INDEX, BP 146/72 MM HG, HR 96 /MIN, RR 18 /MIN, TEMP 97 F, OXYGEN SAT % 97, SAFE IN ENV? (Y/N) Y, REVIEWED BY: STEFAN. EXAMINATION GENERAL EXAMINATION: GENERALNO ACUTE DISTRESS, WELL NOURISHED AND HYDRATED. PSYCHAPPROPRIATE MOOD AND AFFECT . LUNGS:CLEAR TO AUSCULTATION BILATERALLY, NO WHEEZES, RHONCHI, RALES. HEART:NO MURMURS, REGULAR RATE AND RHYTHM. ASSESSMENTS INTERVERTEBRAL DISC DISORDER WITH RADICULOPATHY OF LUMBOSACRAL REGION - M51.17 (PRIMARY), RISK: (NULL) TREATMENT INTERVERTEBRAL DISC DISORDER WITH RADICULOPATHY OF LUMBOSACRAL REGION NOTES: 35-YEAR-OLD FEMALE IN FOR CHRONIC PAIN FOLLOW-UP. DISCUSSED QUESTIONS OR WITH PATIENT AND SHE ADMITS THAT SHE IS ACTIVELY IN COUNSELING AND HER THERAPIST IS AWARE. SHE DOES CONTRACT FOR SAFETY AT THIS TIME. GIVEN PRESENTING SYMPTOMS RECOMMENDED CONTINUATION OF CURRENT MEDICATION REGIMEN WITH FOLLOW-UP IN 3 MONTHS. PATIENT HAS EXPRESSED UNDERSTANDING OF AND WAS IN AGREEMENT WITH TREATMENT PLAN. GIVEN TIME TO ASK QUESTIONS AND EXPRESS CONCERNS. , ISTOP REGISTRY REVIEWED AND DEMONSTRATES COMPLLIANCE. (REF # ) BRINGS IN MEDICATIONS WHICH IS APPROPRIATE FOR WHAT WAS DISPENSED. RECENT URINE TOXICOLOGY REVIEWED. NO UNAUTHORIZED MEDICATIONS. NO ILLICIT SUBSTANCES AND PRESCRIBED MEDICATIONS WERE PRESENT. OTHERS CONTINUE ACETAMINOPHEN-CODEINE TABLET, 300-30 MG, 1 TABLET NEEDED, ORALLY, EVERY 8 HRS MDD3, 30 DAYS, 90, REFILLS 0 PROCEDURE CODES FA211 ESTABILISHED PATIENT [facility] CHARGE DISPOSITION & COMMUNICATION FOLLOW UP 3 MONTHS (REASON: LOW BACK PAIN ) ELECTRONICALLY SIGNED BY LEONA FREEMAN ON 11/28/2020 AT 08:13 AM EST DISCLAIMER : THIS IS A VISIT SUMMARY EXTRACTED FROM THE [employer] CHART. IT IS NOT A COPY OF THE [employer] PROGRESS NOTE. KAJAL
== END ==
LOC: M PAIN 09:30
PROVIDERS: ATTEND Family Medicine
DX: M51.17 Intervertebral disc disorders with radiculopathy, lumbosacral region (principal); G47.33 Obstructive sleep apnea (adult) (pediatric); F41.9 Anxiety disorder, unspecified; F31.9 Bipolar disorder, unspecified; E55.9 Vitamin D deficiency, unspecified; M79.7 Fibromyalgia; G62.9 Polyneuropathy, unspecified; M54.81 Occipital neuralgia; Z79.899 Other long term (current) drug therapy; Z88.1 Allergy status to other antibiotic agents; Z88.0 Allergy status to penicillin; Z88.5 Allergy status to narcotic agent; Z88.8 Allergy status to other drugs, medicaments and biological substances; Z91.018 Allergy to other foods

== ENCOUNTER → 2021-02-27 | Outpatient (CLI) | payer OTHER ==
--- NOTE | 2021-03-01 16:55 | ECWPNPC ---
PATIENT NAME: MIKKI HUDSON : 1985 GENDER: FEMALE VISIT DATE: 02/27/2021 DISCHARGE DATE: 02/27/21 1003 VISIT LOCKED DATE TIME: PHYSICIAN: SUBHASH PAINTER RESOURCE: SUBHASH PAINTER REASON FOR APPOINTMENT 1. [facility] LOW BACK HISTORY OF PRESENT ILLNESS GENERAL: HPI 35-YEAR-OLD FEMALE IN FOR CHRONIC PAIN FOLLOW-UP. SHE RATES HER PAIN CURRENTLY AT A 7 OUT OF 10 AND DESCRIBES IT ACHING, AND SHARP. PATIENT FEELS HER MEDICATIONS ARE HELPFUL AND DENIES MED SIDE EFFECTS AT THIS TIME.. -. FALL RISK SCREENING: SCREENING ONE FALL REPORTED IN THE LAST YEAR WITH INJURY. PATIENT DID NOT SEEK IMMEDIATE MEDICAL TREATMENT.. PAIN SCREENING: PATIENT HAS A COMPLAINT OF ACUTE OR CHRONIC PAIN :YES LOCATION OF PAIN:LOW BACK INTENSITY OF PAIN (SCALE OF 1 TO 10):7 WHAT DOES YOUR PAIN FEEL LIKE:ACHING, SHARP DURATION:CONTINOUS, AWAKENS FROM SLEEP PAIN IS INCREASED BY:ACTIVITIES, PROLONGED STANDING PAIN IS DECREASED BY:USE OF PAIN MEDICATIONS, SITTING NURSING NOTE: -. PAIN CENTER INTAKE QUESTIONS: DO YOU HAVE A HISTORY OF MRSA? :NO DO YOU TAKE A BLOOD THINNERS? :NO DO YOU HAVE ANY BLEEDING DISORDERS? :NO ANY NEW NUMBNESS OR WEAKNESS IN YOUR LEGS OR ARMS? :NO ANY PACEMAKER,DEFIBRILLATOR, OR DORSAL COLUMN STIMULATOR? :NO DO YOU HAVE ANY RASHES OR OPEN SORES? :NO ARE YOU ALLERGIC TO IV DYE? :NO ARE YOU DIABETIC? :NO ANY NEW PROBLEMS WITH YOUR MEDICATIONS? :NO HAVE YOU RECEIVED A VACCINE IN THE PAST 30 DAYS? :NO SECOND COVID VACCINATION 01/09/2021 DO YOU PLAN TO RECEIVE A VACCINE IN THE NEXT 21 DAYS? :NO DO YOU NEED ANY PRESCRIPTION? :NO DO YOU TAKE ANY IMMUNOSUPPRESSIVE MEDICATIONS? :NO DO YOU HAVE ANY KIDNEY OR LIVER DISEASE? :NO IS THERE A CHANCE YOU COULD BE ? :NO ARE YOU BREAST FEEDING? :NO CURRENT MEDICATIONS TAKING IBU-200 200 MG TABLET 3 TABLET WITH FOOD OR MILK NEEDED DIRECTED TAKING LIPITOR 20 MG TABLET 1 TABLET ORALLY ONCE A DAY TAKING PROAIR HFA 108 (90 BASE) MCG/ACT AEROSOL SOLUTION 2 PUFFS NEEDED INHALATION EVERY 4 HRS TAKING DRISDOL [id number] UNIT CAPSULE 1 CAPSULE ORALLY WEEKLY TAKING ZONISAMIDE 100 MG CAPSULE 1 CAPSULE ORALLY BID TAKING DULOXETINE HCL 60 MG CAPSULE DELAYED RELEASE PARTICLES 1 CAPSULE ORALLY ONCE A DAY TAKING OXYBUTYNIN CHLORIDE ER 10 MG TABLET EXTENDED RELEASE 24 HOUR 1 TABLET ORALLY ONCE A DAY TAKING ACETAMINOPHEN-CODEINE 300-30 MG TABLET 1 TABLET NEEDED ORALLY EVERY 8 HRS MDD3 TAKING VITAMIN D-3 1000 UNIT CAPSULE 1 CAPSULE ORALLY 2000UNITS DAILY NOT-TAKING MINOCYCLINE HCL 100 MG CAPSULE 1 CAPSULE ORALLY EVERY 12 HRS NOT-TAKING CIPROFLOXACIN HCL 500 MG TABLET 1 TABLET ORALLY EVERY 12 HRS NOT-TAKING CYMBALTA 60 MG CAPSULE DELAYED RELEASE PARTICLES 1 CAPSULE ORALLY ONCE A DAY NOT-TAKING TRUVADA 200-300 MG TABLET 1 TABLET ORALLY ONCE A DAY MEDICATION LIST REVIEWED AND RECONCILED WITH THE PATIENT PAST MEDICAL HISTORY BARBIE ANXIETY, DEPRESSION, BIPOLAR, CLAUSTROPHOBIA MIGRAINE POLYCYSTIC OVARIAN SYNDROME VITAMIN D DEFICIENCY DRY EYES 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 CHRONIC BACK PAIN ABSCESS LEFT SHOULDER 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 PERIPHERAL NEUROPATHY TO HANDS AND FEET CHRONIC FALICULITIS OCCIPITAL NEURALGIA ALLERGIES CEPHALEXIN: HIVES - ALLERGY AZITHROMYCIN: HIVES - ALLERGY AMOXICILLIN: NAUSEA/VOMITING - ALLERGY DOXYCYCLINE (ROSACEA): NAUSEA/VOMITING - ALLERGY TRAMADOL: DIARRHEA/NIGHTMARES - ALLERGY PENICILLIN (FOR ALLERGIES USE ONLY): NAUSEA/VOMITING - ALLERGY METFORMIN: NAUSEA/VOMITING - SIDE EFFECTS MUSHROOMS: RASH - ALLERGY NEXPLANON: RASH - ALLERGY GABAPENTIN: SWELLING - ALLERGY LYRICA: RASH, EYES SWELL UP - ALLERGY FAMILY HISTORY FATHER: UNKNOWN MOTHER: ALIVE, DIAGNOSED WITH HYPERTENSION, OTHER SPECIFIED CONDITIONS INFLUENCING HEALTH STATUS SIBLINGS: ALIVE MATERNAL GRAND FATHER: DIABETES MATERNAL GRAND MOTHER: DIABETES, OTHER MALIGNANT NEOPLASM OF UNSPECIFIED SITE 3 BROTHER(S) - HEALTHY. MOTHER - FATTY LIVER DISEASEMATERNAL GRANDMOTHER- BREAST CANCER AND UTERAN CANCERPT DENIES FAMILY HISTORY OF SKIN CANCERS. SOCIAL HISTORY GENERAL: TOBACCO USE ARE YOU A:NONSMOKER LATEX QUESTIONNAIRE LATEX ALLERGY : HAVE YOU EVER DEVELOPED ANY TYPE OF REACTION AFTER HANDLING LATEX PRODUCTS SUCH RUBBER GLOVES, CONDOMS, DIAPHRAGMS, BALLOONS, SOCKS, OR UNDERWEAR?NO LATEX ALLERGY : HAVE YOU EVER DEVELOPED ANY TYPE OF REACTION DURING OR AFTER DENTAL APPOINTMENT, VAGINAL/RECTAL EXAMINATION, SURGICAL PROCEDURE, OR ANY OTHER EXPOSURE?NO LATEX RISK : HAVE YOU EVER HAD ANY DIFFICULTY BREATHING OR HIVES AFTER EATING OR HANDLING ANY FRUITS, OR VEGETABLES; SUCH KIWI, BANANAS, STONE FRUITS, OR CHESTNUTSNO LATEX RISK : DO YOU HAVE A PREVIOUS PERSONAL HISTORY OF MORE THAN NINE SURGERIES, SPINA BIFIDA, OR REPEATED CATHERIZATIONS? NO LATEX RISK : ARE YOU FREQUENTLY EXPOSED TO LATEX PRODUCTS IN YOUR OCCUPATION?NO DATE ASKED : 02/27/2021 ALCOHOL USE: NO. ALCOHOL SCREENING DID YOU HAVE A DRINK CONTAINING ALCOHOL IN THE PAST YEAR?NO POINTS0 INTERPRETATIONNEGATIVE RECREATIONAL DRUG USE DRUG USE?NO CAFFEINE CAFFEINE USE?NO TENRIISM TENRIISM NO PREFERENCE LANGUAGE LANGUAGES SPOKEN:LEBANESE EDUCATION LEVEL OF EDUCATION:COLLEGE LEARNING BARRIERS / SPECIAL NEEDS CHANGE FROM LAST VISIT?NO BARRIERS TO LEARNING?NO HEARING IMPAIRED?NO VISION IMPAIRED?YES :CORRECTIVE LENSES COGNITIVELY IMPAIRED?NO READINESS TO LEARN?YES LEARNING PREFERENCES?NO LEARNING CAPABILITIES PRESENT?YES EMOTIONAL BARRIERS?NO SPECIAL DEVICES?YES :CANE TRACER POWDER BLENDER NEEDED?NO DOMESTIC VIOLENCE DO YOU FEEL SAFE IN YOUR ENVIRONMENT?YES 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 EXERCISE: WALKS. MARITAL STATUS: SINGLE. - PFS REFERRAL NEEDED?NO CLERGY REFERRAL NEEDED?NO PUBLIC HEALTH REFERRAL NEEDED?NO WAS THE PROVIDER NOTIFIED OF ANY PERTINENT INFO?YES HAS THE PATIENT BEEN EDUCATED REGARDING HIS/HER PLAN OF CARE?YES HAS THE PATIENT BEEN EDUCATED REGARDING PAIN, THE RISK FOR PAIN, THE IMPORTANCE OF EFFECTIVE PAIN MANAGEMENT, AND THE PAIN ASSESSMENT PROCESS?YES ADVANCE DIRECTIVE ADVANCE DIRECTIVE DISCUSSED WITH PATIENT:YES PT DOES NOT HAVE ANY ADVANCED DIRECTIVES AND SHE DECLINES INFORMATION ON HCP AT THIS TIME. REVIEW OF SYSTEMS CONSTITUTIONAL: ANY RECENT FEVER NO . CHILLS NO . WEIGHT CHANGE OF UNKNOWN REASONS NO . GASTROENTEROLOGY: NEW UNEXPLAINABLE CHANGES IN BOWEL CONTROL NO . CONSTIPATION NO . GENITOURINARY: ANY NEW CHANGE IN BLADDER CONTROL? NO . NEUROLOGY: NEW ONSET DIZZINESS OR NEUROLOGICAL CHANGES NOT MENTIONED NO . NEW NUMBNESS OR PAIN PATTERNS NOT MENTIONED AND PERTINENT TO TODAY'S VISIT NO . CARDIOLOGY: NEW CHEST PRESSURE NO . PATIENT DENIES NO . RESPIRATORY: UNEXPLAINABLE COUGH NO . NEW SHORTNESS OF BREATH NO . VITAL SIGNS WT 342.2 LBS, HT 69 IN, BMI 50.53 INDEX, BP 174/96 MM HG, REPEAT BP 142/82 MANUAL BP, HR 81 /MIN, RR 20 /MIN, TEMP 98.7 F, OXYGEN SAT % 96%, SAFE IN ENV? (Y/N) YES, NA INITIALS SC 09:34, REVIEWED BY: JULIANN BP RETAKEN 142/82 LEFT ARM. TOI SANCHEZ MA. EXAMINATION GENERAL EXAMINATION: GENERALNO ACUTE DISTRESS, WELL NOURISHED AND HYDRATED. PSYCHAPPROPRIATE MOOD AND AFFECT . LUNGS:CLEAR TO AUSCULTATION BILATERALLY, NO WHEEZES, RHONCHI, RALES. HEART:NO MURMURS, REGULAR RATE AND RHYTHM. ASSESSMENTS INTERVERTEBRAL DISC DISORDER WITH RADICULOPATHY OF LUMBOSACRAL REGION - M51.17 (PRIMARY) CHRONIC PRESCRIPTION OPIATE USE - Z79.891 TREATMENT INTERVERTEBRAL DISC DISORDER WITH RADICULOPATHY OF LUMBOSACRAL REGION NOTES: 35-YEAR-OLD FEMALE IN FOR CHRONIC PAIN FOLLOW-UP. GIVEN PRESENTING SYMPTOMS RECOMMENDED CONTINUATION OF CURRENT MEDICATION REGIMEN WITH FOLLOW-UP IN 3 MONTHS. PATIENT HAS EXPRESSED UNDERSTANDING OF AND WAS IN AGREEMENT TREATMENT PLAN. GIVEN TIME TO ASK QUESTIONS AND EXPRESS CONCERNS. ISTOP REGISTRY REVIEWED AND DEMONSTRATES COMPLLIANCE. (REF #[id number] ) BRINGS IN MEDICATIONS WHICH IS APPROPRIATE FOR WHAT WAS DISPENSED. RECENT URINE TOXICOLOGY REVIEWED. NO UNAUTHORIZED MEDICATIONS. NO ILLICIT SUBSTANCES AND PRESCRIBED MEDICATIONS WERE PRESENT. CHRONIC PRESCRIPTION OPIATE USE LAB: URINE TEST GROUP TOI SANCHEZ 02/27/2021 10:01:01 AM > LAST DOSE: TYLENOL WITH CODEINE 02/22/2021 AT 10AM PROCEDURE CODES FA211 ESTABILISHED PATIENT [facility] CHARGE DISPOSITION & COMMUNICATION FOLLOW UP 3 MONTHS (REASON: BACK PAIN) ELECTRONICALLY SIGNED BY LEONA FREEMAN ON 02/28/2021 AT 08:23 AM EDT DISCLAIMER : THIS IS A VISIT SUMMARY EXTRACTED FROM THE [employer] CHART. IT IS NOT A COPY OF THE [employer] PROGRESS NOTE. MTDD
== END ==
LOC: M PAIN 09:30
PROVIDERS: ATTEND Family Medicine
DX: M51.17 Intervertebral disc disorders with radiculopathy, lumbosacral region (principal); G47.33 Obstructive sleep apnea (adult) (pediatric); F41.9 Anxiety disorder, unspecified; F31.9 Bipolar disorder, unspecified; F40.240 Claustrophobia; G43.909 Migraine, unspecified, not intractable, without status migrainosus; E55.9 Vitamin D deficiency, unspecified; E28.2 Polycystic ovarian syndrome; M79.7 Fibromyalgia; G62.9 Polyneuropathy, unspecified; H04.123 Dry eye syndrome of bilateral lacrimal glands; M54.81 Occipital neuralgia; Z79.891 Long term (current) use of opiate analgesic; Z79.899 Other long term (current) drug therapy; Z88.0 Allergy status to penicillin; Z88.1 Allergy status to other antibiotic agents; Z88.5 Allergy status to narcotic agent; Z88.8 Allergy status to other drugs, medicaments and biological substances; Z91.018 Allergy to other foods

== ENCOUNTER → 2021-07-19 | Outpatient (CLI) | payer OTHER | LOC: M PAIN 09:30 | PROVIDERS: ATTEND Anesthesiology | DX: M54.50 Low back pain, unspecified (principal); G47.33 Obstructive sleep apnea (adult) (pediatric); F41.9 Anxiety disorder, unspecified; F31.9 Bipolar disorder, unspecified; G43.909 Migraine, unspecified, not intractable, without status migrainosus; E28.2 Polycystic ovarian syndrome; E55.9 Vitamin D deficiency, unspecified; H04.123 Dry eye syndrome of bilateral lacrimal glands; M79.7 Fibromyalgia; G62.9 Polyneuropathy, unspecified; Z79.899 Other long term (current) drug therapy; Z88.0 Allergy status to penicillin; Z88.1 Allergy status to other antibiotic agents; Z88.8 Allergy status to other drugs, medicaments and biological substances; Z91.018 Allergy to other foods ==

== ENCOUNTER → 2022-05-27 | Outpatient (CLI) | payer OTHER | LOC: M PLAIMG 09:21 | PROVIDERS: ATTEND Psychiatry & Neurology Neurology | DX: R42 Dizziness and giddiness (principal); R51.9 Headache, unspecified ==

== ENCOUNTER 2022-11-10 10:07 | Emergency (ER) | payer OTHER ==
[~2022-11-10] VITALS: Ht 175.3 cm; Wt 152.3 kg
[2022-11-10] MEDS ORDERED: IBUP200T46 PO (10:36)
[2022-11-10] MEDS ORDERED: ACETAMINOPHEN 500 MG TAB PO ONE (14:40)
[2022-11-10 15:14] VITALS: BP 167/94
[2022-11-10] MEDS ORDERED: diazePAM 10MG/2ML SYRINGE IV ONE (16:50)
[2022-11-10] MEDS ORDERED: LIDOCAINE 5% (LIDODERM) PATCH TD ONE (16:50)
[2022-11-10] MEDS ORDERED: KETOROLAC 30 MG/ML 1ML VIAL IV ONE (16:50)
[2022-11-10 17:30] LABS: BASO % 0.4 % (0.0-1.0); EOS # 0.1 10^3/uL (0.0-0.5); EOS % 1.1 % (0.0-3.0); HEMOGLOBIN 13.8 g/dl (12.0-15.5); LYMPH # 3.9 10^3/uL (1.5-5.0); LYMPH % 38.3 % (24.0-44.0); MEAN CORPUSCULAR HEMOGLOBIN 29.3 pg (27.0-33.0); MEAN CORPUSCULAR HGB CONC 32.9 g/dl (32.0-36.5); MEAN CORPUSCULAR VOLUME 89.2 fl (80.0-96.0); MONO # 0.7 10^3/uL (0.0-0.8); MONO % 6.9 % (2.0-8.0); NEUTROPHILS # 5.4 10^3/uL (1.5-8.5); PLATELET COUNT, AUTOMATED 330 10^3/uL (150-450); RED BLOOD COUNT 4.71 10^6/uL (4.00-5.40); WHITE BLOOD COUNT 10.3 10^3/uL (4.0-10.0)
[2022-11-10 17:45] LABS: LIPASE 34 U/L (12-53)
[2022-11-10 17:48] LABS: ALKALINE PHOSPHATASE 64 U/L (46-116); ALT/SGPT 36 U/L (7.0-40); AST/SGOT < 8 U/L (<34); BILIRUBIN,DIRECT 0.1 MG/DL (<0.4); BILIRUBIN,TOTAL 0.3 MG/DL (0.3-1.2); TOTAL PROTEIN 7.5 G/DL (5.7-8.2)
[2022-11-10] MEDS ORDERED: ASPE4PAD TOP (18:20)
[2022-11-10] MEDS ORDERED: METH-1165 PO (18:20)
== END 2022-11-10 18:34 | disposition home or self-care (01) ==
LOC: M ED 10:07
DX: M54.50 Low back pain, unspecified (principal); R10.9 Unspecified abdominal pain; K80.20 Calculus of gallbladder without cholecystitis without obstruction; E78.5 Hyperlipidemia, unspecified; R16.0 Hepatomegaly, not elsewhere classified; J45.909 Unspecified asthma, uncomplicated; Z90.710 Acquired absence of both cervix and uterus; Z88.1 Allergy status to other antibiotic agents; Z88.0 Allergy status to penicillin; Z88.8 Allergy status to other drugs, medicaments and biological substances; Z91.018 Allergy to other foods; Z79.51 Long term (current) use of inhaled steroids; Z79.899 Other long term (current) drug therapy
CPT/HCPCS: 74176; 80047; 80076; 81000; 81015; 83690; 84702; 85025; 96374; 96375; 99284; J1885; J3360

== ENCOUNTER → 2023-03-10 | Outpatient (REF) | payer OTHER ==
[~2023-03-10] MED LIST changes: +ASPE4PAD TOP; +IBUP200T46 PO; +METH-1165 PO
[2023-03-10 13:21] LABS: HEMOGLOBIN A1c 5.3 % (4.0-6.0)
[2023-03-10 13:37] LABS: ALBUMIN 4.1 G/DL (3.2-5.2); ALKALINE PHOSPHATASE 57 U/L (46-116); ALT/SGPT 32 U/L (7.0-40); AST/SGOT 13 U/L (<34); BILIRUBIN,TOTAL 0.4 MG/DL (0.3-1.2); BLOOD UREA NITROGEN 19 MG/DL (9-23); CARBON DIOXIDE LEVEL 25 MMOL/L (20-31); CHLORIDE LEVEL 102 MMOL/L (98-107); CHOLESTEROL LEVEL 203 MG/DL (<200); CHOLESTEROL RISK RATIO 4.87 (<5); CREATININE FOR GFR 0.79 MG/DL (0.55-1.30); GLOMERULAR FILTRATION RATE > 60.0 (>60); GLUCOSE, FASTING 85 MG/DL (60-100); HDL CHOLESTEROL 41.6 MG/DL (>40); LDL CHOLESTEROL 121.6 MG/DL (<100); NON-HDL-C 161.4 MG/DL; POTASSIUM SERUM 4.7 MMOL/L (3.5-5.1); SODIUM LEVEL 136 MMOL/L (136-145); TOTAL PROTEIN 7.3 G/DL (5.7-8.2); TRIGLYCERIDES LEVEL 199 MG/DL (<150)
[2023-03-10 13:39] LABS: THYROID STIMULATING HORMONE 2.307 uIU/ML (0.55-4.78); TOTAL 25(OH) VITAMIN D 16.8 NG/ML (20.0-100.0)
== END ==
LOC: M LAB REF 12:22
PROVIDERS: ATTEND Nurse Practitioner Family
DX: E78.00 Pure hypercholesterolemia, unspecified (principal); Z68.42 Body mass index [BMI] 45.0-49.9, adult; E66.9 Obesity, unspecified; E55.9 Vitamin D deficiency, unspecified

== ENCOUNTER → 2023-09-02 | Outpatient (REF) | payer OTHER ==
[2023-09-02 13:07] LABS: ALBUMIN 3.9 G/DL (3.2-5.2); ALKALINE PHOSPHATASE 60 U/L (46-116); ALT/SGPT 30 U/L (7.0-40); AST/SGOT 10 U/L (<34); BILIRUBIN,TOTAL 0.4 MG/DL (0.3-1.2); BLOOD UREA NITROGEN 19 MG/DL (9-23); CALCIUM LEVEL 9.5 MG/DL (8.5-10.1); CARBON DIOXIDE LEVEL 27 MMOL/L (20-31); CHLORIDE LEVEL 103 MMOL/L (98-107); CREATININE FOR GFR 0.78 MG/DL (0.55-1.30); GLOMERULAR FILTRATION RATE > 60.0 (>60); GLUCOSE, FASTING 95 MG/DL (60-100); POTASSIUM SERUM 4.4 MMOL/L (3.5-5.1); SODIUM LEVEL 134 MMOL/L (136-145); TOTAL PROTEIN 7.4 G/DL (5.7-8.2)
[2023-09-02 13:09] LABS: THYROID STIMULATING HORMONE 2.036 uIU/ML (0.55-4.78)
[2023-09-02 13:10] LABS: FREE T4 1.04 NG/DL (0.89-1.76)
[2023-09-02 13:16] LABS: HEMOGLOBIN A1c 5.3 % (4.0-6.0)
== END ==
LOC: M LAB REF 12:19
PROVIDERS: ATTEND Family Medicine Addiction Medicine
DX: E88.819 Insulin resistance, unspecified (principal)

== ENCOUNTER → 2024-02-03 | Outpatient (REF) | payer OTHER ==
[2024-02-03 15:44] LABS: HEMOGLOBIN A1c 5.4 % (4.0-6.0)
[2024-02-03 16:01] LABS: ALBUMIN 3.8 G/DL (3.2-5.2); ALKALINE PHOSPHATASE 65 U/L (46-116); ALT/SGPT 26 U/L (7.0-40); AST/SGOT 13 U/L (<34); BILIRUBIN,TOTAL 0.4 MG/DL (0.3-1.2); BLOOD UREA NITROGEN 19 MG/DL (9-23); CALCIUM LEVEL 9.5 MG/DL (8.5-10.1); CARBON DIOXIDE LEVEL 26 MMOL/L (20-31); CHLORIDE LEVEL 103 MMOL/L (98-107); CHOLESTEROL LEVEL 220 MG/DL (<200); CHOLESTEROL RISK RATIO 5.26 (<5); CREATININE FOR GFR 0.83 MG/DL (0.55-1.30); GLOMERULAR FILTRATION RATE > 60.0 (>60); GLUCOSE, FASTING 92 MG/DL (60-100); HDL CHOLESTEROL 41.8 MG/DL (>40); LDL CHOLESTEROL 123.2 MG/DL (<100); NON-HDL-C 178.2 MG/DL; POTASSIUM SERUM 4.8 MMOL/L (3.5-5.1); SODIUM LEVEL 137 MMOL/L (136-145); TOTAL PROTEIN 7.6 G/DL (5.7-8.2); TRIGLYCERIDES LEVEL 275 MG/DL (<150)
== END ==
LOC: M LAB REF 13:21
PROVIDERS: ATTEND Family Medicine Addiction Medicine
DX: E78.00 Pure hypercholesterolemia, unspecified (principal)

== ENCOUNTER 2025-06-21 16:19 | Emergency (ER) | payer OTHER ==
[~2025-06-21] VITALS: Ht 175.3 cm; Wt 149.6 kg
[~2025-06-21 16:19] MED LIST changes: -PREG25CA PO; +PREG25CA63 PO
[2025-06-21 19:33] VITALS: BP 164/94; TEMP 99.3; O2SAT 97
[2025-06-21] MEDS: IBUPROFEN 600 MG TAB PO ONE (19:38)
[2025-06-21] MEDS: ACETAMINOPHEN 325 MG TAB PO ONE (19:38)
[2025-06-21] MEDS: NORCO 5/325MG TABLET (HOME DOSE PACK) PO ONE (20:47)
[2025-06-22] MEDS ORDERED: NAPR-1405 PO (20:43)
== END 2025-06-21 20:49 | disposition home or self-care (01) ==
LOC: M ED 16:19 → EDBD 16:19 → M ED 20:49
DX: S06.0X0A Concussion without loss of consciousness, initial encounter (principal); S52.132A Displaced fracture of neck of left radius, initial encounter for closed fracture; S00.11XA Contusion of right eyelid and periocular area, initial encounter; Y92.019 Unspecified place in single-family (private) house as the place of occurrence of the external cause; Y93.9 Activity, unspecified; Y99.9 Unspecified external cause status; W01.198A Fall on same level from slipping, tripping and stumbling with subsequent striking against other object, initial encounter; I10 Essential (primary) hypertension; F90.9 Attention-deficit hyperactivity disorder, unspecified type; Z88.0 Allergy status to penicillin; Z88.1 Allergy status to other antibiotic agents; Z88.5 Allergy status to narcotic agent; Z91.018 Allergy to other foods; Z79.1 Long term (current) use of non-steroidal anti-inflammatories (NSAID); Z79.51 Long term (current) use of inhaled steroids; Z79.899 Other long term (current) drug therapy; Z79.810 Long term (current) use of selective estrogen receptor modulators (SERMs)

== ENCOUNTER 2025-06-22 17:10 | Emergency (ER) | payer OTHER ==
[~2025-06-22] VITALS: Ht 175.3 cm; Wt 150.3 kg
[2025-06-22] MEDS: IBUPROFEN 600 MG TAB PO ONE (20:20)
[2025-06-22] MEDS: ACETAMINOPHEN 325 MG TAB PO ONE (20:21)
[2025-06-22 20:40] VITALS: BP 123/75; TEMP 98.3; O2SAT 97
[2025-06-22] MEDS ORDERED: NAPR-1405 PO (20:43)
== END 2025-06-22 21:07 | disposition home or self-care (01) ==
LOC: M ED 17:10
DX: R20.2 Paresthesia of skin (principal); S00.11XA Contusion of right eyelid and periocular area, initial encounter; S00.83XA Contusion of other part of head, initial encounter; S04.51XA Injury of facial nerve, right side, initial encounter; Y92.019 Unspecified place in single-family (private) house as the place of occurrence of the external cause; Y93.9 Activity, unspecified; Y99.9 Unspecified external cause status; W01.198A Fall on same level from slipping, tripping and stumbling with subsequent striking against other object, initial encounter; I10 Essential (primary) hypertension; Z88.1 Allergy status to other antibiotic agents; Z88.5 Allergy status to narcotic agent; Z88.0 Allergy status to penicillin; Z91.018 Allergy to other foods; Z79.1 Long term (current) use of non-steroidal anti-inflammatories (NSAID); Z79.51 Long term (current) use of inhaled steroids; Z79.899 Other long term (current) drug therapy; Z79.810 Long term (current) use of selective estrogen receptor modulators (SERMs)